=== PATIENT | female | born 1965 ===

== ENCOUNTER 2021-06-12 12:54 | Inpatient (IN) | payer MEDICAID, SELFPAY ==
[2021-06-12] VITALS (7 sets, daily range): BP systolic 120–182; BP diastolic 64–80; PULSE 77–91; RESP 16–20; TEMP 36.5–36.9; O2SAT 95–99; BMI 31.5
--- NOTE | ~2021-06-12 | CT_ITS ---
EXAMINATION: CT ABDOMEN AND PELVIS WITH CONTRAST CLINICAL INFORMATION: Nausea, vomiting, diarrhea. Epigastric abdominal pain. COMPARISON: None TECHNIQUE: Multidetector volumetric images were obtained from the superior aspect of the liver through the pubic symphysis following administration 85 mL of Omnipaque 350 intravenous contrast. Sagittal and coronal reformatted images were obtained on the technologist's workstation. Oral contrast: No This CT examination was performed using dose optimization techniques as appropriate, variously including the following: *Automated exposure control *Adjustment of mA and/or kV according to patient size (this includes techniques or standardized protocols for targeted exams where dose is matched to indication/reason for exam; i.e. extremities or head) *Use of iterative reconstruction technique DLP: 668 mGy-cm FINDINGS: LUNG BASES: Minimal groundglass opacities are seen at the lung bases favoring atelectasis. LIVER, GALLBLADDER, AND BILIARY TREE: The liver is normal in size, shape, and attenuation. No focal hepatic lesion or biliary ductal dilatation is present. Cholecystectomy. PANCREAS: The pancreas is abnormal. There is diffuse atrophy of the pancreatic parenchyma with calcifications throughout the parenchyma. Diffuse pancreatic ductal dilatation, measuring up to 0.9 cm. There is mild stranding in the fat along the pancreas, particularly at the pancreatic tail. Fluid is seen tracking along the greater curvature of the stomach. This appears somewhat well marginated. SPLEEN: Unremarkable. ADRENAL GLANDS: Unremarkable. KIDNEYS AND URETERS: The kidneys are normal in size, shape, and attenuation. No hydronephrosis, hydroureter, or calculi seen. No perinephric stranding. BLADDER: Unremarkable. GASTROINTESTINAL TRACT: The stomach is unremarkable. Normal caliber of the small bowel. No obstruction. Normal appendix. No colonic wall thickening or acute inflammatory change. No free air. ABDOMINAL WALL: No significant hernia is appreciated. LYMPH NODES: Normal. VASCULAR: Normal caliber aorta with mild atherosclerotic calcifications. PELVIC VISCERA: Anteverted uterus. Prominent endometrium measuring 0.9 cm. OSSEOUS STRUCTURES: No acute or suspicious osseous abnormality. Degenerative changes throughout the spine. Anterior fusion of the T10 and T11 vertebral bodies. CT/CT abdomen pelvis w con IMPRESSION: Appearance of chronic pancreatitis, with diffuse calcifications throughout the atrophied parenchyma. Dilated pancreatic duct. Stranding along the pancreas suggests acute on chronic process. Additionally, fluid tracking along the greater curvature of the stomach may represent a pseudocyst. Thickening of the endometrial canal. Suggest nonemergent gynecologic evaluation..
[2021-06-12 16:41] LABS: MANUAL DIFF FLAG NO
[2021-06-12 16:45] LABS: Glucose Urine UA NEG (NEG); Leukocyte Esterase Urine 1+ (NEG); Nitrite Urine NEG (NEG); UACC Culture Trigger YES; Urine Blood NEG (NEG); Urine Ketones 15 MG/DL (NEG); Urine Protein NEG (NEG-TRACE)
[2021-06-12 16:47] LABS: Basophils Percent Auto 0.3 % (0-2); Eosinophils Percent Auto 0.1 % (0-4); Hematocrit 36.8 % (37-47); Hemoglobin 12.2 g/dl (12.0-16.0); Imm Gran Abs Auto 0.03 X10*3/uL (0.00-0.03); Imm Gran Pct Auto 0.3 % (0.0-0.4); Lymphocytes Absolute Auto 0.6 X10*3/uL (1.2-4.9); Lymphocytes Percent Auto 6.6 % (20-40); Mean Corpuscular HGB Conc 33.2 g/dl (31.0-35.0); Mean Corpuscular Hemoglobin 29.7 pg (27.0-33.0); Mean Corpuscular Volume 89.5 fL (80-98); Mean Platelet Volume 11.4 fL (9.4-12.3); Monocytes Absolute Auto 0.4 X10*3/uL (0.1-1.2); Monocytes Percent Auto 4.5 % (2-11); Neutrophils Absolute Auto 8.6 X10*3/uL (2.0-8.3); Neutrophils Percent Auto 88.2 % (45-73); Platelet Count 198 X10*3/uL (160-400); Red Blood Count 4.11 X10*6/uL (4.20-5.50); Red Cell Distribution Width 13.5 % (11.0-16.0); White Blood Count 9.7 X10*3/uL (4.8-10.8)
[2021-06-12 16:48] LABS: Appearance Urine CLEAR; Color Urine YELLOW
[2021-06-12 16:55] LABS: RBC Urine 0 /HPF (0); Squamous Epithelial Cell Urine 1+ /LPF; UACC CULT YES
--- NOTE | 2021-06-12 17:11 | ED_ITS ---
HPI - Abdominal Pain General Chief Complaint: Abdominal Pain Stated Complaint: abdominal pain Time Seen by Provider: 06/12/21 16:17 Source: patient Mode of arrival: ambulatory Limitations: no limitations History of Present Illness HPI narrative: 56-year-old female with a past medical history of pancreatitis, cirrhosis, hypertension and prediabetic presenting to the ED with complaints of 5 days of epigastric abdominal pain with associated nausea/vomiting and diarrhea. She reports this started after she ate some pork. She reports she has had this in the past a few years ago in [place]. Reports recent alcohol use is the day prior to this abdominal pain started she drank some beers. 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 She denies any fevers, chills, dizziness, headaches, chest pain, shortness of breath, palpitations, radiation of the abdominal pain, dysuria, hematuria, black or bloody stools, constipation, weakness, recent travel or sick contacts or any other symptoms complaints or concerns at this time MD elicited complaint: abdominal pain Pertinent past history: other (Pancreatitis) Onset (ago): day(s) (Five days) Pain Consistency: constant Location: epigastric Severity: moderate Quality: aching and sharp Radiation: none Migration to: no migration Exacerbating factors: eating Relieving factors: nothing Context: other (After eating pork this started) Associated symptoms: nausea, vomiting and diarrhea Related Data Home Medications Medication Instructions Recorded Confirmed citalopram 20 mg tablet 1 tab PO DAILY 06/12/21 06/12/21 folic acid 1 mg tablet 1 tab PO DAILY 06/12/21 06/12/21 furosemide 20 mg tablet 1 tab PO DAILY 06/12/21 06/12/21 lactulose 10 gram/15 mL oral 15 ml PO Q OTHER DAY 06/12/21 06/12/21 solution multivitamin 1 tab PO DAILY 06/12/21 06/12/21 omeprazole 20 mg capsule,delayed 1 cap PO DAILY 06/12/21 06/12/21 release spironolactone 50 mg tablet 1 tab PO DAILY 06/12/21 06/12/21 Allergies Allergy/AdvReac Type Severity Reaction Status Date / Time Penicillins Allergy Itching Verified 06/12/21 13:15 Review of Systems Review of Systems Constitutional : No Weight loss, No Fever, No Chills, No Night Sweats, No Fatigue, No Malaise ENT/Mouth: No ear pain, No sore throat, No Difficulty swallowing Cardiovascular : No Chest Pain, No SOB, No Dyspnea on Exertion, No Orthopnea, NoEdema, No Palpitations Respiratory : No Cough, No Sputum, No Wheezing, No Dyspnea Gastrointestinal : Positive nausea/vomiting/epigastric abdominal pain/diarrhea, No blood streaked emesis, No coffee-ground emesis, No gross hematemesis, No blood streak stool, No gross hematochezia, No Melena Genitourinary : No irregular bleeding, No Dysuria, No Urinary Frequency, No Hematuria,No Urinary Incontinence, No Urgency, No Flank Pain Musculoskeletal : No joint pain, No Myalgias, No Joint Swelling Skin : No Skin Lesions, No rash Neuro : No Weakness, No Numbness, No Paresthesias, No Loss of Consciousness, NoDizziness, No Headache Psych : No Social Issues, Heme/Lymph: No Bruising, No Bleeding,No Lymphadenopathy Endocrine : No Polyuria, No Polydipsia, No Temperature Intolerance Yes all other systems are reviewed and are negative Physical Exam Vital Signs: Vital Signs: Last Vital Signs Temp 98.5 F 06/12/21 19:02 Pulse 91 06/12/21 19:02 Resp 17 06/12/21 19:02 BP 130/66 06/12/21 19:02 Pulse Ox 98 06/12/21 19:02 Body Mass Index 31.5 vital signs have been reviewed as normal and appeared to be correct. Blood pressure hypertensive at 145/64. Heart rate normal. Respiration rate normal. Temperature normal. Oxygen saturation normal. Appearance: Alert. Oriented X3. No acute distress. Head: Normal external exam. Normocephalic. Eyes: PERRLA. EOMI. Conjunctiva and sclera normal. Eyelids normal. ENT: Pharynx normal. Uvula midline. Moist mucous membranes. Neck: Normal inspection. Neck supple. FROM. No adenopathy. No meningeal signs. CVS: Normal heart rate and rhythm. Heart sound normal. No murmurs noted. Pulses normal throughout. Respiratory: No respiratory distress. Painless inspiration. Breath sounds normal. No wheezes/rales/rhonchi noted. Chest nontender. No accessory muscle usage noted or decreased air movement noted. Abdomen: Soft and moderate tenderness to palpation to epigastric area with guarding Nondistended. No rigidity. Bowel sounds normal in all 4 quadrants. No distention noted. No organomegaly noted. No visible injury noted. No rebound tenderness. Negative Rovsing sign. Negative obturator's sign. Negative psoas sign. Negative Rich sign. Back: No CVA tenderness. Full range of motion noted. Skin: Skin warm and dry. Normal skin color. Normal skin turgor. No rashes/lesions/lacerations noted. Extremities: Extremities exhibit normal range of motion. Extremities nontender. Neuro: Oriented X 3. No motor deficit. No sensory deficit. Reflexes normal. Normal steady gait. Course Course Course Narrative: 6:50pm - 56-year-old female presenting to the ED with complaints of epigastric abdominal pain for the past 5 days worse today with associated nausea/vomiting/diarrhea. History of pancreatitis in the past. Has a history of cholecystectomy. Reports this started after eating pork. Reports recent alcohol use is the day prior to this abdominal pain started she drank some beers. 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 No recent travel or sick contacts. On exam patient is alert and oriented x3. Not in any acute distress. Mildly hypertensive otherwise other vitals are withi n normal limits. CV RRR. Lungs clear to auscultation. Patient with mild epigastric abdominal pain with guarding. No CVA tenderness is noted. Plan: Labs, CT scan abdomen pelvis with IV contrast. Provide a L of IV fluids 4 mg of Zofran and 4 mg of morphine and re-evaluate. Reevaluation(s) Reevaluation #1: - Labs reviewed carbon dioxide 20. Anion gap 22. Random glucose 144. Alkaline phosphate 193. LDH 365. Total protein 8.6. Lipase 112. Otherwise all other labs are within normal limits. White blood cell count revealed +1 leukocytes otherwise no evidence of UTI. - CT scan abdomen and pelvis revealed acute on chronic pancreatitis - therefore at this time will consult with hospitalist Dr. Irizarry Time: 18:53 MDM - Abdominal Pain Medical Records Attestation: I reviewed the patient's medical records. Lab Data Attestation: I reviewed the patient's lab results. Result diagrams: 06/12/21 16:14 06/12/21 16:14 Labs: Lab Results 06/12/21 06/12/21 06/12/21 Range/Units 16:14 16:14 16:14 WBC 9.7 (4.8-10.8) X10*3/uL RBC 4.11 L (4.20-5.50) X10*6/uL Hgb 12.2 (12.0-16.0) g/dl Hct 36.8 L (37-47) % MCV 89.5 (80-98) fL MCH 29.7 (27.0-33.0) pg MCHC 33.2 (31.0-35.0) g/dl RDW 13.5 (11.0-16.0) % Plt Count 198 (160-400) X10*3/uL MPV 11.4 (9.4-12.3) fL Immature Gran % (Auto) 0.3 (0.0-0.4) % Neut % (Auto) 88.2 H (45-73) % Lymph % (Auto) 6.6 L (20-40) % Power % (Auto) 4.5 (2-11) % Eos % (Auto) 0.1 (0-4) % Baso % (Auto) 0.3 (0-2) % Lymph # (Auto) 0.6 L (1.2-4.9) X10*3/uL Power # (Auto) 0.4 (0.1-1.2) X10*3/uL Eos # (Auto) 0.0 (0.0-0.4) X10*3/uL Baso # (Auto) 0.0 (0.0-0.2) X10*3/uL Abs Immat Gran (auto) 0.03 (0.00-0.03) X10*3/uL Absolute Neuts (auto) 8.6 H (2.0-8.3) X10*3/uL Absolute Nucleated RBC 0.000 (0.0-0.012) X10*3/uL Nucleated RBC % (auto) 0.0 (0.0-0.2) /100WBC Sodium 136 (135-145) mmol/L Potassium 4.8 (3.3-5.1) mmol/L Chloride 99 (96-108) mmol/L Carbon Dioxide 20 L (22-29) mmol/L Anion Gap 22 H (12-20) BUN 13 (9-16) mg/dL Creatinine 0.81 (0.5-1.4) mg/dL Estim Creat Clear Calc 76.2 Estimated GFR > 60 Random Glucose 144 H (60-115) mg/dL Calcium 9.3 (8.4-10.2) mg/dL Total Bilirubin 0.5 (0.0-1.0) mg/dL Direct Bilirubin < 0.2 (0.0-0.5) mg/dL AST 29 (5-31) U/L ALT 19 (0-31) U/L Alkaline Phosphatase 193 H (39-117) U/L Lactate Dehydrogenase 365 H (122-220) U/L Total Protein 8.6 H (6.5-8.0) g/dL Albumin 4.2 (3.5-5.0) g/dL Lipase 112 H (8-78) U/L Urine Color YELLOW Urine Appearance CLEAR Urine pH 6.0 (5.0-8.0) Ur Specific [place] 1.020 (1.005-1.025) Urine Protein NEG (NEG-TRACE) MG/DL Urine Glucose (UA) NEG (NEG) MG/DL Urine Ketones 15 (NEG) MG/DL Urine Blood NEG (NEG) Urine Nitrite NEG (NEG) Ur Leukocyte Esterase 1+ H (NEG) Urine RBC 0 (0) /HPF Urine WBC 1-4 (0-4) /HPF Ur Squamous Epith Cells 1+ /LPF Urine Bacteria NONE /LPF Imaging Data CT scan abdomen pelvis with IV contrast: Attestation: I personally reviewed and interpreted this imaging study as follows: Radiologist's impression: FINDINGS: LUNG BASES: Minimal groundglass opacities are seen at the lung bases favoring atelectasis.? LIVER, GALLBLADDER, AND BILIARY TREE: The liver is normal in size, shape, and attenuation. No focal hepatic lesion or biliary ductal dilatation is present. Cholecystectomy.? PANCREAS: The pancreas is abnormal. There is diffuse atrophy of the pancreatic parenchyma with calcifications throughout the parenchyma. Diffuse pancreatic ductal dilatation, measuring up to 0.9 cm. There is mild stranding in the fat along the pancreas, particularly at the pancreatic tail. Fluid is seen tracking along the greater curvature of the stomach. This appears somewhat well marginated.? SPLEEN: Unremarkable.? ADRENAL GLANDS: Unremarkable.? KIDNEYS AND URETERS: The kidneys are normal in size, shape, and attenuation. No hydronephrosis, hydroureter, or calculi seen. No perinephric stranding. ? BLADDER: Unremarkable.? GASTROINTESTINAL TRACT: The stomach is unremarkable. Normal caliber of the small bowel. No obstruction. Normal appendix. No colonic wall thickening or acute inflammatory change. No free air.? ABDOMINAL WALL: No significant hernia is appreciated.? LYMPH NODES: Normal. VASCULAR: Normal caliber aorta with mild atherosclerotic calcifications. PELVIC VISCERA: Anteverted uterus. Prominent endometrium measuring 0.9 cm.? OSSEOUS STRUCTURES: No acute or suspicious osseous abnormality. Degenerative changes throughout the spine. Anterior fusion of the T10 and T11 vertebral bodies.? CT/CT abdomen pelvis w con IMPRESSION: Appearance of chronic pancreatitis, with diffuse calcifications throughout the atrophied parenchyma. Dilated pancreatic duct. Stranding along the pancreas suggests acute on chronic process. Additionally, fluid tracking along the greater curvature of the stomach may represent a pseudocyst. ? Thickening of the endometrial canal. Suggest nonemergent gynecologic evaluation..? Critical Care Time Critical Care Time Critical Care Time: Yes Total Critical Care Time: 60 Attestation: I personally attest to this time spent taking care of the patient Discharge Plan Discharge Clinical Impression: Pancreatitis Patient Disposition: Admitted As Inpatient [facility] Past Medical History Attestation statement: The following information was validated with the patient. Medical History delivery delivered Cirrhosis HTN (hypertension) Prediabetes Surgical History History of cholecystectomy Social History Social History Alcohol intake: current Alcohol intake frequency: holidays/special occasions only Patient Tobacco Use Status: Never used Tobacco Use of substances other than those prescribed or required for medical reasons: No Advance Directives: No Advance Directives Information Provided: No Patient : No
[2021-06-12] MEDS: 0.9 % Sodium Chloride 1,000 ML 999 ML IVCONT (17:16)
[2021-06-12] MEDS: Morphine Sulfate 4 MG/ML CARTRIDGE IVPUSH ×2 (17:16→22:31)
[2021-06-12 17:20] LABS: Alanine Aminotransferase 19 U/L (0-31); Albumin Level 4.2 g/dL (3.5-5.0); Alkaline Phosphatase 193 U/L (39-117); Anion Gap 22 (12-20); Aspartate Amino Transferase 29 U/L (5-31); Bilirubin Direct < 0.2 mg/dL (0.0-0.5); Bilirubin Total 0.5 mg/dL (0.0-1.0); Blood Urea Nitrogen 13 mg/dL (9-16); Calcium 9.3 mg/dL (8.4-10.2); Carbon Dioxide 20 mmol/L (22-29); Chloride 99 mmol/L (96-108); Creatinine Clr Calc Pharmacy 76.2; Estimated Glomerular Filt Rate > 60; Glucose Random 144 mg/dL (60-115); Lactate Dehydrogenase 365 U/L (122-220); Lipase 112 U/L (8-78); Potassium 4.8 mmol/L (3.3-5.1); Sodium 136 mmol/L (135-145); Total Protein 8.6 g/dL (6.5-8.0)
--- NOTE | 2021-06-12 17:23 | PC.NURSE ---
Pt to ct via stretcher alert and in no acute distress
[2021-06-12] MEDS: iohexoL 350 MG/ML 100 ML INFUS..BTL IV (17:35)
--- NOTE | 2021-06-12 19:07 | PC.NURSE ---
Pt aaox4, resting on stretcher in NAD, breathing with ease on RA. Pt denies pain/discomfort at this time, denies n/v/d. Pt reports hx of pancreatitis, states the doctor told me I was staying in the hospital. Pt is agreeable to plan for admission. Pt VSS. This RN obtained covid swab, to send to lab for processing. Pt offers no complaints. Stretcher in low locked position, rails raised, call [facility] within reach.
--- NOTE | 2021-06-12 19:20 | PHA.MEDREC ---
Pharmacy Consult ? Medication Reconciliation Pharmacy has completed the medication reconciliation.
[2021-06-12 19:25] LABS: Triglycerides 205 mg/dL
[2021-06-12 19:30] LABS: COVID-19 Test Negative (Negative); IDNOW Serial# 9DD0AD1C
[2021-06-12] MEDS: cefTRIAXone sodium 1 GM in 0.9 % Sodium Chloride 50 ML IV (23:35)
--- NOTE | 2021-06-12 23:35 | PC.NURSE ---
this rn TT Juan C regarding ? need for blood cultures before rocephin. Before Juan C answered, this RN asked Zohreh LERMA who had cared for pt in ED prior to admission if she wanted cultures for pt. Zohreh placed order as precaution. This RN saw Juan C in ED and asked if she wanted the BC which she said was not needed for this pt
[2021-06-13] VITALS (8 sets, daily range): BP systolic 105–143; BP diastolic 58–66; PULSE 69–87; RESP 16–20; TEMP 36.1–36.8; O2SAT 92–96
[2021-06-13] MEDS: Lactulose 20 GM/30 ML SOLUTION 10 GM PO (01:17)
[2021-06-13] MEDS: Heparin Sodium,Porcine 5,000 UNIT/ML VIAL 5000 UNIT SUBCUT ×3 (01:17→22:51)
[2021-06-13] MEDS: Lactated Ringers 1,000 ML 150 ML IVCONT ×3 (01:17→15:04)
[2021-06-13] MEDS: Morphine Sulfate 4 MG/ML CARTRIDGE IVPUSH ×3 (03:27→16:53)
[2021-06-13 05:06] LABS: MANUAL DIFF FLAG NO
[2021-06-13 05:22] LABS: Basophils Percent Auto 0.3 % (0-2); Eosinophils Absolute Auto 0.1 X10*3/uL (0.0-0.4); Eosinophils Percent Auto 0.9 % (0-4); Hematocrit 31.8 % (37-47); Hemoglobin 10.5 g/dl (12.0-16.0); Imm Gran Abs Auto 0.02 X10*3/uL (0.00-0.03); Imm Gran Pct Auto 0.3 % (0.0-0.4); Lymphocytes Percent Auto 15.5 % (20-40); Mean Corpuscular Hemoglobin 29.7 pg (27.0-33.0); Mean Corpuscular Volume 90.1 fL (80-98); Mean Platelet Volume 11.2 fL (9.4-12.3); Monocytes Absolute Auto 0.6 X10*3/uL (0.1-1.2); Monocytes Percent Auto 9.2 % (2-11); Neutrophils Absolute Auto 4.7 X10*3/uL (2.0-8.3); Neutrophils Percent Auto 73.8 % (45-73); Platelet Count 181 X10*3/uL (160-400); Red Blood Count 3.53 X10*6/uL (4.20-5.50); Red Cell Distribution Width 13.4 % (11.0-16.0); White Blood Count 6.4 X10*3/uL (4.8-10.8)
[2021-06-13 05:37] LABS: Anion Gap 13 (12-20); Blood Urea Nitrogen 10 mg/dL (9-16); Calcium 8.6 mg/dL (8.4-10.2); Carbon Dioxide 25 mmol/L (22-29); Chloride 103 mmol/L (96-108); Creatinine Clr Calc Pharmacy 77.1; Estimated Glomerular Filt Rate > 60; Glucose Random 110 mg/dL (60-115); Potassium 4.4 mmol/L (3.3-5.1); Sodium 137 mmol/L (135-145)
--- NOTE | 2021-06-13 05:56 | P.HPHOSP_ITS ---
History of Present Illness Date of Service: 06/12/21 Chief Complaint: Abdominal pain This is a 56-year-old female with past medical history of liver cirrhosis secondary to alcohol abuse, HTN, prediabetic who presents the hospital with complaints of epigastric abdominal pain. Patient reports that his symptoms star harmony on Wednesday, worsened over the next few days. Initially she thought it was gas and thought it would go away but her symptoms only worsened. She describes the pain as epigastric, radiating to the back, 10/10, intermittent, worse with eating, she has not developed nausea and vomiting, no diarrhea or constipation. She denies any fever or chills, no chest pain or shortness of breath, no urinary symptoms and no lower extremity edema. No numbness tingling or weakness. No headache or change in vision Patient reports that she used to be an alcoholic, she had an drink for 6 years but relapsed on Wednesday. She has not drink since Wednesday Review of system otherwise negative On arrival to the ED patient hemodynamically stable with no significant abnormal vitals except for a blood pressure 1 80s over 76 that has now normalize Labs are significant for WBC count of 6.4, hemoglobin of 10.4, lipase of 112, alk-phos of 1 and 3, LDH of 365, triglycerides of 205, UA that is positive for some leukocyte Estrace and WBC, CT abdomen showed appearance chronic pancreatitis with diffuse calcifications throughout the a triple eyed parenchyma. Dilated pancreatic duct. Stranding along the pancreas suggest acute on chronic process. Review of Systems Review of Systems: Yes all other systems are reviewed and are negative [facility] Medical History (Updated 06/13/21 @ 06:02 by Yadira Irizarry MD) delivery delivered Cirrhosis HTN (hypertension) Prediabetes Surgical History History of cholecystectomy Social History Household Members: Family Housing: House Do you presently have visiting nurse or other home services: No Alcohol intake: current Alcohol intake frequency: holidays/special occasions only Patient Tobacco Use Status: Never used Tobacco Use of substances other than those prescribed or required for medical reasons: No Have you been hit, kicked, punched, or otherwise hurt by someone within the past year? If so, by whom?: No Do you feel safe in your current relationship?: No Is there a partner from a previous relationship who is making you feel unsafe now?: No Are you made to feel afraid or neglected: No Advance Directives: No Advance Directives Information Provided: No Do you have thoughts of harming others: None Do you have a plan to hurt others: No Plan Recently lost weight without trying: No Nutrition Risks: No Nutritional Risk Patient : No Meds Allergies Allergy/AdvReac Type Severity Reaction Status Date / Time Penicillins Allergy Itching Verified 06/12/21 13:15 Active Medications: Current Medications Generic Name Dose Route Start Last Admin Trade Name Freq PRN Reason Stop Dose Admin Acetaminophen 650 mg 06/12/21 23:25 Acetaminophen 325 Mg Tablet PO Q6H PRN Pain, Mild (Pain Scale 1-3) Escitalopram Oxalate 10 mg 06/13/21 09:00 Escitalopram Oxalate 10 Mg Tablet PO DAILY [facility] Folic Acid 1 mg 06/13/21 09:00 Folic Acid 1 Mg Tablet PO DAILY [facility] Furosemide 20 mg 06/13/21 09:00 Furosemide 20 Mg Tablet PO DAILY [facility] Protocol Heparin Sodium (Porcine) 5,000 unit 06/12/21 23:25 06/13/21 01:17 Heparin Sodium,Porcine 5,000 Unit/Ml Vial SUBCUT 5,000 unit Q12H [facility] Administration Ceftriaxone Sodium 1 gm/ 50 mls @ 100 mls/hr 06/12/21 23:00 06/13/21 00:35 Sodium Chloride IV Infused Q24H [facility]ED Infusion Lactated Ringer's 1,000 mls @ 150 mls/hr 06/12/21 23:25 06/13/21 01:17 Lr IVCONT 150 mls/hr .Q6H40M JAVED Administration Lactulose 10 gm 06/12/21 23:25 06/13/21 01:17 Lactulose 20 Gm/30 Ml Solution PO 10 gm Q48H [facility]AVED Administration Morphine Sulfate 4 mg 06/12/21 23:25 06/13/21 03:27 Morphine Sulfate 4 Mg/Ml Cartridge IVPUSH 4 mg Q4H PRN Administration Pain, Severe (Pain Scale 7-10) Multivitamins/Vitamin C 1 tab 06/13/21 09:00 Multivitamin Tablet PO DAILY [facility] Omeprazole 20 mg 06/13/21 09:00 Omeprazole 20 Mg Capsule. PO DAILY [facility] Ondansetron HCl 4 mg 06/12/21 23:25 Ondansetron Hcl 4 Mg/2 Ml Vial IVPUSH Q8H PRN Nausea and Vomiting Pharmacy Consult 1 each 06/12/21 18:58 Consult Rx Perform Med Rec MISCELLANE ONCE PRN Consult order Sodium Chloride 3 ml 06/13/21 00:00 06/13/21 01:18 0.9 % Sodium Chloride Flush 3 Ml Syringe [facility]FLUSH [facility] Spironolactone 50 mg 06/13/21 09:00 Spironolactone 25 Mg Tablet PO DAILY [facility] Protocol Home Medications Medication Instructions Recorded Confirmed Last Taken Type citalopram 20 mg tablet 1 tab PO DAILY 06/12/21 06/12/21 06/12/21 History folic acid 1 mg tablet 1 tab PO DAILY 06/12/21 06/12/21 06/12/21 History furosemide 20 mg tablet 1 tab PO DAILY 06/12/21 06/12/21 06/12/21 History lactulose 10 gram/15 mL oral 15 ml PO Q OTHER DAY 06/12/21 06/12/21 06/09/21 History solution multivitamin 1 tab PO DAILY 06/12/21 06/12/21 06/12/21 History omeprazole 20 mg capsule,delayed 1 cap PO DAILY 06/12/21 06/12/21 06/12/21 History release spironolactone 50 mg tablet 1 tab PO DAILY 06/12/21 06/12/21 06/12/21 History Physical Exam Vital Signs and Narrative: Vital Signs: Last Vital Signs Temp 97.2 F 06/13/21 03:34 Pulse 87 06/13/21 03:34 Resp 16 06/13/21 03:34 BP 113/66 06/13/21 03:34 Pulse Ox 92 06/13/21 03:34 Body Mass Index 31.5 Const: General: cooperative and no acute distress Orie ntation/consciousness: patient oriented x3 Eyes: General: appearance normal, both eyes and all related structures Resp: Effort & Inspection: normal respiratory effort and able to speak in complete sentences Cardio: Rate: regular rate Rhythm: regular rhythm GI: Other: Epigastric tenderness, no rebound, No guarding Palpation (GI): Soft to palpation Auscultation: normal bowel sounds Skin: General skin exam: no rashes or lesions noted Neuro: General: patient oriented x3 Cognition (Neuro): normal cognition Extrem: General: Yes normal to inspection and Yes no pedal edema Results Labs CBC and Chem 7: 06/13/21 04:24 06/13/21 04:24 Labs: Laboratory Results - last 24 hr 06/12/21 06/12/21 06/12/21 16:14 16:14 16:14 MCV 89.5 MCH 29.7 MCHC 33.2 RDW 13.5 Plt Count 198 MPV 11.4 Immature Gran % (Auto) 0.3 Neut % (Auto) 88.2 H Lymph % (Auto) 6.6 L Desha % (Auto) 4.5 Eos % (Auto) 0.1 Baso % (Auto) 0.3 Lymph # (Auto) 0.6 L [place]ha # (Auto) 0.4 Eos # (Auto) 0.0 Baso # (Auto) 0.0 Abs Immat Gran (auto) 0.03 Absolute Neuts (auto) 8.6 H Absolute Nucleated RBC 0.000 Nucleated RBC % (auto) 0.0 Anion Gap 22 H Estim Creat Clear Calc 76.2 Estimated GFR > 60 Random Glucose 144 H Calcium 9.3 Total Bilirubin 0.5 Direct Bilirubin < 0.2 AST 29 ALT 19 Alkaline Phosphatase 193 H Lactate Dehydrogenase 365 H Total Protein 8.6 H Albumin 4.2 Triglycerides 205 Lipase 112 H Urine Color YELLOW Urine Appearance CLEAR Urine pH 6.0 Ur Specific [place] 1.020 Urine Protein NEG Urine Glucose (UA) NEG Urine Ketones 15 Urine Blood NEG Urine Nitrite NEG Ur Leukocyte Esterase 1+ H Urine RBC 0 Urine WBC 1-4 Ur Squamous Epith Cells 1+ Urine Bacteria NONE COVID-19 ([facility]) COVID-19 Clin Com 06/12/21 06/13/21 06/13/21 19:06 04:24 04:24 MCV 90.1 MCH 29.7 MCHC 33.0 RDW 13.4 Plt Count 181 MPV 11.2 Immature Gran % (Auto) 0.3 Neut % (Auto) 73.8 H Lymph % (Auto) 15.5 L Desha % (Auto) 9.2 Eos % (Auto) 0.9 Baso % (Auto) 0.3 Lymph # (Auto) 1.0 L [place]ha # (Auto) 0.6 Eos # (Auto) 0.1 Baso # (Auto) 0.0 Abs Immat Gran (auto) 0.02 Absolute Neuts (auto) 4.7 Absolute Nucleated RBC 0.000 Nucleated RBC % (auto) 0.0 Anion Gap 13 Estim Creat Clear Calc 77.1 Estimated GFR > 60 Random Glucose 110 Calcium 8.6 D Total Bilirubin Direct Bilirubin AST ALT Alkaline Phosphatase Lactate Dehydrogenase Total Protein Albumin Triglycerides Lipase Urine Color Urine Appearance Urine pH Ur Specific [place] Urine Protein Urine Glucose (UA) Urine Ketones Urine Blood Urine Nitrite Ur Leukocyte Esterase Urine RBC Urine WBC Ur Squamous Epith Cells Urine Bacteria COVID-19 ([facility]) Negative COVID-19 Clin Com See Note Imaging Radiologist's Impressions: Impressions Abdomen/Pelvis CT 06/12/21 16:47 IMPRESSION: Appearance of chronic pancreatitis, with diffuse calcifications throughout the atrophied parenchyma. Dilated pancreatic duct. Stranding along the pancreas suggests acute on chronic process. Additionally, fluid tracking along the greater curvature of the stomach may represent a pseudocyst. Thickening of the endometrial canal. Suggest nonemergent gynecologic evaluation.. Assessment and Plan (1) Pancreatitis: Status: Acute (2) History of alcohol abuse: Status: Acute 56-year-old female who presents to the hospital with abdominal pain found to ackerman ve acute pancreatitis # abdominal pain - secondary to acute pancreatitis - will treat with IV fluids, - pain management # acute pancreatitis - most likely secondary to alcohol abuse - normal triglyceride level, status post cholecystectomy in the past, no evidence of stone in the bile duct - will treat with IV fluid - NPO # history of alcohol abuse - last drink was Wednesday - patient denies any withdrawal symptoms - has not had any withdrawal symptoms since Wednesday - will start on folic acid and time # hypertension - stable - can you home medication DVT prophylaxis: Heparin subQ Quality Stroke Does the patient have a stroke diagnosis?: No VTE Prior VTE?: No VTE Risk Level:: Medical - moderate - high VTE Device Contraindication: Treatment Not Indicated VTE Drug Contraindication: N/A - Med Ordered
[2021-06-13] MEDS: Folic Acid 1 MG TABLET PO (09:03)
[2021-06-13] MEDS: Thiamine HCL 100 MG TABLET PO (09:03)
[2021-06-13] MEDS: Escitalopram Oxalate 10 MG TABLET PO (09:04)
[2021-06-13] MEDS: Multivitamin TABLET 1 TAB PO (09:04)
[2021-06-13] MEDS: Omeprazole 20 MG CAPSULE.DR PO (09:04)
[2021-06-13] MEDS: Spironolactone 25 MG TABLET 50 MG PO (09:05)
[2021-06-13] MEDS: Furosemide 20 MG TABLET PO (09:06)
--- NOTE | 2021-06-13 13:18 | MHC.CM.PN ---
nurse care connector note electronic medical reciord reviewed along with case discussed with staff nurse and hospitlist patient repiorted she is followed by dr qureshi at the [facility] she also reported ekta she had covid in 2019 and recived the second covid shot moderna 04/22/21 she reported she is independent in all adls and mobility she has no servuices in the home or dme services patient reported she had histroy of etoh abuwe and hads developed cirrosis and has not been drinking over the last 6 years she reported she has depression but does not see anyone and does not want to see anyone. patient was admitted with acute pancreatitis discharge plan hoem no services pcp patient instructe educated about he importance of having a health care proxyd to call for post hospitla discharge follow up transportation family
[2021-06-13] MEDS: 0.9 % Sodium Chloride Flush 3 ML SYRINGE IVFLUSH (15:05)
--- NOTE | 2021-06-13 15:15 | P.PNIM_ITS ---
Subjective Subjective Date of Service: 06/13/21 Interval History: the patient was seen and evaluated this morning Laying in bed, complaining of pain in epigastric area feels hungry Denies any fever, chills or shortness of breath No reported other overnight events. Systemic review: No fever, chills or weakness No chest pain, palpitation No shortness of breath or coughing Reporting abdominal pain and some nausea No urinary symptoms No any rash or wounds Physical Exam Vital Signs: Vital Signs: Last Vital Signs Temp 97.0 F 06/13/21 12:00 Pulse 70 06/13/21 12:00 Resp 18 06/13/21 12:00 BP 114/58 L 06/13/21 12:00 Pulse Ox 94 06/13/21 12:00 Body Mass Index 31.5 Const: Other: Constitutional : Alert, oriented, in mild distress from the pain Neck : Normal inspection, Supple Cardiovascular : RRR, S1 S2, no lower extremity edema Respiratory : Good bilateral air entry, no crackles, wheezes or rhonchi Gastrointestinal: soft, lax, decreased bowel sounds, generalized tenderness mainly in the epigastric area Skin : Warm/Dry, No rash Neurological : Alert & oriented x3, No focal deficit Objective Data Current Medications Generic Name Dose Route Start Last Admin Trade Name Freq PRN Reason Stop Dose Admin Acetaminophen 650 mg 06/12/21 23:25 Acetaminophen 325 Mg Tablet PO Q6H PRN Pain, Mild (Pain Scale 1-3) Escitalopram Oxalate 10 mg 06/13/21 09:00 06/13/21 09:04 Escitalopram Oxalate 10 Mg Tablet PO 10 mg DAILY [facility] Administration Folic Acid 1 mg 06/13/21 09:00 06/13/21 09:03 Folic Acid 1 Mg Tablet PO 1 mg DAILY [facility] Administration Furosemide 20 mg 06/13/21 09:00 06/13/21 09:06 Furosemide 20 Mg Tablet PO 20 mg DAILY [facility] Administration Protocol Heparin Sodium (Porcine) 5,000 unit 06/12/21 23:25 06/13/21 11:24 Heparin Sodium,Porcine 5,000 Unit/Ml Vial SUBCUT 5,000 unit Q12H [facility] Administration Ceftriaxone Sodium 1 gm/ 50 mls @ 100 mls/hr 06/12/21 23:00 06/13/21 00:35 Sodium Chloride IV Infused Q24H [facility] Infusion Lactated Ringer's 1,000 mls @ 150 mls/hr 06/12/21 23:25 06/13/21 15:04 Lr IVCONT 150 mls/hr .Q6H40M [facility] Administration Lactulose 10 gm 06/12/21 23:25 06/13/21 01:17 Lactulose 20 Gm/30 Ml Solution PO 10 gm Q48H [facility] Administration Morphine Sulfate 4 mg 06/12/21 23:25 06/13/21 09:58 Morphine Sulfate 4 Mg/Ml Cartridge IVPUSH 4 mg Q4H PRN Administration Pain, Severe (Pain Scale 7-10) Multivitamins/Vitamin C 1 tab 06/13/21 09:00 06/13/21 09:04 Multivitamin Tablet PO 1 tab DAILY [facility] Administration Omeprazole 20 mg 06/13/21 09:00 06/13/21 09:04 Omeprazole 20 Mg Capsule.Dr PO 20 mg DAILY [facility] Administration Ondansetron HCl 4 mg 06/12/21 23:25 Ondansetron Hcl 4 Mg/2 Ml Vial IVPUSH Q8H PRN Nausea and Vomiting Pharmacy Consult 1 each 06/12/21 18:58 Consult Rx Perform Med Rec MISCELLANE ONCE PRN Consult order Sodium Chloride 3 ml 06/13/21 00:00 06/13/21 15:05 0.9 % Sodium Chloride Flush 3 Ml Syringe IVFLUSH 3 ml QSHIFT [facility] Administration Spironolactone 50 mg 06/13/21 09:00 06/13/21 09:05 Spironolactone 25 Mg Tablet PO 50 mg DAILY [facility] Administration Protocol Thiamine HCl 100 mg 06/13/21 09:00 06/13/21 09:03 Thiamine Hcl 100 Mg Tablet PO 100 mg DAILY [facility] Administration Labs CBC & Chem 7: 06/13/21 04:24 06/13/21 04:24 Labs: Laboratory Results - last 24 hr 06/12/21 06/12/21 06/12/21 16:14 16:14 16:14 MCV 89.5 MCH 29.7 MCHC 33.2 RDW 13.5 Plt Count 198 MPV 11.4 Immature Gran % (Auto) 0.3 Neut % (Auto) 88.2 H Lymph % (Auto) 6.6 L [place] % (Auto) 4.5 Eos % (Auto) 0.1 Baso % (Auto) 0.3 Lymph # (Auto) 0.6 L [place] # (Auto) 0.4 Eos # (Auto) 0.0 Baso # (Auto) 0.0 Abs Immat Gran (auto) 0.03 Absolute Neuts (auto) 8.6 H Absolute Nucleated RBC 0.000 Nucleated RBC % (auto) 0.0 Anion Gap 22 H Estim Creat Clear Calc 76.2 Estimated GFR > 60 Random Glucose 144 H Calcium 9.3 Total Bilirubin 0.5 Direct Bilirubin < 0.2 AST 29 ALT 19 Alkaline Phosphatase 193 H Lactate Dehydrogenase 365 H Total Protein 8.6 H Albumin 4.2 Triglycerides 205 Lipase 112 H Urine Color YELLOW Urine Appearance CLEAR Urine pH 6.0 Ur Specific [place] 1.020 Urine Protein NEG Urine Glucose (UA) NEG Urine Ketones 15 Urine Blood NEG Urine Nitrite NEG Ur Leukocyte Esterase 1+ H Urine RBC 0 Urine WBC 1-4 Ur Squamous Epith Cells 1+ Urine Bacteria NONE COVID-19 ([facility]) COVID-19 Clin Com 06/12/21 06/13/21 06/13/21 19:06 04:24 04:24 MCV 90.1 MCH 29.7 MCHC 33.0 RDW 13.4 Plt Count 181 MPV 11.2 Immature Gran % (Auto) 0.3 Neut % (Auto) 73.8 H Lymph % (Auto) 15.5 L [place] % (Auto) 9.2 Eos % (Auto) 0.9 Baso % (Auto) 0.3 Lymph # (Auto) 1.0 L [place] # (Auto) 0.6 Eos # (Auto) 0.1 Baso # (Auto) 0.0 Abs Immat Gran (auto) 0.02 Absolute Neuts (auto) 4.7 Absolute Nucleated RBC 0.000 Nucleated RBC % (auto) 0.0 Anion Gap 13 Estim Creat Clear Calc 77.1 Estimated GFR > 60 Random Glucose 110 Calcium 8.6 D Total Bilirubin Direct Bilirubin AST ALT Alkaline Phosphatase Lactate Dehydrogenase Total Protein Albumin Triglycerides Lipase Urine Color Urine Appearance Urine pH Ur Specific [place] Urine Protein Urine Glucose (UA) Urine Ketones Urine Blood Urine Nitrite Ur Leukocyte Esterase Urine RBC Urine WBC Ur Squamous Epith Cells Urine Bacteria COVID-19 ([facility]) Negative COVID-19 Clin Com See Note Microbiology Microbiology Results: Microbiology 06/12/21 16:50 Urine Culture - Preliminary Urine clean catch - Urine tarango top No growth to date. 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
[2021-06-13] MEDS: cefTRIAXone sodium 1 GM in 0.9 % Sodium Chloride 50 ML IV (22:51)
[2021-06-14] VITALS (9 sets, daily range): BP systolic 106–120; BP diastolic 50–60; PULSE 57–68; RESP 16–19; TEMP 35.9–36.7; O2SAT 91–98
[2021-06-14] MEDS: Morphine Sulfate 4 MG/ML CARTRIDGE IVPUSH ×3 (00:13→21:20)
[2021-06-14] MEDS: 0.9 % Sodium Chloride Flush 3 ML SYRINGE IVFLUSH (00:40)
[2021-06-14] MEDS: Lactated Ringers 1,000 ML 150 ML IVCONT ×4 (02:46→22:16)
[2021-06-14 06:55] LABS: Hematocrit 29.8 % (37-47); Hemoglobin 9.9 g/dl (12.0-16.0); Mean Corpuscular HGB Conc 33.2 g/dl (31.0-35.0); Mean Corpuscular Hemoglobin 29.9 pg (27.0-33.0); Platelet Count 170 X10*3/uL (160-400); Red Blood Count 3.31 X10*6/uL (4.20-5.50); Red Cell Distribution Width 13.4 % (11.0-16.0); White Blood Count 3.9 X10*3/uL (4.8-10.8)
[2021-06-14 07:12] LABS: Anion Gap 11 (12-20); Blood Urea Nitrogen 6 mg/dL (9-16); Calcium 8.3 mg/dL (8.4-10.2); Carbon Dioxide 31 mmol/L (22-29); Chloride 103 mmol/L (96-108); Creatinine Clr Calc Pharmacy 81.2; Estimated Glomerular Filt Rate > 60; Glucose Random 105 mg/dL (60-115); Potassium 4.1 mmol/L (3.3-5.1); Sodium 141 mmol/L (135-145)
[2021-06-14] MEDS: Thiamine HCL 100 MG TABLET PO (08:19)
[2021-06-14] MEDS: Escitalopram Oxalate 10 MG TABLET PO (08:19)
[2021-06-14] MEDS: Omeprazole 20 MG CAPSULE.DR PO (08:19)
[2021-06-14] MEDS: Spironolactone 25 MG TABLET 50 MG PO (08:19)
[2021-06-14] MEDS: Multivitamin TABLET 1 TAB PO (08:19)
[2021-06-14] MEDS: Folic Acid 1 MG TABLET PO (08:19)
[2021-06-14] MEDS: Furosemide 20 MG TABLET PO (08:19)
[2021-06-14] MEDS: Heparin Sodium,Porcine 5,000 UNIT/ML VIAL 5000 UNIT SUBCUT (11:13)
--- NOTE | 2021-06-14 13:17 | P.PNIM_ITS ---
Subjective Subjective Date of Service: 06/14/21 Interval History: the patient was seen and evaluated this morning Laying in bed, complaining of pain in epigastric area specially when she eats Denies any fever, chills or shortness of breath No reported other overnight events. Systemic review: No fever, chills or weakness No chest pain, palpitation No shortness of breath or coughing Reporting abdominal pain and some nausea No urinary symptoms No any rash or wounds Physical Exam Vital Signs: Vital Signs: Last Vital Signs Temp 98.0 F 06/14/21 11:27 Pulse 57 06/14/21 11:27 Resp 17 06/14/21 11:27 BP 110/55 L 06/14/21 11:27 Pulse Ox 94 06/14/21 11:27 Body Mass Index 31.5 Const: Other: Constitutional : Alert, oriented, in mild distress from the pain Neck : Normal inspection, Supple Cardiovascular : RRR, S1 S2, no lower extremity edema Respiratory : Good bilateral air entry, no crackles, wheezes or rhonchi Gastrointestinal: soft, lax, decreased bowel sounds, generalized tenderness mainly in the epigastric area Skin : Warm/Dry, No rash Neurological : Alert & oriented x3, No focal deficit Objective Data Current Medications Generic Name Dose Route Start Last Admin Trade Name Freq PRN Reason Stop Dose Admin Acetaminophen 650 mg 06/12/21 23:25 Acetaminophen 325 Mg Tablet PO Q6H PRN Pain, Mild (Pain Scale 1-3) Escitalopram Oxalate 10 mg 06/13/21 09:00 06/14/21 08:19 Escitalopram Oxalate 10 Mg Tablet PO 10 mg DAILY [facility] Administration Folic Acid 1 mg 06/13/21 09:00 06/14/21 08:19 Folic Acid 1 Mg Tablet PO 1 mg DAILY [facility] Administration Furosemide 20 mg 06/13/21 09:00 06/14/21 08:19 Furosemide 20 Mg Tablet PO 20 mg DAILY [facility] Administration Protocol Heparin Sodium (Porcine) 5,000 unit 06/12/21 23:25 06/14/21 11:13 Heparin Sodium,Porcine 5,000 Unit/Ml Vial SUBCUT 5,000 unit Q12H [facility] Administration Lactated Ringer's 1,000 mls @ 150 mls/hr 06/12/21 23:25 06/14/21 09:28 Lr IVCONT 150 mls/hr .Q6H40M [facility] Administration Lactulose 10 gm 06/12/21 23:25 06/13/21 01:17 Lactulose 20 Gm/30 Ml Solution PO 10 gm Q48H [facility] Administration Morphine Sulfate 4 mg 06/12/21 23:25 06/14/21 08:18 Morphine Sulfate 4 Mg/Ml Cartridge IVPUSH 4 mg Q4H PRN Administration Pain, Severe (Pain Scale 7-10) Multivitamins/Vitamin C 1 tab 06/13/21 09:00 06/14/21 08:19 Multivitamin Tablet PO 1 tab DAILY [facility] Administration Omeprazole 20 mg 06/13/21 09:00 06/14/21 08:19 Omeprazole 20 Mg Capsule. PO 20 mg DAILY [facility] Administration Ondansetron HCl 4 mg 06/12/21 23:25 Ondansetron Hcl 4 Mg/2 Ml Vial IVPUSH Q8H PRN Nausea and Vomiting Pharmacy Consult 1 each 06/12/21 18:58 Consult Rx Perform Med Rec MISCELLANE ONCE PRN Consult order Sodium Chloride 3 ml 06/13/21 00:00 06/14/21 08:04 0.9 % Sodium Chloride Flush 3 Ml Syringe IVFLUSH Not Given QSHIFT [facility] Spironolactone 50 mg 06/13/21 09:00 06/14/21 08:19 Spironolactone 25 Mg Tablet PO 50 mg DAILY [facility] Administration Protocol Thiamine HCl 100 mg 06/13/21 09:00 06/14/21 08:19 Thiamine Hcl 100 Mg Tablet PO 100 mg DAILY [facility] Administration Labs CBC & Chem 7: 06/14/21 06:24 06/14/21 06:24 Labs: Laboratory Results - last 24 hr 06/14/21 06/14/21 06:24 06:24 MCV 90.0 MCH 29.9 MCHC 33.2 RDW 13.4 Plt Count 170 MPV 11.0 Absolute Nucleated RBC 0.000 Nucleated RBC % (auto) 0.0 Anion Gap 11 L Estim Creat Clear Calc 81.2 Estimated GFR > 60 Random Glucose 105 Calcium 8.3 L Microbiology Microbiology Results: Microbiology 06/12/21 16:50 Urine Culture - Final Urine clean catch - Urine tarango top Assessment and Plan (1) Alcohol abuse: Status: Acute (2) Pancreatitis: Status: Acute Assessment and Plan: 56-year-old female who presents to the hospital with abdominal pain found to have acute pancreatitis # acute pancreatitis secondary to alcohol abuse Continue IV fluid Continue clear liquids Zofran for nausea Morphine for pain # history of alcohol abuse denies any withdrawal symptoms Advised to quit alcohol completely Keep on CIWA protocol Continue folic acid to # hypertension can you home medication # endometrial thickening Noticed on CT scan Discussed with the patient, to 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
[2021-06-15] VITALS (7 sets, daily range): BP systolic 98–134; BP diastolic 48–69; PULSE 59–68; RESP 16–18; TEMP 36–36.9; O2SAT 92–98
[2021-06-15] MEDS: Heparin Sodium,Porcine 5,000 UNIT/ML VIAL 5000 UNIT SUBCUT ×3 (00:50→22:11)
[2021-06-15] MEDS: Lactulose 20 GM/30 ML SOLUTION 10 GM PO (00:50)
[2021-06-15] MEDS: Lactated Ringers 1,000 ML 150 ML IVCONT (04:33)
[2021-06-15 08:00] LABS: Anion Gap 13 (12-20); Blood Urea Nitrogen 4 mg/dL (9-16); Calcium 8.4 mg/dL (8.4-10.2); Carbon Dioxide 29 mmol/L (22-29); Chloride 103 mmol/L (96-108); Creatinine Clr Calc Pharmacy 85.7; Estimated Glomerular Filt Rate > 60; Glucose Random 86 mg/dL (60-115); Potassium 3.9 mmol/L (3.3-5.1); Sodium 141 mmol/L (135-145)
[2021-06-15] MEDS: Spironolactone 25 MG TABLET 50 MG PO (08:32)
[2021-06-15] MEDS: Furosemide 20 MG TABLET PO (08:32)
[2021-06-15] MEDS: Omeprazole 20 MG CAPSULE.DR PO (08:32)
[2021-06-15] MEDS: Multivitamin TABLET 1 TAB PO (08:32)
[2021-06-15] MEDS: Thiamine HCL 100 MG TABLET PO (08:32)
[2021-06-15] MEDS: Folic Acid 1 MG TABLET PO (08:32)
[2021-06-15] MEDS: Escitalopram Oxalate 10 MG TABLET PO (08:32)
[2021-06-15] MEDS: 0.9 % Sodium Chloride Flush 3 ML SYRINGE IVFLUSH (08:33)
--- NOTE | 2021-06-15 11:08 | HO.PM.IMPN ---
Subjective Subjective Date of Service: 06/15/21 Interval History: the patient was seen and evaluated this morning Laying in bed, pain has improved significantly but still reporting it with drinking liquids Denies any fever, chills or shortness of breath No reported other overnight events. Systemic review: No fever, chills or weakness No chest pain, palpitation No shortness of breath or coughing Reporting abdominal pain and some nausea No urinary symptoms No any rash or wounds Physical Exam Vital Signs: Vital Signs: Last Vital Signs Temp 98.4 F 06/15/21 07:59 Pulse 59 06/15/21 07:59 Resp 18 06/15/21 07:59 BP 115/58 L 06/15/21 07:59 Pulse Ox 94 06/15/21 07:59 Body Mass Index 31.5 Const: Other: Constitutional : Alert, oriented, in mild distress from the pain Neck : Normal inspection, Supple Cardiovascular : RRR, S1 S2, no lower extremity edema Respiratory : Good bilateral air entry, no crackles, wheezes or rhonchi Gastrointestinal: soft, lax, decreased bowel sounds, generalized tenderness mainly in the epigastric area Skin : Warm/Dry, No rash Neurological : Alert & oriented x3, No focal deficit Objective Data Current Medications Generic Name Dose Route Start Last Admin Trade Name Freq PRN Reason Stop Dose Admin Acetaminophen 650 mg 06/12/21 23:25 Acetaminophen 325 Mg Tablet PO Q6H PRN Pain, Mild (Pain Scale 1-3) Escitalopram Oxalate 10 mg 06/13/21 09:00 06/15/21 08:32 Escitalopram Oxalate 10 Mg Tablet PO 10 mg DAILY JAVED Administration Folic Acid 1 mg 06/13/21 09:00 06/15/21 08:32 Folic Acid 1 Mg Tablet PO 1 mg DAILY JAVED Administration Furosemide 20 mg 06/13/21 09:00 06/15/21 08:32 Furosemide 20 Mg Tablet PO 20 mg DAILY JAVED Administration Protocol Heparin Sodium (Porcine) 5,000 unit 06/12/21 23:25 06/15/21 10:42 Heparin Sodium,Porcine 5,000 Unit/Ml Vial SUBCUT 5,000 unit Q12H JAVED Administration Lactated Ringer's 1,000 mls @ 150 mls/hr 06/12/21 23:25 06/15/21 04:33 Lr IVCONT 150 mls/hr .Q6H40M JAVED Administration Lactulose 10 gm 06/12/21 23:25 06/15/21 00:50 Lactulose 20 Gm/30 Ml Solution PO 10 gm Q48H JAVED Administration Morphine Sulfate 4 mg 06/12/21 23:25 06/14/21 21:20 Morphine Sulfate 4 Mg/Ml Cartridge IVPUSH 4 mg Q4H PRN Administration Pain, Severe (Pain Scale 7-10) Multivitamins/Vitamin C 1 tab 06/13/21 09:00 06/15/21 08:32 Multivitamin Tablet PO 1 tab DAILY JAVED Administration Omeprazole 20 mg 06/13/21 09:00 06/15/21 08:32 Omeprazole 20 Mg Capsule. PO 20 mg DAILY JAVED Administration Ondansetron HCl 4 mg 06/12/21 23:25 Ondansetron Hcl 4 Mg/2 Ml Vial IVPUSH Q8H PRN Nausea and Vomiting Pharmacy Consult 1 each 06/12/21 18:58 Consult Rx Perform Med Rec MISCELLANE ONCE PRN Consult order Sodium Chloride 3 ml 06/13/21 00:00 06/15/21 08:33 0.9 % Sodium Chloride Flush 3 Ml Syringe IVFLUSH 3 ml QSHIFT JAVED Administration Spironolactone 50 mg 06/13/21 09:00 06/15/21 08:32 Spironolactone 25 Mg Tablet PO 50 mg DAILY JAVED Administration Protocol Thiamine HCl 100 mg 06/13/21 09:00 06/15/21 08:32 Thiamine Hcl 100 Mg Tablet PO 100 mg DAILY JAVED Administration Labs CBC & Chem 7: 06/14/21 06:24 06/15/21 06:37 Labs: Laboratory Results - last 24 hr 06/15/21 06:37 Anion Gap 13 Estim Creat Clear Calc 85.7 Estimated GFR > 60 Random Glucose 86 Calcium 8.4 Microbiology Microbiology Results: Microbiology 06/12/21 16:50 Urine Culture - Final Urine clean catch - Urine tarango top Assessment and Plan (1) Alcohol abuse: Status: Acute (2) Pancreatitis: Status: Acute Assessment and Plan: 56-year-old female who presents to the hospital with abdominal pain found to have acute pancreatitis # acute pancreatitis secondary to alcohol abuse Continue IV fluid Advanced to full liquid Zofran for nausea Morphine for pain as needed # history of alcohol abuse denies any withdrawal symptoms Advised to quit alcohol completely Keep on CIWA protocol Continue folic acid to # hypertension can you home medication # endometrial thickening Noticed on CT scan Discussed with the patient, 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
[2021-06-15] MEDS: Lactated Ringers 1,000 ML 100 ML IVCONT ×2 (11:55→21:32)
[2021-06-15] MEDS: Morphine Sulfate 4 MG/ML CARTRIDGE IVPUSH (18:42)
[2021-06-16 04:00] VITALS: BP 114/86; PULSE 84; RESP 16; TEMP 36.4; O2SAT 94
[2021-06-16 08:00] VITALS: BP 131/62; PULSE 62; RESP 17; TEMP 36.1; O2SAT 95
[2021-06-16] MEDS: Multivitamin TABLET 1 TAB PO (09:50)
[2021-06-16] MEDS: Spironolactone 25 MG TABLET 50 MG PO (09:50)
[2021-06-16] MEDS: Thiamine HCL 100 MG TABLET PO (09:51)
[2021-06-16] MEDS: Folic Acid 1 MG TABLET PO (09:51)
[2021-06-16] MEDS: Furosemide 20 MG TABLET PO (09:51)
[2021-06-16] MEDS: Omeprazole 20 MG CAPSULE.DR PO (09:51)
[2021-06-16] MEDS: Escitalopram Oxalate 10 MG TABLET PO (09:51)
[2021-06-16] MEDS: Heparin Sodium,Porcine 5,000 UNIT/ML VIAL 5000 UNIT SUBCUT (09:51)
[2021-06-16] MEDS: 0.9 % Sodium Chloride Flush 3 ML SYRINGE IVFLUSH (09:52)
--- NOTE | 2021-06-16 11:43 | PM.DS ---
DS: Providers Provider Date of Service: 06/16/21 Date of admission: 06/12/21 22:53 Primary care physician: Unknown Physician DS: Diagnosis Discharge Diagnosis (1) Alcohol abuse: Status: Acute (2) Pancreatitis: Status: Acute DS: Medications Discharge Medications Home Medications: Home Medications Medication Instructions Recorded Confirmed citalopram 20 mg tablet 1 tab PO DAILY 06/12/21 06/12/21 folic acid 1 mg tablet 1 tab PO DAILY 06/12/21 06/12/21 furosemide 20 mg tablet 1 tab PO DAILY 06/12/21 06/12/21 lactulose 10 gram/15 mL oral 15 ml PO Q OTHER DAY 06/12/21 06/12/21 solution multivitamin 1 tab PO DAILY 06/12/21 06/12/21 omeprazole 20 mg capsule,delayed 1 cap PO DAILY 06/12/21 06/12/21 release spironolactone 50 mg tablet 1 tab PO DAILY 06/12/21 06/12/21 Previous Rx's Medication Instructions Recorded ondansetron 4 mg disintegrating 4 mg PO Q8H PRN #10 tab 06/16/21 tablet thiamine mononitrate (vit B1) 100 100 mg PO DAILY 30 Days #30 tab 06/16/21 mg tablet DS: Summary Hospital Course Hospital Course: Admission note HPI This is a 56-year-old female with past medical history of liver cirrhosis secondary to alcohol abuse, HTN, prediabetic who presents the hospital with complaints of epigastric abdominal pain.? Patient reports that his symptoms started on Wednesday, worsened over the next few days.? Initially she thought it was gas and thought it would go away but her symptoms only worsened.? She describes the pain as epigastric, radiating to the back, 10/10, intermittent, worse with eating, she has not developed nausea and vomiting, no diarrhea or constipation.? She denies any fever or chills, no chest pain or shortness of breath, no urinary symptoms and no lower extremity edema.? No numbness tingling or weakness.? No headache or change in vision Patient reports that she used to be an alcoholic, she had an drink for 6 years but relapsed on Wednesday.? She has not drink since Wednesday Review of system otherwise negative On arrival to the ED patient hemodynamically stable with no significant abnormal vitals except for a blood pressure 1 80s over 76 that has now normalize Labs are significant for WBC count of 6.4, hemoglobin of 10.4, lipase of 112, alk-phos of 1 and 3, LDH of 365, triglycerides of 205, UA that is positive for some leukocyte Estrace and WBC, CT abdomen showed appearance chronic pancreatitis with diffuse calcifications throughout the a triple eyed parenchyma.? Dilated pancreatic duct.? Stranding along the pancreas suggest acute on chronic process. Hospital course Patient admitted for treatment of acute pancreatitis as a result of chronic alcohol abuse. She was placed on CIWA protocol as she reported not drinking for 3 days prior to admission. Treated with IV fluids with good response over the course of hospital stay as her advance was diet slowly with good tolerance. Zofran was used for nausea as needed. Plan to discharge home to continue to advance her diet slowly and to avoid using alcohol. Time Spent with Patient Time attestation: Total time spent providing and/or coordinating discharge services: Discharge coordination time: Greater than 30 minutes Quality: Stroke Does the patient have a stroke diagnosis?: No Physical Exam Vital Signs: Vital Signs: Last Vital Signs Temp 97.0 F 06/16/21 08:00 Pulse 62 06/16/21 08:00 Resp 17 06/16/21 08:00 BP 131/62 06/16/21 08:00 Pulse Ox 95 06/16/21 08:00 Body Mass Index 31.5 Const: Other: Constitutional : Alert, oriented, not in distress Neck : Normal inspection, Supple Cardiovascular : RRR, S1 S2, no lower extremity edema Respiratory : Good bilateral air entry, no crackles, wheezes or rhonchi Gastrointestinal: soft, lax, decreased bowel sounds, no tenderness Skin : Warm/Dry, No rash Neurological : Alert & oriented x3, No focal deficit Discharge Plan Discharge Patient Disposition: Home, Self-Care Discharge Diagnosis: Acute pancreatitis Referrals: Physician,Unknown [Primary Care Provider] - 1 Week Discharge Medications: New thiamine mononitrate (vit B1) 100 mg Tablet 100 mg PO DAILY 30 Days Qty: 30 RF: 0 ondansetron 4 mg tablet,disintegrating 4 mg PO Q8H PRN (Reason: nausea and vomiting) Qty: 10 RF: 0 Continued multivitamin Tablet 1 tab PO DAILY RF: 0 citalopram 20 mg tablet 1 tab PO DAILY RF: 0 omeprazole 20 mg capsule,delayed release(DR/EC) 1 cap PO DAILY RF: 0 folic acid 1 mg tablet 1 tab PO DAILY RF: 0 furosemide 20 mg tablet 1 tab PO DAILY RF: 0 spironolactone 50 mg tablet 1 tab PO DAILY RF: 0 lactulose 10 gram/15 mL solution 15 ml PO Q OTHER DAY RF: 0 Discharge Orders: Discharge Order (Routine); Ordered 06/16/21 Ordered By: Josee Guzmán Diet: advance to usual diet Activity on Discharge: As tolerated Stand Alone Forms: Patient Portal Discharge page Care Plan Goals: Read below Health Concerns: Read below Plan of Treatment: Treated for acute pancreatitis as a result of alcohol abuse. Assessment: Advance your diet slowly over the next few days Avoid drinking alcohol Use Zofran as needed
--- NOTE | 2021-06-16 11:55 | MHC.CM.PN ---
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
== END 2021-06-16 12:33 | disposition home or self-care (01) | DRG 282 ==
LOC: HO.ED 19:03 → HO.EDOVER 23:05 → HO.S3 23:27
PROVIDERS: Physician Assistant Medical; Admitting Provider Internal Medicine; Emergency Provider Emergency Medicine Emergency Medical Services; PCP Internal Medicine Geriatric Medicine; Visit Provider Student in an Organized Health Care Education/Training Program
DX: K85.90 Acute pancreatitis without necrosis or infection, unspecified (principal); F10.10 Alcohol abuse, uncomplicated; K86.1 Other chronic pancreatitis; R93.89 Abnormal findings on diagnostic imaging of other specified body structures; Z20.822 Contact with and (suspected) exposure to COVID-19; Z88.0 Allergy status to penicillin; Z79.899 Other long term (current) drug therapy
CPT/HCPCS: 36415; 74177; 80048; 80076; 81001; 83615; 83690; 84478; 85025; 85027; 87086; 87635; 99218; 99285; J0696; J2270; J2405; Q9967

== ENCOUNTER 2021-06-20 07:34 | Outpatient (REF) | payer MEDICAID, SELFPAY ==
--- NOTE | ~2021-06-20 | US_ITS ---
EXAMINATION: US ABDOMEN COMPLETE CLINICAL INFORMATION: Epigastric pain. COMPARISON: CT abdomen and pelvis with contrast dated 06/12/2021. Ultrasound abdomen complete dated 03/25/2011. TECHNIQUE: Real-time imaging of the abdominal viscera. FINDINGS: PANCREAS: Not well visualized due to bowel gas ABDOMINAL AORTA: Not well visualized due to bowel gas INFERIOR VENA CAVA: Not well visualized due to bowel gas LIVER: Liver echotexture is slightly increased probably representing fatty infiltration. The liver is normal in size. The liver contour is normal. No focal hepatic lesion. There is no intrahepatic biliary duct dilatation seen. GALLBLADDER: Surgically absent. COMMON BILE DUCT: Normal in caliber measuring 0.4 cm in diameter. RIGHT KIDNEY: Normal. No hydronephrosis. No renal calculi or focal parenchymal lesions. The kidney measures 10.0 cm in maximum dimension. LEFT KIDNEY: Normal. No hydronephrosis. No renal calculi or focal parenchymal lesions. The kidney measures 9.9 cm in maximum dimension. SPLEEN: Normal. The spleen measures 10.5 cm in maximum dimension. FREE FLUID: None. US/US abdomen complete IMPRESSION: Slightly echogenic liver probably representing fatty infiltration. Limited visualization of the pancreas, aorta and IVC.
== END 2021-06-20 07:35 | disposition home or self-care (01) ==
LOC: HO.US 07:34
PROVIDERS: Visit Provider Internal Medicine Gastroenterology
DX: R10.13 Epigastric pain (principal)
CPT/HCPCS: 76700

== ENCOUNTER 2021-06-27 09:09 | Day surgery (SDC) | payer MEDICAID, SELFPAY ==
[2021-06-19 20:16] VITALS: BMI 31.5
--- NOTE | 2021-06-27 09:18 | HO.ANESPROP2 ---
[facility] Active Problems Active Problems: All Active Problems (Updated 06/24/21 @ 00:01 by Josue Gregorio) Prediabetes (Acute) HTN (hypertension) (Acute) Cirrhosis (Acute) Past Medical History Medical History delivery delivered Cirrhosis HTN (hypertension) Prediabetes Functional capacity: independent ambulation Surgical History Surgical History History of cholecystectomy History of Problems with Anesthesia: No Social History Social History Household Members: Family Housing: House Do you presently have visiting nurse or other home services: No Alcohol intake: current Alcohol intake frequency: holidays/special occasions only Patient Tobacco Use Status: Never used Tobacco Use of substances other than those prescribed or required for medical reasons: No Are you DNR?: No Advance Directives: No Advance Directives Information Provided: No Advance Directives on File: No service: No Current occupational status: unemployed Meds Allergies Allergy/AdvReac Type Severity Reaction Status Date / Time Penicillins Allergy Severe Itching Verified 06/27/21 09:19 Active Medications: Current Medications Generic Name Dose Route Start Last Admin Trade Name Freq PRN Reason Stop Dose Admin Lactated Ringer's 1,000 mls @ 50 mls/hr 06/27/21 08:00 Lr IVCONT .Q20H [facility] Home Medications Medication Instructions Recorded Confirmed Last Taken Type citalopram 20 mg tablet 1 tab PO DAILY 06/12/21 06/19/21 06/12/21 History folic acid 1 mg tablet 1 tab PO DAILY 06/12/21 06/19/21 06/12/21 History furosemide 20 mg tablet 1 tab PO DAILY 06/12/21 06/19/21 06/12/21 History lactulose 10 gram/15 mL oral 15 ml PO Q OTHER DAY 06/12/21 06/19/21 06/09/21 History solution multivitamin 1 tab PO DAILY 06/12/21 06/19/21 06/12/21 History omeprazole 20 mg capsule,delayed 1 cap PO DAILY 06/12/21 06/19/21 06/12/21 History release spironolactone 50 mg tablet 1 tab PO DAILY 06/12/21 06/19/21 06/12/21 History Exam Exam Date and Time: June 27, 2021 0918 Height,Weight and Vital Signs: Height 5 ft 3 in Weight 80.739 kg Airway Mallampati Class: II TM Dist: >3cm Neck ROM: Full Denture: Upper and Lower Assessment and Plan Final Anesthetic Review History of Problems with Anesthesia: No
[2021-06-27 09:21] VITALS: BP 153/84; PULSE 84; RESP 18; TEMP 36.5; O2SAT 99
[2021-06-27] MEDS: Lactated Ringers 1,000 ML 100 ML IVCONT (09:35)
--- NOTE | 2021-06-27 09:51 | P.BOP_ITS ---
Brief Operative Note Date of Service: 06/27/21 Pre-op diagnosis: epigastric pain Post-op diagnosis: same (normal) Procedure: egd Surgeon: Rayn Duong Anesthesia: MAC Was an Supply Chain Consultant used for this Procedure?: No Estimated blood loss (mL): 2 Pathology: other (bxs antrum, egj) Condition: stable Disposition: PACU
[2021-06-27 09:59] VITALS: BP 104/50; PULSE 80; RESP 22; TEMP 36.3; O2SAT 93
[2021-06-27 10:18] VITALS: BP 115/38; PULSE 67; RESP 20; O2SAT 98
--- NOTE | 2021-06-27 10:40 | OP_ITS ---
SURGEON: Ryan Duong MD INDICATIONS: Epigastric pain. PREOPERATIVE DIAGNOSIS: POSTOPERATIVE DIAGNOSIS: PROCEDURE PERFORMED: Upper endoscopy with biopsy. ESTIMATED BLOOD LOSS: COMPLICATIONS: ANESTHESIA: ASSISTANTS: SPECIMENS: MEDICATIONS: Monitored anesthesia care. DESCRIPTION OF PROCEDURE: History and physical performed. The risks and benefits of the procedure were explained to the patient. Informed consent was obtained. The patient was placed in left lateral decubitus position. The Olympus video gastroscope was introduced into the esophagus, stomach, and duodenum. Examination was performed and the scope was removed. She tolerated the procedure well and was taken to recovery area in stable condition. FINDINGS: ESOPHAGUS: The esophagus showed an irregular EG junction. There was no esophagitis. There were no varices. Biopsies were obtained from the EG junction. STOMACH: Stomach showed prominent folds in the body and fundus, but no definite varices. There was no portal hypertensive gastropathy. Antral biopsies were obtained to rule out H pylori. DUODENUM: The bulb and second portion were normal. IMPRESSION: Normal upper endoscopy. RECOMMENDATION: Follow up the biopsy results. MD TIFFANY Oseguera/CELIL / [id number]
== END 2021-06-27 11:21 | disposition home or self-care (01) ==
PROVIDERS: PCP Internal Medicine Geriatric Medicine; Visit Provider Internal Medicine Gastroenterology
PROC: 0DJ08ZZ Inspection of Upper Intestinal Tract, Via Natural or Artificial Opening Endoscopic (ICD-10-PCS; CPT 43235; principal; 2021-06-27 10:50)
DX: R10.13 Epigastric pain (principal); K70.9 Alcoholic liver disease, unspecified; K86.0 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 chronic pancreatitis; Z80.0 Family history of malignant neoplasm of digestive organs; K21.9 Gastro-esophageal reflux disease without esophagitis; I10 Essential (primary) hypertension; K86.2 Cyst of pancreas; R73.03 Prediabetes; M81.0 Age-related osteoporosis without current pathological fracture; Z79.899 Other long term (current) drug therapy; Z88.0 Allergy status to penicillin; Z86.16 Personal history of COVID-19; Z90.49 Acquired absence of other specified parts of digestive tract; Z87.891 Personal history of nicotine dependence
CPT/HCPCS: 43239; 36415; 71045; 80048; 84484; 85025; 88305; 88342; 93005; 99283

== ENCOUNTER 2021-06-27 17:36 | Emergency (ER) | payer MEDICAID, SELFPAY ==
--- NOTE | 2021-06-27 | ECG_ITS ---
Test Reason : CHEST PAIN Blood Pressure : / mmHG Vent. Rate : 094 BPM Atrial Rate : 094 BPM P-R Int : 130 ms QRS Dur : 076 ms QT Int : 352 ms P-R-T Axes : 029 006 021 degrees QTc Int : 440 ms Normal sinus rhythm Nonspecific ST and T wave abnormality Borderline ECG No previous ECGs available Referred By: Generic ED Physician Electronically Signed By:AMANDA ROUSE
--- NOTE | ~2021-06-27 | XR_ITS ---
EXAMINATION: XR CHEST CLINICAL INFORMATION: Chest pain after upper endoscopy. COMPARISON: None TECHNIQUE: Frontal view of the chest was obtained. FINDINGS: Lungs are clear. No pulmonary vascular congestion. There is no pleural effusion. The heart size is normal. The cardiac and mediastinal contours are normal. There are calcifications of the thoracic aorta. There are multilevel degenerative changes of dorsal spine. Surgical clips right upper quadrant of the abdomen XR/XR chest 1V IMPRESSION: Unremarkable examination.
[2021-06-27 18:03] VITALS: BP 116/61; PULSE 100; RESP 18; TEMP 36.9; O2SAT 95; BMI 31.5
--- NOTE | 2021-06-27 20:09 | ED_ITS ---
HPI - Chest Pain General Chief Complaint: Chest Pain Stated Complaint: CP Time Seen by Provider: 06/27/21 19:55 Source: patient Mode of arrival: ambulatory Limitations: no limitations History of Present Illness HPI narrative: Patient comes emergency room complaining of chest pain. Patient states that earlier this morning she had an upper endoscopy. At home she ate, did well eating and drinking. Patient states she feels chest pressure in both sides of the chest. Patient states that earlier today she had subjective fever, chills. Did not take any medication Related Data Home Medications Medication Instructions Recorded Confirmed citalopram 20 mg tablet 1 tab PO DAILY 06/12/21 06/19/21 folic acid 1 mg tablet 1 tab PO DAILY 06/12/21 06/19/21 furosemide 20 mg tablet 1 tab PO DAILY 06/12/21 06/19/21 lactulose 10 gram/15 mL oral 15 ml PO Q OTHER DAY 06/12/21 06/19/21 solution multivitamin 1 tab PO DAILY 06/12/21 06/19/21 omeprazole 20 mg capsule,delayed 1 cap PO DAILY 06/12/21 06/19/21 release spironolactone 50 mg tablet 1 tab PO DAILY 06/12/21 06/19/21 Previous Rx's Medication Instructions Recorded ondansetron 4 mg disintegrating 4 mg PO Q8H PRN #10 tab 06/16/21 tablet thiamine mononitrate (vit B1) 100 100 mg PO DAILY 30 Days #30 tab 06/16/21 mg tablet Allergies Allergy/AdvReac Type Severity Reaction Status Date / Time Penicillins Allergy Severe Itching Verified 06/27/21 09:19 Review of Systems Review of Systems: Constitutional : No Weight loss, No Fever, No Chills, No Night Sweats, No Fatigue, No Malaise ENT/Mouth : No Hearing loss, No Ear Pain, No Nasal Congestion, No Sinus Pain, No Hoarseness, No sore throat, No Rhinorrhea, No Swallowing Difficulty Eyes: No Eye Pain, No Swelling, No Redness, No Foreign Body, No Discharge, No Vision Changes Cardiovascular : Complaining of bilateral chest pain No SOB, No Dyspnea on Exertion, No Orthopnea, No Edema, No Palpitations Respiratory : No Cough, No Sputum, No Wheezing, No Smoke Exposure, No Dyspnea Gastrointestinal : No Nausea, No Vomiting, No Diarrhea, No Constipation, No abdominal Pain, No Hematochezia, No Melena Genitourinary : no irregular bleeding, No Dysuria, No Urinary Frequency, No Hematuria, No Urinary Incontinence, No Urgency, No Flank Pain, No Urinary Flow Changes, No Hesitancy Musculoskeletal : No joint pain, No Myalgias, No Joint Swelling Skin : No Skin Lesions, No rash Neuro : No Weakness, No Numbness, No Paresthesias, No Loss of Consciousness, No Dizziness, No Headache Psych : No Anxiety/Panic, No Depression, No SI/HI/AH/VH, No Social Issues, Heme/Lymph: No Bruising, No Bleeding,No Lymphadenopathy Endocrine : No Polyuria, No Polydipsia, No Temperature Intolerance [facility] Past Medical History Medical History delivery delivered Cirrhosis History of alcohol abuse HTN (hypertension) Prediabetes Surgical History History of cholecystectomy Social History Social History Household Members: Family Housing: House Do you presently have visiting nurse or other home services: No Alcohol intake: current Alcohol intake frequency: holidays/special occasions only Patient Tobacco Use Status: Never used Tobacco Advance Directives: No Advance Directives Information Provided: No Patient : No service: No Current occupational status: unemployed Physical Exam Vital Signs: Vital Signs: Last Vital Signs Temp 98 F 06/28/21 00:53 Pulse 74 06/28/21 00:53 Resp 18 06/28/21 00:53 BP 114/60 06/28/21 00:53 Pulse Ox 96 06/28/21 00:53 Body Mass Index 31.5 Const: Other: Appearance: Alert. Oriented X3. No acute distress. Well- appearing Eyes: Pupils equal, round and reactive to light. ENT: Pharynx normal. Neck: Normal inspection. Neck supple. No lymph nodes noted. No crepitus CVS: Normal heart rate and rhythm. Pulses normal. Normal S1 and S2 Respiratory: No respiratory distress. Breath sounds normal. No Wheezing. No rales Abdomen: Soft and nontender. No rigidity. No distention. good BS x4 Skin: Skin warm and dry. Normal skin color. Normal skin turgor. Extremities: No lower extremity edema. No Lacerations. No Rash Neuro: Oriented X 3. No motor deficit. No sensory deficit. Moving all extermities. No slurred speech. Course Course Course Narrative: I discussed with the patient that it is likely that she is having esophageal spasm secondary to the procedure. Troponin 2. Is lower than the 1st troponin. Patient states she no longer has chest pain, patient is asymptomatic. MDM - Chest Pain Lab Data Result diagrams: 06/27/21 20:18 06/27/21 20:18 Labs: Lab Results 06/27/21 06/27/21 06/27/21 Range/Units 20:18 20:18 20:18 WBC 10.0 (4.8-10.8) X10*3/uL RBC 3.80 L (4.20-5.50) X10*6/uL Hgb 11.1 L (12.0-16.0) g/dl Hct 33.7 L (37-47) % MCV 88.7 (80-98) fL MCH 29.2 (27.0-33.0) pg MCHC 32.9 (31.0-35.0) g/dl RDW 13.3 (11.0-16.0) % Plt Count 248 D (160-400) X10*3/uL MPV 10.3 (9.4-12.3) fL Immature Gran % (Auto) 0.2 (0.0-0.4) % Neut % (Auto) 83.6 H (45-73) % Lymph % (Auto) 10.9 L (20-40) % [place] % (Auto) 4.3 (2-11) % Eos % (Auto) 0.8 (0-4) % Baso % (Auto) 0.2 (0-2) % Lymph # (Auto) 1.1 L (1.2-4.9) X10*3/uL [place] # (Auto) 0.4 (0.1-1.2) X10*3/uL Eos # (Auto) 0.1 (0.0-0.4) X10*3/uL Baso # (Auto) 0.0 (0.0-0.2) X10*3/uL Abs Immat Gran (auto) 0.02 (0.00-0.03) X10*3/uL Absolute Neuts (auto) 8.3 (2.0-8.3) X10*3/uL Absolute Nucleated RBC 0.000 (0.0-0.012) X10*3/uL Nucleated RBC % (auto) 0.0 (0.0-0.2) /100WBC Sodium 139 (135-145) mmol/L Potassium 3.8 (3.3-5.1) mmol/L Chloride 106 (96-108) mmol/L Carbon Dioxide 22 (22-29) mmol/L Anion Gap 15 (12-20) BUN 13 D (9-16) mg/dL Creatinine 0.82 (0.5-1.4) mg/dL Estim Creat Clear Calc 75.2 Estimated GFR > 60 Random Glucose 96 (60-115) mg/dL Calcium 8.3 L (8.4-10.2) mg/dL Troponin I High Sens 20.6 H* (<3.5-17.0) ng/L 06/27/21 Range/Units 23:56 WBC (4.8-10.8) X10*3/uL RBC (4.20-5.50) X10*6/uL Hgb (12.0-16.0) g/dl Hct (37-47) % MCV (80-98) fL MCH (27.0-33.0) pg MCHC (31.0-35.0) g/dl RDW (11.0-16.0) % Plt Count (160-400) X10*3/uL MPV (9.4-12.3) fL Immature Gran % (Auto) (0.0-0.4) % Neut % (Auto) (45-73) % Lymph % (Auto) (20-40) % [place] % (Auto) (2-11) % Eos % (Auto) (0-4) % Baso % (Auto) (0-2) % Lymph # (Auto) (1.2-4.9) X10*3/uL [place] # (Auto) (0.1-1.2) X10*3/uL Eos # (Auto) (0.0-0.4) X10*3/uL Baso # (Auto) (0.0-0.2) X10*3/uL Abs Immat Gran (auto) (0.00-0.03) X10*3/uL Absolute Neuts (auto) (2.0-8.3) X10*3/uL Absolute Nucleated RBC (0.0-0.012) X10*3/uL Nucleated RBC % (auto) (0.0-0.2) /100WBC Sodium (135-145) mmol/L Potassium (3.3-5.1) mmol/L Chloride (96-108) mmol/L Carbon Dioxide (22-29) mmol/L Anion Gap (12-20) BUN (9-16) mg/dL Creatinine (0.5-1.4) mg/dL Estim Creat Clear Calc Estimated GFR Random Glucose (60-115) mg/dL Calcium (8.4-10.2) mg/dL Troponin I High Sens 18.7 H* (<3.5-17.0) ng/L Imaging Data Chest x-ray: Radiologist's impression: Lungs are clear. No pulmonary vascular congestion. There is no pleural effusion. The heart size is normal. The cardiac and mediastinal contours are normal. There are calcifications of the thoracic aorta. There are multilevel degenerative changes of dorsal spine.? ? Surgical clips right upper quadrant of the abdomen XR/XR chest 1V IMPRESSION: Unremarkable examination. ? ECG Data ECG #1: Attestation: I personally reviewed and interpreted this ECG as follows: (Sinus rhythm, heart rate 99, no ST segment depression or elevation, no T-wave inversion) Discharge Plan Discharge Clinical Impression: Atypical chest pain Patient Disposition: Home, Self-Care Instructions: Chest Pain (ED) Additional Instructions: Please follow-up with your primary care physician tomorrow. If you have any worsening or new symptoms, please return to the emergency room or call 911 Prescriptions: No Action multivitamin Tablet 1 tab PO DAILY RF: 0 citalopram 20 mg tablet 1 tab PO DAILY RF: 0 omeprazole 20 mg capsule,delayed release(DR/EC) 1 cap PO DAILY RF: 0 folic acid 1 mg tablet 1 tab PO DAILY RF: 0 furosemide 20 mg tablet 1 tab PO DAILY RF: 0 spironolactone 50 mg tablet 1 tab PO DAILY RF: 0 lactulose 10 gram/15 mL solution 15 ml PO Q OTHER DAY RF: 0 thiamine mononitrate (vit B1) 100 mg Tablet 100 mg PO DAILY 30 Days Qty: 30 RF: 0 ondansetron 4 mg tablet,disintegrating 4 mg PO Q8H PRN (Reason: nausea and vomiting) Qty: 10 RF: 0
--- NOTE | 2021-06-27 20:18 | PC.NURSE ---
labs drawn to lab for boogie.
[2021-06-27 20:22] VITALS: BP 112/58; PULSE 72; RESP 19; TEMP 37.3; O2SAT 94
[2021-06-27 20:24] LABS: Basophils Percent Auto 0.2 % (0-2); Eosinophils Absolute Auto 0.1 X10*3/uL (0.0-0.4); Eosinophils Percent Auto 0.8 % (0-4); Hematocrit 33.7 % (37-47); Hemoglobin 11.1 g/dl (12.0-16.0); Imm Gran Abs Auto 0.02 X10*3/uL (0.00-0.03); Imm Gran Pct Auto 0.2 % (0.0-0.4); Lymphocytes Absolute Auto 1.1 X10*3/uL (1.2-4.9); Lymphocytes Percent Auto 10.9 % (20-40); MANUAL DIFF FLAG NO; Mean Corpuscular HGB Conc 32.9 g/dl (31.0-35.0); Mean Corpuscular Hemoglobin 29.2 pg (27.0-33.0); Mean Corpuscular Volume 88.7 fL (80-98); Mean Platelet Volume 10.3 fL (9.4-12.3); Monocytes Absolute Auto 0.4 X10*3/uL (0.1-1.2); Monocytes Percent Auto 4.3 % (2-11); Neutrophils Absolute Auto 8.3 X10*3/uL (2.0-8.3); Neutrophils Percent Auto 83.6 % (45-73); Platelet Count 248 X10*3/uL (160-400); Red Cell Distribution Width 13.3 % (11.0-16.0)
--- NOTE | 2021-06-27 20:47 | PC.NURSE ---
pt remains on monitor in nad. pt alert, respirations easy, n/l. skin w/d. awaiting for pending labs. will continue to monitor pt.
[2021-06-27 20:54] LABS: Anion Gap 15 (12-20); Blood Urea Nitrogen 13 mg/dL (9-16); Calcium 8.3 mg/dL (8.4-10.2); Carbon Dioxide 22 mmol/L (22-29); Chloride 106 mmol/L (96-108); Creatinine Clr Calc Pharmacy 75.2; Estimated Glomerular Filt Rate > 60; Glucose Random 96 mg/dL (60-115); Potassium 3.8 mmol/L (3.3-5.1); Sodium 139 mmol/L (135-145)
[2021-06-27 21:04] LABS: Troponin-I High Sensitivity 20.6 ng/L (<3.5-17.0)
--- NOTE | 2021-06-27 23:00 | PC.NURSE ---
PT RESTING IN STRETCHER, DENIES ANY COMPLAINTS AND REQUESTING TO GET D/C. MD AWARE.
--- NOTE | 2021-06-28 00:10 | PC.NURSE ---
REPEAT TROPONIN ORDERED AND DRAWN AT THIS TIME. AWAITING PENDING LAB. WILL CONTINUE TO MONITOR PT.
[2021-06-28 00:31] LABS: Troponin-I High Sensitivity 18.7 ng/L (<3.5-17.0)
[2021-06-28 00:53] VITALS: BP 114/60; PULSE 74; RESP 18; TEMP 36.6; O2SAT 96
== END 2021-06-28 01:56 | disposition home or self-care (01) ==
PROVIDERS: Emergency Provider Emergency Medicine; PCP Internal Medicine Geriatric Medicine
DX: R07.89 Other chest pain (principal); I10 Essential (primary) hypertension; Z79.899 Other long term (current) drug therapy
CPT/HCPCS: 36415; 71045; 80048; 84484; 85025; 93005; 99283

== ENCOUNTER 2021-07-21 16:59 | Emergency (ER) | payer MEDICAID, SELFPAY ==
--- NOTE | ~2021-07-21 | CT_ITS ---
EXAMINATION: CT ABDOMEN AND PELVIS WITH CONTRAST CLINICAL INFORMATION: Right lower quadrant pain. COMPARISON: Abdominal ultrasound 06/20/2021. CT abdomen pelvis 06/12/2021. TECHNIQUE: Multidetector volumetric images were obtained from the superior aspect of the liver through the pubic symphysis following administration 85 mL of Omnipaque 350 intravenous contrast. Sagittal and coronal reformatted images were obtained on the technologist's workstation. Oral contrast: No This CT examination was performed using dose optimization techniques as appropriate, variously including the following: *Automated exposure control *Adjustment of mA and/or kV according to patient size (this includes techniques or standardized protocols for targeted exams where dose is matched to indication/reason for exam; i.e. extremities or head) *Use of iterative reconstruction technique DLP: 617 mGy-cm FINDINGS: LUNG BASES: The visualized lung bases are unremarkable. LIVER, GALLBLADDER, AND BILIARY TREE: Liver is normal in appearance. Cholecystectomy clips are noted. PANCREAS: Multifocal dystrophic calcifications are noted within the pancreas along with irregular diffuse dilatation of the main pancreatic duct similar to findings noted on the comparison study of 12/13/2020. Mild fluid is present adjacent to the tail of the pancreas along the greater curvature of the stomach slightly diminished in prominence compared with 12/13/2020. Mild reticulation of the fat at the root of the small bowel mesentery is noted. SPLEEN: The small perisplenic or possible subcapsular fluid collection is present along the inferior aspect of the spleen slightly decreased in size compared with 06/12/2021. ADRENAL GLANDS: Unremarkable. KIDNEYS AND URETERS: The kidneys are normal in size, shape, and attenuation. No hydronephrosis, hydroureter, or calculi seen. No perinephric stranding. BLADDER: Unremarkable. GASTROINTESTINAL TRACT: No intestinal dilatation or mural thickening is noted. The appendix is normal in appearance. No free intraperitoneal gas is visualized. The sigmoid and small bowel mesentery is are normal in appearance. ABDOMINAL WALL: A periumbilical hernia measuring approximately 1 cm in diameter is again noted without evidence of incarceration. LYMPH NODES: Normal. VASCULAR: Moderate diffuse atherosclerosis. PELVIC VISCERA: Possible thickening of the endometrium to a width of 9 mm is noted and is unchanged compared with 06/12/2021 2. OSSEOUS STRUCTURES: Chronic posttraumatic deformity of the left and right inferior pubic rami. Multilevel chronic spondylosis of the thoracolumbar spine. CT/CT abdomen pelvis w con IMPRESSION: 1. Findings suspicious for chronic pancreatitis with possible mild acute on chronic inflammatory changes. Diffuse pancreatic calcifications along with diffuse ectasia of the pancreatic duct is again noted unchanged compared with 12/13/2020. Small fluid collection along the tail of the pancreas and greater curvature of the stomach is slightly diminished compared with 06/12/2021 and is previously noted may represent pseudocyst formation. Small 2-3 cm fluid collection along the inferior aspect of the spleen is slightly diminished compared with 06/12/2021 and may also represent pseudocyst formation. Mild inflammatory changes are noted within the root of the small bowel mesentery may represent acute on chronic pancreatic inflammatory changes. 2. Normal appendix. 3. Unchanged thickening of the endometrium to a width of 9 mm which as clinically indicated may be further evaluated with pelvic ultrasonography. Findings are unchanged appreciably compared with 06/12/2021.
[2021-07-21 17:38] VITALS: BP 142/84; PULSE 75; RESP 16; TEMP 37.3; O2SAT 99; BMI 29.7
--- NOTE | 2021-07-21 21:00 | ED_ITS ---
HPI - Abdominal Pain General Chief Complaint: Abdominal Pain Stated Complaint: abd pain Time Seen by Provider: 07/21/21 21:00 Source: patient Mode of arrival: ambulatory Limitations: no limitations History of Present Illness HPI narrative: 56 y/o female with history of alcoholic cirrhosis now reportedly sober x1 week, HTN, pre-DM, recurrent pancreatitis who presents to the ER with right lower abdominal pain and epigastric pain for the last 3 days. She reports 3-4 episodes of non-bloody vomiting for the last 2 days. No diarrhea, fever, chills, or constipation. She reports the pain is similar to her prior pancre atitis episodes. She was admitted for acute pancreatitis in early June. MD elicited complaint: abdominal pain Pertinent past history: other (pancreatitis) Onset (ago): day(s) (3) Pain Consistency: intermittent Location: RLQ Severity: moderate Quality: stabbing Radiation: epigastric Migration to: no migration Exacerbating factors: vomiting Relieving factors: nothing Context: history of similar episodes Associated symptoms: nausea and vomiting Related Data Home Medications Medication Instructions Recorded Confirmed citalopram 20 mg tablet 1 tab PO DAILY 06/12/21 06/19/21 folic acid 1 mg tablet 1 tab PO DAILY 06/12/21 06/19/21 furosemide 20 mg tablet 1 tab PO DAILY 06/12/21 06/19/21 lactulose 10 gram/15 mL oral 15 ml PO Q OTHER DAY 06/12/21 06/19/21 solution multivitamin 1 tab PO DAILY 06/12/21 06/19/21 omeprazole 20 mg capsule,delayed 1 cap PO DAILY 06/12/21 06/19/21 release spironolactone 50 mg tablet 1 tab PO DAILY 06/12/21 06/19/21 Previous Rx's Medication Instructions Recorded ondansetron 4 mg disintegrating 4 mg PO Q8H PRN #10 tab 06/16/21 tablet thiamine mononitrate (vit B1) 100 100 mg PO DAILY 30 Days #30 tab 06/16/21 mg tablet ondansetron 4 mg disintegrating 4 mg PO Q8H PRN #10 tab 07/22/21 tablet tramadol 50 mg tablet 50 mg PO Q8H PRN #5 tab 07/22/21 Allergies Allergy/AdvReac Type Severity Reaction Status Date / Time Penicillins Allergy Severe Itching Verified 06/27/21 09:19 Review of Systems Review of Systems Constitutional: No Fever, No Chills ENT/Mouth: No sore throat, No Swallowing Difficulty Cardiovascular: No Chest Pain, No SOB, No Orthopnea, No Edema Respiratory: No Cough, No Sputum, No Wheezing, No dyspnea Gastrointestinal: + Nausea, + Vomiting, No Diarrhea, + abdominal Pain, No Hematochezia, No Melena Genitourinary: No Dysuria, No Urinary Frequency, No Hematuria Musculoskeletal: No joint pain, No Myalgias Skin: No Skin Lesions, No rash Neuro: No Weakness, No Numbness, No Dizziness, No Headache Psych: No Anxiety/Panic, No Depression Heme/Lymph: No Bruising, No Lymphadenopathy Endocrine: No Polyuria, No Polydipsia Physical Exam Vital Signs: Vital Signs: Last Vital Signs Temp 97.8 F 07/22/21 00:00 Pulse 77 07/22/21 00:00 Resp 16 07/22/21 00:00 BP 132/74 07/22/21 00:00 Pulse Ox 96 07/22/21 00:00 Body Mass Index 29.7 Appearance: Alert. Oriented X3. No acute distress. Eyes: Pupils equal, round and reactive to light. ENT: Pharynx normal. Neck: Normal inspection. Neck supple. CVS: Normal heart rate and rhythm. Pulses normal. Respiratory: No respiratory distress. Breath sounds normal. Abdomen: Soft with mild epigastric tenderness and RLQ tenderness to deep palpation, no rebound or guarding. +BS x4 Skin: Skin warm and dry. Normal skin color. Normal skin turgor. No rashes. Extremities: No lower extremity edema. Neuro: Oriented X 3. No motor deficit. No sensory deficit. Course Course Course Narrative: 56 yo female with history of alcoholic cirrhosis, recurrent pancreatitis who is recently admitted for acute on chronic pancreatitis in June presenting with RLQ and epigastric pain x3 days with N/V. Abd exam is reassuring, no tachycardia or fever on arrival. She appears very comfortable. Will get labs and CT scan for further evaluation. Reevaluation(s) Reevaluation #1: Labs show normal WBC, Lipase 200. CT with possible acute on chronic changes of pancreatitis with fluid collections that are smaller than prior CT from May. [place] criteria is 1 with 1% mortality. She is comfortable. No vomiting in the 7 hours she has been in the ED. She is tolerating maurisio alberta and crackers. She is stable for d/c home with pain control and outpatient GI follow up. Importance of etoh abstinence discussed. Patient agrees with plan and will come back to the ER if pain worsens. MDM - Abdominal Pain Lab Data Result diagrams: 07/21/21 21:07 07/21/21 22:18 Labs: Lab Results 07/21/21 07/21/21 07/21/21 Range/Units 20:39 21:07 21:11 WBC 8.9 (4.8-10.8) X10*3/uL RBC 4.49 (4.20-5.50) X10*6/uL Hgb 13.2 (12.0-16.0) g/dl Hct 40.1 (37-47) % MCV 89.3 (80-98) fL MCH 29.4 (27.0-33.0) pg MCHC 32.9 (31.0-35.0) g/dl RDW 14.6 (11.0-16.0) % Plt Count 239 (160-400) X10*3/uL MPV 10.3 (9.4-12.3) fL Immature Gran % (Auto) 0.2 (0.0-0.4) % Neut % (Auto) 83.6 H (45-73) % Lymph % (Auto) 9.9 L (20-40) % [place] % (Auto) 5.5 (2-11) % Eos % (Auto) 0.6 (0-4) % Baso % (Auto) 0.2 (0-2) % Lymph # (Auto) 0.9 L (1.2-4.9) X10*3/uL [place] # (Auto) 0.5 (0.1-1.2) X10*3/uL Eos # (Auto) 0.1 (0.0-0.4) X10*3/uL Baso # (Auto) 0.0 (0.0-0.2) X10*3/uL Abs Immat Gran (auto) 0.02 (0.00-0.03) X10*3/uL Absolute Neuts (auto) 7.5 (2.0-8.3) X10*3/uL Absolute Nucleated RBC 0.000 (0.0-0.012) X10*3/uL Nucleated RBC % (auto) 0.0 (0.0-0.2) /100WBC Sodium (135-145) mmol/L Potassium (3.3-5.1) mmol/L Chloride (96-108) mmol/L Carbon Dioxide (22-29) mmol/L Anion Gap (12-20) BUN (9-16) mg/dL Creatinine (0.5-1.4) mg/dL Estim Creat Clear Calc Estimated GFR Random Glucose (60-115) mg/dL Lactic Acid 1.4 (0.5-2.0) mmol/L Calcium (8.4-10.2) mg/dL Total Bilirubin (0.0-1.0) mg/dL AST (5-31) U/L ALT (0-31) U/L Alkaline Phosphatase (39-117) U/L Lactate Dehydrogenase (122-220) U/L Total Protein (6.5-8.0) g/dL Albumin (3.5-5.0) g/dL Lipase (8-78) U/L Urine Color YELLOW Urine Appearance CLEAR Urine pH 6.5 (5.0-8.0) Ur Specific [place] 1.015 (1.005-1.025) Urine Protein NEG (NEG-TRACE) MG/DL Urine Glucose (UA) NEG (NEG) MG/DL Urine Ketones NEG (NEG) MG/DL Urine Blood NEG (NEG) Urine Nitrite NEG (NEG) Ur Leukocyte Esterase TRACE H (NEG) Urine RBC 0-2 (0) /HPF Urine WBC 5-9 H (0-4) /HPF Ur Squamous Epith Cells 1+ /LPF Urine Bacteria TRACE /LPF Urine Mucus 3+ /LPF 07/21/21 Range/Units 22:18 WBC (4.8-10.8) X10*3/uL RBC (4.20-5.50) X10*6/uL Hgb (12.0-16.0) g/dl Hct (37-47) % MCV (80-98) fL MCH (27.0-33.0) pg MCHC (31.0-35.0) g/dl RDW (11.0-16.0) % Plt Count (160-400) X10*3/uL MPV (9.4-12.3) fL Immature Gran % (Auto) (0.0-0.4) % Neut % (Auto) (45-73) % Lymph % (Auto) (20-40) % [place] % (Auto) (2-11) % Eos % (Auto) (0-4) % Baso % (Auto) (0-2) % Lymph # (Auto) (1.2-4.9) X10*3/uL [place] # (Auto) (0.1-1.2) X10*3/uL Eos # (Auto) (0.0-0.4) X10*3/uL Baso # (Auto) (0.0-0.2) X10*3/uL Abs Immat Gran (auto) (0.00-0.03) X10*3/uL Absolute Neuts (auto) (2.0-8.3) X10*3/uL Absolute Nucleated RBC (0.0-0.012) X10*3/uL Nucleated RBC % (auto) (0.0-0.2) /100WBC Sodium 137 (135-145) mmol/L Potassium 4.2 (3.3-5.1) mmol/L Chloride 106 (96-108) mmol/L Carbon Dioxide 23 (22-29) mmol/L Anion Gap 12 (12-20) BUN 11 (9-16) mg/dL Creatinine 0.79 (0.5-1.4) mg/dL Estim Creat Clear Calc 75.8 Estimated GFR > 60 Random Glucose 158 H D (60-115) mg/dL Lactic Acid (0.5-2.0) mmol/L Calcium 8.4 (8.4-10.2) mg/dL Total Bilirubin 0.4 (0.0-1.0) mg/dL AST 13 D (5-31) U/L ALT 12 (0-31) U/L Alkaline Phosphatase 186 H (39-117) U/L Lactate Dehydrogenase 157 (122-220) U/L Total Protein 7.1 (6.5-8.0) g/dL Albumin 3.7 (3.5-5.0) g/dL Lipase 297 H (8-78) U/L Urine Color Urine Appearance Urine pH (5.0-8.0) Ur Specific [place] (1.005-1.025) Urine Protein (NEG-TRACE) MG/DL Urine Glucose (UA) (NEG) MG/DL Urine Ketones (NEG) MG/DL Urine Blood (NEG) Urine Nitrite (NEG) Ur Leukocyte Esterase (NEG) Urine RBC (0) /HPF Urine WBC (0-4) /HPF Ur Squamous Epith Cells /LPF Urine Bacteria /LPF Urine Mucus /LPF Critical Care Time Critical Care Time Critical Care Time: No Discharge Plan Discharge Clinical Impression: Chronic pancreatitis Qualifiers: Pancreatitis type: alcohol induced Qualified Code(s): K86.0 - 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 chronic pancreatitis Patient Disposition: Home, Self-Care Instructions: Pancreatitis (ED) Additional Instructions: DO NOT DRINK ALCOHOL. Recommend liquid diet for the next 24 hours and slowly advance as tolerated. Take the prescribed medications as needed for pain and nausea. Follow up with GI this week If you have worsening pain or persistent vomiting come back to the ER for further evaluation. Prescriptions: New ondansetron 4 mg tablet,disintegrating 4 mg PO Q8H PRN (Reason: nausea and vomiting) Qty: 10 RF: 0 tramadol 50 mg tablet 50 mg PO Q8H PRN (Reason: pain) Qty: 5 RF: 0 No Action multivitamin Tablet 1 tab PO DAILY RF: 0 citalopram 20 mg tablet 1 tab PO DAILY RF: 0 omeprazole 20 mg capsule,delayed release(DR/EC) 1 cap PO DAILY RF: 0 folic acid 1 mg tablet 1 tab PO DAILY RF: 0 furosemide 20 mg tablet 1 tab PO DAILY RF: 0 spironolactone 50 mg tablet 1 tab PO DAILY RF: 0 lactulose 10 gram/15 mL solution 15 ml PO Q OTHER DAY RF: 0 thiamine mononitrate (vit B1) 100 mg Tablet 100 mg PO DAILY 30 Days Qty: 30 RF: 0 ondansetron 4 mg tablet,disintegrating 4 mg PO Q8H PRN (Reason: nausea and vomiting) Qty: 10 RF: 0 Referrals: Ryan Duong [Physician] - 2 days Interventions: ED Discharge Assessment Last Done: 07/22/21 00:55 Discharge Date/Time: 07/22/21 00:56 [facility] Past Medical History Medical History delivery delivered Cirrhosis History of alcohol abuse HTN (hypertension) Prediabetes Surgical History History of cholecystectomy Social History Social History Household Members: Family Housing: House Do you presently have visiting nurse or other home services: No Alcohol intake: current Alcohol intake frequency: holidays/special occasions only Patient Tobacco Use Status: Never used Tobacco Advance Directives: No Advance Directives Information Provided: No service: No Current occupational status: unemployed
[2021-07-21 21:11] LABS: MANUAL DIFF FLAG NO
[2021-07-21 21:13] LABS: Basophils Percent Auto 0.2 % (0-2); Eosinophils Absolute Auto 0.1 X10*3/uL (0.0-0.4); Eosinophils Percent Auto 0.6 % (0-4); Hematocrit 40.1 % (37-47); Hemoglobin 13.2 g/dl (12.0-16.0); Imm Gran Abs Auto 0.02 X10*3/uL (0.00-0.03); Imm Gran Pct Auto 0.2 % (0.0-0.4); Lymphocytes Absolute Auto 0.9 X10*3/uL (1.2-4.9); Lymphocytes Percent Auto 9.9 % (20-40); Mean Corpuscular HGB Conc 32.9 g/dl (31.0-35.0); Mean Corpuscular Hemoglobin 29.4 pg (27.0-33.0); Mean Corpuscular Volume 89.3 fL (80-98); Mean Platelet Volume 10.3 fL (9.4-12.3); Monocytes Absolute Auto 0.5 X10*3/uL (0.1-1.2); Monocytes Percent Auto 5.5 % (2-11); Neutrophils Absolute Auto 7.5 X10*3/uL (2.0-8.3); Neutrophils Percent Auto 83.6 % (45-73); Platelet Count 239 X10*3/uL (160-400); Red Blood Count 4.49 X10*6/uL (4.20-5.50); Red Cell Distribution Width 14.6 % (11.0-16.0); White Blood Count 8.9 X10*3/uL (4.8-10.8)
[2021-07-21 21:19] LABS: Glucose Urine UA NEG (NEG); Leukocyte Esterase Urine TRACE (NEG); Nitrite Urine NEG (NEG); PH 6.5 (5.0-8.0); Specific Gravity - Urine 1.015 (1.005-1.025); UACC Culture Trigger YES; Urine Blood NEG (NEG); Urine Ketones NEG (NEG); Urine Protein NEG (NEG-TRACE)
[2021-07-21] MEDS: 0.9 % Sodium Chloride 1,000 ML 999 ML IVCONT (21:25)
[2021-07-21 21:35] LABS: Lactic Acid 1.4 mmol/L (0.5-2.0)
[2021-07-21 21:38] LABS: Appearance Urine CLEAR; Color Urine YELLOW
[2021-07-21 21:39] LABS: Bacteria Urine TRACE /LPF; Mucus Urine 3+ /LPF; RBC Urine 0-2 /HPF (0); Squamous Epithelial Cell Urine 1+ /LPF
[2021-07-21 21:40] VITALS: RESP 16
[2021-07-21] MEDS: ondansetron HCL 4 MG/2 ML VIAL IVPUSH (21:40)
[2021-07-21] MEDS: Morphine Sulfate 4 MG/ML CARTRIDGE IVPUSH (21:40)
[2021-07-21 22:47] LABS: Alanine Aminotransferase 12 U/L (0-31); Albumin Level 3.7 g/dL (3.5-5.0); Alkaline Phosphatase 186 U/L (39-117); Anion Gap 12 (12-20); Aspartate Amino Transferase 13 U/L (5-31); Bilirubin Total 0.4 mg/dL (0.0-1.0); Blood Urea Nitrogen 11 mg/dL (9-16); Calcium 8.4 mg/dL (8.4-10.2); Carbon Dioxide 23 mmol/L (22-29); Chloride 106 mmol/L (96-108); Creatinine Clr Calc Pharmacy 75.8; Estimated Glomerular Filt Rate > 60; Glucose Random 158 mg/dL (60-115); Lipase 297 U/L (8-78); Potassium 4.2 mmol/L (3.3-5.1); Sodium 137 mmol/L (135-145); Total Protein 7.1 g/dL (6.5-8.0)
[2021-07-21] MEDS: iohexoL 350 MG/ML 100 ML INFUS..BTL 85 ML IV (23:17)
[2021-07-21 23:39] VITALS: RESP 16
[2021-07-22] VITALS: BP 132/74; PULSE 77; RESP 16; TEMP 36.6; O2SAT 96
[2021-07-22 01:04] LABS: Lactate Dehydrogenase 157 U/L (122-220)
== END 2021-07-22 00:56 | disposition home or self-care (01) ==
PROVIDERS: Physician Assistant; Emergency Provider Internal Medicine
DX: K86.0 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 chronic pancreatitis (principal); R11.10 Vomiting, unspecified; F10.188 Alcohol abuse with other alcohol-induced disorder; Y90.9 Presence of alcohol in blood, level not specified; K70.30 Alcoholic cirrhosis of liver without ascites; I10 Essential (primary) hypertension
CPT/HCPCS: 36415; 74177; 80053; 81001; 83605; 83615; 83690; 85025; 87040; 87086; 96361; 96374; 96375; 99284; J2270; J2405; Q9967

== ENCOUNTER 2021-07-23 11:02 | Inpatient (IN) | payer MEDICAID, SELFPAY ==
[2021-07-23 11:03] VITALS: BP 150/90; PULSE 88; RESP 18; TEMP 36.9; O2SAT 99; BMI 29.7
--- NOTE | 2021-07-23 11:37 | ED.ABDPAIN ---
HPI - Abdominal Pain General Chief Complaint: Abdominal Pain Stated Complaint: abd pain Time Seen by Provider: 07/23/21 11:32 Source: patient Mode of arrival: ambulatory Limitations: no limitations History of Present Illness HPI narrative: 56-year-old female with history of alcoholic cirrhosis patient reportedly sober for 1 week, hypertension, borderline diabetes, with history of recurrent pancreatitis, patient was seen in the emergency department 2 days ago for sent home after felt better with improvement with IV fluid and pain medication, patient stated she only drank 1 beer when it triggered her pain again, patient describes the pain as constant dull aching pain in the epigastric/upper abdominal area, associated with nausea no vomiting, pain is severe 08/24, patient had similar pain in the past when she history of pancreatitis. Related Data Home Medications Medication Instructions Recorded Confirmed citalopram 20 mg tablet 1 tab PO DAILY 06/12/21 06/19/21 folic acid 1 mg tablet 1 tab PO DAILY 06/12/21 06/19/21 furosemide 20 mg tablet 1 tab PO DAILY 06/12/21 06/19/21 lactulose 10 gram/15 mL oral 15 ml PO Q OTHER DAY 06/12/21 06/19/21 solution multivitamin 1 tab PO DAILY 06/12/21 06/19/21 omeprazole 20 mg capsule,delayed 1 cap PO DAILY 06/12/21 06/19/21 release spironolactone 50 mg tablet 1 tab PO DAILY 06/12/21 06/19/21 Previous Rx's Medication Instructions Recorded ondansetron 4 mg disintegrating 4 mg PO Q8H PRN #10 tab 06/16/21 tablet thiamine mononitrate (vit B1) 100 100 mg PO DAILY 30 Days #30 tab 06/16/21 mg tablet ondansetron 4 mg disintegrating 4 mg PO Q8H PRN #10 tab 07/22/21 tablet tramadol 50 mg tablet 50 mg PO Q8H PRN #5 tab 07/22/21 Allergies Allergy/AdvReac Type Severity Reaction Status Date / Time Penicillins Allergy Severe Itching Verified 06/27/21 09:19 Review of Systems Review of Systems All other systems are reviewed and are negative Constitutional: Reports as per HPI and Reports no additional constitutional complaints Eyes: Reports as per HPI and Reports no additional eye complaints Reports system reviewed and no additional complaints, except as documented Cardiovascular: Reports as per HPI and Reports no additional cardiovascular complaints Respiratory: Reports as per HPI and Reports no additional respiratory complaints Gastrointestinal: Reports as per HPI and Reports no additional gastrointestinal complaints Genitourinary: Reports no additional female genitourinary complaints Musculoskeletal: Reports no additional musculoskeletal complaints Skin/Breast: Reports system reviewed and no additional complaints, except as docu Psychiatric: Reports no additional psychiatric complaints Endocrine: Reports no additional endocrine complaints Hematologic/Lymphatic: Reports no additional hematologic/lymphatic complaints Allergic/Immunologic: Reports no additional allergic/immunologic complaints Reports system reviewed and no additional complaints, except as documented and Reports Abnormal speech present Physical Exam Vital Signs: Vital Signs: Last Vital Signs Temp 98.4 F 07/23/21 11:03 Pulse 88 07/23/21 12:51 Resp 16 07/23/21 12:51 BP 133/76 07/23/21 12:51 Pulse Ox 98 07/23/21 12:51 Body Mass Index 29.7 Vital signs have been reviewed as appeared to be correct. Blood pressure normal. Heart rate normal. Respiration rate normal. Temperature normal. Oxygen saturation normal. Appearance: Alert. Oriented X3. No acute distress. Head: Normal external exam. Normocephalic. Atraumatic. No [place] signs noted. No raccoon eyes noted Eyes: PERRLA. EOMI. Conjunctiva and sclera normal. Eyelids normal. ENT: TM's Normal. Pharynx normal. Uvula midline. Moist mucous membranes. No trismus noted. No drooling noted. No muffled voice noted. Neck: Normal inspection. Neck supple. FROM. No adenopathy. Thyroid Normal. No meningeal signs. No neck mass noted. CVS: Normal heart rate and rhythm. Heart sound normal. No murmurs noted. Pulses normal throughout. Respiratory: No respiratory distress. Painless inspiration. Breath sounds normal. No wheezes/rales/rhonchi noted. Chest nontender. No accessory muscle usage noted or decreased air movement noted. Abdomen: Soft and nontender. Bowel sounds normal in all 4 quadrants. No distention noted. No organomegaly noted. No visible injury noted. Back: No CVA tenderness. Full range of motion noted. Skin: Skin warm and dry. Normal skin color. Normal skin turgor. No rashes/lesions/lacerations noted. Extremities: No lower extremity edema. Extremities exhibit normal range of motion. Extremities nontender. Neuro: Oriented X 3. Cranial nerve exam: II-XII are grossly intact No motor deficit. No sensory deficit. Reflexes normal. Course Course Course Narrative: Assessment and plan. 56-year-old female presented to the emergency department 2 days ago after drinking alcohol had an abdominal pain and found to be in mild pancreatitis/gastritis patient was sent home after she improved, return for worsening of the symptoms. Patient will be admitted for further IV hydration and pain control and nausea and vomiting control. MDM - Abdominal Pain Lab Data Attestation: I reviewed the patient's lab results. Result diagrams: 07/23/21 12:11 07/23/21 14:03 Labs: Lab Results 07/23/21 07/23/21 07/23/21 Range/Units 12:11 14:03 14:03 WBC 9.6 (4.8-10.8) X10*3/uL RBC 4.29 (4.20-5.50) X10*6/uL Hgb 12.7 (12.0-16.0) g/dl Hct 38.6 (37-47) % MCV 90.0 (80-98) fL MCH 29.6 (27.0-33.0) pg MCHC 32.9 (31.0-35.0) g/dl RDW 14.8 (11.0-16.0) % Plt Count 203 (160-400) X10*3/uL MPV 10.8 (9.4-12.3) fL Immature Gran % (Auto) 0.4 (0.0-0.4) % Neut % (Auto) 87.6 H (45-73) % Lymph % (Auto) 6.4 L (20-40) % [place] % (Auto) 5.2 (2-11) % Eos % (Auto) 0.2 (0-4) % Baso % (Auto) 0.2 (0-2) % Lymph # (Auto) 0.6 L (1.2-4.9) X10*3/uL [place] # (Auto) 0.5 (0.1-1.2) X10*3/uL Eos # (Auto) 0.0 (0.0-0.4) X10*3/uL Baso # (Auto) 0.0 (0.0-0.2) X10*3/uL Abs Immat Gran (auto) 0.04 H (0.00-0.03) X10*3/uL Absolute Neuts (auto) 8.4 H (2.0-8.3) X10*3/uL Absolute Nucleated RBC 0.000 (0.0-0.012) X10*3/uL Nucleated RBC % (auto) 0.0 (0.0-0.2) /100WBC Sodium 137 (135-145) mmol/L Potassium 4.0 (3.3-5.1) mmol/L Chloride 104 (96-108) mmol/L Carbon Dioxide 22 (22-29) mmol/L Anion Gap 15 (12-20) BUN 13 (9-16) mg/dL Creatinine 0.86 (0.5-1.4) mg/dL Estim Creat Clear Calc 69.7 Estimated GFR > 60 Random Glucose 141 H (60-115) mg/dL Calcium 8.5 (8.4-10.2) mg/dL Total Bilirubin 0.6 (0.0-1.0) mg/dL Direct Bilirubin 0.2 (0.0-0.5) mg/dL AST 20 D (5-31) U/L ALT 13 (0-31) U/L Alkaline Phosphatase 203 H (39-117) U/L Total Protein 7.6 (6.5-8.0) g/dL Albumin 3.8 (3.5-5.0) g/dL Lipase 172 H (8-78) U/L Urine Color YELLOW Urine Appearance HAZY Urine pH 6.0 (5.0-8.0) Ur Specific [place] 1.010 (1.005-1.025) Urine Protein NEG (NEG-TRACE) MG/DL Urine Glucose (UA) NEG (NEG) MG/DL Urine Ketones 15 (NEG) MG/DL Urine Blood NEG (NEG) Urine Nitrite NEG (NEG) Ur Leukocyte Esterase 3+ H (NEG) Urine RBC 0 (0) /HPF Urine WBC 10-14 H (0-4) /HPF Ur Squamous Epith Cells 1+ /LPF Amorphous Sediment 1+ /LPF Urine Bacteria TRACE /LPF Discharge Plan Discharge Clinical Impression: Acute alcoholic gastritis, Alcoholic pancreatitis Patient Disposition: Admitted As Inpatient Prescriptions: No Action multivitamin Tablet 1 tab PO DAILY RF: 0 citalopram 20 mg tablet 1 tab PO DAILY RF: 0 omeprazole 20 mg capsule,delayed release(DR/EC) 1 cap PO DAILY RF: 0 folic acid 1 mg tablet 1 tab PO DAILY RF: 0 furosemide 20 mg tablet 1 tab PO DAILY RF: 0 spironolactone 50 mg tablet 1 tab PO DAILY RF: 0 lactulose 10 gram/15 mL solution 15 ml PO Q OTHER DAY RF: 0 thiamine mononitrate (vit B1) 100 mg Tablet 100 mg PO DAILY 30 Days Qty: 30 RF: 0 ondansetron 4 mg tablet,disintegrating 4 mg PO Q8H PRN (Reason: nausea and vomiting) Qty: 10 RF: 0 ondansetron 4 mg tablet,disintegrating 4 mg PO Q8H PRN (Reason: nausea and vomiting) Qty: 10 RF: 0 tramadol 50 mg tablet 50 mg PO Q8H PRN (Reason: pain) Qty: 5 RF: 0 PMFSH Past Medical History Medical History delivery delivered Cirrhosis History of alcohol abuse HTN (hypertension) Prediabetes Surgical History History of cholecystectomy Social History Social History Household Members: Family Housing: House Do you presently have visiting nurse or other home services: No Alcohol intake: current Alcohol intake frequency: holidays/special occasions only Patient Tobacco Use Status: Never used Tobacco Advance Directives: No Advance Directives Information Provided: No service: No Current occupational status: unemployed
[2021-07-23] MEDS: 0.9 % Sodium Chloride 1,000 ML 999 ML IVCONT (12:11)
[2021-07-23] MEDS: ondansetron HCL 4 MG/2 ML VIAL IVPUSH ×2 (12:11→15:09)
[2021-07-23] MEDS: Morphine Sulfate 2 MG/ML CARTRIDGE 1 MG IVPUSH ×3 (12:12→21:21)
[2021-07-23] MEDS: Famotidine/PF 20 MG/2 ML VIAL IVPUSH (12:12)
[2021-07-23 12:22] LABS: MANUAL DIFF FLAG NO
[2021-07-23 12:23] LABS: Basophils Percent Auto 0.2 % (0-2); Eosinophils Percent Auto 0.2 % (0-4); Hematocrit 38.6 % (37-47); Hemoglobin 12.7 g/dl (12.0-16.0); Imm Gran Abs Auto 0.04 X10*3/uL (0.00-0.03); Imm Gran Pct Auto 0.4 % (0.0-0.4); Lymphocytes Absolute Auto 0.6 X10*3/uL (1.2-4.9); Lymphocytes Percent Auto 6.4 % (20-40); Mean Corpuscular HGB Conc 32.9 g/dl (31.0-35.0); Mean Corpuscular Hemoglobin 29.6 pg (27.0-33.0); Mean Platelet Volume 10.8 fL (9.4-12.3); Monocytes Absolute Auto 0.5 X10*3/uL (0.1-1.2); Monocytes Percent Auto 5.2 % (2-11); Neutrophils Absolute Auto 8.4 X10*3/uL (2.0-8.3); Neutrophils Percent Auto 87.6 % (45-73); Platelet Count 203 X10*3/uL (160-400); Red Blood Count 4.29 X10*6/uL (4.20-5.50); Red Cell Distribution Width 14.8 % (11.0-16.0); White Blood Count 9.6 X10*3/uL (4.8-10.8)
[2021-07-23 12:51] VITALS: BP 133/76; PULSE 88; RESP 16; O2SAT 98
[2021-07-23 14:13] LABS: Color Urine YELLOW; Glucose Urine UA NEG (NEG); Leukocyte Esterase Urine 3+ (NEG); Nitrite Urine NEG (NEG); UACC Culture Trigger YES; Urine Blood NEG (NEG); Urine Ketones 15 MG/DL (NEG); Urine Protein NEG (NEG-TRACE)
[2021-07-23 14:22] LABS: Appearance Urine HAZY; Squamous Epithelial Cell Urine 1+ /LPF
[2021-07-23 14:25] LABS: Bacteria Urine TRACE /LPF; RBC Urine 0 /HPF (0)
[2021-07-23 14:26] LABS: Amorphous Sediment Urine 1+ /LPF
[2021-07-23 14:28] LABS: Alanine Aminotransferase 13 U/L (0-31); Albumin Level 3.8 g/dL (3.5-5.0); Alkaline Phosphatase 203 U/L (39-117); Anion Gap 15 (12-20); Aspartate Amino Transferase 20 U/L (5-31); Bilirubin Direct 0.2 mg/dL (0.0-0.5); Bilirubin Total 0.6 mg/dL (0.0-1.0); Blood Urea Nitrogen 13 mg/dL (9-16); Calcium 8.5 mg/dL (8.4-10.2); Carbon Dioxide 22 mmol/L (22-29); Chloride 104 mmol/L (96-108); Creatinine Clr Calc Pharmacy 69.7; Estimated Glomerular Filt Rate > 60; Glucose Random 141 mg/dL (60-115); Lipase 172 U/L (8-78); Sodium 137 mmol/L (135-145); Total Protein 7.6 g/dL (6.5-8.0)
[2021-07-23] MEDS: Morphine Sulfate 2 MG/ML CARTRIDGE IVPUSH (15:09)
[2021-07-23 15:11] VITALS: BP 151/85; PULSE 94; RESP 16; O2SAT 98
[2021-07-23 15:37] LABS: COVID-19 Test Negative (Negative)
--- NOTE | 2021-07-23 15:55 | PM.IMHP ---
History of Present Illness Date of Service: 07/23/21 Chief Complaint: Nausea vomiting abdominal pain, alcohol use. 56-year-old female with history of probable liver cirrhosis secondary to alcohol use, hypertension, prediabetic-still drinking alcohol until Wednesday as per the patient drink only 1 drink of [place] on wednesday, she said she has recently feeling sad depressed as keep drinking alcohol: She was in the emergency room 2 days back and has CT abdomen done ,discharge at that time with pain and nausea medication-came back still has nausea and vomiting she said she vomited twice at home and 1 time in the ED. Also has epigastric pain, denies any diarrhea. She said her abdominal pain was not improving and came back to the hospital because above issue. Denies any new complaint of chest pain or shortness of breath or fever or chills Denies any cough Denies any weakness or numbness. Lab imaging reviewed: Seems lipase levels are improving but patient still has significant pain, so admission was given for acute on chronic pancreatitis. Patient received Zofran, morphine, famotidine in the ED. Review of Systems Review of Systems: as above in HPI. Denies any vision changes, or headache. [facility] Medical History delivery delivered Cirrhosis History of alcohol abuse HTN (hypertension) Prediabetes Pertinent family history: Lives with her sister, her father has COPD and mother has diabetes. Family history: reviewed and not pertinent Surgical History History of cholecystectomy Social History Household Members: Family Housing: House Do you presently have visiting nurse or other home services: No Alcohol intake: current Alcohol intake frequency: holidays/special occasions only Patient Tobacco Use Status: Never used Tobacco Advance Directives: No Advance Directives Information Provided: No service: No Current occupational status: unemployed Meds Allergies Allergy/AdvReac Type Severity Reaction Status Date / Time Penicillins Allergy Severe Itching Verified 06/27/21 09:19 Active Medications: Current Medications Generic Name Dose Route Start Last Admin Trade Name Freq PRN Reason Stop Dose Admin Enoxaparin Sodium 40 mg 07/23/21 16:00 Enoxaparin Sodium 40 Mg/0.4 Ml Syringe SUBCUT Q24H [facility] Folic Acid 1 mg 07/23/21 16:00 Folic Acid 1 Mg Tablet PO DAILY [facility] Lactated Ringer's 1,000 mls @ 125 mls/hr 07/23/21 16:00 Lr IVCONT .Q8H [facility] Thiamine HCl 100 mg/ Sodium 101 mls @ 202 mls/hr 07/23/21 16:00 Chloride IV DAILY [facility] Pantoprazole Sodium 40 mg 07/23/21 16:00 Pantoprazole Sodium 40 Mg/10 Ml Vial IVPUSH DAILY@0630 [facility] Pharmacy Consult 1 each 07/23/21 15:02 Consult Rx Perform Med Rec MISCELLANE ONCE PRN Consult order Pharmacy Consult 1 each 07/23/21 15:53 Consult Rx Etoh Phenob Dosing MISCELLANE ONCE PRN Consult order Protocol Sodium Chloride 3 ml 07/23/21 16:00 0.9 % Sodium Chloride Flush 3 Ml Syringe IVFLUSH QSHIFT [facility] Home Medications Medication Instructions Recorded Confirmed Last Taken Type citalopram 20 mg tablet 1 tab PO DAILY 06/12/21 07/23/21 07/23/21 History folic acid 1 mg tablet 1 tab PO DAILY 06/12/21 07/23/21 07/23/21 History furosemide 20 mg tablet 1 tab PO DAILY 06/12/21 07/23/21 07/23/21 History lactulose 10 gram/15 mL oral 15 ml PO DAILY PRN 06/12/21 07/23/21 07/16/21 History solution multivitamin 1 tab PO DAILY 06/12/21 07/23/21 07/23/21 History omeprazole 20 mg capsule,delayed 2 cap PO DAILY 06/12/21 07/23/21 07/23/21 History release spironolactone 50 mg tablet 1 tab PO DAILY 06/12/21 07/23/21 07/23/21 History Physical Exam Vital Signs and Narrative: Vital Signs: Last Vital Signs Temp 98.4 F 07/23/21 11:03 Pulse 94 07/23/21 15:11 Resp 16 07/23/21 15:11 BP 151/85 H 07/23/21 15:11 Pulse Ox 98 07/23/21 15:11 Body Mass Index 29.7 Physical exam: Constitutional: Has epigastric pain, seems slightly in discomfort otherwise stocking in normal sentences. Cvs: rrr, [id number] , no murmur res: clear to auscultation ,no rhonchii or wheezing abd: no rebound or guarding ,epigastric discomfort, bs present. ext pulses present , no cyanosis neuro: axo3 , nonfocal. has tremers MS: rom intact, no pain skin: no erythema or edema Results Labs CBC and Chem 7: 07/23/21 12:11 07/23/21 14:03 Labs: Laboratory Results - last 24 hr 07/23/21 07/23/21 07/23/21 12:11 14:03 14:03 MCV 90.0 MCH 29.6 MCHC 32.9 RDW 14.8 Plt Count 203 MPV 10.8 Immature Gran % (Auto) 0.4 Neut % (Auto) 87.6 H Lymph % (Auto) 6.[address] [place] % (Auto) 5.2 Eos % (Auto) 0.2 Baso % (Auto) 0.2 Lymph # (Auto) 0.[address] [place] # (Auto) 0.5 Eos # (Auto) 0.0 Baso # (Auto) 0.0 Abs Immat Gran (auto) 0.04 H Absolute Neuts (auto) 8.4 H Absolute Nucleated RBC 0.000 Nucleated RBC % (auto) 0.0 Anion Gap 15 Estim Creat Clear Calc 69.7 Estimated GFR > 60 Random Glucose 141 H Calcium 8.5 Total Bilirubin 0.6 Direct Bilirubin 0.2 AST 20 D ALT 13 Alkaline Phosphatase 203 H Total Protein 7.6 Albumin 3.8 Lipase 172 H Urine Color YELLOW Urine Appearance HAZY Urine pH 6.0 Ur Specific [place] 1.010 Urine Protein NEG Urine Glucose (UA) NEG Urine Ketones 15 Urine Blood NEG Urine Nitrite NEG Ur Leukocyte Esterase 3+ H Urine RBC 0 Urine WBC 10-14 H Ur Squamous Epith Cells 1+ Amorphous Sediment 1+ Urine Bacteria TRACE COVID-19 ([facility]) COVID-19 Clin Com 07/23/21 15:08 MCV MCH MCHC RDW Plt Count MPV Immature Gran % (Auto) Neut % (Auto) Lymph % (Auto) [place] % (Auto) Eos % (Auto) Baso % (Auto) Lymph # (Auto) [place] # (Auto) Eos # (Auto) Baso # (Auto) Abs Immat Gran (auto) Absolute Neuts (auto) Absolute Nucleated RBC Nucleated RBC % (auto) Anion Gap Estim Creat Clear Calc Estimated GFR Random Glucose Calcium Total Bilirubin Direct Bilirubin AST ALT Alkaline Phosphatase Total Protein Albumin Lipase Urine Color Urine Appearance Urine pH Ur Specific [place] Urine Protein Urine Glucose (UA) Urine Ketones Urine Blood Urine Nitrite Ur Leukocyte Esterase Urine RBC Urine WBC Ur Squamous Epith Cells Amorphous Sediment Urine Bacteria COVID-19 ([facility]) Negative COVID-19 Clin Com See Note Assessment and Plan (1) Acute alcoholic gastritis: Status: Acute (2) Alcoholic pancreatitis: Status: Acute (3) HTN (hypertension): Status: Acute 56-year-old female who presents to the hospital with abdominal pain found to have acute pancreatitis 1. acute pancreatitis mild gastritis secondary to alcohol abuse npo Continue IV fluid, pain control with morphine . The pain does not improve may need GI evaluation. 2.history of alcohol abuse denies any withdrawal symptoms Advised to quit alcohol completely Keep on CIWA protocol Continue folic acid to 3. hypertension: slightly suboptimal-probably related to pain moniter , hold lasix for now due to nausea vomiting,npo may need to add meds if need continue to elevated. 4. prediabetic : poc qidac DVT prophylaxis sq lovenox Quality Stroke Does the patient have a stroke diagnosis?: No VTE Prior VTE?: No VTE Risk Level:: Medical - moderate - high VTE Device Contraindication: N/A - Device Ordered VTE Drug Contraindication: N/A - Med Ordered
[2021-07-23] MEDS: Thiamine HCL 100 MG in 0.9 % Sodium Chloride 100 ML 202 MG IV (16:06)
[2021-07-23] MEDS: Enoxaparin Sodium 40 MG/0.4 ML SYRINGE SUBCUT (16:07)
[2021-07-23] MEDS: Pantoprazole Sodium 40 MG/10 ML VIAL IVPUSH (16:07)
[2021-07-23] MEDS: Lactated Ringers 1,000 ML 125 ML IVCONT (16:08)
[2021-07-23] MEDS: Folic Acid 1 MG TABLET PO (16:09)
[2021-07-23 17:00] VITALS: BP 135/69; PULSE 84; RESP 16; O2SAT 98
--- NOTE | 2021-07-23 17:21 | PC.NURSE ---
Patient walks to bathroom with steady gait in NAD, breathing even and unlabored. Patient reports pain is tolerable at a 4/10. Pending admission bed.
--- NOTE | 2021-07-23 18:55 | MHC.CM.PN ---
CM met with admitted pt, bed pending. Pt speaks both [place]ambican and Georgian, language interpreter used. Pt lives with sister. Uses no DME or services. Pt has Medicaid. HCP not on file. HCP reviewed, completed and signed per protocol. Copies given to patient. Uploaded into [employer] and [facility] [place] [employer]. HCP/sister Columba Gao ([phone]. Pt may benefit from recovery support services. Hx ETOH misuse disorder. Pt is fully vaccinated with IMTIAZ Isaac in April. D/C plan is home without services. Transportation to be arranged by pt. CM to follow for d/c needs.
[2021-07-23 20:30] VITALS: BP 109/57; PULSE 76; RESP 16; O2SAT 99
[2021-07-23 20:36] LABS: Glucose, Whole Blood 119 mg/dL (60-115)
--- NOTE | 2021-07-23 21:24 | PC.NURSE ---
Patient medicated per MAR for pain. Patient in NAD, breathing even and unlabored.
[2021-07-23 22:20] VITALS: BP 110/59; PULSE 75; RESP 16; O2SAT 99
--- NOTE | 2021-07-23 22:21 | PC.NURSE ---
Patient in NAD. breathing even and unlabored. Denies pain and nausea. Pending admission bed.
[2021-07-24] VITALS (8 sets, daily range): BP systolic 101–147; BP diastolic 51–75; PULSE 60–79; RESP 18–20; TEMP 36.6–37.2; O2SAT 93–98
--- NOTE | 2021-07-24 00:07 | PC.NURSE ---
Attempted to give report, nurse is not available at this time.
--- NOTE | 2021-07-24 00:27 | PC.NURSE ---
Gave report to [facility] receiving unit.
[2021-07-24] MEDS: 0.9 % Sodium Chloride Flush 3 ML SYRINGE IVFLUSH ×3 (00:58→15:29)
[2021-07-24] MEDS: Lactated Ringers 1,000 ML 125 ML IVCONT ×3 (00:58→16:03)
[2021-07-24] MEDS: Morphine Sulfate 2 MG/ML CARTRIDGE 1 MG IVPUSH ×2 (01:02→04:23)
[2021-07-24] MEDS: Pantoprazole Sodium 40 MG/10 ML VIAL IVPUSH (06:22)
--- NOTE | 2021-07-24 06:25 | PC.NURSE ---
Pt is awake and states he pain has been relieved. additional morphing not given.
[2021-07-24 07:15] LABS: Anion Gap 13 (12-20); Blood Urea Nitrogen 11 mg/dL (9-16); Calcium 8.1 mg/dL (8.4-10.2); Carbon Dioxide 24 mmol/L (22-29); Chloride 104 mmol/L (96-108); Creatinine Clr Calc Pharmacy 77.2; Estimated Glomerular Filt Rate > 60; Glucose Random 105 mg/dL (60-115); Potassium 3.7 mmol/L (3.3-5.1); Sodium 137 mmol/L (135-145)
[2021-07-24 07:28] LABS: Glucose, Whole Blood 109 mg/dL (60-115)
[2021-07-24] MEDS: Folic Acid 1 MG TABLET PO (07:49)
[2021-07-24] MEDS: ondansetron HCL 4 MG/2 ML VIAL IVPUSH ×4 (07:49→20:28)
[2021-07-24] MEDS: Morphine Sulfate 2 MG/ML CARTRIDGE IVPUSH ×5 (07:50→20:27)
[2021-07-24] MEDS: Thiamine HCL 100 MG in 0.9 % Sodium Chloride 100 ML 202 MG IV (09:15)
[2021-07-24 10:59] LABS: Glucose, Whole Blood 145 mg/dL (60-115)
--- NOTE | 2021-07-24 14:11 | HO.PM.IMPN ---
Subjective Subjective Date of Service: 07/24/21 Interval History: Acute pancreatitis Review of Systems Patient still has abdominal pain, unable to tolerate diet. Denies any new complaint of chest pain or shortness of breath or fever or chills Denies any cough Denies any weakness or numbness. Physical Exam Vital Signs: Vital Signs: Last Vital Signs Temp 98.5 F 07/24/21 11:28 Pulse 78 07/24/21 11:28 Resp 18 07/24/21 11:28 BP 101/51 L 07/24/21 11:28 Pulse Ox 94 07/24/21 11:28 Body Mass Index 30.0 Cvs: rrr, [id number] , no murmur res: clear to auscultation ,no rhonchii or wheezing abd: no rebound or guarding ,epigastric discomfort, bs present. ext pulses present , no cyanosis neuro: axo3 , nonfocal. has tremers MS: rom intact, no pain skin: no erythema or edema Objective Data Active Medications Enoxaparin Sodium (Enoxaparin Sodium 40 Mg/0.4 Ml Syringe) 40 mg SUBCUT Q24H [facility] Last Admin: 07/23/21 16:07 Dose: 40 mg Documented by: MUSA Folic Acid (Folic Acid 1 Mg Tablet) 1 mg PO DAILY [facility] Last Admin: 07/24/21 07:49 Dose: 1 mg Documented by: THALIA Lactated Ringer's (Lr) 1,000 mls @ 125 mls/hr IVCONT .Q8H [facility] Last Admin: 07/24/21 08:00 Dose: 125 mls/hr Documented by: THALIA Thiamine HCl 100 mg/ Sodium (Chloride) 101 mls @ 202 mls/hr IV DAILY [facility] Last Infusion: 07/24/21 10:16 Dose: 0 mls/hr Documented by: THALIA Morphine Sulfate (Morphine Sulfate 2 Mg/Ml Cartridge) 2 mg IVPUSH Q3H PRN; Protocol PRN Reason: Pain, Moderate (Pain Scale 4-6 Last Admin: 07/24/21 12:11 Dose: 2 mg Documented by: BREANA Ondansetron HCl (Ondansetron Hcl 4 Mg/2 Ml Vial) 4 mg IVPUSH Q4H [facility] Last Admin: 07/24/21 12:12 Dose: 4 mg Documented by: BREANA Pantoprazole Sodium (Pantoprazole Sodium 40 Mg/10 Ml Vial) 40 mg IVPUSH DAILY@0630 [facility] Last Admin: 07/24/21 06:22 Dose: 40 mg Documented by: TIERA Pharmacy Consult (Consult Rx Perform Med Rec) 1 each MISCELLANE ONCE PRN PRN Reason: Consult order Sodium Chloride (0.9 % Sodium Chloride Flush 3 Ml Syringe) 3 ml IVFLUSH QSHIFT [facility] Last Admin: 07/24/21 07:49 Dose: 3 ml Documented by: THALIA Labs CBC & Chem 7: 07/23/21 12:11 07/24/21 05:23 Labs: Laboratory Results - last 24 hr 07/23/21 07/23/21 07/23/21 14:03 14:03 15:08 Anion Gap 15 Estim Creat Clear Calc 69.7 Estimated GFR > 60 POC Glucose Random Glucose 141 H Calcium 8.5 Total Bilirubin 0.6 Direct Bilirubin 0.2 AST 20 D ALT 13 Alkaline Phosphatase 203 H Total Protein 7.6 Albumin 3.8 Lipase 172 H Urine Color YELLOW Urine Appearance HAZY Urine pH 6.0 Ur Specific [place] 1.010 Urine Protein NEG Urine Glucose (UA) NEG Urine Ketones 15 Urine Blood NEG Urine Nitrite NEG Ur Leukocyte Esterase 3+ H Urine RBC 0 Urine WBC 10-14 H Ur Squamous Epith Cells 1+ Amorphous Sediment 1+ Urine Bacteria TRACE COVID-19 ([facility]) Negative COVID-19 Clin Com See Note 07/23/21 07/24/21 07/24/21 20:30 05:23 07:05 Anion Gap 13 Estim Creat Clear Calc 77.2 Estimated GFR > 60 POC Glucose 119 H 109 Random Glucose 105 Calcium 8.1 L Total Bilirubin Direct Bilirubin AST ALT Alkaline Phosphatase Total Protein Albumin Lipase Urine Color Urine Appearance Urine pH Ur Specific [place] Urine Protein Urine Glucose (UA) Urine Ketones Urine Blood Urine Nitrite Ur Leukocyte Esterase Urine RBC Urine WBC Ur Squamous Epith Cells Amorphous Sediment Urine Bacteria COVID-19 ([facility]) COVID-19 Clin Com 07/24/21 10:55 Anion Gap Estim Creat Clear Calc Estimated GFR POC Glucose 145 H Random Glucose Calcium Total Bilirubin Direct Bilirubin AST ALT Alkaline Phosphatase Total Protein Albumin Lipase Urine Color Urine Appearance Urine pH Ur Specific [place] Urine Protein Urine Glucose (UA) Urine Ketones Urine Blood Urine Nitrite Ur Leukocyte Esterase Urine RBC Urine WBC Ur Squamous Epith Cells Amorphous Sediment Urine Bacteria COVID-19 ([facility]) COVID-19 Clin Com Assessment and Plan (1) Acute alcoholic gastritis: Status: Acute (2) Alcoholic pancreatitis: Status: Acute (3) Prediabetes: Status: Acute Assessment and Plan: 56-year-old female who presents to the hospital with abdominal pain found to have acute pancreatitis 1. acute pancreatitis mild gastritis secondary to alcohol abuse npo Continue IV fluid, pain control with morphine . The pain does not improve may need GI evaluation. 2.history of alcohol abuse denies any withdrawal symptoms Advised to quit alcohol completely Keep on CIWA protocol Continue folic acid , thiamine 3. hypertension: slightly suboptimal-probably related to pain moniter , hold lasix for now due to nausea vomiting,npo may need to add meds? if need continue to elevated. 4. prediabetic : poc qidac Hba1c levels DVT prophylaxis sq lovenox Quality Stroke Does the patient have a stroke diagnosis?: No VTE Prior VTE?: No VTE Risk Level:: Medical - moderate - high VTE Device Contraindication: N/A - Device Ordered VTE Drug Contraindication: N/A - Med Ordered
[2021-07-24 14:35] LABS: Estimated Average Glucose 134 mg/dL; Hemoglobin A1C 152.4594 umol/L; Hemoglobin A1c % 6.3 %
[2021-07-24 14:35] LABS: Alanine Aminotransferase 7 U/L (0-31); Albumin Level 3.2 g/dL (3.5-5.0); Alkaline Phosphatase 157 U/L (39-117); Aspartate Amino Transferase 10 U/L (5-31); Bilirubin Direct 0.2 mg/dL (0.0-0.5); Bilirubin Total 0.3 mg/dL (0.0-1.0); Total Protein 5.9 g/dL (6.5-8.0)
[2021-07-24] MEDS: Enoxaparin Sodium 40 MG/0.4 ML SYRINGE SUBCUT (15:28)
[2021-07-24 16:52] LABS: Glucose, Whole Blood 89 mg/dL (60-115)
--- NOTE | 2021-07-24 19:24 | MHC.RECOVSUP ---
? Reason for consult Recovery support o Current location: [facility] o Identified substance use concern: alcohol - Support ? Intervention: o Community resources provided o Harm reduction discussion ? Plan: <del>o</del> <del>Referral</del> <del>to</del> <del>[facility]</del> <del>o</del> <del>Bed</del> <del>search</del> <del>in</del> <del>progress</del> <del>to</del> <del>o</del> <del>Follow</del> <del>up</del> <del>tomorrow</del> <del>o</del> <del>Patient</del> <del>awaiting</del> <del>crisis</del> <del>evaluation</del> <del>o</del> <del>Patient</del> <del>to</del> <del>follow</del> <del>up</del> <del>with</del> <del>[facility]</del> <del>after</del> <del>discharge</del> ? Additional information:
[2021-07-24 19:38] LABS: Glucose, Whole Blood 107 mg/dL (60-115)
[2021-07-24] MEDS: Melatonin 3 MG TABLET 6 MG PO (20:27)
--- NOTE | 2021-07-24 21:24 | MHC.CARE ---
CARE TEAM met with pt in room 452 along with leadership coach. She was observed calm and cooperative. Pt discussed she relapsed on margaritas after six years of sobriety and was medically admitted due to experiencing chronic pain secondary to having cirrhosis of the liver and pancreatitis. She reported experiencing increase depression for about two months due to feeling lonely and having multiple psychosocial stressors. Pt disclosed she is prescribed anti-depressive medications via PCP and denied being connected to providers at this time. She denied substance use treatment referrals and agreed to referral for mental health services. She denied suicidal and homicidal ideation, plan and intent.
[2021-07-25] MEDS: Lactated Ringers 1,000 ML 125 ML IVCONT (02:52)
[2021-07-25 03:05] VITALS: BP 106/61; PULSE 72; RESP 16; TEMP 36.7; O2SAT 94
[2021-07-25] MEDS: Pantoprazole Sodium 40 MG/10 ML VIAL IVPUSH (05:19)
[2021-07-25 07:00] VITALS: BP 111/68; PULSE 81; RESP 20; TEMP 36.7; O2SAT 94
[2021-07-25 07:24] LABS: Glucose, Whole Blood 89 mg/dL (60-115)
[2021-07-25 07:30] LABS: Anion Gap 13 (12-20); Blood Urea Nitrogen 7 mg/dL (9-16); Calcium 8.5 mg/dL (8.4-10.2); Carbon Dioxide 26 mmol/L (22-29); Chloride 104 mmol/L (96-108); Creatinine Clr Calc Pharmacy 80.3; Estimated Glomerular Filt Rate > 60; Glucose Random 90 mg/dL (60-115); Potassium 4.3 mmol/L (3.3-5.1); Sodium 139 mmol/L (135-145)
[2021-07-25 10:38] VITALS: RESP 16
[2021-07-25] MEDS: 0.9 % Sodium Chloride Flush 3 ML SYRINGE IVFLUSH (10:38)
[2021-07-25] MEDS: Folic Acid 1 MG TABLET PO (10:38)
[2021-07-25] MEDS: Morphine Sulfate 2 MG/ML CARTRIDGE IVPUSH ×2 (10:38→13:26)
[2021-07-25] MEDS: ondansetron HCL 4 MG/2 ML VIAL IVPUSH (10:39)
[2021-07-25 10:58] LABS: Glucose, Whole Blood 125 mg/dL (60-115)
[2021-07-25 11:37] VITALS: BP 103/56; PULSE 70; RESP 18; TEMP 36.9; O2SAT 95
[2021-07-25] MEDS: Thiamine HCL 100 MG in 0.9 % Sodium Chloride 100 ML 202 MG IV (12:21)
[2021-07-25 13:26] VITALS: RESP 18
--- NOTE | 2021-07-25 13:58 | PM.DS ---
DS: Providers Provider Date of Service: 07/25/21 Date of admission: 07/23/21 15:32 Date of discharge: 07/25/21 Primary care physician: Troy Leone MD Consults: 07/24/21 10:37 Consult to Care Team Routine Comment: Reason for consultation: depression DS: Diagnosis Discharge Diagnosis (1) Acute alcoholic gastritis: Status: Acute (2) Alcoholic pancreatitis: Status: Acute (3) Prediabetes: Status: Acute DS: Summary Hospital Course Hospital Course: 56-year-old female with history of probable liver cirrhosis secondary to alcohol use, hypertension, prediabetic-still drinking alcohol until Wednesday as per the patient drink only 1 drink of [place] on wednesday, she said she has recently feeling sad depressed as keep drinking alcohol: She was in the emergency room 2 days back and has CT abdomen done ,discharge at that time with pain and nausea medication-came back still has nausea and vomiting she said she vomited twice at home and 1 time in the ED. Also has epigastric pain, denies any diarrhea. She said her abdominal pain was not improving and came back to the hospital because above issue. Denies any new complaint of chest pain or shortness of breath or? fever or chills Denies any cough Denies any weakness or numbness. Lab imaging reviewed:? Seems lipase levels are improving but patient still has significant pain, so admission was given for acute on chronic pancreatitis. Patient received Zofran, morphine, famotidine in the ED. Hospital course: Patient came because of abdominal pain found to have acute pancreatitis: Placed on IV fluid, bowel rest, pain management with morphine: Subsequently patient improved. Patient is tolerating diet well, going home. Patient advised campbell to stop alcohol use. Also patient was seen by the care team and information for follow-up given for alcohol and depression. Above management discussed with the patient in detail length she understand and in agreement with the above plan-discussed in detail about pancreatitis and alcohol use and avoid alcoholism. Total time spent 60 minutes and 50% time spent on counseling. Significant findings: As above. Procedures performed: None. Treatment and response: As above. Complications: None. Time Spent with Patient Time attestation: Total time spent providing and/or coordinating discharge services: Discharge coordination time: Greater than 30 minutes Quality: Stroke Does the patient have a stroke diagnosis?: No Physical Exam Vital Signs: Vital Signs: Last Vital Signs Temp 98.5 F 09/10/21 11:37 Pulse 70 07/25/21 11:37 Resp 18 07/25/21 13:26 BP 103/56 L 07/25/21 11:37 Pulse Ox 95 07/25/21 11:37 Body Mass Index 30.0 Physical exam: Appearance: Alert.? Oriented X3.? not in distress.? Eyes: Pupils equal, round and reactive to light.? Sclera nonicteric.? ENT: Pharynx normal.? Moist mucous membranes. cvs: rrr, [id number] , no murmur res: clear to auscultation ,no rhonchii or wheezing abd: no rebound or guarding ,nt, bs present. ext pulses present , no cyanosis ,Gait well balanced well coordinated. neuro: axo3 , nonfocal. DS: Data Data Completed and Pending Labs on day of discharge: Laboratory Results - last 24 hr 07/23/21 07/24/21 07/24/21 14:03 05:23 16:46 Sodium Potassium Chloride Carbon Dioxide Anion Gap BUN Creatinine Estim Creat Clear Calc Estimated GFR POC Glucose 89 Random Glucose Estimat Average Glucose 134 Hemoglobin A1c % 6.3 Calcium Total Bilirubin 0.3 Direct Bilirubin 0.2 AST 10 D ALT 7 Alkaline Phosphatase 157 H D Total Protein 5.9 L D Albumin 3.2 L 07/24/21 07/25/21 07/25/21 19:34 06:01 06:58 Sodium 139 Potassium 4.3 Chloride 104 Carbon Dioxide 26 Anion Gap 13 BUN 7 L Creatinine 0.75 Estim Creat Clear Calc 80.3 Estimated GFR > 60 POC Glucose 107 89 Random Glucose 90 Estimat Average Glucose Hemoglobin A1c % Calcium 8.5 Total Bilirubin Direct Bilirubin AST ALT Alkaline Phosphatase Total Protein Albumin 07/25/21 10:48 Sodium Potassium Chloride Carbon Dioxide Anion Gap BUN Creatinine Estim Creat Clear Calc Estimated GFR POC Glucose 125 H Random Glucose Estimat Average Glucose Hemoglobin A1c % Calcium Total Bilirubin Direct Bilirubin AST ALT Alkaline Phosphatase Total Protein Albumin Discharge Plan Discharge Patient Disposition: Home, Self-Care Discharge Diagnosis: Acute pancreatitis. Referrals: Sulema,MD Troy [Primary Care Provider] - 1 Week Discharge Medications: New oxycodone 5 mg capsule 5 mg PO BID PRN (Reason: pain) Qty: 7 RF: 0 Continued multivitamin Tablet 1 tab PO DAILY RF: 0 citalopram 20 mg tablet 1 tab PO DAILY RF: 0 omeprazole 20 mg capsule,delayed release(DR/EC) 2 cap PO DAILY RF: 0 folic acid 1 mg tablet 1 tab PO DAILY RF: 0 furosemide 20 mg tablet 1 tab PO DAILY RF: 0 spironolactone 50 mg tablet 1 tab PO DAILY RF: 0 lactulose 10 gram/15 mL solution 15 ml PO DAILY PRN (Reason: Constipation) RF: 0 thiamine mononitrate (vit B1) 100 mg Tablet 100 mg PO DAILY 30 Days Qty: 30 RF: 0 tramadol 50 mg tablet 50 mg PO Q8H PRN (Reason: pain) Qty: 5 RF: 0 Discharge Orders: Discharge Order (Routine); Ordered 07/25/21 Ordered By: Jostin Matthews Diet: advance to usual diet, diabetic diet, low fat, low cholesterol and low salt diet Activity on Discharge: As tolerated Stand Alone Forms: Patient Portal Discharge page Care Plan Goals: Patient came because of abdominal pain found to have acute pancreatitis: Placed on IV fluid, bowel rest, pain management with morphine: Subsequently patient improved. Patient is tolerating diet well, going home. Patient advised campbell to stop alcohol use. Also patient was seen by the care team and information for follow-up given for alcohol and depression. Health Concerns: As above. Plan of Treatment: As above. Assessment: As above. Discharge Date/Time: 07/25/21 15:31
--- NOTE | 2021-07-25 14:05 | MHC.CM.PN ---
PT CLEARED TO DC HOME TODAY WITH NO SERVICES
[2021-07-25] MEDS: oxyCODONE HCl Immed Release 5 MG TABLET PO (15:26)
== END 2021-07-25 15:31 | disposition home or self-care (01) | DRG 241 ==
LOC: HO.ED 15:10 → HO.EDOVER 15:46 → HO.IMC 23:45
PROVIDERS: Admitting Provider Internal Medicine; Emergency Provider Emergency Medicine; PCP Internal Medicine Geriatric Medicine; Visit Provider Internal Medicine
DX: K29.20 Alcoholic gastritis without bleeding (principal); K85.20 Alcohol induced acute pancreatitis without necrosis or infection; K70.30 Alcoholic cirrhosis of liver without ascites; I10 Essential (primary) hypertension; R73.03 Prediabetes; F10.10 Alcohol abuse, uncomplicated; Z20.822 Contact with and (suspected) exposure to COVID-19; Z79.899 Other long term (current) drug therapy
CPT/HCPCS: 36415; 80048; 80076; 81001; 82947; 83036; 83690; 85025; 87635; 96361; 96374; 96375; 96376; 99285; J1650; J2270; J2405; J3411

== ENCOUNTER 2021-08-26 09:11 | Outpatient (REF) | payer MEDICAID, SELFPAY ==
--- NOTE | ~2021-08-26 | US_ITS ---
US/US abdomen bailey w elastography IMPRESSION: 1. Impression: Heterogeneous liver echotexture. Calcifications in the pancreas and dilated main pancreatic duct suggestive of chronic pancreatitis. 2. Liver elastography: Adequate liver sampling. Elevated liver stiffness suggestive of compensated advanced chronic liver disease. REFERENCE: Society of Radiologists in Ultrasound Liver Stiffness Thresholds (2020): LIVER STIFFNESS THRESHOLDS: *Liver Stiffness equal or less than 1.3 m/s: High probability of being normal. *Liver Stiffness less than 1.7 m/s: In the absence of other known clinical signs, rules out compensated advanced chronic liver disease. *Liver Stiffness 1.7-2.1 m/s: Suggestive of compensated advanced chronic liver disease but need further test for confirmation. *Liver Stiffness over 2.1 m/s: Rules in compensated advanced chronic liver disease. *Liver Stiffness over 2.4 m/s: Suggestive of clinically significant portal hypertension. QUALITY OF DATA SET: *IQR/Median value equal or less than 0.15 implies a quality data set. *IQR/Median value over 0.15 implies a poor quality data set. SIGNIFICANT CHANGE FROM PRIOR EXAM: Significant change if liver stiffness measurement is 10% or greater from prior exam. OTHER CONSIDERATIONS: The stage of liver fibrosis may be overestimated in the setting of acute hepatitis, liver inflammation, elevated liver function tests, hepatic vascular congestion, obstructive cholestasis, non-fasting state, and infiltrative diseases such as amyloidosis and lymphoma. In some patients with NAFLD, the liver stiffness thresholds for compensated advanced chronic liver disease may be lower. In causes other than viral hepatitis and NAFLD, liver stiffness thresholds are not well established. EXAMINATION: US ABDOMEN LIMITED WITH LIVER ELASTOGRAPHY CLINICAL INFORMATION: Alcoholic liver disease COMPARISON: Previous CT of the abdomen and pelvis most recent July 2021 and previous abdominal ultrasound June 2021 TECHNIQUE: Real-time imaging of the abdominal viscera. Noninvasive ultrasound liver fibrosis assessment is performed using Alfred ElastPQ point quantification shear wave elastography (pSWE) with a C5-2 MHz transducer. Multiple elastography samples are obtained. FINDINGS: PANCREAS: There are small echogenic foci of the pancreas suggestive of calcifications. The main pancreatic duct is dilated measuring 0.7 cm. Some calcifications appear to be within the dilated main pancreatic duct. These findings are similar to previous exam.. LIVER: Liver echotexture is slightly heterogeneous. The liver is normal in size. No focal lesion or intrahepatic biliary duct dilatation. The right lobe measures 14 cm in length. The left lobe measures 8 cm in length. Portal flow is normal/hepatopedal Shear wave liver elastography median stiffness is 2.1 m/s (reference: normal median stiffness is 1.3 m/s or less). IQR/median stiffness to assess sampling precision is 0.1 (reference: good quality data set is IQR/median stiffness of 0.15 or less). GALLBLADDER: Surgically removed COMMON BILE DUCT: Normal in caliber measuring 0.4 cm in diameter. RIGHT KIDNEY: Normal. No hydronephrosis. No renal calculi or focal parenchymal lesions. The kidney measures 9.8 cm in maximum dimension. FREE FLUID: None.
== END 2021-08-26 09:12 | disposition home or self-care (01) ==
LOC: HO.US 09:11
PROVIDERS: PCP Internal Medicine Geriatric Medicine; Visit Provider Internal Medicine Gastroenterology
DX: K70.9 Alcoholic liver disease, unspecified (principal)
CPT/HCPCS: 76705; 76981

== ENCOUNTER → 2021-10-13 12:38 | Outpatient (BNVA) | payer MEDICAID, SELFPAY | PROVIDERS: PCP Internal Medicine Geriatric Medicine; Visit Provider Obstetrics & Gynecology | DX: R93.89 Abnormal findings on diagnostic imaging of other specified body structures (principal); I10 Essential (primary) hypertension; R73.03 Prediabetes; F10.20 Alcohol dependence, uncomplicated; K70.30 Alcoholic cirrhosis of liver without ascites; Z90.49 Acquired absence of other specified parts of digestive tract; Z88.0 Allergy status to penicillin | CPT/HCPCS: 99202 ==

== ENCOUNTER 2021-11-03 10:32 | Outpatient (REF) | payer MEDICAID, SELFPAY ==
--- NOTE | ~2021-11-03 | XR_ITS ---
EXAMINATION: XR KNEE, RIGHT XR KNEE, LEFT CLINICAL INFORMATION: Pain. COMPARISON: None TECHNIQUE: AP, lateral, tunnel, and sunrise views of each knee. FINDINGS: RIGHT KNEE: Prosthetic components of the total knee arthroplasty are appropriately aligned without periprosthetic fracture or abnormal lucency. No component migration. Mild synovial thickening. No significant effusion. LEFT KNEE: Prosthetic components of the left total knee arthroplasty are appropriately aligned without periprosthetic fracture or abnormal lucency. No component migration. Mild synovial thickening. No significant effusion. XR/XR knee LT 4V IMPRESSION: Appropriate alignment of the bilateral total knee arthroplasties without radiographic evidence of complications.
--- NOTE | ~2021-11-03 | XR_ITS ---
EXAMINATION: XR KNEE, RIGHT XR KNEE, LEFT CLINICAL INFORMATION: Pain. COMPARISON: None TECHNIQUE: AP, lateral, tunnel, and sunrise views of each knee. FINDINGS: RIGHT KNEE: Prosthetic components of the total knee arthroplasty are appropriately aligned without periprosthetic fracture or abnormal lucency. No component migration. Mild synovial thickening. No significant effusion. LEFT KNEE: Prosthetic components of the left total knee arthroplasty are appropriately aligned without periprosthetic fracture or abnormal lucency. No component migration. Mild synovial thickening. No significant effusion. XR/XR knee RT 4V IMPRESSION: Appropriate alignment of the bilateral total knee arthroplasties without radiographic evidence of complications.
== END 2021-11-03 10:33 | disposition home or self-care (01) ==
LOC: HO.XRAY 10:32
PROVIDERS: PCP Internal Medicine Geriatric Medicine; Visit Provider Internal Medicine Geriatric Medicine
DX: T84.84XA Pain due to internal orthopedic prosthetic devices, implants and grafts, initial encounter (principal)
CPT/HCPCS: 73564

== ENCOUNTER 2021-12-03 10:07 | Outpatient (REF) | payer MEDICAID, SELFPAY ==
[2021-12-03 10:26] LABS: MANUAL DIFF FLAG NO
[2021-12-03 11:05] LABS: Basophils Absolute Auto 0.1 X10*3/uL (0.0-0.2); Basophils Percent Auto 0.9 % (0-2); Eosinophils Absolute Auto 0.1 X10*3/uL (0.0-0.4); Eosinophils Percent Auto 2.4 % (0-4); Hematocrit 39.2 % (37.0-47.0); Hemoglobin 12.8 g/dl (12.0-16.0); Imm Gran Abs Auto 0.01 X10*3/uL (0.00-0.03); Imm Gran Pct Auto 0.2 % (0.0-0.4); Lymphocytes Absolute Auto 1.5 X10*3/uL (1.2-4.9); Lymphocytes Percent Auto 25.8 % (20-40); Mean Corpuscular HGB Conc 32.7 g/dl (31.0-35.0); Mean Corpuscular Hemoglobin 29.2 pg (27.0-33.0); Mean Corpuscular Volume 89.3 fL (80.0-98.0); Mean Platelet Volume 11.2 fL (9.4-12.3); Monocytes Absolute Auto 0.5 X10*3/uL (0.1-1.2); Monocytes Percent Auto 7.9 % (2-11); Neutrophils Absolute Auto 3.6 x10*3/uL (2.0-8.3); Neutrophils Percent Auto 62.8 % (45-73); Platelet Count 219 X10*3/uL (160-400); Red Blood Count 4.39 X10*6/uL (4.20-5.50); Red Cell Distribution Width 12.8 % (11.0-16.0); White Blood Count 5.7 X10*3/uL (4.8-10.8)
[2021-12-03 11:37] LABS: Alanine Aminotransferase 14 U/L (0-31); Albumin Level 4.1 g/dL (3.5-5.0); Alkaline Phosphatase 146 U/L (39-117); Aspartate Amino Transferase 15 U/L (5-31); Bilirubin Direct < 0.2 mg/dL (0.0-0.5); Bilirubin Total 0.3 mg/dL (0.0-1.0); Lipase 7 U/L (8-78); Total Protein 7.9 g/dL (6.5-8.0)
== END 2021-12-03 10:08 | disposition home or self-care (01) ==
LOC: HO.LAB 10:07
PROVIDERS: PCP Internal Medicine Geriatric Medicine; Visit Provider Internal Medicine Gastroenterology
DX: K70.9 Alcoholic liver disease, unspecified (principal)
CPT/HCPCS: 36415; 80076; 83690; 85025

== ENCOUNTER → 2021-12-19 07:56 | Outpatient (BNVA) | payer MEDICAID, SELFPAY | PROVIDERS: PCP Internal Medicine Geriatric Medicine; Visit Provider Physician Assistant | DX: M70.52 Other bursitis of knee, left knee (principal); Z96.652 Presence of left artificial knee joint | CPT/HCPCS: 99202 ==

== ENCOUNTER 2022-01-14 07:18 | Outpatient (REF) | payer MEDICAID, SELFPAY ==
--- NOTE | ~2022-01-14 | XR_ITS ---
EXAMINATION: XR SHOULDER, BILATERAL CLINICAL INFORMATION: Bilateral shoulder pain COMPARISON: None TECHNIQUE: 3 views of each shoulder FINDINGS: Normal alignment with no fracture of either shoulder. The acromioclavicular joint on the right is slightly wider than the left, possibly the result of a remote injury. Coracoclavicular distances are symmetric and normal. XR/XR shoulder LT min 2V IMPRESSION: No acute abnormality or significant degenerative findings of either shoulder.
--- NOTE | ~2022-01-14 | XR_ITS ---
EXAMINATION: XR SHOULDER, BILATERAL CLINICAL INFORMATION: Bilateral shoulder pain COMPARISON: None TECHNIQUE: 3 views of each shoulder FINDINGS: Normal alignment with no fracture of either shoulder. The acromioclavicular joint on the right is slightly wider than the left, possibly the result of a remote injury. Coracoclavicular distances are symmetric and normal. XR/XR shoulder RT min 2V IMPRESSION: No acute abnormality or significant degenerative findings of either shoulder.
== END 2022-01-14 07:19 | disposition home or self-care (01) ==
LOC: HO.HOSX 07:18
PROVIDERS: Visit Provider Physician Assistant
DX: M75.51 Bursitis of right shoulder (principal); M75.52 Bursitis of left shoulder
CPT/HCPCS: 20610; 73030; 99212; J1040

== ENCOUNTER → 2022-01-29 08:14 | Outpatient (BNVA) | payer MEDICAID, SELFPAY | PROVIDERS: PCP Internal Medicine Geriatric Medicine; Visit Provider Orthopaedic Surgery | DX: M70.50 Other bursitis of knee, unspecified knee (principal); Z96.652 Presence of left artificial knee joint | CPT/HCPCS: 20610; 99212; J1100 ==

== ENCOUNTER → 2022-02-04 12:23 | Outpatient (BNVA) | payer MEDICAID, SELFPAY | PROVIDERS: PCP Internal Medicine Geriatric Medicine; Visit Provider Physician Assistant | DX: M75.51 Bursitis of right shoulder (principal); M75.52 Bursitis of left shoulder | CPT/HCPCS: 20610; 99212; J1040 ==

== ENCOUNTER 2022-03-03 10:10 | Emergency (ER) | payer MEDICAID, SELFPAY ==
[2022-03-03 10:54] VITALS: BP 152/74; PULSE 96; RESP 18; TEMP 36.7; O2SAT 97; BMI 30.2
--- NOTE | 2022-03-03 11:49 | ED.SKABFB ---
HPI - Skin/Abscess/Foreign Bdy General Chief complaint: Wound/Laceration Stated complaint: Reaction from vivitrol injection Time Seen by Provider: 03/03/22 11:45 Source: patient Mode of arrival: ambulatory Limitations: no limitations History of Present Illness HPI narrative: 2nd shot had no issues with the first MD complaint: lesion Onset (ago): day(s) (5) Tetanus up to date: yes Location: generalized (R buttock injection site vivitrol) Severity: mild Quality: pruritic Relieving factors: none Exacerbating factors: none Context: other (at vivitrol injection site) Associated symptoms: denies other symptoms Treatments prior to arrival: other (ice pack) Related Data Home Medications Medication Instructions Recorded Confirmed citalopram 20 mg tablet 1 tab PO DAILY 06/12/21 01/29/22 folic acid 1 mg tablet 1 tab PO DAILY 06/12/21 01/29/22 furosemide 20 mg tablet 1 tab PO DAILY 06/12/21 01/29/22 lactulose 10 gram/15 mL oral 15 ml PO DAILY PRN 06/12/21 01/29/22 solution multivitamin 1 tab PO DAILY 06/12/21 01/29/22 omeprazole 20 mg capsule,delayed 2 cap PO DAILY 06/12/21 01/29/22 release spironolactone 50 mg tablet 1 tab PO DAILY 06/12/21 01/29/22 Previous Rx's Medication Instructions Recorded thiamine mononitrate (vit B1) 100 100 mg PO DAILY 30 Days #30 tab 06/16/21 mg tablet tramadol 50 mg tablet 50 mg PO Q8H PRN #5 tab 07/22/21 oxycodone 5 mg capsule 5 mg PO BID PRN #7 cap 07/25/21 Ch[place]at Strap #1 ea 12/19/21 naproxen 500 mg tablet,delayed 500 mg PO BID PRN #30 tab 01/29/22 release (EC-Naprosyn) diphenhydramine HCl 2 % topical 1 appl TOPICAL TID PRN #103 ml 03/03/22 gel (Benadryl) Allergies Allergy/AdvReac Type Severity Reaction Status Date / Time Penicillins Allergy Severe Itching Verified 01/29/22 08:35 Review of Systems Review of Systems: Constitutional : No Fever, No Chills ENT/Mouth : No sore throat, No Rhinorrhea Eyes: No Eye Pain, No Swelling, No Redness Cardiovascular : No Chest Pain, No SOB Respiratory : No Cough, No Sputum Gastrointestinal : No Nausea, No Vomiting, No Diarrhea, No abdominal Pain Genitourinary : No Dysuria, No Hematuria Musculoskeletal : No joint pain, No Myalgias, No Joint Swelling Skin : pos skin lesion, no rash Neuro : No Weakness, No Numbness, No Headache PMFSH Past Medical History Medical History delivery delivered Cirrhosis History of alcohol abuse HTN (hypertension) Prediabetes Surgical History History of cholecystectomy Social History Social History Household Members: Family Household Members Other:: sister Housing: House Do you presently have visiting nurse or other home services: No Alcohol intake: current Alcohol intake frequency: holidays/special occasions only Patient Tobacco Use Status: Never used Tobacco Advance Directives: No Advance Directives Information Provided: No Patient : No service: No Current occupational status: unemployed 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 Physical Exam Vital Signs: Vital Signs: Last Vital Signs Temp 98.1 F 03/03/22 10:54 Pulse 96 03/03/22 10:54 Resp 18 03/03/22 10:54 BP 152/74 H 03/03/22 10:54 Pulse Ox 97 03/03/22 10:54 BMI result Body Mass Index 30.2 Appearance: Alert. Oriented X3. No acute distress. Eyes: Pupils equal, round and reactive to light. ENT: Pharynx normal. Neck: Normal inspection. CVS: Pulses normal. Respiratory: No respiratory distress. Buttocks: R buttock no erythema/fluctuance/warmth 3cm area under injection area consistent with hematoma Abdomen: Soft and non-tender. Skin: Skin warm and dry. Normal skin color. Extremities: No lower extremity edema. Neuro: Oriented X 3. No motor deficit. No sensory deficit. MDM - Skin/Abscess/Foreign Bdy MDM Narrative Medical decision making narrative: 57 yo female almost one week out from vivitrol injection in R buttock - there is no erythema, warmth, fluctuance and she reports it is itchy she definitely has a hard hematoma at the site. Will offer topical benadryl. No signs of infection discussed this will take a while to heal and that she should not get her next shot at this sight as she has absorbing blood. Patient aware. Discharge Plan Discharge Clinical Impression: Hematoma Patient Disposition: Home, Self-Care Instructions: Hematoma (ED) Additional Instructions: return to ED for any worsening symptoms or concerns monitor for redness, fevers, yellow drainage Prescriptions: New Benadryl 2 % gel 1 appl topical TID PRN (Reason: itching) Qty: 103 0RF No Action multivitamin Tablet 1 tab PO DAILY 0RF citalopram 20 mg tablet 1 tab PO DAILY 0RF omeprazole 20 mg capsule,delayed release(DR/EC) 2 cap PO DAILY 0RF folic acid 1 mg tablet 1 tab PO DAILY 0RF furosemide 20 mg tablet 1 tab PO DAILY 0RF spironolactone 50 mg tablet 1 tab PO DAILY 0RF lactulose 10 gram/15 mL solution 15 ml PO DAILY PRN (Reason: Constipation) 0RF thiamine mononitrate (vit B1) 100 mg Tablet 100 mg PO DAILY 30 Days Qty: 30 0RF tramadol 50 mg tablet 50 mg PO Q8H PRN (Reason: pain) Qty: 5 0RF oxycodone 5 mg capsule 5 mg PO BID PRN (Reason: pain) Qty: 7 0RF (DME) Chopat Strap See Rx Instructions .ROUTE .MEDSUPPLY Qty: 1 0RF Rx Instructions: n/a naproxen [EC-Naprosyn] 500 mg tablet,delayed release (DR/EC) 500 mg PO BID PRN (Reason: pain) Qty: 30 2RF
== END 2022-03-03 12:07 | disposition home or self-care (01) ==
PROVIDERS: Emergency Provider Emergency Medicine; PCP Internal Medicine Geriatric Medicine
DX: T88.0XXA Infection following immunization, initial encounter (principal); Y92.9 Unspecified place or not applicable; Z79.899 Other long term (current) drug therapy
CPT/HCPCS: 99283

== ENCOUNTER 2022-03-13 13:00 | Outpatient (RCR) | payer MEDICAID, SELFPAY ==
--- NOTE | 2022-02-25 14:58 | MHC.PT.EP ---
[facility] [place] Office [place] Office [place] Office [address] Rich Venegas [address] [phone] F: [phone] F: [phone] F: [phone] F: [phone] Physical Therapy Plan of Care Date of Evaluation: Date of Surgery: Diagnosis: LEFT PES ANSERINE BURSITIS, H/O BILAT TKA Assessment: 56 YO FEMALE REF TO PT FOR LEFT KNEE BURSITIS (PES ANSERINE), SIGNIFICANT H/O Lt TKA 07/2020 AND Rt IN 2018. OBJECTIVELY, Pt HAS DECENT FLEX IN BETH KNEES, SHE HAS MILD TERMINAL EXT DEFICITS DUE TO HS/ POSTERIOR CHAIN SOFT TISSUE RESTRICTION, MILD PROX LEs/ LUMBOPELVIC STRENGTH DEFICITS, ANKLE DF DEFICITS, AND PAIN SPECIFIC TO PES ANSERINE LEFT. FUNCTIONALLY, Pt HAS DECR MARIO TO PROLONGED STAND, WALK, AND STAIR MGMT. Pt WOULD BENEFIT FROM PT TO ADDRESS THE ABOVE FINDINGS, PAIN MGMT, DEV SELF- SX MGMT STRATEGIES, AND ASSIST Pt W RESUMING REG ADLs. Frequency and Duration: The patient will be seen 2 x WK x 5 WKS Short Term Goals: Pt'S KNEE PAIN DECREASED TO 2-3/10 IN 2 WKS Pt DEMON WFL AROM HIP EXT AND ANKLE DF/PF IN 3 WKS Pt DEMO IMPROVED GAIT MECH ON LEVEL GROUND AND STAIRS IN 2 WKS Custodial Goals: Pt INDEP W HEP PROGRESSION AND SELF-SX MGMT STRATEGIES IN 5 WKS Pt RESUME REG ADLs EVIDENT W IMPROVED LEFI SCORE BY 8-10 POINTS (AT EVAL 42/80 ) IN 5 WKS Pt INCR LE STRENGTH BY 1 GRADE IN 5 WKS Treatment Plan: Modalities to reduce pain, spasms and effusion. Manual therapy to restore motion and function. Therapeutic exercise to improve strength and flexibility. Neuromuscular re-education for posture and balance. Therapeutic activities to return to functional activities of daily living. Electronically signed by: Chelsey Gunter,PT Please sign and return to therapist. Thank you for your referral.
--- NOTE | 2022-03-23 14:28 | MHC.PT.DC ---
[facility] [place] Office [place] Office [place] Office [address] Rich Venegas [address] [phone] F: [phone] F: [phone] F: [phone] F: [phone] Physical Therapy Discharge Report Diagnosis: LEFT PES ANSERINE BURSITIS, H/O BILAT TKA Date of Surgery: Date of Evaluation: 02/25/22 Date of Discharge: 03/23/22 Treatments to Date: 3 Cancellations to Date: 1 No Shows to Date: 2 Discharge Status: Patient Elected to Stop Visit Non-compliance Discharge Summary: Pt was contacted by our front office re decr attendance w scheduled PT appts- she noted she was out of town due to a family issue and was unable to continue in PT at this time. Pt does have a HEP . Electronically signed by: Chelsey Gunter,PT Please sign and return to therapist. Thank you for your referral.
== END 2022-03-23 14:27 | disposition home or self-care (01) ==
LOC: HO.PT 13:00
PROVIDERS: PCP Internal Medicine Geriatric Medicine; Visit Provider Orthopaedic Surgery
DX: M70.52 Other bursitis of knee, left knee (principal); Z96.652 Presence of left artificial knee joint
CPT/HCPCS: 97035; 97110; 97161

== ENCOUNTER 2022-03-16 07:05 | Outpatient (REF) | payer MEDICAID, SELFPAY ==
--- NOTE | ~2022-03-16 | XR_ITS ---
EXAMINATION: XR PELVIS CLINICAL INFORMATION: Pain hip COMPARISON: The scan of the pelvis July 2021 TECHNIQUE: AP view of the pelvis. FINDINGS: The bones and soft tissues are normal. No fracture. Sacroiliac and hip joints are normal. Pubic symphysis is normal. Arterial calcifications present. XR/XR pelvis 1-2V IMPRESSION: No acute abnormality. Incidental note made of calcific atherosclerotic disease
== END 2022-03-16 07:06 | disposition home or self-care (01) ==
LOC: HO.HOSX 07:05
PROVIDERS: Visit Provider Orthopaedic Surgery
DX: M70.61 Trochanteric bursitis, right hip (principal)
CPT/HCPCS: 20610; 72170; 99212; J1100

== ENCOUNTER 2022-08-18 08:05 | Outpatient (REF) | payer MEDICAID, SELFPAY ==
--- NOTE | ~2022-08-18 | XR_ITS ---
EXAMINATION: XR FOOT, RIGHT CLINICAL INFORMATION: Pain right foot COMPARISON: None TECHNIQUE: AP, lateral, and oblique views of the right foot. FINDINGS: The bones and soft tissues are normal. No fracture. Alignment is anatomic. Joint spaces are maintained. XR/XR foot RT min 3V IMPRESSION: Unremarkable right foot exam.
== END 2022-08-18 08:06 | disposition home or self-care (01) ==
LOC: HO.HOSX 08:05
PROVIDERS: Visit Provider Physician Assistant
DX: S92.251A Displaced fracture of navicular [scaphoid] of right foot, initial encounter for closed fracture (principal)
CPT/HCPCS: 73630; 99202

== ENCOUNTER → 2022-09-15 13:03 | Outpatient (BNVA) | payer MEDICAID, SELFPAY | PROVIDERS: PCP Internal Medicine Geriatric Medicine; Visit Provider Physician Assistant | DX: M75.102 Unspecified rotator cuff tear or rupture of left shoulder, not specified as traumatic (principal); M75.101 Unspecified rotator cuff tear or rupture of right shoulder, not specified as traumatic; E11.9 Type 2 diabetes mellitus without complications | CPT/HCPCS: 20610; 99212; J1020 ==

== ENCOUNTER 2022-09-22 08:04 | Outpatient (REF) | payer MEDICAID, SELFPAY ==
--- NOTE | ~2022-09-22 | MM_ITS ---
EXAMINATION: MM SCREENING DIGITAL BREAST TOMOSYNTHESIS, BILATERAL CLINICAL INFORMATION: Screening. Asymptomatic. Family history breast cancer. Prior most recent outside mammography from [place] currently unavailable. COMPARISON: Mammography: 04/20/2011 (baseline) TECHNIQUE: Digital breast tomosynthesis is performed in both the craniocaudal and mediolateral oblique views along with computer-aided detection (CAD). Synthesized 2D images are generated from the tomosynthesis. FINDINGS: There are scattered areas of fibroglandular density (ACR BI-RADS breast composition Category b). There is a fibronodular parenchymal pattern with scattered minor stable asymmetries. There is no interval mass or architectural abnormality. There are interval scattered benign calcifications in both breasts including grouped coarse benign calcifications mid central right breast. No suspicious calcifications. The axilla and skin contours are unremarkable. Radiology department staff will attempt to retrieve prior [id number] mammography to allow for additional comparison in an addendum report. MM/MM tomosynthesis screening BI IMPRESSION: No mammographic evidence of malignancy. ASSESSMENT: BI-RADS 2: Benign RECOMMENDATION: -Routine annual mammography screening. -Radiology department staff will attempt to retrieve prior [id number] mammography to allow for additional comparison in an addendum report. This patient's information was entered into a reminder system with a target due date for their next mammogram.
== END 2022-09-22 08:05 | disposition home or self-care (01) ==
LOC: HO.US 08:04
PROVIDERS: Visit Provider Internal Medicine Geriatric Medicine
DX: Z12.31 Encounter for screening mammogram for malignant neoplasm of breast (principal)
CPT/HCPCS: 77063; 77067

== ENCOUNTER 2022-09-25 07:27 | Outpatient (REF) | payer MEDICAID, SELFPAY ==
--- NOTE | ~2022-09-25 | XR_ITS ---
EXAMINATION: XR ANKLE, RIGHT CLINICAL INFORMATION: Ankle pain. COMPARISON: Right foot 08/18/2022. TECHNIQUE: AP, lateral, and mortise views of the right ankle. FINDINGS: The bones and soft tissues are normal. No fracture. Alignment is anatomic. Joint spaces are maintained. No joint effusion. XR/XR ankle RT min 3V IMPRESSION: Normal right ankle.
== END 2022-09-25 07:28 | disposition home or self-care (01) ==
LOC: HO.HOSX 07:27
PROVIDERS: Visit Provider Physician Assistant
DX: S92.251D Displaced fracture of navicular [scaphoid] of right foot, subsequent encounter for fracture with routine healing (principal); X58.XXXD Exposure to other specified factors, subsequent encounter
CPT/HCPCS: 73610; 99212

== ENCOUNTER 2022-09-25 09:40 | Outpatient (REF) | payer MEDICAID, SELFPAY ==
[2022-09-25 10:30] LABS: Hematocrit 40.7 % (37.0-47.0); Hemoglobin 13.2 g/dl (12.0-16.0); Mean Corpuscular HGB Conc 32.4 g/dl (31.0-35.0); Mean Corpuscular Hemoglobin 28.6 pg (27.0-33.0); Mean Corpuscular Volume 88.3 fL (80.0-98.0); Platelet Count 231 X10*3/uL (160-400); Red Blood Count 4.61 X10*6/uL (4.20-5.50); Red Cell Distribution Width 13.4 % (11.0-16.0); White Blood Count 5.3 X10*3/uL (4.8-10.8)
[2022-09-25 10:46] LABS: Prothrombin Time 10.9 SEC (10.0-13.1)
[2022-09-25 11:02] LABS: Alanine Aminotransferase 18 U/L (0-31); Albumin Level 4.2 g/dL (3.5-5.0); Alkaline Phosphatase 170 U/L (39-117); Aspartate Amino Transferase 15 U/L (5-31); Bilirubin Direct < 0.2 mg/dL (0.0-0.5); Bilirubin Total 0.4 mg/dL (0.0-1.0); Lipase 4 U/L (8-78); Total Protein 7.6 g/dL (6.5-8.0)
[2022-10-02 15:57] LABS: FIB-ALT 14 U/L (6-29); FIB-Alpha-2-Macroglobulin 286 mg/dL (106-279); FIB-Apolipoprotein A1 180 mg/dL (101-198); FIB-GGT 34 U/L (3-70); FIB-Haptoglobin 291 mg/dL (43-212); FIB-Total Bilirubin 0.3 mg/dL (0.2-1.2); Liver Fibrosis Score 0.14; Liver Fibrosis Stage F0; Nec Inflam Act Grade A0; Nec Inflam Act Score 0.04
== END 2022-09-25 09:41 | disposition home or self-care (01) ==
LOC: HO.LAB 09:40
PROVIDERS: PCP Internal Medicine Geriatric Medicine; Visit Provider Internal Medicine Gastroenterology
DX: K70.9 Alcoholic liver disease, unspecified (principal)
CPT/HCPCS: 36415; 80076; 81596; 83690; 85027; 85610

== ENCOUNTER 2022-10-30 09:06 | Outpatient (REF) | payer MEDICAID, SELFPAY ==
--- NOTE | ~2022-10-30 | US_ITS ---
EXAMINATION: US COMPLETE ABDOMEN WITH LIVER ELASTOGRAPHY CLINICAL INFORMATION: Cirrhosis of liver COMPARISON: None. TECHNIQUE: Real-time imaging of the abdominal viscera. Noninvasive ultrasound liver fibrosis assessment is performed using Alfred ElastPQ point quantification shear wave elastography (2D-SWE) with a C5-2 MHz transducer. Multiple elastography samples are obtained. FINDINGS: PANCREAS: Normal. The visualized pancreatic head and body are normal in appearance. The remainder of the pancreas is obscured from visualization by the overlying bowel gas. ABDOMINAL AORTA: The proximal, middle, and distal aortic segments are normal in caliber. INFERIOR VENA CAVA: Visualized portions are normal. LIVER: Normal. The liver demonstrates normal size, contour and echogenicity. No focal lesion or intrahepatic biliary duct dilatation. The right lobe measures 15.5 cm in length. The left lobe measures 8.1 cm in length. Portal flow is hepatopedal. Shear wave liver elastography median stiffness is 1.44 m/s (reference: normal median stiffness is 1.3 m/s or less). IQR/median stiffness to assess sampling precision is 0.21 (reference: good quality data set is IQR/median stiffness of 0.15 or less). GALLBLADDER: The gallbladder has been surgically removed COMMON BILE DUCT: Normal in caliber measuring 0.3 cm in diameter. RIGHT KIDNEY: Normal. No hydronephrosis. No renal calculi or focal parenchymal lesions. The kidney measures 8.2 cm in maximum dimension. LEFT KIDNEY: Normal. No hydronephrosis. No renal calculi or focal parenchymal lesions. The kidney measures 8.8 cm in maximum dimension. SPLEEN: Normal. The spleen measures 9.9 cm in maximum dimension. FREE FLUID: None. US/US abdomen comp w elastography IMPRESSION: 1. Unremarkable complete abdomen ultrasound. 2. Liver elastography: Median liver stiffness measures 1.44 m/s corresponding to cACLD (ruled out). REFERENCE: Society of Radiologists in Ultrasound Liver Stiffness Thresholds (2020): LIVER STIFFNESS THRESHOLDS: *Liver Stiffness equal or less than 1.3 m/s: High probability of being normal. *Liver Stiffness less than 1.7 m/s: In the absence of other known clinical signs, rules out compensated advanced chronic liver disease. *Liver Stiffness 1.7-2.1 m/s: Suggestive of compensated advanced chronic liver disease but need further test for confirmation. *Liver Stiffness over 2.1 m/s: Rules in compensated advanced chronic liver disease. *Liver Stiffness over 2.4 m/s: Suggestive of clinically significant portal hypertension. QUALITY OF DATA SET: *IQR/Median value equal or less than 0.15 implies a quality data set. *IQR/Median value over 0.15 implies a poor quality data set. SIGNIFICANT CHANGE FROM PRIOR EXAM: Significant change if liver stiffness measurement is 10% or greater from prior exam. OTHER CONSIDERATIONS: The stage of liver fibrosis may be overestimated in the setting of acute hepatitis, liver inflammation, elevated liver function tests, hepatic vascular congestion, obstructive cholestasis, non-fasting state, and infiltrative diseases such as amyloidosis and lymphoma. In some patients with NAFLD, the liver stiffness thresholds for compensated advanced chronic liver disease may be lower. In causes other than viral hepatitis and NAFLD, liver stiffness thresholds are not well established.
== END 2022-10-30 09:07 | disposition home or self-care (01) ==
LOC: HO.US 09:06
PROVIDERS: Visit Provider Internal Medicine Geriatric Medicine
DX: K70.30 Alcoholic cirrhosis of liver without ascites (principal)
CPT/HCPCS: 76705; 76981

== ENCOUNTER 2023-03-26 14:14 | Outpatient (REF) | payer MEDICAID, SELFPAY | END 2023-03-26 14:15 | disposition home or self-care (01) | LOC: HO.MAMMO 14:14 | PROVIDERS: PCP Internal Medicine Geriatric Medicine; Visit Provider Advanced Practice Midwife | DX: Z13.89 Encounter for screening for other disorder (principal) ==

== ENCOUNTER 2023-04-13 09:35 | Outpatient (REF) | payer MEDICAID, SELFPAY ==
--- NOTE | ~2023-04-13 | MM_ITS ---
EXAMINATION: BONE DENSITOMETRY CLINICAL INDICATION: Menopause. COMPARISON: None (current study represents initial baseline exam). TECHNIQUE: Using a [employer] DXA System (software version: 13.1) manufactured by [employer], dual-energy x-ray absorptiometry was performed of the lumbar spine and left hip. The images are of good technical quality. Summary results are attached. FINDINGS: AP SPINE L1-L4: BMD 0.932 g/cm2, Z-score -1.2, T-score -2.1, osteopenia. LEFT FEMUR, NECK: BMD 0.658 g/cm2, Z-score -1.7, T-score -2.7, osteoporosis. LEFT FEMUR, TOTAL: BMD 0.770 g/cm2, Z-score -1.2, T-score -1.9, osteopenia. IDENTIFIED RISK FACTORS: Early menopause, osteoporosis, secondary osteoporosis. HISTORY OF FRACTURE: None listed. MEDICATIONS: Multivitamin. MM/XR DEXA axial skeleton IMPRESSION: 1. DIAGNOSIS: Osteoporosis based on the lowest T-score value of -2.7 in the femoral neck applying World Health Organization criteria. 2. 10-YEAR FRACTURE RISK PREDICTION, FRAX: According to the guidelines, FRAX calculation should only be performed on patients in the osteopenia bone density category. Therefore, FRAX was not performed on this patient. 3. Treatment Recommendations: NOF guidelines recommend consideration for treatment in postmenopausal women and men age 50 and older presenting with the following: -A hip or vertebral (clinical or morphometric) fracture. -T-score less than or equal to -2.5 at the femoral neck or spine after appropriate evaluation to exclude secondary causes. -Low bone mass at the hip or spine and a 10-year fracture probability by FRAX of greater than or equal to 3% for hip fracture or greater than or equal to 20% for major osteoporotic fracture based on the [place] adapted WHO algorithm. 4. Other Recommendations: All treatment decisions require clinical judgment and consideration of individual patient factors, including patient preferences, comorbidities, previous drug use, risk factors not captured in the FRAX model (e.g. frailty, falls, vitamin D deficiency, increased bone turnover, interval significant decline in bone density) and possible under or overestimation of fracture risk by FRAX. Additional medical evaluation for secondary cause of low bone mineral density may be appropriate. FUTURE SCAN RECOMMENDATION: People with diagnosed cases of osteoporosis or at high risk for fracture should have regular bone mineral density tests. For patients eligible for Medicare, routine testing is allowed once every 2 years. The testing frequency can be increased to one year for patients who have rapidly progressing disease, those who are receiving or discontinuing medical therapy to restore bone mass, or have additional risk factors.
== END 2023-04-13 09:36 | disposition home or self-care (01) ==
LOC: HO.MAMMO 09:35
PROVIDERS: Absent Provider Internal Medicine Geriatric Medicine; PCP Internal Medicine Geriatric Medicine; Visit Provider Advanced Practice Midwife
DX: Z13.820 Encounter for screening for osteoporosis (principal); Z78.0 Asymptomatic menopausal state
CPT/HCPCS: 77080

== ENCOUNTER 2023-05-19 13:02 | Outpatient (REF) | payer MEDICAID, SELFPAY ==
[2023-05-19 14:33] LABS: Alanine Aminotransferase 18 U/L (0-31); Albumin Level 3.9 g/dL (3.5-5.0); Alkaline Phosphatase 144 U/L (39-117); Anion Gap 16 (12-20); Aspartate Amino Transferase 23 U/L (5-31); Bilirubin Total 0.4 mg/dL (0.0-1.0); Blood Urea Nitrogen 15 mg/dL (9-16); Calcium 9.3 mg/dL (8.4-10.2); Carbon Dioxide 22 mmol/L (22-29); Chloride 108 mmol/L (96-108); Cholesterol 281 mg/dL; Estimated Glomerular Filt Rate > 60; Glucose Random 113 mg/dL (60-115); HDL Cholesterol 50 mg/dL; Potassium 3.9 mmol/L (3.3-5.1); Sodium 142 mmol/L (135-145); Total Protein 7.6 g/dL (6.5-8.0); Triglycerides 480 mg/dL
== END 2023-05-19 13:03 | disposition home or self-care (01) ==
LOC: HO.LAB 13:02
PROVIDERS: PCP Internal Medicine Geriatric Medicine; Visit Provider Internal Medicine Geriatric Medicine
DX: Z13.220 Encounter for screening for lipoid disorders (principal); E11.9 Type 2 diabetes mellitus without complications
CPT/HCPCS: 36415; 80053; 80061; 82043

== ENCOUNTER 2023-06-01 08:28 | Outpatient (REF) | payer MEDICAID, SELFPAY ==
--- NOTE | ~2023-06-01 | US_ITS ---
EXAMINATION: US ABDOMEN COMPLETE CLINICAL INFORMATION: Alcoholic cirrhosis. COMPARISON: Ultrasound abdomen complete with elastography 10/30/2022 and 08/26/2021. CT abdomen and pelvis 07/21/2021. TECHNIQUE: Real-time imaging of the abdominal viscera. Limited visualization due to bowel gas and body habitus. FINDINGS: PANCREAS: Limited visualization of pancreatic tail and head. Imaged portion of pancreatic body is unremarkable. ABDOMINAL AORTA: Nonaneurysmal. Limited visualization due to bowel gas. INFERIOR VENA CAVA: Visualized portions are normal. LIVER: Diffusely heterogeneous and coarse hepatic echotexture is suggestive of hepatocellular disease and limits visualization. There could be a component of hepatic steatosis GALLBLADDER: Surgically absent. COMMON BILE DUCT: Normal in caliber measuring 0.5 cm in diameter. RIGHT KIDNEY: No hydronephrosis. No renal calculi. Limited visualization. The kidney measures 9.3 cm in maximum dimension. LEFT KIDNEY: Scattered echogenic left renal foci may represent tiny nonobstructing calculi or artifact. No hydronephrosis. Limited visualization. The kidney measures 9.1 cm in maximum dimension. SPLEEN: Normal. The spleen measures 9.9 cm in maximum dimension. FREE FLUID: None. US/US abdomen complete IMPRESSION: 1. Diffusely heterogeneous and coarse hepatic echotexture is suggestive of hepatocellular disease and limits visualization. There could be a component of hepatic steatosis. 2. Gallbladder surgically absent. 3. Scattered echogenic left renal foci may represent tiny nonobstructing calculi or artifact. No hydronephrosis. Limited visualization. 4. CT scan should be considered for further evaluation.
== END 2023-06-01 08:29 | disposition home or self-care (01) ==
LOC: HO.US 08:28
PROVIDERS: PCP Internal Medicine Geriatric Medicine; Visit Provider Internal Medicine Geriatric Medicine
DX: K70.30 Alcoholic cirrhosis of liver without ascites (principal)
CPT/HCPCS: 76700

== ENCOUNTER 2023-08-27 08:12 | Day surgery (SDC) | payer MEDICAID, SELFPAY ==
--- NOTE | 2023-08-26 10:41 | HO.ANESPROP2 ---
Documented by User: Janina Rhodes NP 08/26/23 10:44 HPI - Anesthesia Eval Consult details Narrative: 58yo F for Colonoscopy etoh cirrhosis PMFSH Active Problems Active Problems: All Active Problems (Updated 09/15/22 @ 14:00 by Palak Yen) Diabetes mellitus (Acute) Painful arc syndrome of right shoulder (Acute) Painful arc syndrome of left shoulder (Acute) Closed navicular fracture of right ankle (Acute) Greater trochanteric bursitis of right hip (Acute) Pes anserine bursitis (Acute) Subacromial bursitis of both shoulders (Acute) History of total left knee replacement (Acute) Pes anserinus bursitis of left knee (Acute) Thickened endometrium (Acute) Acute alcoholic gastritis (Acute) Alcoholic pancreatitis (Acute) Prediabetes (Acute) HTN (hypertension) (Acute) Cirrhosis (Acute) Past Medical History Medical History (Updated 08/27/23 @ 10:28 by Rosalind Gamboa MD) Cardiac arrest Former smoker History of alcohol abuse delivery delivered Prediabetes Cirrhosis HTN (hypertension) Surgical History Surgical History Hx of tracheostomy Total knee replacement status Previous section History of cholecystectomy History of Problems with Anesthesia: No Social History Social History Household Members: Family Household Members Other:: sister Housing: House Do you presently have visiting nurse or other home services: No Alcohol intake: current Alcohol intake frequency: a few times a month Patient Tobacco Use Status: Former Tobacco user Are you DNR?: No Advance Directives: No Advance Directives Information Provided: Yes service: No Current occupational status: unemployed 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 Meds Allergies Allergy/AdvReac Type Severity Reaction Status Date / Time Penicillins Allergy Severe Itching Verified 09/25/22 10:42 Home Medications Medication Instructions Recorded Confirmed Last Taken Type citalopram 20 mg tablet 1 tab PO DAILY 06/12/21 09/15/22 07/23/21 History folic acid 1 mg tablet 1 tab PO DAILY 06/12/21 09/15/22 07/23/21 History multivitamin 1 tab PO DAILY 06/12/21 09/15/22 07/23/21 History omeprazole 20 mg capsule,delayed 2 cap PO DAILY 06/12/21 09/15/2208/27/23 History release spironolactone 50 mg tablet 1 tab PO DAILY 06/12/21 09/15/22 07/23/21 History empagliflozin 25 mg tablet 25 mg PO QAM 08/27/23 08/27/23 08/25/23 History (Jardiance) Exam Exam Date and Time: August 26, 2023 1041 Pertinent Lab Results Pertinent Lab Results: Laboratory Tests 05/19/23 13:23 Sodium 142 Potassium 3.9 Chloride 108 Carbon Dioxide 22 BUN 15 Creatinine 0.82 Calcium 9.3 D Total Bilirubin 0.4 AST 23 ALT 18 Alkaline Phosphatase 144 H Total Protein 7.6 Albumin 3.9 Narrative Narrative: US abdomen complete IMPRESSION: 1. Diffusely heterogeneous and coarse hepatic echotexture is suggestive of hepatocellular disease and limits visualization. There could be a component of hepatic steatosis. 2. Gallbladder surgically absent. 3. Scattered echogenic left renal foci may represent tiny nonobstructing calculi or artifact. No hydronephrosis. Limited visualization. 4. CT scan should be considered for further evaluation. Assessment and Plan Assessment Anesthesia Assessment: Chart Reviewed Final Anesthetic Review History of Problems with Anesthesia: No Documented by User: Rosalind Gamboa MD 08/27/23 10:32 HPI - Anesthesia Eval Consult details Narrative: 58yo F for Colonoscopy Etoh cirrhosis PMFSH Active Problems Active Problems: All Active Problems (Updated 08/27/23 @ 10:10 by Rosalind Gamboa MD) Diabetes mellitus (Acute) Painful arc syndrome of right shoulder (Acute) Painful arc syndrome of left shoulder (Acute) Closed navicular fracture of right ankle (Acute) Greater trochanteric bursitis of right hip (Acute) Pes anserine bursitis (Acute) Subacromial bursitis of both shoulders (Acute) History of total left knee replacement (Acute) Pes anserinus bursitis of left knee (Acute) Thickened endometrium (Acute) Acute alcoholic gastritis (Acute) Alcoholic pancreatitis (Acute) Prediabetes (Acute) HTN (hypertension) (Acute) Cirrhosis (Acute) No h/o Upper GI bleed Past Medical History Medical History (Updated 08/27/23 @ 10:28 by Rosalind Gamboa MD) Cardiac arrest Former smoker History of alcohol abuse delivery delivered Prediabetes Cirrhosis HTN (hypertension) Family History Family history of problems with anesthesia: No Surgical History Surgical History Hx of tracheostomy Total knee replacement status Previous section History of cholecystectomy Social History Social History Household Members: Family Household Members Other:: sister Housing: House Do you presently have visiting nurse or other home services: No Alcohol intake: current Alcohol intake frequency: a few times a month Patient Tobacco Use Status: Former Tobacco user Are you DNR?: No Advance Directives: No Advance Directives Information Provided: Yes service: No Current occupational status: unemployed 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 Meds Allergies Allergy/AdvReac Type Severity Reaction Status Date / Time Penicillins Allergy Severe Itching Verified 09/25/22 10:42 Home Medications Medication Instructions Recorded Confirmed Last Taken Type citalopram 20 mg tablet 1 tab PO DAILY 06/12/21 09/15/22 07/23/21 History folic acid 1 mg tablet 1 tab PO DAILY 06/12/21 09/15/22 07/23/21 History multivitamin 1 tab PO DAILY 06/12/21 09/15/22 07/23/21 History omeprazole 20 mg capsule,delayed 2 cap PO DAILY 06/12/21 09/15/22 08/27/23 History release spironolactone 50 mg tablet 1 tab PO DAILY 06/12/21 09/15/22 07/23/21 History empagliflozin 25 mg tablet 25 mg PO QAM 08/27/23 08/27/23 08/25/23 History (Jardiance) Exam Height,Weight and Vital Signs: Height 5 ft 3 in Weight 76.204 kg Vital Signs Temp Pulse Resp BP Pulse Ox O2 Del Method 08/27/23 08:44 97.7 F 84 20 135/73 94 Room Air Pertinent Lab Results Pertinent Lab Results: Laboratory Tests 05/19/23 13:23 Sodium 142 Potassium 3.9 Chloride 108 Carbon Dioxide 22 BUN 15 Creatinine 0.82 Calcium 9.3 D Total Bilirubin 0.4 AST 23 ALT 18 Alkaline Phosphatase 144 H Total Protein 7.6 Albumin 3.9 Lab Results 08/27/23 Range/Units 09:17 POC Glucose 130 H (60-115) mg/dL Airway Mallampati Class: II TM Dist: >3cm Neck ROM: Full Denture: Upper and Lower Heart: RRR Lungs: CTAB Assessment and Plan Assessment Anesthesia Assessment: Anesthesia Plan Discussed Final Anesthetic Review Family History of Problems with Anesthesia: No NPO: Yes ASA Class: III Final Preanesthetic Review: No Changes in Pt Med Stat, Meds/Allgs Chart Reviewed, Consent Obtained/Reviewed and Anes Risks/Benef Reviewed Patient Risk: Intermediate Procedure Risk: Low Assessment/Block/Sedation in SS: Assess/Block/Sedation-SS Anesthetic Plan Anesthetic Plan: MAC: Disposition: Standard PACU
[2023-08-27 06:03] VITALS: BMI 29.8
[2023-08-27 08:44] VITALS: BP 135/73; PULSE 84; RESP 20; TEMP 36.5; O2SAT 94
--- NOTE | 2023-08-27 09:02 | PC.NURSE ---
pt sts used to drink daily now drinks 1-2 drinks weekely/monthly last drink wednesday
[2023-08-27] MEDS: Lactated Ringers 1,000 ML 100 ML IVCONT (09:07)
[2023-08-27 09:24] LABS: Glucose, Whole Blood 130 mg/dL (60-115)
--- NOTE | 2023-08-27 10:48 | MHC.SHP ---
Pre-Procedural Eval Section A Date of Service: 08/27/23 Section B Chief Complaint: Encounter for screening for malignant neoplasm of Details of Present Illness: see h&p no chagnes Relevant Family History (Specify if Yes): No Relevant Social History: Alcohol Use Present Medications: see Short Stay Collaborative assessment Medical History: No relevant PMH History of Previous Operations: No relevant previous surgery Allergies: Allergies Allergy/AdvReac Type Severity Reaction Status Date / Time Penicillins Allergy Severe Itching Verified 09/25/22 10:42 Review of Systems Sugical H&P ROS: Negative: Constitution, Cardiovascular, Respiratory, Neurological, Psychiatric, Hem-Onc, Allergic/Immunologic, Gastrointestinal, Genitourinary, Musculoskeletal, Integumentary, Endocrine and Eyes/Ears/Nose/Throat Exam Surgical H&P Exam: Normal: HEENT, Normal: Heart, Normal: Lungs, Normal: Extremities, Normal: Abdomen, Normal: Skin and Normal: Neurological Plan Diagnosis/Plan: Unchanged I have reviewed the history and physical and performed a pertinent physical examination on my patient. No changes have occurred unless specified. Time Spent With Patient Time: Total time managing care of this patient today ____ minutes.
--- NOTE | 2023-08-27 11:13 | P.BOP_ITS ---
Brief Operative Note Date of Service: 08/27/23 Pre-op diagnosis: screening Procedure: colonoscopy Surgeon: Ryan Duong MD Anesthesia: MAC Was an Ingredient Specialist used for this Procedure?: No Estimated blood loss (mL): 2 Pathology: other Condition: stable Disposition: PACU
[2023-08-27 11:18] VITALS: BP 98/59; PULSE 77; RESP 16; TEMP 36.1; O2SAT 96
[2023-08-27 11:29] VITALS: BP 118/61; PULSE 73; RESP 16; TEMP 36.6; O2SAT 96
--- NOTE | 2023-08-27 11:58 | OP_ITS ---
DATE OF SERVICE: 08/27/2023 SURGEON: Ryan Duong MD INDICATIONS: Colon cancer screening and prior history of adenomatous colon polyps. PREOPERATIVE DIAGNOSIS: POSTOPERATIVE DIAGNOSIS: PROCEDURE PERFORMED: Colonoscopy to the terminal ileum with biopsy. ESTIMATED BLOOD LOSS: COMPLICATIONS: ANESTHESIA: Monitored anesthesia care. ASSISTANTS: SPECIMENS: DESCRIPTION OF PROCEDURE: A history and physical was performed. The risks and benefits of the procedure were explained to the patient. Informed consent was obtained. The patient was placed in the left lateral decubitus position. A digital rectal exam was performed and was found to be normal. The Olympus pediatric video colonoscope was introduced into the rectum and advanced to the cecum. The cecum was identified by transillumination, palpation, and identification of ileocecal valve. Examination was performed. The scope was removed. She tolerated the procedure well and was returned to the recovery area in stable condition. FINDINGS: The terminal ileum was examined and appeared normal. The visualized colonic mucosa was normal. The quality of the prep was good. A single polyp measuring less than 5 mm was identified at 55 cm and removed with a biopsy forceps. No other polyps were identified. Retroflexed examination was normal. IMPRESSION: Colon polyp. RECOMMENDATION: Follow up the biopsy results. MD TIFFANY Oseguera/ALMAS / [id number]
== END 2023-08-27 11:50 | disposition home or self-care (01) ==
PROVIDERS: PCP Internal Medicine Geriatric Medicine; Visit Provider Internal Medicine Gastroenterology
PROC: 0DJD8ZZ Inspection of Lower Intestinal Tract, Via Natural or Artificial Opening Endoscopic (ICD-10-PCS; CPT 45378; principal; 2023-08-27 10:10)
DX: Z12.11 Encounter for screening for malignant neoplasm of colon (principal); Z86.010 Personal history of colon polyps; K63.5 Polyp of colon; K70.9 Alcoholic liver disease, unspecified; K86.0 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 chronic pancreatitis; K21.9 Gastro-esophageal reflux disease without esophagitis; I10 Essential (primary) hypertension; E11.9 Type 2 diabetes mellitus without complications; F32.A Depression, unspecified; M81.0 Age-related osteoporosis without current pathological fracture; Z79.899 Other long term (current) drug therapy; Z88.0 Allergy status to penicillin; Z90.49 Acquired absence of other specified parts of digestive tract; Z87.891 Personal history of nicotine dependence
CPT/HCPCS: 45380; 82947; 88305

== ENCOUNTER 2023-10-06 11:32 | Outpatient (REF) | payer MEDICAID, SELFPAY ==
--- NOTE | ~2023-10-06 | MM_ITS ---
EXAMINATION: MM SCREENING DIGITAL BREAST TOMOSYNTHESIS, BILATERAL CLINICAL INFORMATION: Screening. Asymptomatic. COMPARISON: Mammography: This study is compared with prior exams dating back to 2017. TECHNIQUE: Digital breast tomosynthesis is performed in both the craniocaudal and mediolateral oblique views along with computer-aided detection (CAD). Synthesized 2D images are generated from the tomosynthesis. FINDINGS: There are scattered areas of fibroglandular density (ACR BI-RADS breast composition Category b). There are no significant masses, abnormal calcifications, or other abnormalities. Few, bilateral benign calcifications are present. MM/MM tomosynthesis screening BI IMPRESSION: No mammographic evidence of malignancy. ASSESSMENT: BI-RADS BI-RADS 2 - Benign Findings RECOMMENDATION: Routine annual mammography screening. 1 year F/U This examination should not preclude the clinical evaluation of a suspicious palpable abnormality. This patient's information was entered into a reminder system with a target due date for their next mammogram.
== END 2023-10-06 11:33 | disposition home or self-care (01) ==
LOC: HO.MAMMO 11:32
PROVIDERS: PCP Internal Medicine Geriatric Medicine; Visit Provider Internal Medicine Geriatric Medicine
DX: Z12.31 Encounter for screening mammogram for malignant neoplasm of breast (principal)
CPT/HCPCS: 77063; 77067

== ENCOUNTER → 2023-10-06 11:45 | Outpatient (BNV) | payer MEDICAID, SELFPAY | PROVIDERS: PCP Internal Medicine Geriatric Medicine; Visit Provider Radiology Diagnostic Radiology | DX: Z12.31 Encounter for screening mammogram for malignant neoplasm of breast (principal) | CPT/HCPCS: 77063; 77067 ==

== ENCOUNTER 2023-12-20 15:09 | Outpatient (REF) | payer MEDICAID, SELFPAY ==
[2023-12-20 17:18] LABS: Alanine Aminotransferase 20 U/L (0-31); Alkaline Phosphatase 148 U/L (39-117); Anion Gap 15 (12-20); Aspartate Amino Transferase 24 U/L (5-31); Bilirubin Total 0.3 mg/dL (0.0-1.0); Blood Urea Nitrogen 15 mg/dL (9-16); Calcium 9.2 mg/dL (8.4-10.2); Carbon Dioxide 27 mmol/L (22-29); Chloride 102 mmol/L (96-108); Estimated Glomerular Filt Rate 55; Glucose Random 92 mg/dL (60-115); Potassium 4.1 mmol/L (3.3-5.1); Sodium 140 mmol/L (135-145); Total Protein 8.2 g/dL (6.5-8.0)
[2023-12-20 17:37] LABS: MANUAL DIFF FLAG NO
[2023-12-20 17:41] LABS: Basophils Percent Auto 0.8 % (0-2); Eosinophils Absolute Auto 0.1 X10*3/uL (0.0-0.4); Eosinophils Percent Auto 2.5 % (0-4); Hematocrit 41.9 % (37.0-47.0); Hemoglobin 13.9 g/dl (12.0-16.0); Imm Gran Abs Auto 0.01 X10*3/uL (0.00-0.03); Imm Gran Pct Auto 0.2 % (0.0-0.4); Lymphocytes Absolute Auto 0.9 X10*3/uL (1.2-4.9); Lymphocytes Percent Auto 18.3 % (20-40); Mean Corpuscular HGB Conc 33.2 g/dl (31.0-35.0); Mean Corpuscular Hemoglobin 28.8 pg (27.0-33.0); Mean Corpuscular Volume 86.7 fL (80.0-98.0); Monocytes Absolute Auto 0.4 X10*3/uL (0.1-1.2); Monocytes Percent Auto 7.6 % (2-11); Neutrophils Absolute Auto 3.4 x10*3/uL (2.0-8.3); Neutrophils Percent Auto 70.6 % (45-73); Platelet Count 180 X10*3/uL (160-400); Red Blood Count 4.83 X10*6/uL (4.20-5.50); Red Cell Distribution Width 14.9 % (11.0-16.0); White Blood Count 4.8 X10*3/uL (4.8-10.8)
== END 2023-12-20 15:10 | disposition home or self-care (01) ==
LOC: HO.HHCL 15:09
PROVIDERS: Visit Provider Internal Medicine Geriatric Medicine
DX: Z00.00 Encounter for general adult medical examination without abnormal findings (principal); E11.9 Type 2 diabetes mellitus without complications; F10.10 Alcohol abuse, uncomplicated; K70.9 Alcoholic liver disease, unspecified; K86.0 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 chronic pancreatitis
CPT/HCPCS: 36415; 80053; 85025

== ENCOUNTER 2023-12-21 09:05 | Outpatient (REF) | payer MEDICAID, SELFPAY ==
[2023-12-21 11:52] LABS: Cholesterol 295 mg/dL (<200); HDL Cholesterol 53 mg/dL (>40); Triglycerides 405 mg/dL (<150)
[2023-12-21 12:15] LABS: Creatinine Urine 49.48 mg/dL; Microalbum/Creatinine Ratio Ur 10.1 ug/mg cr (<30)
== END 2023-12-21 09:06 | disposition home or self-care (01) ==
LOC: HO.HHCL 09:05
PROVIDERS: Visit Provider Internal Medicine Geriatric Medicine
DX: Z00.00 Encounter for general adult medical examination without abnormal findings (principal); E11.9 Type 2 diabetes mellitus without complications; F10.10 Alcohol abuse, uncomplicated; K70.9 Alcoholic liver disease, unspecified; K86.0 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 chronic pancreatitis
CPT/HCPCS: 36415; 80061; 82043; 82570

== ENCOUNTER 2023-12-27 14:27 | Outpatient (AMB) | payer MEDICAID, SELFPAY ==
--- NOTE | 2023-12-27 14:32 | MHC.OFFVIS ---
Intake Intake Visit Reasons: ov-Subacromial bursitis of both shoulders Intake Note: Sosa goetz 58 year old female presents today for a follow up of bilateral shoulder. Patient reports last injection provided her with relief for about 1-1.5 years. States pain returned with her right shoulder being the worse. She is requesting to repeat injection. Allergies Penicillins Allergy (Severe, Verified 12/27/23 14:39) Itching HPI ov-Subacromial bursitis of both shoulders HPI Details 58 yo female returns to the office today s/p right shoulder injection . She states she has had good relief with her most recent injection . She now has pain with over head reaching and sleeping at night. She is diabetic , states her sugars are well controlled. [facility] Medical History (Updated 08/27/23 @ 10:28 by Rosalind Gamboa MD) Cardiac arrest Former smoker History of alcohol abuse delivery delivered Prediabetes Cirrhosis HTN (hypertension) Surgical History Hx of tracheostomy Total knee replacement status Previous section History of cholecystectomy Social History Household Members: Family Household Members Other:: sister Housing: House Do you presently have visiting nurse or other home services: No Alcohol intake: current Alcohol intake frequency: a few times a month Patient Tobacco Use Status: Former Tobacco user service: No Current occupational status: unemployed 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 Review of Systems Const All systems reviewed & are unremarkable except as noted in HPI and below Physical Exam Extrem Other: Right shoulder normal to inspection. Tenderness over the bicipital groove and along the trapezium muscle into the lateral side of the neck. FF to 100, ER to 90, IR to S1. 5/5 RTC strength, negative apprehension test. NVI. Office Procedures Joint Injection/Drain Joint Injection/Drain Primary Site: right shoulder Prep: site was prepped using aseptic technique, ethochloride spray was applied and injection warnings given Injected: 40 mg of, DepoMedrol, with 8 mL of, 1% plain lidocaine and in the subcromial space Approach Used: posterolateral Procedure: The patient tolerated the procedure well and there was some relief with the local anesthesia Coding 50282 - Glenohumeral/Tronchanteric Bursa/Intraarticular Procedure code (CPT) selection complete Assessment & Plan Assessment & Plan (1) Painful arc syndrome of right shoulder: Code(s): M75.101 - Unspecified rotator cuff tear or rupture of right shoulder, not specified as traumatic Plan: We discussed options today, which include steroid injection. The patient did consent to move forward with the injection, which was tolerated well.? I recommended rest, ice and elevation and OTC antiinflammatories prn for discomfort. If symptoms persist over the next 6-8 weeks, they will contact our office, otherwise, prn We also discussed their diabetes and the effect the steroid can have on thier blood glucose levels; therefore, they will continue to monitor these very closely over the next 72 hours Coding Level of Care Code Est Pt Level 3 (64824) Diagnoses Painful arc syndrome of right shoulder M75.101 CPT Codes Coding - Joint 7: 99598 - Glenohumeral/Tronchanteric Bursa/Intraarticular ([id number])
== END 2023-12-27 15:22 | disposition home or self-care (01) ==
PROVIDERS: PCP Internal Medicine Geriatric Medicine; Visit Provider Physician Assistant
DX: M75.101 Unspecified rotator cuff tear or rupture of right shoulder, not specified as traumatic (principal)
CPT/HCPCS: 20610; 99213

== ENCOUNTER → 2023-12-27 14:27 | Outpatient (BNVA) | payer MEDICAID, SELFPAY | PROVIDERS: PCP Internal Medicine Geriatric Medicine; Visit Provider Physician Assistant | DX: M75.101 Unspecified rotator cuff tear or rupture of right shoulder, not specified as traumatic (principal) | CPT/HCPCS: 20610; 99212; J1020 ==

== ENCOUNTER 2024-03-27 14:44 | Outpatient (AMB) | payer MEDICAID, SELFPAY ==
--- NOTE | 2024-03-27 14:49 | MHC.OFFVIS ---
Vital Signs 03/27/24 14:51 Height 5 ft 3 in Weight 168 lb BMI 29.8 Intake Visit Reasons: ov-Subacromial bursitis of both shoulders Intake Note: Sosa goetz 58 year old female presents today for a follow up of left shoulder pain. Patient reports injection to her right shoulder on 12/27/23 provided her with good relief and is requesting a left shoulder injection. States constant pain in her left shoulder. Allergies Penicillins Allergy (Severe, Verified 03/27/24 14:53) Itching HPI HPI ov-Subacromial bursitis of both shoulders: Details: 59-year-old female who returns to the office today for a follow-up of bilateral shoulder pain. She states she has constant pain in her left shoulder. She had a right shoulder injection on 12/27/23 which provided her good relief. She would like to have a left shoulder injection. [facility] Medical History (Updated 08/27/23 @ 10:28 by Rosalind Gamboa MD) Cardiac arrest Former smoker History of alcohol abuse delivery delivered Prediabetes Cirrhosis HTN (hypertension) Surgical History Hx of tracheostomy Total knee replacement status Previous section History of cholecystectomy Social History Household Members: Family Household Members Other:: sister Housing: House Do you presently have visiting nurse or other home services: No Alcohol intake: current Alcohol intake frequency: a few times a month Patient Tobacco Use Status: Former Tobacco user service: No Current occupational status: unemployed 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 Tenderness over the bicipital groove and along the deltoid region of the shoulder. Forward flexion to 175, external rotation to 90, internal rotation to S1. 5/5 RTC strength. Negative Plunkett and cross body abduction. NVI. Office Procedures Joint Injection/Drain Joint Injection/Drain Primary Site: left shoulder Prep: site was prepped using aseptic technique, ethochloride spray was applied and injection warnings given Injected: 80 mg of, DepoMedrol, with 8 mL of, 1% plain lidocaine and in the subcromial space Approach Used: posterolateral Procedure: The patient tolerated the procedure well and there was some relief with the local anesthesia Coding 00969 - Glenohumeral/Tronchanteric Bursa/Intraarticular Procedure code (CPT) selection complete Assessment & Plan Assessment & Plan (1) Subacromial bursitis of both shoulders: Code(s): M75.51 - Bursitis of right shoulder; M75.52 - Bursitis of left shoulder Category: Medical Plan We discussed options today which include steroid injection. They did consent to move forward with the left shoulder injection, which was tolerated well. I recommended rest, ice and elevation and OTC anti-inflammatories PRN for discomfort. If symptoms persist or worsens over the next 6-8 weeks, patient will contact the office, otherwise follow-up as needed. Patient Instructions: Scribed for Gage Alanis PA-C, by Eber Delaney medical lab tech instructor, on 03/15/2024 at 3:00 PM EST. I, Gage Alanis PA-C, have personally reviewed and agree with the information entered by the scribe. Coding Level of Care Code Est Pt Level 3 (79452) Diagnoses Subacromial bursitis of both shoulders M75.51; M75.52 CPT Codes Coding - Joint 7: 80880 - Glenohumeral/Tronchanteric Bursa/Intraarticular ([id number])
[2024-03-27 14:51] VITALS: BMI 29.8
== END 2024-03-27 15:11 | disposition home or self-care (01) ==
PROVIDERS: PCP Internal Medicine Geriatric Medicine; Visit Provider Physician Assistant
DX: M75.51 Bursitis of right shoulder (principal); M75.52 Bursitis of left shoulder
CPT/HCPCS: 20610; 99213

== ENCOUNTER → 2024-03-27 14:44 | Outpatient (BNVA) | payer MEDICAID, SELFPAY | PROVIDERS: PCP Internal Medicine Geriatric Medicine; Visit Provider Physician Assistant | DX: M75.51 Bursitis of right shoulder (principal); M75.52 Bursitis of left shoulder | CPT/HCPCS: 20610; 99212; J1010 ==

== ENCOUNTER 2024-04-07 08:00 | Outpatient (REF) | payer MEDICAID, SELFPAY ==
--- NOTE | ~2024-04-07 | US_ITS ---
EXAMINATION: US ABDOMEN COMPLETE CLINICAL INFORMATION: Cirrhosis. Screening for hepatitis C. COMPARISON: Ultrasound abdomen complete 06/01/2023 and 10/30/2022. CT abdomen and pelvis of 10/20/2021. TECHNIQUE: Real-time imaging of the abdominal viscera. FINDINGS: PANCREAS: Suboptimally visualized. There is dilatation of main pancreatic duct up to 9 mm. There are intraductal calcifications including one measuring 9 x 10 x 7 mm. ABDOMINAL AORTA: The proximal, mid, and distal segments are normal in caliber. INFERIOR VENA CAVA: Visualized portions are normal. LIVER: The liver is normal in size. The liver contour is normal. There is diffuse increased liver parenchymal echogenicity, consistent with hepatic steatosis. No focal hepatic lesion. There is no intrahepatic biliary duct dilatation seen. GALLBLADDER: Surgically absent. COMMON BILE DUCT: Normal in caliber measuring 0.4 cm in diameter. RIGHT KIDNEY: No hydronephrosis. No renal calculi or focal parenchymal lesions. The kidney measures 8.8 cm in maximum dimension. LEFT KIDNEY: No hydronephrosis. No renal calculi or focal parenchymal lesions. The kidney measures 9.0 cm in maximum dimension. SPLEEN: The spleen measures 10.8 cm in maximum dimension. FREE FLUID: None. US/US abdomen complete IMPRESSION: Dilated main pancreatic duct with intraductal calcifications. The appearance is similar to CT abdomen/pelvis performed on 07/21/2021. Hepatic steatosis.
== END 2024-04-07 08:01 | disposition home or self-care (01) ==
LOC: HO.US 08:00
PROVIDERS: PCP Internal Medicine Geriatric Medicine; Visit Provider Internal Medicine Geriatric Medicine
DX: K70.30 Alcoholic cirrhosis of liver without ascites (principal)
CPT/HCPCS: 76700

== ENCOUNTER 2024-05-17 13:05 | Outpatient (REF) | payer MEDICAID, SELFPAY ==
--- NOTE | ~2024-05-17 | XR_ITS ---
EXAMINATION: X-ray bilateral hips CLINICAL INFORMATION: Left hip pain COMPARISON: X-ray pelvis 03/16/2022 TECHNIQUE: Pelvis one view. Right gluteus represent left ribs. FINDINGS: Bilateral hip joint spaces are maintained. No acute fracture or dislocation. Mild symphysis pubis degeneration. SI joints are intact. Stable, slightly dysmorphic appearance of the right inferior pubic ramus, may reflect sequela remote fracture. No abnormal soft tissue calcification. XR/XR hip LT min 2V IMPRESSION: No evidence of acute osseous abnormality.
--- NOTE | ~2024-05-17 | XR_ITS ---
EXAMINATION: X-ray bilateral hips CLINICAL INFORMATION: Left hip pain COMPARISON: X-ray pelvis 03/16/2022 TECHNIQUE: Pelvis one view. Right gluteus represent left ribs. FINDINGS: Bilateral hip joint spaces are maintained. No acute fracture or dislocation. Mild symphysis pubis degeneration. SI joints are intact. Stable, slightly dysmorphic appearance of the right inferior pubic ramus, may reflect sequela remote fracture. No abnormal soft tissue calcification. XR/XR hip RT min 2V IMPRESSION: No evidence of acute osseous abnormality.
== END 2024-05-17 13:06 | disposition home or self-care (01) ==
LOC: HO.HOSX 13:05
PROVIDERS: PCP Internal Medicine Geriatric Medicine; Visit Provider Physician Assistant
DX: M70.61 Trochanteric bursitis, right hip (principal); M70.62 Trochanteric bursitis, left hip
CPT/HCPCS: 20610; 73502; 99212; J1010

== ENCOUNTER 2024-05-17 13:05 | Outpatient (AMB) | payer MEDICAID, SELFPAY ==
--- NOTE | 2024-05-17 13:33 | MHC.OFFVIS ---
Vital Signs 05/17/24 13:54 Height 5 ft 3 in Weight 168 lb BMI 29.8 Intake Visit Reasons: NewProb- b/l hip pain Intake Note: Sosa goetz 58 year old female presents today for an evaluation of bilateral hip pain. Patient was last seen with NE for her right hip and an injection was given on 03/16/22. Patient reports bilateral hip pain for about a year with her right hip being the worse. Her pain is located at the lateral aspect of hip that at times radiates down her leg. Denies numbness or tingling. Finds little relief with Advil and Tylenol. Allergies Penicillins Allergy (Severe, Verified 05/17/24 14:01) Itching HPI HPI NewProb- b/l hip pain: Details: 59-year-old female who presents to the office today for an evaluation of bilateral hip pain for about a year. She was last seen by Dr. Bourne who gave her injection on 03/16/22. She currently states she has pain at the lateral aspect of her bilateral hips that occasionally radiates down her leg. Her pain is worse on the right hip. She denies any numbness or tingling. She finds mild relief with Advil and Tylenol. [facility] Medical History (Updated 06/05/24 @ 20:23 by Gage Alanis PA-C) Cardiac arrest Former smoker History of alcohol abuse delivery delivered Prediabetes Cirrhosis HTN (hypertension) Surgical History Hx of tracheostomy Total knee replacement status Previous section History of cholecystectomy Social History Household Members: Family Household Members Other:: sister Housing: House Do you presently have visiting nurse or other home services: No Alcohol intake: current Alcohol intake frequency: a few times a month Patient Tobacco Use Status: Former Tobacco user service: No Current occupational status: unemployed 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 No pain with ROM of the hip. Pain along the greater trochanter. No pain with hip flexion or abduction. Negative tenderness along the SI joint, Negative SLR. NVI. Office Procedures Joint Injection/Drain Joint Injection/Drain Details: bilat trochanteric bursitis Prep: site was prepped using aseptic technique, ethochloride spray was applied and injection warnings given Injected: 40 mg of, DepoMedrol, with 8 mL of and 1% plain lidocaine Procedure: The patient tolerated the procedure well and there was some relief with the local anesthesia Coding 27140 - Glenohumeral/Tronchanteric Bursa/Intraarticular Procedure code (CPT) selection complete Results Reviewed Results Reviewed: Xrays were obtained in the office today and personally reviewed by me of bilat hip are negative for acute fracture or dislocation Assessment & Plan Assessment & Plan (1) Greater trochanteric bursitis of right hip: Code(s): M70.61 - Trochanteric bursitis, right hip Category: Medical (2) Trochanteric bursitis, left hip: Code(s): M70.62 - Trochanteric bursitis, left hip Category: Medical Plan We discussed options today, which include steroid injection. The patient did consent to move forward with the bilateral hip injection, which was tolerated well. I recommended rest, ice, and elevation and OTC anti-inflammatories as needed for discomfort. We also discussed diabetes and the effect the steroid injection can have on their blood glucose levels; therefore, they will continue to monitor these very closely over the next 72 hours. If there are concerns, they should report to the ED immediately. Orders: Orders XR hip LT min 2V 05/17/24 M25.552 - Pain in left hip XR hip RT min 2V 05/17/24 M25.551 - Pain in right hip Patient Instructions: Scribed for Gage Alanis PA-C, by Eber Delaney ophthalmic medical assistant, on 05/17/2024 at 1:30 PM EST.? I, Gage Alanis PA-C, have personally reviewed and agree with the information entered by the scribe. Coding Level of Care Code Est Pt Level 3 (62116) Diagnoses Greater trochanteric bursitis of right hip M70.61 Trochanteric bursitis, left hip M70.62 CPT Codes Coding - Joint 7: 34402 - Glenohumeral/Tronchanteric Bursa/Intraarticular ([id number])
[2024-05-17 13:54] VITALS: BMI 29.8
== END 2024-05-17 15:21 | disposition home or self-care (01) ==
PROVIDERS: PCP Internal Medicine Geriatric Medicine; Visit Provider Physician Assistant
DX: M70.61 Trochanteric bursitis, right hip (principal); M70.62 Trochanteric bursitis, left hip
CPT/HCPCS: 20610; 99213

== ENCOUNTER 2024-08-31 13:45 | Outpatient (REF) | payer MEDICAID, SELFPAY ==
[2024-08-31 13:57] LABS: MANUAL DIFF FLAG NO
[2024-08-31 14:07] LABS: Basophils Percent Auto 0.7 % (0-2); Eosinophils Absolute Auto 0.2 X10*3/uL (0.0-0.4); Eosinophils Percent Auto 3.1 % (0-4); Hematocrit 41.3 % (37.0-47.0); Hemoglobin 13.4 g/dl (12.0-16.0); Imm Gran Abs Auto 0.02 X10*3/uL (0.00-0.03); Imm Gran Pct Auto 0.3 % (0.0-0.4); Lymphocytes Absolute Auto 1.2 X10*3/uL (1.2-4.9); Lymphocytes Percent Auto 21.6 % (20-40); Mean Corpuscular HGB Conc 32.4 g/dl (31.0-35.0); Mean Corpuscular Hemoglobin 29.4 pg (27.0-33.0); Mean Corpuscular Volume 90.6 fL (80.0-98.0); Mean Platelet Volume 10.4 fL (9.4-12.3); Monocytes Absolute Auto 0.5 X10*3/uL (0.1-1.2); Neutrophils Absolute Auto 3.8 x10*3/uL (2.0-8.3); Neutrophils Percent Auto 66.3 % (45-73); Platelet Count 192 X10*3/uL (160-400); Red Blood Count 4.56 X10*6/uL (4.20-5.50); Red Cell Distribution Width 13.5 % (11.0-16.0); White Blood Count 5.7 X10*3/uL (4.8-10.8)
[2024-08-31 14:19] LABS: INTERNATIONAL NORM RATIO 1.1 (0.9-1.1); Prothrombin Time 12.3 SEC (10.9-12.4)
[2024-08-31 14:35] LABS: Alanine Aminotransferase 16 U/L (0-31); Albumin Level 3.8 g/dL (3.5-5.0); Alkaline Phosphatase 138 U/L (39-117); Aspartate Amino Transferase 18 U/L (5-31); Bilirubin Direct 0.1 mg/dL (0.0-0.5); Bilirubin Total 0.3 mg/dL (0.0-1.0); Lipase 47 U/L (8-78); Total Protein 7.7 g/dL (6.5-8.0)
[2024-09-07 01:59] LABS: FIB-ALT 12 U/L (6-29); FIB-Alpha-2-Macroglobulin 266 mg/dL (106-279); FIB-Apolipoprotein A1 164 mg/dL (101-198); FIB-GGT 51 U/L (3-65); FIB-Haptoglobin 324 mg/dL (43-212); FIB-Total Bilirubin 0.2 mg/dL (0.2-1.2); Liver Fibrosis Score 0.13; Liver Fibrosis Stage F0; Nec Inflam Act Grade A0; Nec Inflam Act Score 0.03; Reference ID 5167432
== END 2024-08-31 13:46 | disposition home or self-care (01) ==
LOC: HO.LAB 13:45
PROVIDERS: PCP Internal Medicine Geriatric Medicine; Visit Provider Internal Medicine Gastroenterology
DX: K70.9 Alcoholic liver disease, unspecified (principal)
CPT/HCPCS: 36415; 80076; 81596; 83690; 85025; 85610

== ENCOUNTER 2024-10-31 09:48 | Outpatient (REF) | payer MEDICAID, SELFPAY ==
--- OUTSIDE RECORDS SUMMARY | 2024-10-31 09:52 | XMS_ITS ---
Author Organization [facility] Address [address] [place] [address] Care Team Providers Care Sketch Artist Name Role Phone Name Troy LOPEZ Primary Care Provider Timothy Duong Jr, Ryan Ang REASON FOR VISIT labs Encounters Encounter Location Date Provider Diagnosis [facility] [address] [place] [address] 09/01/2024 Ryan Duong Jr PLAN OF TREATMENT Next Appt Details Provider Name:Ryan suh Jr, 09/03/2025 09:20:00 AM, [address] [place] [address], [address], [place], [address],
--- OUTSIDE RECORDS SUMMARY | 2024-10-31 09:53 | XMS_ITS ---
Author Organization [facility] Address [address] [place] [address] Care Team Providers Care Warp Hand Name Role Phone Name Troy LOPEZ Primary Care Provider Ryan Palumbo Jr ALLERGIES Allergen (clinical drug ingredient) Drug/Non Drug Allergy documented on EMR Reaction Allergy Type Onset Date Status Penicillin Unknown Drug Allergy Active RESULTS Component Value Reference Range Notes Liver Fibrosis Pnl Reviewed date:09/07/2024 07:41:27 AM Interpretation: Performing Lab:[facility], [address] [place] [phone] Notes/Report: Liver Fibrosis Score 0.13 Liver Fibrosis Stage F0 Liver Fibrosis Interpretation SEE NOTE no fibrosis Fibro Test Score (f) Metavir Score f>=0 and f<=0.21 : F0 (no fibrosis) f>0.21 and f<=0.27 : F0-F1 (no fibrosis) f>0.27 and f<=0.31 : F1 (minimal fibrosis) f>0.31 and f<=0.48 : F1-F2 (minimal fibrosis) f>0.48 and f<=0.58 : F2 (moderate fibrosis) f>0.58 and f<=0.72 : F3 (advanced fibrosis) f>0.72 and f<=0.74 : F3-F4 (advanced fibrosis) f>0.74 and f<=1.00 : F4 (severe fibrosis) Nec Inflam Act Score 0.03 Nec Inflam Act Grade A0 Nec Inflam Act Interpretation SEE NOTE no activity ActiTest Score (a) Metavir Score a>=0 and a<=0.17 : A0 (no activity) a>0.17 and a<=0.29 : A0-A1 (no activity) a>0.29 and a<=0.36 : A1 (minimal activity) a>0.36 and a<=0.52 : A1-A2 (minimal activity) a>0.52 and a<=0.60 : A2 (significant activity) a>0.60 and a<=0.62 : A2-A3 (significant activity) a>0.62 and a<=1.00 : A3 (severe activity) USB-Negod-0-Macroglobulin 266 106-279 mg/dL FIB-Haptoglobin 324 43-212 mg/dL This value is highly elevated over the 99 percentile. Check the value and the absence of sepsis. Usual maximum value is 320.0 mg/dl. FIB-Apolipoprotein A1 164 101-198 mg/dL FIB-Total Bilirubin 0.2 0.2-1.2 mg/dL FIB-GGT 51 3-65 U/L FIB-ALT 12 6-29 U/L Reference ID [id number] Footnote SEE NOTE The reliability of results is dependent on compliance with the preanalytical and analytical conditions recommended by [employer]. The tests have to be deferred for: acute hemolysis, acute hepatitis, acute inflammation, extra hepatic cholestasis. The advice of a specialist should be sought for interpretation in chronic hemolysis and Gilbert's syndrome. The test interpretation is not validated in liver transplant patients. Isolated extreme values of one of the components should lead to caution in interpreting the results. In case of discordance between a biopsy result and a test, it is recommended to seek the advice of a specialist. The causes of these discordances could be due to a flaw of the test or to a flaw in the biopsy: i.e. a liver biopsy has a 33% variability rate for one fibrosis stage. FibroTest is interpretable for chronic hepatitis B and C, alcoholic and non alcoholic steatosis. ActiTest is interpretable for chronic hepatitis B and C. The performance characteristics have been determined by [employer] [facility]. It has not been cleared or approved by the U.S. Food and Drug Administration. Performance characteristics refer to the analytical performance of the test. [employer], [employer], the associated logo, [employer] and all associated [employer] vazquez are the registered trademarks of [employer]. All third alliance party vazquez - (R) and (TM) - are the property of their respective owners. (C) 4223-5835 [employer]. All rights reserved. THIS TEST WAS PERFORMED AT: [facility] [address] [place] [address] KATLYN TEJADA MD,PHD,THAD REASON FOR VISIT Patient presents today for liver disease MEDICATIONS Medication SIG (Take, Route, Frequency, Duration) Notes Start Date End Date Status Esomeprazole Magnesium 40 MG TAKE 1 CAPSULE BY MOUTH EVERY DAY BEFORE BREAKFAST. DO NOT BREAK, CRUSH, DISSOLVE OR CHEW. Oral for 90 Active Oyster Shell Calcium w/D 500-5 MG-MCG TAKE 1 TABLET BY MOUTH TWICE DAILY Oral for 90 Active Creon [id number] UNIT TAKE 1 CAPSULE B Y MOUTH THREE TIMES DAILY WITH MEALS AND 1 CAPSULE DAILY WITH SNACK DIRECTED. SWALLOW WHOLE. DO NOT BREAK, CRUSH, DISSOLVE OR CHEW. Oral for 23 Active Jardiance 10 MG TAKE 1 TABLET BY RL TH EVERY DAY IN THE MORNING Oral for 30 Active traZODone HCl 100 MG TAKE 1 TABLET BY MO UTH AT BEDTIME Oral for 30 Active Ibuprofen 600 MG TAKE 1 TABLET BY RL TH THREE TIMES DAILY WITH FOOD Oral for 20 Active Alendronate Sodium 70 MG TAKE 1 TABLET B Y MOUTH EVERY 7 DAYS IN THE MORNING ON AN EMPTY STOMACH WITH FULL GLASS OF WATER 30 MINUTES BEFORE OTHER FOOD / MEDICATIONS. Do not lie down for 30 minutes after taking. Oral for 84 Active Multivitamin Adult A ctive Citalopram Hydrobromide 20 MG 1 tablet Orally Once a day Active Folic Acid 1 MG 1 tablet Orally Once a day Active SOCIAL HISTORY Tobacco Use: Social History Observation Description Date Details (start date - stop date) Former Smoker NA - NA Sex Assigned At : Social History Observation Description Sex Assigned At Unknown Tobacco Use/Smoking Question Answer Notes Patient is a former smoker How long has it been since you last smoked? 5-10 years Alcohol Screen Question Answer Notes Did you have a drink containing alcohol in the p ast year? 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 ASSESSMENTS Encounter Date Diagnosis Assessment Notes Treatment Notes Treatment Clinical Notes 08/31/2024 Alcoholic liver dise ase (ICD-10 - K70.9) 08/31/2024 Gastroesophageal ref lux disease without esophagitis (ICD-10 - K21.9) 08/31/2024 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
--- OUTSIDE RECORDS SUMMARY | 2024-10-31 09:53 | XMS_ITS ---
Author Organization [facility] Address [address] [place] [address] Care Team Providers Care Supervisor Veneer Name Role Phone Name Troy LOPEZ Primary Care Provider Timothy Duong Jr, Ryan Ang [phone] REASON FOR VISIT pathology Encounters Encounter Location Date Provider Diagnosis [facility] [address] [place] [address] 08/31/2023 Ryan Duong Jr PLAN OF TREATMENT Next Appt Details Provider Name:Ryan suh Jr, 09/03/2025 09:20:00 AM, [address] [place] [address], [address], [place], [address],
--- OUTSIDE RECORDS SUMMARY | 2024-10-31 09:53 | XMS_ITS | Patient Health Record ---
Author Organization [facility] Address [address] [place] [address] Care Team Providers Care Harpoon Engagement Planning Operator Name Role Phone Name Troy LOPEZ Primary Care Provider Ryan Palumbo Jr [phone] ALLERGIES Allergen (clinical drug ingredient) Drug/Non Drug Allergy documented on EMR Reaction Allergy Type Onset Date Status Penicillin Unknown Drug Allergy Active RESULTS Component Value Reference Range Notes Liver Fibrosis Pnl Reviewed date:09/07/2024 07:41:27 AM Interpretation: Performing Lab:[facility], [address] [place] [phone] Notes/Report: Liver Fibrosis Score 0.13 Liver Fibrosis [...] a>0.62 and a<=1.00 : A3 (severe activity) GGJ-Vdxmi-7-Macroglobulin 266 106-279 mg/dL FIB-Haptoglobin 324 43-212 mg/dL This value is highly elevated over the 99 percentile. Check the value and the absence of sepsis. Usual maximum value is 320.0 mg/dl. FIB-Apolipoprotein A1 164 101-198 mg/dL FIB-Total Bilirubin 0.2 0.2-1.2 mg/dL FIB-GGT 51 3-65 U/L FIB-ALT 12 6-29 U/L Reference ID [id number] Footnote SEE NOTE The reliability of results is dependent on compliance with the preanalytical and analytical conditions recommended by [employer]. The tests have to be deferred for: [...] The performance characteristics have been determined by [facility]. It has not been cleared or approved by the U.S. Food and Drug Administration. Performance characteristics refer to the analytical performance of the test. [employer] the associated logo, [facility] and all associated [employer] vazquez are the registered trademarks of [employer]. All third libertarian vazquez - (R) and (TM) - are the property of their respective owners. (C) 2063-2915 [employer]. All rights reserved. THIS TEST WAS PERFORMED AT: [address] [place] [address] [place] [address] KATLYN TEJADA MD,PHD,THAD Complete Blood Count Auto Di ff Reviewed date:09/01/2024 07:46:01 AM Interpretation: Performing Lab:[facility], [address] [place] [phone] Notes/Report: White Blood Count 5.7 4.8-10.8 X10*3/uL Red Blood Count 4.56 4.20-5.50 X10*6/uL Hemoglobin 13.4 12.0-16.0 g/dl Hematocrit 41.3 37.0-47.0 % Mean Corpuscular Volume 90.6 80.0-98.0 fL Mean Corpuscular Hemoglobin 29.4 27.0-33.0 pg Mean Corpuscular HGB Conc 32.4 31.0-35.0 g/dl Red Cell Distribution Width 13.5 11.0-16.0 % Platelet Count 192 160-400 X10*3/uL Mean Platelet Volume 10.4 9.4-12.3 fL Neutrophils Percent Auto 66.3 45-73 % Imm Gran Pct Auto 0.3 0.0-0.4 % Lymphocytes Percent Auto 21.6 20-40 % Monocytes Percent Auto 8.0 2-11 % Eosinophils Percent Auto 3.1 0-4 % Basophils Percent Auto 0.7 0-2 % NRBC Pct Auto 0.0 0.0-0.2 /100WBC Neutrophils Absolute Auto 3.8 2.0-8.3 x10*3/u L Imm Gran Abs Auto 0.02 0.00-0.03 X10*3/uL Lymphocytes Absolute Auto 1.2 1.2-4.9 X10*3/u L Monocytes Absolute Auto 0.5 0.1-1.2 X10*3/uL Eosinophils Absolute Auto 0.2 0.0-0.4 X10*3/u L Basophils Absolute Auto 0.0 0.0-0.2 X10*3/uL NRBC Abs Auto 0.000 0.0-0.012 X10*3/uL Prothrombin Time INR Reviewed date:09/01/2024 07:44:46 AM Interpretation: Performing Lab:[facility], [address] [place] [phone] Notes/Report: Prothrombin Time 12.3 10.9-12.4 SEC INTERNATIONAL NORM RATIO 1.1 0.9-1.1 INTERNATIONAL NORMALIZED RATIO (INR) REFERENCE RANGES Reference Range For patients not on anticoagulant therapy: 0.9 - 1.1 INR ranges for oral anticoagulant therapy: For prevention and treatment of venous thrombosis and pulmonary embolism: 2.0 - 3.0 For acute myocardial infarction with aspirin therapy: 2.0 - 3.0 For acute myocardial infarction without aspirin therapy: 3.0 - 4.0 For patients with mechanical prosthetic heart valves: 2.5 - 3.5 Liver Panel Reviewed date:09/01/2024 07:45:06 AM Interpretation: Performing Lab:[facility], [address] [place] [phone] Notes/Report: Bilirubin Total 0.3 0.0-1.0 mg/dL Bilirubin Direct 0.1 0.0-0.5 mg/dL Aspartate Amino Transferase 18 5-31 U/L Alanine Aminotransferase 16 0-31 U/L Total Protein 7.7 6.5-8.0 g/dL Albumin Level 3.8 3.5-5.0 g/dL Alkaline Phosphatase 138 39-117 U/L Lipase Reviewed date:09/01/2024 07:45:19 AM Interpretation: Performing Lab:[facility], [address] [place] [phone] Notes/Report: Lipase 47 8-78 U/L REASON FOR REFERRAL Referring Provider First Name Troy Referring Provider Last Name Name Referring Provider Speciality Internal M edicine Referred Organization [facility] Referred Provider Ryan Heller Jr Referred Address [address] [place] [address], Referred Provider Specialty Gastroentero logy General Notes Kirstie Holden 024 09:48:07 AM EDT > RE[facility] FROM [facility] FOR VISIT WITH DR HELLER ON 08-31-2024 Referral Priority Routine MEDICATIONS Medication SIG (Take, Route, Frequency, Duration) Notes Start Date End Date Status Creon [id number] UNIT TAKE 1 CAPSULE B Y MOUTH [...] UTH AT BEDTIME Oral for 30 Active Multivitamin Adult A ctive Ibuprofen 600 MG TAKE 1 TABLET BY RL TH THREE TIMES DAILY WITH FOOD Oral for 20 Active Citalopram Hydrobromide 20 MG 1 tablet Orally Once a day Active Folic Acid 1 MG 1 tablet Orally Once a day Active Esomeprazole Magnesium 40 MG TAKE 1 CAPSULE BY MOUTH EVERY DAY BEFORE BREAKFAST. DO NOT BREAK, CRUSH, DISSOLVE OR CHEW. Oral for 90 Active Alendronate Sodium 70 MG TAKE 1 TABLET B Y MOUTH EVERY 7 DAYS IN THE MORNING ON AN EMPTY STOMACH WITH FULL GLASS OF WATER 30 MINUTES BEFORE OTHER FOOD / MEDICATIONS. Do not lie down for 30 minutes after taking. Oral for 84 Active Oyster Shell Calcium w/D 500-5 MG-MCG TAKE 1 TABLET BY MOUTH TWICE DAILY Oral for 90 Active IMMUNIZATIONS Vaccine Route Administration Date Status Comme nts Influenza Unknown 08/15/2020 Administered Influenza Unknown 10/01/2021 Administered SOCIAL HISTORY Tobacco Use: Social History Observation [...] ast year? No Points 0 Interpretation Negative PROBLEMS Problem Type ICD Code Onset Dates Problem Status W/U Status Risk SNOMED Code Notes Problem 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) Active confirmed 140973898 Problem Alcoholic liver disease (K70.9) Active confirmed 00469838 Problem Epigastric pain (R10.13) Active confirmed 24463453 Problem Gastroesophageal reflux disease without esophagitis (K21.9) Active confirmed 305958095 Problem Colon cancer screening (Z12.11) Active confirmed 367367211 Problem Personal history of colonic polyps (Z86.010) Active confirmed History of polyp of colon (situation) (227450459) VITAL SIGNS Blood pressure diastolic 00 mm Hg 08/31/2024 Height 63 in 08/31/2024 Blood pressure systolic 00 mm Hg 08/31/2024 Weight 165 lbs 08/31/2024 BMI 29.23 kg/m2 08/31/2024 Encounters Encounter Location Date Provider Diagnosis [facility] [address] [place] [address] 08/31/2024 Ryan Heller Jr Alcoholic liver disease K70.9 ; Gastroesophageal reflux disease without esophagitis K21.9 and 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 [facility] [address] [place] [address] 09/01/2024 Ryan Heller Jr ASSESSMENTS Encounter Date Diagnosis Assessment Notes Treatment Notes Treatment Clinical Notes 08/31/2024 Gastroesophageal ref lux disease without esophagitis (ICD-10 - K21.9) 08/31/2024 Alcoholic liver dise ase (ICD-10 - K70.9) 08/31/2024 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 chain maker james pancreatitis (ICD-10 - K86.0) PLAN OF TREATMENT Pending Test Test Name Order Date LIVER PROFILE 09/03/2022 LIVER PROFILE 08/31/2024 LIPASE 09/03/2022 LIPASE 08/31/2024 CBC w DIFF 08/31/2024 CBC w/o DIFF 09/03/2022 PROTHROMBIN TIME (PT, INR) 09/03/2022 PROTHROMBIN TIME (PT, INR) 08/31/2024 US ABDOMEN COMP WITH ELASTOGRAPHY 2020 Liver Fibrosis Pnl 09/03/2022 Future Test Test Name Order Date UPPER GI ENDOSCOPY 06/02/2021 COLONOSCOPY 07/29/2023 Next Appt Details Provider Name:Ryan suh Jr, 09/03/2025 09:20:00 AM, [address] [place] [address], [address], [place], [address], Insurance Providers Payer Name Payer Address Payer Phone Subscriber Number Group Number Insured Name Patient Relationship to Insured Coverage Start Date Coverage End Date [place] [address] [place] [phone] [id number] ESE SERRA Self - patient is the insured MEDICAL (GENERAL) HISTORY Medical History History ICD Code Alcoholic liver disease with elastography showing elevated liver stiffness consistent with compensated advance chronic liver disease 08/2021 Chronic pancreatitis Depression Hypertension diabetes type 2 Covid 19 infection 03/04 Osteoporosis Arthritis Colonoscopy, 09/06, hyperplastic polyp, ten-year followup Upper endoscopy 07/05 negativ e for varices or portal hypertensive gastropathy, no H. pylori or Lau's esophagus. Surgical History Surgery Date(Month/Year) cholecystectomy section right knee replacement left knee replacement Hospitalization History Reason Date(Month/Year) pancreatitis 08/05
[2024-10-31 11:28] LABS: Anion Gap 14 (12-20); Blood Urea Nitrogen 12 mg/dL (9-16); Carbon Dioxide 26 mmol/L (22-29); Chloride 103 mmol/L (96-108); Estimated Glomerular Filt Rate 48; Glucose Random 187 mg/dL (60-115); Potassium 4.1 mmol/L (3.3-5.1); Sodium 139 mmol/L (135-145)
[2024-10-31 11:59] LABS: Creatinine Urine 64.94 mg/dL; Microalbum/Creatinine Ratio Ur 10.7 ug/mg cr (<30)
== END 2024-10-31 09:49 | disposition home or self-care (01) ==
LOC: HO.HHCL 09:48
PROVIDERS: Visit Provider Internal Medicine Geriatric Medicine
DX: E11.9 Type 2 diabetes mellitus without complications (principal); F10.20 Alcohol dependence, uncomplicated
CPT/HCPCS: 36415; 80048; 82043; 82570

== ENCOUNTER 2024-11-01 10:25 | Outpatient (REF) | payer MEDICAID, SELFPAY ==
--- OUTSIDE RECORDS SUMMARY | 2024-11-01 10:29 | XMS_ITS ---
Author Organization [facility] Address [address] [place] [address] Care Team Providers Care Egg Crater Name Role Phone Name Troy LOPEZ Primary Care Provider Timothy Duong Jr, Ryan Ang REASON FOR VISIT labs Encounters Encounter Location Date Provider Diagnosis [facility] [address] [place] [address] 09/01/2024 Ryan Duong Jr PLAN OF TREATMENT Next Appt Details Provider Name:Ryan suh Jr, 09/03/2025 09:20:00 AM, [address] [place] [address], [address], [place], [address],
--- OUTSIDE RECORDS SUMMARY | 2024-11-01 10:30 | XMS_ITS | Patient Health Record ---
Author Organization [facility] Address [address] [place] [address] Care Team Providers Care Gericare Aide Name Role Phone Name Troy LOPEZ Primary Care Provider Ryan Palumbo Jr ALLERGIES Allergen (clinical drug ingredient) Drug/Non Drug Allergy documented on EMR Reaction Allergy Type Onset Date Status Penicillin Unknown Drug Allergy Active RESULTS Component Value Reference Range Notes Liver Fibrosis Pnl Reviewed date:09/07/2024 07:41:27 AM Interpretation: Performing Lab:[facility], [address] [place] [phone] Notes/Report: Liver Fibrosis Score 0.13 Liver Fibrosis [...] a>0.62 and a<=1.00 : A3 (severe activity) ZVH-Qztax-5-Macroglobulin 266 106-279 mg/dL FIB-Haptoglobin 324 43-212 mg/dL This value is highly elevated over the 99 percentile. Check the value and the absence of sepsis. Usual maximum value is 320.0 mg/dl. FIB-Apolipoprotein A1 164 101-198 mg/dL FIB-Total Bilirubin 0.2 0.2-1.2 mg/dL FIB-GGT 51 3-65 U/L FIB-ALT 12 6-29 U/L Reference ID [id number] Footnote SEE NOTE The reliability of results is dependent on compliance with the preanalytical and analytical conditions recommended by [employer]. The tests have to be deferred for: [...] The performance characteristics have been determined by [facility]. It has not been cleared or approved by the U.S. Food and Drug Administration. Performance characteristics refer to the analytical performance of the test. [employer], the associated logo, [facility] and all associated [employer] vazquez are the registered trademarks of [employer]. All third constitution party vazquez - (R) and (TM) - are the property of their respective owners. (C) [phone] [employer]. All rights reserved. THIS TEST WAS PERFORMED AT: [facility] [address] [place] [address] KATLYN TEJADA MD,PHD,THAD Complete Blood Count Auto Di ff Reviewed date:09/01/2024 07:46:01 AM Interpretation: Performing Lab:[facility], [address] [place] [phone] Notes/Report: White Blood Count 5.7 4.8-10.8 X10*3/uL [...] INR Reviewed date:09/01/2024 07:44:46 AM Interpretation: Performing Lab:[facility], [address] [place] [phone] Notes/Report: Prothrombin Time 12.3 10.9-12.4 SEC INTERNATIONAL [...] Panel Reviewed date:09/01/2024 07:45:06 AM Interpretation: Performing Lab:[facility], [address] [place] [phone] Notes/Report: Bilirubin Total 0.3 0.0-1.0 mg/dL Bilirubin Direct 0.1 0.0-0.5 mg/dL Aspartate Amino Transferase 18 5-31 U/L Alanine Aminotransferase 16 0-31 U/L Total Protein 7.7 6.5-8.0 g/dL Albumin Level 3.8 3.5-5.0 g/dL Alkaline Phosphatase 138 39-117 U/L Lipase Reviewed date:09/01/2024 07:45:19 AM Interpretation: Performing Lab:[facility], [address] [place] [phone] Notes/Report: Lipase 47 8-78 U/L REASON FOR REFERRAL Referring Provider First Name Troy Referring Provider Last Name Name Referring Provider Speciality Internal M edicine Referred Organization [facility] Referred Provider Ryan Heller Jr Referred Address [address] [place] [id number], Referred Provider Specialty Gastroentero logy General Notes Kirstie Holden 024 09:48:07 AM EDT > RE[facility] FROM [facility] FOR VISIT WITH DR HELLER ON 08-31-2024 Referral Priority Routine MEDICATIONS Medication SIG (Take, Route, Frequency, Duration) Notes Start Date End Date Status Creon [id number] UNIT TAKE 1 CAPSULE B Y MOUTH [...] Problem 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) Active confirmed 255645281 Problem Alcoholic liver disease (K70.9) Active confirmed 75329325 Problem Epigastric pain (R10.13) Active confirmed 07438148 Problem Gastroesophageal reflux disease without esophagitis (K21.9) Active confirmed 409638975 Problem Colon cancer screening (Z12.11) Active confirmed 227483977 Problem Personal history of colonic polyps (Z86.010) Active confirmed History of polyp of colon (situation) (647188646) VITAL SIGNS Blood pressure diastolic 00 mm Hg 08/31/2024 Height 63 in 08/31/2024 Blood pressure systolic 00 mm Hg 08/31/2024 Weight 165 lbs 08/31/2024 BMI 29.23 kg/m2 08/31/2024 Encounters Encounter Location Date Provider Diagnosis [facility] [address] [place] [address] 08/31/2024 Ryan Heller Jr Alcoholic liver disease K70.9 ; Gastroesophageal reflux disease without esophagitis K21.9 and 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 [facility] [address] [place] [address] 09/01/2024 Ryan Heller Jr ASSESSMENTS Encounter Date Diagnosis Assessment Notes Treatment Notes Treatment Clinical Notes 08/31/2024 Gastroesophageal ref lux disease without esophagitis (ICD-10 - K21.9) 08/31/2024 Alcoholic liver dise ase (ICD-10 - K70.9) 08/31/2024 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
--- OUTSIDE RECORDS SUMMARY | 2024-11-01 10:30 | XMS_ITS ---
Author Organization [facility] Address [address] [place] [address] Care Team Providers Care Animal Cruelty Investigator Name Role Phone Name Troy LOPEZ Primary Care Provider Ryan Palumbo Jr ALLERGIES Allergen (clinical drug ingredient) Drug/Non Drug Allergy documented on EMR Reaction Allergy Type Onset Date Status Penicillin Unknown Drug Allergy Active RESULTS Component Value Reference Range Notes Liver Fibrosis Pnl Reviewed date:09/07/2024 07:41:27 AM Interpretation: Performing Lab:[facility], [address] [place] [phone] Notes/Report: Liver Fibrosis Score 0.13 Liver Fibrosis [...] a>0.62 and a<=1.00 : A3 (severe activity) LCK-Dtebt-5-Macroglobulin 266 106-279 mg/dL FIB-Haptoglobin 324 43-212 mg/dL This value is highly elevated over the 99 percentile. Check the value and the absence of sepsis. Usual maximum value is 320.0 mg/dl. FIB-Apolipoprotein A1 164 101-198 mg/dL FIB-Total Bilirubin 0.2 0.2-1.2 mg/dL FIB-GGT 51 3-65 U/L FIB-ALT 12 6-29 U/L Reference ID [id number] Footnote SEE NOTE The reliability of results is dependent on compliance with the preanalytical and analytical conditions recommended by [employer]. The tests have to be deferred for: [...] The performance characteristics have been determined by [facility]. It has not been cleared or approved by the U.S. Food and Drug Administration. Performance characteristics refer to the analytical performance of the test. [employer], [employer], the associated logo, [employer] and all associated [employer] vazquez are the registered trademarks of [employer]. All third constitution party vazquez - (R) and (TM) - are the property of their respective owners. (C) [phone] [employer]. All rights reserved. THIS TEST WAS PERFORMED AT: [employer] [address] [place] [address] KATLYN TEJADA MD,PHD,THAD REASON FOR VISIT Patient [...] TWICE DAILY Oral for 90 Active Creon [id number] UNIT TAKE 1 CAPSULE B Y MOUTH [...] 08/31/2024 Encounters Encounter Location Date Provider Diagnosis [facility] [address] [place] [address] 08/31/2024 Ryan Duong Jr Alcoholic liver disease K70.9 ; Gastroesophageal reflux disease without esophagitis K21.9 and 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 ASSESSMENTS Encounter Date Diagnosis Assessment Notes Treatment Notes Treatment Clinical Notes 08/31/2024 Alcoholic liver dise ase (ICD-10 - K70.9) 08/31/2024 Gastroesophageal ref lux disease without esophagitis (ICD-10 - K21.9) 08/31/2024 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 occupational health coordinator james pancreatitis (ICD-10 - K86.0) PLAN OF TREATMENT Pending Test Test Name Order Date LIVER PROFILE 08/31/2024 LIPASE 08/31/2024 CBC w DIFF 08/31/2024 PROTHROMBIN TIME (PT, INR) 08/31/2024 Next Appt Details Follow Up: 1 Year, Reason: Provider Name:Ryan suh Jr, 09/03/2025 09:20:00 AM, [address], [address], [place], [address],
--- OUTSIDE RECORDS SUMMARY | 2024-11-01 10:30 | XMS_ITS ---
Author Organization [facility] Address [address] [place] [address] Care Team Providers Care Mushroom Sorter Grader Name Role Phone Name Troy LOPEZ Primary Care Provider Timothy Duong Jr, Ryan Ang [phone] REASON FOR VISIT pathology Encounters Encounter Location Date Provider Diagnosis [facility] [address] [place] [address] 08/31/2023 Ryan Duong Jr PLAN OF TREATMENT Next Appt Details Provider Name:Ryan suh Jr, 09/03/2025 09:20:00 AM, [address] [place] [address], [address], [place], [address],
== END 2024-11-01 10:26 | disposition home or self-care (01) ==
LOC: HO.MAMMO 10:25
PROVIDERS: PCP Internal Medicine Geriatric Medicine; Visit Provider Internal Medicine Geriatric Medicine
DX: Z12.31 Encounter for screening mammogram for malignant neoplasm of breast (principal)
CPT/HCPCS: 77063; 77067

== ENCOUNTER → 2024-11-01 10:45 | Outpatient (BNV) | payer MEDICAID, SELFPAY | PROVIDERS: PCP Internal Medicine Geriatric Medicine; Visit Provider Internal Medicine | DX: Z12.31 Encounter for screening mammogram for malignant neoplasm of breast (principal) | CPT/HCPCS: 77063; 77067 ==

== ENCOUNTER 2024-11-24 14:13 | Emergency (ER) | payer MEDICAID, SELFPAY ==
--- NOTE | 2024-11-24 14:17 | ED_ITS ---
HPI - Abdominal Pain General Chief Complaint: Abdominal Pain Stated Complaint: stomach pain, vomiting Time Seen by Provider: 11/24/24 19:18 Source: patient Mode of arrival: ambulatory Limitations: no limitations History of Present Illness ED Provider: Christa Brown PA-C HPI narrative: Patient is a 59 year old assigned female at with a history of DM, HTN, cirrhosis, and pancreatitis presenting to the emergency department today with abdominal pain, nausea, and vomiting. Patient states that over the last 2 days she has had nausea, vomiting, and upper abdominal pain that feels similar to her previous episodes of pancreatitis. Patient denies any dizziness, lightheadedness, fever, chills, blurry vision, double vision, loss of vision, chest pain, difficulty breathing, shortness of breath, back pain, night sweats, pain with urination, increased urinary frequency, increased urinary urgency, blood in her urine or stool, syncope or a near syncopal episode, recent trauma or falls, bowel incontinence, bladder incontinence, or any other complaints at this time. MD elicited complaint: abdominal pain Related Data Home Medications ?Medication ?Instructions ?Recorded ?Confirmed citalopram 20 mg tablet 1 tab PO DAILY 06/12/21 09/15/22 folic acid 1 mg tablet 1 tab PO DAILY 06/12/21 09/15/22 multivitamin 1 tab PO DAILY 06/12/21 09/15/22 omeprazole 20 mg capsule,delayed 2 cap PO DAILY 06/12/21 09/15/22 release spironolactone 50 mg tablet 1 tab PO DAILY 06/12/21 09/15/22 empagliflozin 25 mg tablet 25 mg PO QA 08/27/23 08/27/23 (Jardiance) escitalopram oxalate 10 mg tablet 10 mg PO QAM 12/27/23 lactulose 10 gram/15 mL oral 15 ml PO QAM 12/27/23 solution pptwfz-zjalddoa-mtllsuj 1 cap PO 12/27/23 36,000-114,000-180,000 unit capsule,delay rel (Creon) naltrexone microspheres 380 mg mg IM Q4W 12/27/23 intramuscular suspension,extended release (Vivitrol) esomeprazole magnesium 40 mg 40 mg PO QAM 05/17/24 capsule,delayed release loratadine 10 mg tablet 10 mg PO DAILY 05/17/24 Previous Rx's ?Medication ?Instructions ?Recorded thiamine mononitrate (vit B1) 100 100 mg PO DAILY 30 days #30 tabs 06/16/21 mg tablet Chopat Strap #1 ea 12/19/21 naproxen 500 mg tablet,delayed 500 mg PO BID PRN for pain #30 tabs 04/28/22 release Allergies Allergy/AdvReac Type Severity Reaction Status Date / Time Penicillins Allergy Severe Itching Verified 11/24/24 14:24 Review of Systems Constitutional: Reports no additional constitutional complaints, Denies chills, Denies fever(s) and Denies night sweats Eyes: Reports no additional eye complaints, Denies blurry vision, Denies change in vision, Denies diplopia, Denies eye discharge, Denies loss of vision and Denies eye pain Denies dizziness Cardiovascular: Reports no additional cardiovascular complaints, Denies chest pain, Denies lightheadedness, Denies Loss of Consciousness and Denies dyspnea Respiratory: Reports no additional respiratory complaints and Denies dyspnea Gastrointestinal: Reports no additional gastrointestinal complaints, Reports abdominal pain, Denies melena, Denies hematochezia, Denies change in bowel habits, Denies change in stool character, Reports nausea and Reports vomiting Genitourinary: Denies hematuria, Denies urinary frequency, Denies dysuria, Denies urinary incontinence, Denies urinary hesitancy and Denies urinary urgency Musculoskeletal: Reports no additional musculoskeletal complaints, Denies numbness and Denies tingling Denies dizziness, Denies loss of vision, Denies numbness and Denies tingling Psychiatric: Reports no additional psychiatric complaints Endocrine: Reports no additional endocrine complaints Hematologic/Lymphatic: Reports no additional hematologic/lymphatic complaints Allergic/Immunologic: Reports no additional allergic/immunologic complaints [facility] Past Medical History Attestation statement: The following information was validated with the patient. Source: old records reviewed and nursing notes reviewed Medical History Cardiac arrest Former smoker History of alcohol abuse delivery delivered Prediabetes Cirrhosis HTN (hypertension) Surgical History Hx of tracheostomy Total knee replacement status Previous section History of cholecystectomy Social History Social History Household Members: Family Household Members Other:: sister Housing: House Do you presently have visiting nurse or other home services: No Alcohol intake: current Alcohol intake frequency: a few times a month Patient Tobacco Use Status: Former Tobacco user Advance Directives: No Advance Directives Information Provided: No service: No Current occupational status: unemployed 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 Physical Exam ED Vital Signs: Vital Signs - 24 hr 11/24/24 14:20 11/24/24 19:28 Temperature 98.0 F 99.3 F Pulse Rate 90 101 H Respiratory Rate 16 18 Blood Pressure 162/79 H 158/82 H Pulse Oximetry 96 98 Oxygen Delivery Method Room Air Room Air BMI result Body Mass Index 28.3 Const General: cooperative, no acute distress, alert and awake Nutritional Appearance: well nourished Orientation/consciousness: patient oriented x3 Limitations: no limitations HENMT Head: Yes normal to inspection and Yes atraumatic Ears: hearing grossly normal bilaterally and external ears normal General nose exam: Normal external nose present, no nasal discharge noted and no epistaxis Face and sinus: Yes normal facial exam, No abrasion and No laceration Mouth: Normal oral and palatal mucosa present, no drooling and no muffled voice Eyes General: appearance normal, both eyes and all related structures Periorbital: periorbital findings normal Eyelids: Yes eyelids normal Conjunctivae: conjunctivae normal Pupils: Equal, round and reactive pupils present EOM: EOMs intact bilaterally Neck Neck: Yes normal visual inspection, Yes full ROM and Yes no lymphadenopathy Chest Chest palpation & inspection: normal inspection of the chest Resp Effort & Inspection: normal respiratory effort and able to speak in complete sentences GI Inspection: Yes normal to inspection Palpation (GI): Soft to palpation, not firm, nontender and no guarding Neuro General: patient oriented x3 and moves all extremities Cranial nerves: Yes Equal, round and reactive pupils present Cognition (Neuro): normal cognition Extrem General: Yes normal to inspection, Yes full ROM and Yes capillary refill normal Psych Appearance: grossly normal Mental Status: mental status grossly normal Affect: normal affect Attitude: cooperative Thought process: Normal thought process present Thought content: Normal thought content present Insight: Good insight present (Psych) Course Course Course Narrative: This is an RME performed by Sony Trevino CNP: Additional HPI, ROS, PE not included below will be deferred to primary provider. Patient is a 59-year-old female who presents emergency department for evaluation of epigastric/mid abdominal pain radiating to the back and vomiting, can not tolerate oral intake. Onset 4 days ago. Denies diarrhea/constipation. Denies known sick contacts. Plan: Serum labs, viral serologies, urinalysis Medical Decision Making Medical Decision Making [facility] Narrative: Patient is a 59 year old assigned female at with a history of DM, HTN, cirrhosis, and pancreatitis presenting to the emergency department today with abdominal pain, nausea, and vomiting. Patient's physical exam was unremarkable. Patient's blood work showed an elevated lipase of 190 but otherwise unremarkable. Patient's urine showed no acute process. Patient's EKG was unremarkable. Patient's COVID-19 test was positive. I explained my physical exam findings as well as all test results to the patient. I answered all questions asked by the patient. Patient received IV fluids and morphine which, upon re- evaluation, she stated it helped her symptoms significantly. Patient was able to tolerate PO intake while in the department. I stressed the importance of the patient taking her medication as directed (either prescribed or as the over the counter packaging recommends). I stressed the importance of the patient following up with her primary care provider. I stressed the importance of the patient returning to the emergency department immediately if her symptoms were to worsen or if she were to develop any dizziness, shortness of breath, difficulty breathing, chest pain, blurry vision, loss of vision, nausea, vomiting, abdominal pain, fever, chills, back pain, or any other complaints. Patient verbalized agreement and understanding with this treatment plan and discharge. Differential Diagnosis Differential Diagnoses: The differential diagnosis associated with the presentation includes Epigastric pain Abdominal pain Pancreatitis COVID-19 Admission/Observation Consideration of admission/observation: Escalation of care including admission/observation considered Patient would have been admitted to the hospital had her work up had any findings where hospital admission was appropriate and her clinical presentation warranted hospital admission. Lab Data [facility] Lab Attestation statement: I reviewed the patient's lab results. My interpretation of these results are in the [facility] Rationale portion of this note. 11/24/24 14:41 11/24/24 14:41 Labs: Lab Results 11/24/24 Range/Units 14:41 WBC 7.0 (4.8-10.8) X10*3/uL RBC 4.51 (4.20-5.50) X10*6/uL Hgb 13.0 (12.0-16.0) g/dl Hct 39.2 (37.0-47.0) % MCV 86.9 (80.0-98.0) fL MCH 28.8 (27.0-33.0) pg MCHC 33.2 (31.0-35.0) g/dl RDW 15.8 (11.0-16.0) % Plt Count 163 (160-400) X10*3/uL MPV 9.6 (9.4-12.3) fL Immature Gran % (Auto) 0.3 (0.0-0.4) % Neut % (Auto) 81.5 H (45-73) % Lymph % (Auto) 10.6 L (20-40) % Clinch % (Auto) 7.1 (2-11) % Eos % (Auto) 0.1 (0-4) % Baso % (Auto) 0.4 (0-2) % Lymph # (Auto) 0.7 L (1.2-4.9) X10*3/uL Clinch # (Auto) 0.5 (0.1-1.2) X10*3/uL Eos # (Auto) 0.0 (0.0-0.4) X10*3/uL Baso # (Auto) 0.0 (0.0-0.2) X10*3/uL Abs Immat Gran (auto) 0.02 (0.00-0.03) X10*3/uL Absolute Neuts (auto) 5.7 (2.0-8.3) x10*3/uL Absolute Nucleated RBC 0.000 (0.0-0.012) X10*3/uL Nucleated RBC % (auto) 0.0 (0.0-0.2) /100WBC Sodium 138 (135-145) mmol/L Potassium 3.3 (3.3-5.1) mmol/L Chloride 104 (96-108) mmol/L Carbon Dioxide 25 (22-29) mmol/L Anion Gap 12 (12-20) BUN 12 (9-16) mg/dL Creatinine 0.91 (0.5-1.4) mg/dL Estim Creat Clear Calc 62.0 Estimated GFR > 60 Random Glucose 227 H (60-115) mg/dL Calcium 9.1 (8.4-10.2) mg/dL Magnesium 1.9 (1.6-2.6) mg/dL Total Bilirubin 0.5 (0.0-1.0) mg/dL AST 23 (5-31) U/L ALT 19 (0-31) U/L Alkaline Phosphatase 124 H (39-117) U/L Total Protein 7.9 (6.5-8.0) g/dL Albumin 3.8 (3.5-5.0) g/dL Lipase 190 H (8-78) U/L Influenza Type A (PCR) NEGATIVE (Negative) Influenza Type B (PCR) NEGATIVE (Negative) RSV RNA Qual (PCR) NEGATIVE (Negative) SARS-CoV-2 RNA (RT-PCR) POSITIVE A (Negative) Independent Interpretation I performed an independent interpretation of an: EKG Interpretation: I independently interpreted this EKG and am in agreement with the below findings: Tests considered The following testing was considered but not selected: I considered obtaining a CT scan of the abdomen/pelvis however, the patient's current clinical presentation and work up did not warrant this. I discussed this with the patient who verbalized understanding and agreement. Chronic Conditions Patient?s care impacted by: Diabetes Discharge Plan Discharge Clinical Impression: COVID-19, Pancreatitis Patient Disposition: Home, Self-Care Instructions: COVID-19 (Coronavirus Disease 2019) (ED), Pancreatitis (ED) Additional Instructions: Your work up today showed that you have COVID-19 and a very mild pancreatitis. Follow up with your primary care provider. Return to the emergency department immediately if your symptoms worsen or if you develop any dizziness, shortness of breath, difficulty breathing, chest pain, blurry vision, loss of vision, nausea, vomiting, abdominal pain, fever, chills, back pain, or any other complaints. Prescriptions: No Action naproxen 500 mg tablet,delayed release (DR/EC) 500 mg PO BID PRN (Reason: for pain) Qty: 30 2RF multivitamin Tablet 1 tab PO DAILY citalopram 20 mg tablet 1 tab PO DAILY omeprazole 20 mg capsule,delayed release(DR/EC) 2 cap PO DAILY folic acid 1 mg tablet 1 tab PO DAILY spironolactone 50 mg tablet 1 tab PO DAILY thiamine mononitrate (vit B1) 100 mg Tablet 100 mg PO DAILY 30 Days Qty: 30 0RF Jardiance 25 mg tablet 25 mg PO QAM (DME) Chopat Strap See Rx Instructions .ROUTE .MEDSUPPLY Qty: 1 0RF Rx Instructions: n/a escitalopram oxalate 10 mg tablet 10 mg PO QAM Creon 36,000-114,000- 180,000 unit capsule,delayed release(DR/EC) 1 cap PO lactulose 10 gram/15 mL solution 15 ml PO QAM Vivitrol 380 mg suspension,extended rel recon IM Q4W loratadine 10 mg tablet 10 mg PO DAILY esomeprazole magnesium 40 mg capsule,delayed release(DR/EC) 40 mg PO QAM Referrals: Name,MD Troy [Primary Care Provider] - Print Language: Frisian
--- OUTSIDE RECORDS SUMMARY | 2024-11-24 14:17 | XMS_ITS ---
Author Organization [facility] Address [address] [place] [address] Care Team Providers Care Furniture Shampooer Name Role Phone Name Troy LOPEZ Primary Care Provider Timothy Duong Jr, Ryan Ang [phone] REASON FOR VISIT pathology Encounters Encounter Location Date Provider Diagnosis [facility] [address] [place] [address] 08/31/2023 Ryan Duong Jr PLAN OF TREATMENT Next Appt Details Provider Name:Ryan suh Jr, 09/03/2025 09:20:00 AM, [address] [place] [address], [address], [place], [address],
--- OUTSIDE RECORDS SUMMARY | 2024-11-24 14:17 | XMS_ITS ---
Author Organization [facility] Address [address] [place] [address] Care Team Providers Care Stone Mill Operator Name Role Phone Name Troy LOPEZ Primary Care Provider Ryan Palumbo Jr ALLERGIES Allergen (clinical drug ingredient) Drug/Non Drug Allergy documented on EMR Reaction Allergy Type Onset Date Status Penicillin Unknown Drug Allergy Active RESULTS Component Value Reference Range Notes Liver Fibrosis Pnl Reviewed date:09/07/2024 07:41:27 AM Interpretation: Performing Lab:[facility], [address] [place] [phone] Notes/Report: Liver Fibrosis Score 0.13 Liver Fibrosis [...] a>0.62 and a<=1.00 : A3 (severe activity) KWA-Cngrn-5-Macroglobulin 266 106-279 mg/dL FIB-Haptoglobin 324 43-212 mg/dL This value is highly elevated over the 99 percentile. Check the value and the absence of sepsis. Usual maximum value is 320.0 mg/dl. FIB-Apolipoprotein A1 164 101-198 mg/dL FIB-Total Bilirubin 0.2 0.2-1.2 mg/dL FIB-GGT 51 3-65 U/L FIB-ALT 12 6-29 U/L Reference ID [id number] Footnote SEE NOTE The reliability of results is dependent on compliance with the preanalytical and analytical conditions recommended by [employer]. The tests have to be deferred for: [...] The performance characteristics have been determined by [employer] [facility]. It has not been cleared or approved by the U.S. Food and Drug Administration. Performance characteristics refer to the analytical performance of the test. Liquid, [employer], the associated logo, [employer] and all associated [employer] vazquez are the registered trademarks of [employer]. All third libertarian vazquez - (R) and (TM) - are the property of their respective owners. (C) 8315-4226 [employer]. All rights reserved. 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 ASSESSMENTS Encounter Date Diagnosis Assessment Notes Treatment Notes Treatment Clinical Notes 08/31/2024 Alcoholic liver dise ase (ICD-10 - K70.9) 08/31/2024 Gastroesophageal ref lux disease without esophagitis (ICD-10 - K21.9) 08/31/2024 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
--- OUTSIDE RECORDS SUMMARY | 2024-11-24 14:17 | XMS_ITS | Patient Health Record ---
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 Name Role Phone Name Troy LOPEZ Primary Care Provider Ryan Palumbo Jr ALLERGIES Allergen (clinical drug ingredient) Drug/Non Drug Allergy documented on EMR Reaction Allergy Type Onset Date Status Penicillin Unknown Drug Allergy Active RESULTS Component Value Reference Range Notes Liver Fibrosis Pnl Reviewed date:09/07/2024 07:41:27 AM Interpretation: Performing Lab:[facility], [address] [place] [address] Notes/Report: Liver Fibrosis Score 0.13 Liver Fibrosis [...] a>0.62 and a<=1.00 : A3 (severe activity) DVH-Nlszh-4-Macroglobulin 266 106-279 mg/dL FIB-Haptoglobin 324 43-212 mg/dL This value is highly elevated over the 99 percentile. Check the value and the absence of sepsis. Usual maximum value is 320.0 mg/dl. FIB-Apolipoprotein A1 164 101-198 mg/dL FIB-Total Bilirubin 0.2 0.2-1.2 mg/dL FIB-GGT 51 3-65 U/L FIB-ALT 12 6-29 U/L Reference ID [id number] Footnote SEE NOTE The reliability of results is dependent on compliance with the preanalytical and analytical conditions recommended by [employer]. The tests have to be deferred for: [...] The performance characteristics have been determined by [facility]. It has not been cleared or approved by the U.S. Food and Drug Administration. Performance characteristics refer to the analytical performance of the test. [employer], the associated logo, [facility] and all associated [employer] vazquez are the registered trademarks of [employer]. All third constitution party vazquez - (R) and (TM) - are the property of their respective owners. (C) 9174-6977 [employer]. All rights reserved. THIS TEST WAS PERFORMED AT: [employer] [facility] [address] [place] [address] KATLYN TEJADA MD,PHD,THAD Complete Blood Count Auto Di ff Reviewed date:09/01/2024 07:46:01 AM Interpretation: Performing Lab:[facility], [address] [place] [phone] Notes/Report: White Blood Count 5.7 4.8-10.8 X10*3/uL [...] INR Reviewed date:09/01/2024 07:44:46 AM Interpretation: Performing Lab:[facility], [address] [place] [phone] Notes/Report: Prothrombin Time 12.3 10.9-12.4 SEC [employer]NATIONAL [...] Panel Reviewed date:09/01/2024 07:45:06 AM Interpretation: Performing Lab:[facility], [address] [place] [phone] Notes/Report: Bilirubin Total 0.3 0.0-1.0 mg/dL Bilirubin Direct 0.1 0.0-0.5 mg/dL Aspartate Amino Transferase 18 5-31 U/L Alanine Aminotransferase 16 0-31 U/L Total Protein 7.7 6.5-8.0 g/dL Albumin Level 3.8 3.5-5.0 g/dL Alkaline Phosphatase 138 39-117 U/L Lipase Reviewed date:09/01/2024 07:45:19 AM Interpretation: Performing Lab:[facility], [address] [place] [phone] Notes/Report: Lipase 47 8-78 U/L REASON FOR REFERRAL Referring Provider First Name Troy Referring Provider Last Name Name Referring Provider Speciality Internal M edicine Referred Organization [facility] Referred Provider Ryan Heller Jr Referred Address [address] [place] [phone], Referred Provider Specialty Gastroentero logy General Notes Kirstie Holden 024 09:48:07 AM EDT > RE[facility] FROM [facility] FOR VISIT WITH DR HELLER ON 08-31-2024 Referral Priority Routine MEDICATIONS Medication SIG (Take, Route, Frequency, Duration) Notes Start Date End Date Status Creon [id number] UNIT TAKE 1 CAPSULE B Y MOUTH [...] Problem 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) Active confirmed 039163806 Problem Alcoholic liver disease (K70.9) Active confirmed 41588298 Problem Epigastric pain (R10.13) Active confirmed 46940486 Problem Gastroesophageal reflux disease without esophagitis (K21.9) Active confirmed 600533899 Problem Colon cancer screening (Z12.11) Active confirmed 668000037 Problem Personal history of colonic polyps (Z86.010) Active confirmed History of polyp of colon (situation) (941394110) VITAL SIGNS Blood pressure diastolic 00 mm Hg 08/31/2024 Height 63 in 08/31/2024 Blood pressure systolic 00 mm Hg 08/31/2024 Weight 165 lbs 08/31/2024 BMI 29.23 kg/m2 08/31/2024 Encounters Encounter Location Date Provider Diagnosis [facility] [address] [place] [address] 08/31/2024 Ryan Heller Jr Alcoholic liver disease K70.9 ; Gastroesophageal reflux disease without esophagitis K21.9 and 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 [facility] [address] [place] [address] 09/01/2024 Ryan Heller Jr ASSESSMENTS Encounter Date Diagnosis Assessment Notes Treatment Notes Treatment Clinical Notes 08/31/2024 Gastroesophageal ref lux disease without esophagitis (ICD-10 - K21.9) 08/31/2024 Alcoholic liver dise ase (ICD-10 - K70.9) 08/31/2024 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 patient centered care specialist james pancreatitis (ICD-10 - K86.0) PLAN OF [...] Provider Name:Ryan suh Jr, 09/03/2025 09:20:00 AM, [address] [place] [address], [address], [place], [address], Insurance Providers Payer Name Payer Address Payer Phone Subscriber Number Group Number Insured Name Patient Relationship to Insured Coverage Start Date Coverage End Date MEDICA[employer] OF [employer] [address] [place] [phone] [id number] ESE SERRA Self - patient is the [...]
[2024-11-24 14:20] VITALS: BP 162/79; PULSE 90; RESP 16; TEMP 36.7; O2SAT 96; BMI 28.3
[2024-11-24 14:46] LABS: MANUAL DIFF FLAG NO
[2024-11-24 14:47] LABS: Basophils Percent Auto 0.4 % (0-2); Eosinophils Percent Auto 0.1 % (0-4); Hematocrit 39.2 % (37.0-47.0); Imm Gran Abs Auto 0.02 X10*3/uL (0.00-0.03); Imm Gran Pct Auto 0.3 % (0.0-0.4); Lymphocytes Absolute Auto 0.7 X10*3/uL (1.2-4.9); Lymphocytes Percent Auto 10.6 % (20-40); Mean Corpuscular HGB Conc 33.2 g/dl (31.0-35.0); Mean Corpuscular Hemoglobin 28.8 pg (27.0-33.0); Mean Corpuscular Volume 86.9 fL (80.0-98.0); Mean Platelet Volume 9.6 fL (9.4-12.3); Monocytes Absolute Auto 0.5 X10*3/uL (0.1-1.2); Monocytes Percent Auto 7.1 % (2-11); Neutrophils Absolute Auto 5.7 x10*3/uL (2.0-8.3); Neutrophils Percent Auto 81.5 % (45-73); Platelet Count 163 X10*3/uL (160-400); Red Blood Count 4.51 X10*6/uL (4.20-5.50); Red Cell Distribution Width 15.8 % (11.0-16.0)
[2024-11-24 15:01] LABS: Alanine Aminotransferase 19 U/L (0-31); Albumin Level 3.8 g/dL (3.5-5.0); Alkaline Phosphatase 124 U/L (39-117); Anion Gap 12 (12-20); Aspartate Amino Transferase 23 U/L (5-31); Bilirubin Total 0.5 mg/dL (0.0-1.0); Blood Urea Nitrogen 12 mg/dL (9-16); Calcium 9.1 mg/dL (8.4-10.2); Carbon Dioxide 25 mmol/L (22-29); Chloride 104 mmol/L (96-108); Estimated Glomerular Filt Rate > 60; Glucose Random 227 mg/dL (60-115); Lipase 190 U/L (8-78); Magnesium 1.9 mg/dL (1.6-2.6); Potassium 3.3 mmol/L (3.3-5.1); Sodium 138 mmol/L (135-145); Total Protein 7.9 g/dL (6.5-8.0)
[2024-11-24 15:32] LABS: Influenza A PCR NEGATIVE (Negative); Influenza B PCR NEGATIVE (Negative); Resp Syncy Virus RNA Qual PCR NEGATIVE (Negative); SARS COV2 PCR INHOUSE POSITIVE (Negative)
[2024-11-24 19:28] VITALS: BP 158/82; PULSE 101; RESP 18; TEMP 37.4; O2SAT 98
--- NOTE | 2024-11-24 19:35 | MHC.EDTECH ---
Patient brought in from the waiting room,pt changed into hospital attire,vitals taken,patient ambulated to the bathroom with a steady gait,urine sample obtained and sent to lab,call hortencia in reach
[2024-11-24] MEDS: 0.9 % Sodium Chloride 1,000 ML 999 ML IV (19:41)
--- NOTE | 2024-11-24 19:41 | ECG_ITS ---
Test Reason : EPIGASTRIC PAIN Blood Pressure : */* mmHG Vent. Rate : 79 BPM Atrial Rate : 79 BPM P-R Int : 118 ms QRS Dur : 82 ms QT Int : 376 ms P-R-T Axes : 33 0 -4 degrees QTcB Int : 431 ms Normal sinus rhythm Normal ECG When compared with ECG of 27-Jun-2021 17:54, No significant change was found Referred By: Christa Brown Electronically Signed By: AMANDA ROUSE
[2024-11-24] MEDS: Morphine Sulfate 4 MG/ML CARTRIDGE IVPUSH (19:43)
[2024-11-24 19:48] LABS: Appearance Urine Clear; Color Urine Yellow; Glucose Urine UA >=1000 mg/dL (Negative); Leukocyte Esterase Urine Negative (Negative); Nitrite Urine Negative (Negative); PH 5.5 (5.0-9.0); Specific Gravity - Urine >= 1.030 (1.005-1.025); UMIC TRIGGER UACC YES; Urine Blood Negative (Negative); Urine Ketones 40 mg/dL (Negative); Urine Protein Trace mg/dL (Neg-Trace)
--- NOTE | 2024-11-24 19:56 | MHC.EDTECH ---
EKG completed per order and signed by provider
[2024-11-24] MEDS: Acetaminophen 1,000 MG/100 ML PIGGYBACK 400 MG IV (20:07)
[2024-11-24 20:54] LABS: Bacteria Urine None Seen (None Seen); Hyaline Casts Urine 0-2 /LPF (0-2); RBC Urine 0-2 /HPF (0-2); Squamous Epithelial Cell Urine 0-2 /HPF (0-2); WBC Urine 0-5 /HPF (0-5)
[2024-11-24 21:05] VITALS: BP 125/62; PULSE 75; RESP 18; TEMP 37.5; O2SAT 96
--- NOTE | 2024-11-24 21:08 | PC.NURSE ---
jazmin made aware of temp 99.5 per jazmin pt okay for discharge
[2024-11-24 21:50] VITALS: BP 125/62; PULSE 75; RESP 18; TEMP 37.5; O2SAT 96
== END 2024-11-24 21:51 | disposition home or self-care (01) ==
PROVIDERS: Nurse Practitioner Family; Emergency Provider Emergency Medicine; PCP Internal Medicine Geriatric Medicine
DX: U07.1 COVID-19 (principal); K85.90 Acute pancreatitis without necrosis or infection, unspecified; R11.2 Nausea with vomiting, unspecified; E11.9 Type 2 diabetes mellitus without complications; I10 Essential (primary) hypertension; Z87.891 Personal history of nicotine dependence; Z79.899 Other long term (current) drug therapy
CPT/HCPCS: 0241U; 80053; 81001; 83690; 83735; 85025; 93005; 99284; 99285; J0131; J2270

== ENCOUNTER → 2024-11-24 19:41 | Outpatient (BNV) | payer MEDICAID, SELFPAY | PROVIDERS: Emergency Provider Emergency Medicine; PCP Internal Medicine Geriatric Medicine; Visit Provider Internal Medicine | DX: R10.13 Epigastric pain (principal) | CPT/HCPCS: 93010 ==

== ENCOUNTER 2025-02-15 09:17 | Outpatient (REF) | payer MEDICAID, SELFPAY ==
--- OUTSIDE RECORDS SUMMARY | 2025-02-15 09:43 | XMS_ITS | Clinical Summary ---
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 lactulose (Chronulac) 10 GM/15ML solution Take 15 mL (10 g) by mouth in the morning. 946 mL 3 2022 Active escitalopram (Lexapro) 10 MG tablet Take 1 tablet (10 mg) by mouth Once per day. 90 tablet 3 2023 Active traZODone (Desyrel) 100 MG tabletIndications:Inso mnia, unspecified type Take 1 tablet (100 mg) by mouth at bedtime. 90 tablet 3 2023 Active esomeprazole (NexIUM) [address] capsule Take 1 capsule (40 mg) by mouth before breakfast. Do not open capsule. 30 capsule 11 05/02 Active fluticasone (Flonase) 50 MCG/ACT nasal spray INSTILL 2 SPRAYS IN EACH NOSTRIL ONCE DAILY 48 g 2023 Active Calcium Carb-Cholecalciferol (Oyster Shell Calcium w/D) 500-5 MG-MCG tablet TAKE 1 TABLET BY MOUTH TWICE DAILY 180 tablet 3 2023 Active cetirizine (ZyrTEC) 10 MG tablet Take 1 tablet (10 mg) by mouth Once per day. 30 tablet 11 2023 Active alendronate (Fosamax) 70 MG tablet take 1 tablet once a week with 6 to 8 oz of water 30 min before first food of day. do not lie down for 30 minutes 12 tablet 3 2023 Active Creon 12621-290894 units capsule delayed-release particles capsuleIndications:Dep ression, unspecified depression type TAKE 1 CAPSULE BY MOUTH THREE TIMES DAILY WITH MEALS AND TAKE 1 CAPSULE DAILY WITH SNACK. SWALLOW WHOLE DO NOT BREAK, CRUSH, DISSOLVE OR CHEW 120 capsule 3 2024 Active Multiple Vitamin (Daily-Diana Multivitamin) tabletIndications:Depr ession, unspecified depression type TAKE 1 TABLET BY MOUTH EVERY DAY WITH FOOD 90 tablet 1 2024 Active folic acid (Folvite) 1 MG tabletIndications:Depr ession, unspecified depression type TAKE 1 TABLET BY MOUTH EVERY MORNING 90 tablet 1 2024 Active famotidine (Pepcid) 20 MG tablet Take 1 tablet (20 mg) by mouth 2 times daily. 60 tablet 01/04 Active capsaicin (Zostrix) 0.025 % creamIndications:Herpe s zoster without complication Apply topically 2 times daily. 56.6 g 1 01/17 Active Blood Glucose Monitoring Suppl (FreeStyle Lite) deviceIndications:Type 2 diabetes mellitus without complication, without long-term current use of insulin ([facility]) Inject 1 each under the skin Once per day. Use to test blood sugar once daily, alternating fasting & 2 hour post prandial, as directed 1 each 2024 Active Alcohol Swabs (Easy Touch Alcohol Prep Medium) 70 % padsIndications:Type 2 diabetes mellitus without complication, without long-term current use of insulin (CMS/HCC) Use once daily prior to SMBG 100 each 3 2024 Active empagliflozin (Jardiance) 25 MGIndications:Type 2 diabetes mellitus without complication, without long-term current use of insulin (CMS/HCC) Take 1 tablet (25 mg) by mouth Once per day. 30 tablet 11 02/14 Active glipiZIDE XL (Glucotrol XL) 5 MG 24 hr tabletIndications:Type 2 diabetes mellitus without complication, without long-term current use of insulin ([facility]) Take 1 tablet (5 mg) by mouth Once per day. Do not crush, chew, or split. 90 tablet 1 2024 Active glucose blood (FREESTYLE LITE) test stripIndications:Type 2 diabetes mellitus without complication, without long-term current use of insulin ([facility]) Use to test blood sugar once daily, alternating fasting & 2 hour post prandial, as directed 50 strip 11 2024 Active TRUEplus Lancets 33G miscIndications:Type 2 diabetes mellitus without complication, without long-term current use of insulin ([facility]) Use to test blood sugar once daily, alternating fasting & 2 hour post prandial, as directed 100 each 3 2024 Active Icosapent Ethyl (Vascepa) 1 g capsuleIndications:Typ e 2 diabetes mellitus without complication, without long-term current use of insulin ([facility]),Acquired hypertriglyceridemia Take 2 capsules (2 g) by mouth with breakfast and with evening meal. 120 capsule 02/14 Active Alcohol Swabs (Easy Touch Alcohol Prep Medium) 70 % pads USE 1 TWICE DAILY DIRECTED 100 each 11 02/14 Discontinued( Reorder (will not trigger notification to Pharmacy)) Icosapent Ethyl (Vascepa) 1 g capsule Take 2 capsules (2 g) by mouth with breakfast and with evening meal. 120 capsule 11 02/14 Discontinued( Reorder (will not trigger notification to Pharmacy)) empagliflozin (Jardiance) 25 MG Take 1 tablet (25 mg) by mouth in the morning. 30 tablet 02/14 Discontinued( Reorder (will not trigger notification to Pharmacy)) TRUEplus Lancets 33G misc USE 1 SUBCUTANEOUSLY EVERY DAY 100 each 5 02/14 Discontinued( Reorder (will not trigger notification to Pharmacy)) FREESTYLE LITE test stripIndications:Type 2 diabetes mellitus without complication, without long-term current use of insulin ([facility]) TEST BLOOD SUGAR EVERY DAY 50 strip 11 02/14 Discontinued( Reorder (will not trigger notification to Pharmacy)) glipiZIDE XL (Glucotrol XL) 2.5 MG 24 hr tablet Take 1 tablet (2.5 mg) by mouth Once per day. Do not crush, chew, or split. 30 tablet 11 02/14 Discontinued( Reorder (will not trigger notification to Pharmacy)) valACYclovir (Valtrex) 1 g tabletIndications:Herp es zoster without complication Take 1 tablet (1,000 mg) by mouth 3 times daily for 7 days. 21 tablet 01/24 glucose blood (FREESTYLE LITE) test stripIndications:Type 2 diabetes mellitus without complication, without long-term current use of insulin ([facility]) Use to test blood sugar once daily, alternating fasting & 2 hour post prandial, as directed 50 strip 11 02/14 Discontinued( Reorder (will not trigger notification to Pharmacy)) TRUEplus Lancets 33G miscIndications:Type 2 diabetes mellitus without complication, without long-term current use of insulin ([facility]) Use to test blood sugar once daily, alternating fasting & 2 hour post prandial, as directed 100 each 3 02/14 Discontinued( Reorder (will not trigger notification to Pharmacy)) Active Problems Problem Noted Date Diagnosed Date Herpes zoster without complication 01/17/2025 Atypical chest pain 01/04/2025 Closed navicular fracture of right ankle 025 Diabetes mellitus 01/04/2025 Hematoma 01/04/2025 HTN (hypertension) 01/04/2025 Painful arc syndrome 01/04/2025 Pes anserine bursitis 01/04/2025 Pes anserinus bursitis of left knee 01/04/2025 Prediabetes 01/04/2025 Subacromial bursitis of both shoulders 5 Thickened endometrium 01/04/2025 Trochanteric bursitis, left hip 01/04/2025 Alcohol use disorder 09/12/2024 Allergic rhinitis due to pollen 03/29/2024 Acquired hypertriglyceridemia 12/21/2023 Major depressive disorder with psychotic feature s 02/23/2023 Assessment & Plan (04/13/2024 2:50 PM EDT): Long history of depression stable with SSRI Celexa 20 mg, then symptoms increased with new onset mild mood-congruent visual hallucinations (shadows, sensation of being watched). Had been doing very well again after in-class switch to Lexapro 10 mg once daily. Unfortunately, patient stopped her medications since she was tired of taking so many pills and symptoms worsened. She has been back on them now for 9 days and is starting to feel better. Reviewed with patient that depression is often a chronic condition and therefore medication needs to be continued long-term. She will continue Escitalopram 10 mg daily and Trazodone 100 mg at bedtime, being cognizant of potential for serotonin syndrome. Since this provider will be retiring, patient is now transferred back to PCP for continued medication management. Any issues or concerns, contact [facility]. All her questions were answered and I have wished her well. She agrees with the plan. Assessment & Plan (01/17/2024 2:54 PM EST): Long history of depression stable with SSRI Celexa 20 mg, then symptoms increased with new onset mild mood-congruent visual hallucinations (shadows, sensation of being watched). Doing very well again after in-class switch to Lexapro 10 mg once daily. Continue Trazodone 100 mg at bedtime, being cognizant of potential for serotonin syndrome. On 10/21/2023 provider informed the patient that I would be retiring, but we would plan for smooth transition of care. Meanwhile F/U with me in 2-3 months. She agrees with the plan. Assessment & Plan (10/21/2023 1:29 PM EST): Long history of depression stable with SSRI Celexa 20 mg, then symptoms increased with new onset mild mood-congruent visual hallucinations (shadows, sensation of being watched). Doing very well again after in-class switch to Lexapro 10 mg once daily. Continue Trazodone 100 mg at bedtime, being cognizant of potential for serotonin syndrome. Today 10/21/2023 provider informed the patient that I would be retiring in approx 1/2 year, but we would plan for smooth transition of care. F/U with me in 3 months. She agrees with the plan. Continue with AUD program as usual. Assessment & Plan (06/29/2023 9:40 AM EDT): Long history of depression stable with SSRI Celexa 20 mg. Symptoms recently increased and new onset mild mood-congruent visual hallucinations (shadows, sensation of being watched). Doing well again after in-class switch to Lexapro 10 mg once daily. Continue Trazodone 100 mg at bedtime, being cognizant of potential for serotonin syndrome. F/U with me in 3 months. She agrees with the plan. Continue with AUD program as usual. Assessment & Plan (03/29/2023 9:48 AM EDT): Long history of depression stable with SSRI Celexa 20 mg. Symptoms recently increased and new onset mild mood-congruent visual hallucinations (shadows, sensation of being watched). Doing well again after in-class switch to Lexapro 10 mg once daily. Continue Trazodone 100 mg at bedtime, being cognizant of potential for serotonin syndrome. F/U with me in 3 months, if remains stable will refer back to PCP for continued med mgt. She agrees with the plan. Continue with AUD program as usual. Assessment & Plan (02/23/2023 11:23 AM EDT): Long history of depression stable with SSRI Celexa 20 mg. Symptoms recently increased and new onset mild mood-congruent visual hallucinations (shadows, sensation of being watched). At this time will make in-class switch. She will stop the Celexa 20 mg. She will start Lexapro 10 mg once daily. Continue Trazodone 100 mg at bedtime. F/U with me in 1 month. Referring for outpatient therapy. Continue with AUD program as usual. 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 chronic pancreatitis 02/09/2023 Chronic pain of both knees 02/09/2023 Alcoholic liver damage 02/09/2023 Overview (02/09/2023): updating inactive codes Last Assessment & Plan: F/U GI Importance of med compliance stressed with pt - must also abstain from EtOH Chronic insomnia 02/09/2023 Chronic diarrhea 02/09/2023 Chronic pancreatitis 02/09/2023 Overview (02/09/2023): CT findings with cystic lesions Cirrhosis 02/09/2023 Overview (02/09/2023): ETOH cirrhosis Last Assessment & Plan: Her liver function has improved. No need for liver transplant evaluation. She was educated about the importance of alcohol avoidance. HCC surveillance every 6-12 months Epigastric pain 02/09/2023 Gastroesophageal reflux disease without esophagi tis 02/09/2023 History of cholecystectomy 02/09/2023 Status post bilateral knee replacements 02/10/20 23 Urticaria due to cold 02/09/2023 Acute pancreatitis without n ecrosis or infection, unspecified 08/21/2020 Pancreatitis, gallstone 07/17/2020 Pancreatitis, recurrent 07/10/2020 Overview (02/09/2023): Last Assessment & Plan: Will follow up with surgery Sent a staff message to surgeon Also will go to ER if worsening pain Generalized abdominal pain 07/10/2020 Overview (02/09/2023): Last Assessment & Plan: Transfer to ER d/w patients dtr S/P total knee arthroplasty 05/20/2020 COVID-19 02/27/2020 SOB (shortness of breath) 02/25/2020 Viral syndrome 02/22/2020 Overview (02/09/2023): Last Assessment & Plan: Fluids tylenol Rest Steam inhalation Tea with honey Call if sob or chest tightness Primary osteoarthritis of left knee 01/22/2020 Overview (02/09/2023): Added automatically from request for surgery [id number] Left hip pain 07/03/2019 Overview (02/09/2023): Added automatically from request for surgery [id number] Last Assessment & Plan: Chronic Total knee replacement status, right 03/27/2019 Postoperative pain 03/04/2019 Overview (02/09/2023): Last Assessment & Plan: Cautious use of meds in setting of cirrhosis: - Tylenol 650mg Q8H - Prefer to avoid NSAIDs - Low dose opioids where possible Localized osteoarthritis of knees, bilateral Overview (02/09/2023): Added automatically from request for surgery [id number] Breast calcifications 06/01/2018 Overview (02/09/2023): Last Assessment & Plan: Seen by onc monitor Anemia 04/29/2017 Overview (02/09/2023): Last Assessment & Plan: -POSTOP trend daily CBC. -Transfuse to keep Hgb > 7. -CONT with daily ferrous sulfate supplementation postop. Episode of recurrent major depressive disorder 0 04/29/2017 Overview (02/09/2023): Last Assessment & Plan: Refilled meds Pancreatic cyst 04/29/2017 Overview (02/09/2023): Last Assessment & Plan: She was educated about the natural hx of pancreas cystic disease especially in patients with chronic pancreatitis. Signs and symptoms of pancreas malignancy were discussed with her. Type 2 diabetes mellitus wit hout complication, without long-term current use of insulin 04/29/2017 Overview (02/09/2023): Last Assessment & Plan: Lab Results Component Value Date HGBA1C 6.5 (H) 01/24/2020 Chronic pain of both shoulders 02/17/2017 Overview (02/09/2023): Last Assessment & Plan: Left shoulder pain maybe sec to rot cuff dis and arthritis/ right shoulder pain likely sec to arthritis OT ordered F/u 6 wks after start of OT Trigger finger of left thumb 02/17/2017 Overview (02/09/2023): Last Assessment & Plan: Splint ordered if does not improve and worsen will refer to Hand ortho Polyarthritis 02/01/2017 Overview (02/09/2023): Last Assessment & Plan: History and findings are non-specific, but do not suggest an inflammatory arthritis.Elevated ESR is unexplained by findings, Will get additional workup, and refer to Rehab, Will contact patient after results are available. May use topical pain relievers (e.g, Icy Hot) Chronic alcoholic gastritis 12/29/2016 Overview (02/09/2023): Last Assessment & Plan: Switch omeprazole to pantoprazole postop (formulary) Insufficiency fracture of pelvis 09/29/2016 Osteoporosis 09/29/2016 Joint pain in fingers of left hand 08/03/2016 Overview (02/09/2023): Last Assessment & Plan: Neuropathy pt is now in a dilemma due to medicaid not paying for appts Arthralgia of right hip 03/25/2016 Overview (02/09/2023): Last Assessment & Plan: ortho Lumbar radiculopathy 03/25/2016 Overview (02/09/2023): Last Assessment & Plan: Continue PT Hepatic encephalopathy 02/24/2016 Overview (02/09/2023): Last Assessment & Plan: High risk of postop delirium. Cautious use of opioids. If not having 1BM daily with regular bowel regimen (senna, colace Miralax), then can order lactulose PRN constipation. Alcoholic cirrhosis of liver without ascites 02/2016 Overview (02/09/2023): Last Assessment & Plan: Patient has been seeing GI Last seen last year She has not followed up yet due to covid Will transfer to ER h/o drinking and pancreatitis Resolved Problems Problem Noted Date Diagnosed Date Resolved Date Depression 08/21/2020 09/12/2024 Encounters Date Type Department Care Team Description 02/14/2025 Telephone [facility] MEDICINE [address] [place] [address] Betzy Forde PharmD 02/14/2025 Travel 01/26/2025 Population Health Risk Score [facility] ([facility] Department [address] [place] [id number] Provider, Population Health Generic 01/22/2025 11:00 AM EDT Office Visit [facility] OPTOMETRY [address] [place] [address] Sampson, [place], OD Diabetes type 2, no ocular involvement (CMS/HCC) (Primary Dx); 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; Dry eyes; Presbyopia 01/22/2025 Travel 01/19/2025 Telephone [facility] MEDICINE [address] [place] [address] Jolie Caldwell MA May Recall 01/17/2025 2:40 PM EST Office Visit [facility] WALK-IN CENTER [address] [place] [phone] Marlyn Mchugh MD Herpes zoster without complication (Primary Dx) 01/17/2025 Telephone [facility] MEDICINE [address] [place] [id number] Troy Leone MD Med Refill 01/17/[address] [address] Troy Leone MD 01/04/2025 9:15 AM EST Office Visit [address] [address] Troy Lenoe MD Type 2 diabetes mellitus without complication, without long-term current use of insulin ([facility]) (Primary Dx); Heartburn; Alcohol abuse, in remission 01/04/2025 Travel 12/26/2024 Patient Outreach [facility] [address], [place] [id number] Troy Leone MD Pre-visit Planning ([facility] unable to reach [facility]) 11/27/[address] [address] Troy Leone MD Nurse Triage 11/27/[address] [address] Troy Leone MD Depression, unspecified depression type 11/24/2024 Orders Only GENERIC EXTERNAL DATA DEPARTMENT Provider, Generic External Data 11/18/[address] [address] Troy Leone MD Depression, unspecified depression type from Last 3 Months Immunizations Name Administration Dates Next Due Hep A, Adult 03/11/2022,09/01/2021 Hep B, adult 03/11/2022,10/01/2021,09/01/2021 Influenza injectable quadriv alent preservative free 08/30/2023,09/28/2022,06/23/2021,07/14,07/14/2018 Influenza live intranasal qu adrivalent LIAV4 07/06/2017 Influenza, IIV3, injectable 10/01/2021, 0 Influenza, injectable, quadr ivalent, preservative free, pediatric 07/13/2016 Influenza, seasonal, injecta ble, preservative free 07/26/2024 Pfizer Covid-19 Vaccine 12+ 10/31/2024, Pfizer Covid-19 Vaccine 12+ Bivalent 10/13/2022 Pneumococcal Conjugate PCV 20 10/18/2023 Pneumococcal Polysaccharide PPSV23 07/29/2017 RSV Bivalent 12/20/2023 Tdap 09/01/2021,07/29/2017 Zoster, Recombinant 09/11/2021,06/23/2021 Family History Medical History Relation Name Comments Brain cancer Brother Stomach cancer Mother Breast cancer Sister Stomach cancer Sister Relation Name Status Comments Brother Mother Sister Social History Tobacco Use Types Packs/Day Years Used Date Smoking Tobacco: Never Smokeless Tobacco: Never Tobacco Cessation:Counseling Given: Not Answered Alcohol Use Standard Drinks/Week Comments Yes 0 (1 standard drink = 0.6 oz pur e alcohol) social Alcohol Answer Date Recorded How often do you have a drink containing alcohol ? 4 09/12/2024 How many drinks containing a lcohol do you have on a typical day when you are drinking? 2 09/12/2024 How often do you have six or more drinks on one occasion? 2 09/12/2024 Depression Answer Date Recorded Patient Health Questionnaire-9 Score 11 09/12/2024 Patient Health Questionnaire-9 Score 11 09/12/2024 Last PHQ-9: Questionnaire Data Not on file 1 Housing Stability Answer Date Recorded What is your housing situation today? I have maite hernandez 03/29/[address] you li ve. Do you have problems with any of the following? None of the above 03/29/2024 Food Insecurity Answer Date Recorded Within the past 12 months, y ou worried that your food would run out before you got money to buy more: Often true 03/29/2024 Within the past 12 months,th e food you bought just didn't last and you didn't have enough money to get more: Often true Transportation Answer Date Recorded In the past 12 months, has l ack of transportation kept you from medical appts, meetings, work or from getting things needed for daily living? No 03/29/2024 Utilities Answer Date Recorded In the past 12 months, has t he electric, gas, oil or water company threatened to shut off services in your home? No 03/29/2024 Depression Answer Date Recorded Patient Health Questionnaire-2 Score 1 09/12/2024 Comments No Sex and Gender Information Value Date Recorded Sex Assigned at Female 09/14/2022 10:21 AM EDT Legal Sex Female 10:21 AM EDT Gender Identity Female 09/14/2022 10:21 AM EDT Sexual Orientation Straight 09/14/2022 10 :21 AM EDT Last Filed Vital Signs Vital Sign Reading Time Taken Comments Blood Pressure 119/73 01/17/2025 2:07 PM EST Pulse 106 01/17/2025 2:07 PM EST Temperature 36.1 ??C (96.9 ??F) 01/17/2025 2:07 PM ES T Respiratory Rate 20 01/17/2025 2:07 PM EST Oxygen Saturation 95% 01/17/2025 2:07 PM EST Inhaled Oxygen Concentration - - Weight 73.2 kg (161 lb 6.4 oz) 02/14/2025 10:51 AM EDT Height 160 cm (5' 3 ) 01/17/2025 2:07 PM EST Body Mass Index 28.59 01/17/2025 2:07 PM EST Plan of Treatment Upcoming Encounters Date Type Department Care Team (Late st Contact Info) Description 02/19/2025 9:30 AM EDT Medication Management [address] [address] 03/19/2025 10:30 AM EDT Medication Management [address] [address] Betzy Forde, PharmD [address] [place] [id number] 04/03/2025 9:15 AM EDT Office Visit [facility] MEDICINE [address] [place] [phone] Name, MD Troy [address] [place] [phone] Health Maintenance Due Date Last Done Comments CT Colonography 1963 FIT DNA/Cologuard 1963 FIT 1963 FOBT 1963 Sigmoidoscopy 1963 Diabetes: Foot Exam 12/20/2024 12/20/2023, 12/20/2023, 12/20/2023, Additional history exists Lipid Panel 12/21/2024 12/21/2023, 05/19/2023 Pap Smear 03/11/2025 03/11/2022 Depression Monitoring (PHQ-9) 03/13/2025 09/12/2024, 09/12/2024 SDOH Screening 03/29/2025 03/29/2024 Diabetes: Hemoglobin A1C 04/03/2025 025, 10/31/2024, 03/29/2024, Additional history exists Alcohol/Substance Use Screening 09/12/2025 09/12/2024 Depression Screening 09/12/2025 09/12/2024, 09/12/20 Diabetes: Urine Protein Screening 10/31/2025 10/31/2024, 12/21/2023, 05/19/2023 Mammogram 11/01/2025 11/01/2024, 09/16, 10/06/2023, Additional history exists Tobacco Screening 02/07/2026 02/07/2025 Eye Exam 01/22/2027 01/22/2025, 01/13, 01/22/2025, Additional history exists Cervical Cancer Screening 03/11/2027 HPV/Cotest 03/11/2027 03/11/2022 DTaP/Tdap/Td Vaccines (3 - Td or Tdap) 09/01/2031 09/01/2021, 07/29/2017 Colonoscopy 10/04/2033 10/04/2023, 08/27/2023 Colorectal Cancer Screening 10/04/2033 Hepatitis C Screening Completed 02/13/2021 Zoster Vaccines Completed 09/11/2021, 06/23/2021 HIV Screening Completed 10/01/2021 Hepatitis A Vaccines Completed 03/11/2022, 09/01/20 Hepatitis B Vaccines Completed 03/11/2022, 10/01/2021, 09/01/2021 Pneumococcal Vaccine: 50+ Years Completed 10/18/2023, 07/29/2017 RSV Patients and Patients Aged 60 years or older Completed 12/20/2023 Influenza Vaccine Completed 07/26/2024, , 09/28/2022, Additional history exists COVID-19 Vaccine Completed 10/31/2024, , 10/13/2022, Additional history exists HIB Vaccines Aged Out No longer eligi ble based on patient's age to complete this topic HPV Vaccines Aged Out No longer eligi ble based on patient's age to complete this topic IPV Vaccines Aged Out No longer eligi ble based on patient's age to complete this topic Meningococcal Vaccine Aged Out No micky roselia eligible based on patient's age to complete this topic RSV under 20 months Aged Out No longe r eligible based on patient's age to complete this topic Rotavirus Vaccines Aged Out No longer eligible based on patient's age to complete this topic Procedures Procedure Name Priority Date/Time Associated Diagnosis Comments POCT GLYCATED HEMOGLOBIN, TOTAL Routine 01/04/2025 9:22 AM EST Type 2 diabetes mellitus without complication, without long-term current use of insulin ([facility]) POCT GLUCOSE Routine 01/04/2025 9:22 AM EST Type 2 diabetes mellitus without complication, without long-term current use of insulin ([facility]) URINALYSIS, COMPLETE, WITH REFLEX TO CULTURE Routine 11/24/2024 7:35 PM EST LIPASE Routine 11/24/2024 2:41 PM EST MAGNESIUM Routine 11/24/2024 2:41 PM EST COMPREHENSIVE METABOLIC PANEL Routine 11/24/2024 2:41 PM EST CBC WITH AUTO DIFFERENTIAL Routine 11/24/2024 2:41 PM EST SARS COV2/INFLUENZA A/B AND RSV RNA QL NAAT Routine 11/24/2024 2:41 PM EST BI MAMMOGRAM SCREENING TOMOSYNTHESIS BILATERAL Routine 11/01/2024 10:30 AM EST ALBUMIN, RANDOM URINE W/CREATININE Routine 10/31/2024 9:54 AM EST Type 2 diabetes mellitus without complication, without long-term current use of insulin (CMS/HCC) Alcohol use disorder, severe, dependence (CMS/HCC) LIPID PANEL, STANDARD Routine 12/21/2023 9:07 AM EST Type 2 diabetes mellitus without complication, without long-term current use of insulin (CMS/HCC) PE (physical exam), annual Alcohol abuse Alcoholic liver damage (CMS/HCC) 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 chronic pancreatitis (CMS/HCC) HM COLONOSCOPY Routine 10/04/2023 THINPREP IMAGING PAP AND HPV MRNA E6/E7 WITH REFLEX TO HPV 16,18/45 Routine 03/11/2022 10:55 AM EDT HIV 1/2 ANTIGEN/ANTIBODY, FOURTH GENERATION W/RFL Routine 10/01/2021 11:14 AM EST ZZZ HISTORICAL HEPATITIS C AB W/REFL TO HCV RNA, QN, PCR Routine 02/13/2021 11:21 AM EDT from Last 3 Months or Most Recently Relevant to Health Maintenance Results * (ABNORMAL) POCT HGB A1C (01/04/2025 9:22 AM EST) Hemoglobin A1C 9.6(A) 4.0 - 6.0 % QC Media Lot # [id number] Lot# Expiration Date 71,626 Blood 01/04/2025 9:22 AM EST us Troy Leone MD POINT OF CARE TEST ENTER/EDIT OR DERABLES Final Result * (ABNORMAL) POCT Glucose (01/04/2025 9:22 AM EST) Glucose Blood, POC 360(A) 60 - 200 mg/dL QC Media Lot # [id number] Lot# Expiration Date 53,025 Blood Capillary blood specimen / Unknown 01/04/2025 9:22 AM EST us Troy Name POINT OF CARE TEST ENTER/EDIT OR DERABLES Final Result * (ABNORMAL) Urinalysis, Complete, with Reflex to Culture (11/24/2024 7:35 PM EST) Color Urine Yellow [facility] Appearance Urine Clear [facility] PH 5.5 5.0 - 9.0 [facility] Glucose Urine UA >=1000(A) Negative mg/dL [facility] Urine Blood Negative Negative [facility] Specific [place] - Urine >=1.030(H) 1.005 - 1.025 [facility] Urine Protein Trace Neg-Trace mg/dL [facility] Urine Ketones 40 Negative mg/dL [facility] Nitrite Urine Negative Negative [facility] Leukocyte Esterase Urine Negative Negative [facility] RBC Urine 0-2 0 - 2 /HPF [facility] Urine WBC 0-5 0 - 5 /HPF [facility] Urine Squamous Epithelial Cell 0-2 0 - 2 /HPF [facility] Urine Bacteria None Seen None Seen [facility] Hyaline Casts, Urine 0-2 0 - 2 /LPF [facility] 11/24/2024 7:35 PM EST 11/24/2024 7:40 PM EST Narrative [facility] - 11/24/2024 9:12 PM EST [id number], Clean Catch us Generic External Data Provider LAB URINE ORDERAB LES Final Result [facility] [address] [place] [phone] * (ABNORMAL) SARS-CoV-2 RNA, Influenza A/B, and RSV RNA, Ql NAAT (11/24/2024 2:41 PM EST) Influenza A PCR NEGATIVE Negative [facility] Influenza B PCR NEGATIVE Negative [facility] Resp Syncy Virus RNA Qual PCR NEGATIVE Negative [facility] SARS COV2 PCR POSITIVE(A) Negative [facility] Comment:All test results mus t be correlated with clinical findings.Negative results do not preclude SARS-CoV2, influenza Avirus, influenza B virus and/or RSV infectionand should not be used as the sole basis for treatment orother patient management decisions. Negative results must becombined with clinical observations, patient history, andepidemiological information.This test has not been evaluated for monitoring treatment ofinfection.This test has been authorized by the FDA under an EmergencyUse Authorization (EUA) for use by authorized laboratories.Testing performed on the [facility] [employer] GeneXpert utilizingreal-time RT-PCR.All SARS CoV2 and positive influenza A/B results arereported to [facility]. 11/24/2024 2:41 PM EST 11/24/2024 2:44 PM EST Generic External Data Provider LAB MICROBIOLOGY - GENERAL ORDERABLES Final Result [facility] [address] [place] [phone] * (ABNORMAL) CBC auto differential (11/24/2024 2:41 PM EST) White Blood Count 7.0 4.8 - 10.8 X10*3/uL [facility] Red Blood Count 4.51 4.20 - 5.50 X10*6/uL [facility] Hemoglobin 13.0 12.0 - 16.0 g/dl [facility] Hematocrit 39.2 37.0 - 47.0 % [facility] Mean Corpuscular Volume 86.9 80.0 - 98.0 fL [facility] Mean Corpuscular Hemoglobin 28.8 27.0 - 33.0 pg [facility] Mean Corpuscular HGB Conc 33.2 31.0 - 35.0 g/dl [facility] Red Cell Distribution Width 15.8 11.0 - 16.0 % [facility] Platelet Count 163 160 - 400 X10*3/uL [facility] Mean Platelet Volume 9.6 9.4 - 12.3 fL [facility] Neutrophils Percent Auto 81.5(H) 45 - 73 % [facility] Imm Gran Pct Auto 0.3 0.0 - 0.4 % [facility] Lymphocytes Percent Auto 10.6(L) 20 - 40 % [facility] Monocytes Percent Auto 7.1 2 - 11 % [facility] Eosinophils Percent Auto 0.1 0 - 4 % [facility] Basophils Percent Auto 0.4 0 - 2 % [facility] NRBC Pct Auto 0.0 0.0 - 0.2 /100WBC [facility] Neutrophils Absolute Auto 5.7 2.0 - 8.3 x10*3/uL [facility] Imm Gran Abs Auto 0.02 0.00 - 0.03 X10*3/uL [facility] Lymphocytes Absolute Auto 0.7(L) 1.2 - 4.9 X10*3/uL [facility] Monocytes Absolute Auto 0.5 0.1 - 1.2 X10*3/uL [facility] Eosinophils Absolute Auto 0.0 0.0 - 0.4 X10*3/uL [facility] Basophils Absolute Auto 0.0 0.0 - 0.2 X10*3/uL [facility] NRBC Abs Auto 0.000 0.0 - 0.012 X10*3/uL [facility] 11/24/2024 2:41 PM EST 11/24/2024 2:44 PM EST us Generic External Data Provider LAB BLOOD ORDERAB LES Final Result [facility] [address] [place] [phone] * Magnesium (11/24/2024 2:41 PM EST) Magnesium 1.9 1.6 - 2.6 mg/dL [facility] 11/24/2024 2:41 PM EST 11/24/2024 2:44 PM EST us Generic External Data Provider LAB BLOOD ORDERAB LES Final Result Performing Organization Address City/[facility]/ZIP Co de Phone Number [facility] [address] [place] [phone] * (ABNORMAL) Lipase (11/24/2024 2:41 PM EST) Lipase 190(H) 8 - 78 U/L [facility] 11/24/2024 2:41 PM EST 11/24/2024 2:44 PM EST [employer] External Data Provider LAB BLOOD ORDERAB LES Final Result Performing Organization Address [facility] Co de Phone Number [facility] [address] [place] [phone] * (ABNORMAL) Comprehensive Metabolic Panel (11/24/2024 2:41 PM EST) Sodium 138 135 - 145 mmol/L [facility] Potassium 3.3 3.3 - 5.1 mmol/L [facility] Chloride 104 96 - 108 mmol/L [facility] Carbon Dioxide 25 22 - 29 mmol/L [facility] Anion Gap 12 12 - 20 [facility] Urea Nitrogen (BUN) 12 9 - 16 mg/dL [facility] Creatinine, Serum 0.91 0.5 - 1.4 mg/dL [facility] Creatinine Clr Calc Pharmacy 62.0 [facility] Comment:Provided height and weight: 160.02 cm,72.6 kg.eGFR (calculated from the MDRD study equation) and eCrCl(calculated from the Cockcroft-Gault equation) are based ondifferent parameters and may not yield comparable results.If eCrCl result is absurd, please check patient'sheight/weight. Estimated Glomerular Filt Rate >60 [facility] Comment:Chronic Kidney Disea se: Estimated GFR < 60 mL/min/1.44g9Acbatl Kidney Disease: Estimated GFR < 15 mL/min/1.73m2 Glucose 227(H) 60 - 115 mg/dL [facility] Calcium 9.1 8.4 - 10.2 mg/dL [facility] Bilirubin, Total 0.5 0.0 - 1.0 mg/dL [facility] Aspartate Amino Transferase 23 5 - 31 U/L [facility] Alanine Aminotransferase 19 0 - 31 U/L [facility] Total Protein 7.9 6.5 - 8.0 g/dL [facility] Albumin Level 3.8 3.5 - 5.0 g/dL [facility] Alkaline Phosphatase 124(H) 39 - 117 U/L [facility] 11/24/2024 2:41 PM EST 11/24/2024 2:44 PM EST us Generic External Data Provider LAB BLOOD ORDERAB LES Final Result Performing Organization Address City/[facility] de Phone Number [facility] [address] [place] [phone] * BI Mammogram Screening Tomosynthesis Bilateral (11/01/2024 10:30 AM EST) Anatomical Region Laterality Modality Breast Bilateral Mammography 11/01/2024 10:3 0 AM EST Narrative 11/13/2024 2:07 PM EST ? [facility] [place] ? [address] [facility] ?[place] [address] ? Mammography Report ? Signed ? Patient: Gonzales,Sosa ?MR#: [id number] ?? [id number] ? : 1965 ?Acct:[id number] ? Age/Sex: 59 / F ?ADM Date: 12/18/24 ? Loc: HO.MAMMO ? Attending : Troy Leone MD ? Ordering Physician: Name,Troy LOPEZ ?Results: 2Benign Fi ?? ndings ? Date of Service: 11/01/24 ?Follow Up: 1 Year From Orig ?? inal Mammogram ? Procedure(s): MM tomosynthesis screening BI ?? Accession Number(s): [id number] ? cc: Name,Troy LOPEZ ? EXAMINATION: ?? MM SCREENING DIGITAL BREAST TOMOSYNTHESIS, BILATERAL ? CLINICAL INFORMATION: ? Screening. Asymptomatic. ? COMPARISON: ?? Mammography: Comparison is made with available priors ? TECHNIQUE: ?? Digital breast mammography with tomosynthesis is performed in both the ?? craniocaudal and mediolateral oblique views along with computer-aided ?? detection (CAD). ? FINDINGS: ?? The breasts are heterogeneously dense, which may obscure small masses ?? (ACR BI-RADS breast composition Category c). ?? Asymmetry superior breast posterior depth on MLO view stable dating ?? back to 2018. ?? There are no significant masses, abnormal calcifications, or other ?? abnormalities. ? MM/MM tomosynthesis screening BI ?? IMPRESSION: ?? No mammographic evidence of malignancy. ? ASSESSMENT: ? BI-RADS BI-RADS 2 - Benign Findings ? RECOMMENDATION: ?? Routine annual mammography screening. ? 1 year F/U ? This examination should not preclude the clinical evaluation of a ?? suspicious palpable abnormality. ? This patient's information was entered into a reminder system with a ?? target due date for their next mammogram. ? Electronically signed by: ??Rupinder Gamble DO ??11/13/2024 02:04 PM EST ?? RP ? Dictated By: ?Rupinder Gamble DO ? Signed By: ?<Electronically signed by Rupinder Gamble, DO in OV> ? 11/13/24 1404 ? DD/ 1030 ? TD/TT: 11/01/24 1045 ? Watch Inspector Final Movement: ? Procedure Note Donotuseinterpreter, Image - 11/13/2024 [facility] [address] [place], [place] [address] Mammography Report Signed Patient: Bird Gonzales#: [id number] : 1965Acct:[id number] Age/Sex: 59 / FADM Date: 11/01/24 Loc: HO.MAMMO Attending Dr: Troy Leone MD Ordering Physician: Troy Leone MDResults: 2Benign Fi ndings Date of Service: 11/01/24Follow Up: 1 Year From Orig inal Mammogram Procedure(s): MM tomosynthesis screening BI Accession Number(s): [id number] cc: Troy Leone MD EXAMINATION: MM SCREENING DIGITAL BREAST TOMOSYNTHESIS, BILATERAL CLINICAL INFORMATION: Screening. Asymptomatic. COMPARISON: Mammography: Comparison is made with available priors TECHNIQUE: Digital breast mammography with tomosynthesis is performed in both the craniocaudal and mediolateral oblique views along with computer-aided detection (CAD). FINDINGS: The breasts are heterogeneously dense, which may obscure small masses (ACR BI-RADS breast composition Category c). Asymmetry superior breast posterior depth on MLO view stable dating back to 2018. There are no significant masses, abnormal calcifications, or other abnormalities. MM/MM tomosynthesis screening BI IMPRESSION: No mammographic evidence of malignancy. ASSESSMENT: BI-RADS BI-RADS 2 - Benign Findings RECOMMENDATION: Routine annual mammography screening. 1 year F/U This examination should not preclude the clinical evaluation of a suspicious palpable abnormality. This patient's information was entered into a reminder system with a target due date for their next mammogram. Electronically signed by: Rupinder Gamble DO 11/13/2024 02:04 PM EST Dictated By: Rupinder Gamble DO Signed By: <Electronically signed by Rupinder Gamble DO in OV> 11/13/24 1404 DD/ 1030 TD/TT: 11/01/24 1045 Watch Inspector Final Movement: us Troy Leone MD IMG BI PROCEDURES Final Result * Albumin, Random Urine W/Creatinine (10/31/2024 9:54 AM EST) Creatinine, Urine 64.94 mg/dL [facility] Microalbumin Urine 7.0 mg/L [facility] Microalbum Creatinine Ratio Ur 10.7 <30 ug/mg cr [facility] Comment:Albumin/Creatinine R atio Reference Ranges: Normal: < 30 ug/mg creatinine Microalbuminuria: 30 - 300 ug/mg creatinineClinical Albuminuria: > 300 ug/mg creatinine Urine (Urine, Random) 10/31/2024 9:54 AM EST 10/31/2024 11:14 AM EST us Troy Leone MD LAB URINE ORDERABLES Final Resul t Performing Organization Address City/State/[facility] Co de Phone Number [facility] [address] [place] [phone] * (ABNORMAL) Lipid Panel, Standard (12/21/2023 9:07 AM EST) Triglycerides 405(H) <150 mg/dL [facility] Comment:Desirable Triglyceri de: less than 150 mg/dLBorderline High Triglyceride 150-199 mg/dLHigh Triglyceride: 200-499 mg/dLVery High Triglyceride: greater than or equal to 5OO mg/dL Cholesterol 295(H) <200 mg/dL [facility] Comment:Desirable Cholestero l: less than 200 mg/dLBorderline High Cholesterol: 200-239 mg/dLHigh Cholesterol: greater than 239 mg/dL LDL Cholesterol Calculated TNP <100 mg/dL [facility] Comment:Unable to calculate the LDL. The formula of Friedwald,Montenegro, and Luiz is only valid if the triglycerides areless than 400 mg/dl. HDL Cholesterol 53 >40 mg/dL [facility] Comment:Desirable HDL: great er than 40 mg/dL Note: This HDL assay may give artificially low results in patients with liver disease. Blood Venous blood specimen / Unknown 12/21/2023 9:07 AM EST 12/21/2023 11:16 AM EST us Troy Leone MD LAB BLOOD ORDERABLES Final Resul t [facility] [address] [place] [phone] * Hm Colonoscopy (10/04/2023) Colonoscopy Normal Normal Comment:repeat 10 yrs us Troy Leone MD HEALTH MAINTENANCE Final Result * THINPREP TIS PAP AND HPV mRNA E6/E7 WITH REFLEX TO HPV 16,18/45 (03/11/2022 10:55 AM EDT) Clinical Information: None given [facility] COMMENT SEE COMMENT [facility] Comment: EXPLANATORY NOTE: ? The Pap is a screening test for cervical cancer. It is ?? not a diagnostic test and is subject to false negative ?? and false positive results. It is most reliable when a ?? satisfactory sample, regularly obtained, is submitted ?? with relevant clinical findings and history, and when ?? the Pap result is evaluated along with historic and ?? current clinical information. ?? COMMENT: This Pap test has been evaluated with computer assisted technology. [facility] Field Research Associate: SEE COMMENT [facility] Comment: ALS, CT(ASCP) CT screening location: [address] ??[address] HPV nRNA E6/E7 Not Detected Not Detected [facility] Comment: Methodology: Molding Line Operator-Mediated Amplification This assay detects E6/E7 viral messenger RNA (mRNA) from 14 high-risk HPV types (16,18,31,33,35,39,45,51,52,56,58,59,66,68). ? The analytical performance characteristics of this assay have been determined by [employer]. The modifications have not been cleared or approved by the FDA. This assay has been validated pursuant to the CLIA regulations and is used for clinical purposes. ?? For additional information, please refer to http://education.Aceable/faq/PBQ137f2 (This link if provided for information/ educational purposes only.) Interpretation/Res ult: SEE COMMENT [facility] Comment: Negative for intraepithelial lesion or malignancy. Atrophic pattern; predominantly parabasal cells LMP: 43 [facility] Prev. BX: NONE GIVEN [facility] Prev. PAP: NORMAL [facility] SOURCE: Cervix [facility] Statement Of Adequacy: SATISFACTORY FOR EVALUATION [facility] 03/11/2022 10:5 5 AM EDT Yuko Shanks CNM LAB PATHOLOGY ORDERABLES Final Result Performing Organization Address [facility] Co de Phone Number [facility] [address] * HIV 1/2 ANTIGEN/ANTIBODY,FOURTH GENERATION W/RFL (10/01/2021 11:14 AM EST) HIV-1/2 ANTIGEN AND ANTIBODIES, 4TH GENERATION W/ REFLEX NON-REACT HORACIO NON-REACT HORACIO [facility] Comment: HIV-1 antigen and HIV-1/HIV-2 antibodies were not detected. There is no laboratory evidence of HIV infection. ?? PLEASE NOTE: This information has been disclosed to you from records whose confidentiality may be protected by state law. ??If your state requires such protection, then the state law prohibits you from making any further disclosure of the information without the specific written consent of the person to whom it pertains, or as otherwise permitted by law. A general authorization for the release of medical or other information is NOT sufficient for this purpose. ? For additional information please refer to http://education.Aceable/faq/WCU555 (This link is being provided for informational/ educational purposes only.) ? The performance of this assay has not been clinically validated in patients less than 2 years old. ?? 10/01/2021 11:1 4 AM EST us Frantz Sims MD LAB BLOOD ORDERABLES Final Res ult Performing Organization Address [facility] Co de Phone Number [facility] [address] * HEPATITIS C AB W/REFL TO HCV RNA, QN, PCR (02/13/2021 11:21 AM EDT) HEPATITIS C ANTIBODY NON-REACT HORACIO NON-REACT HORACIO [facility] INDEX 0.06 <1.00 [facility] Comment: ?? HCV antibody was non-reactive. There is no laboratory ?? evidence of HCV infection. ?? In most cases, no further action is required. However, if recent HCV exposure is suspected, a test for HCV RNA (test code 62002) is suggested. ?? For additional information please refer to http://TRIRIGA.Aceable/faq/JAD54u2 (This link is being provided for informational/ educational purposes only.) ?? 02/13/2021 11:2 1 AM EDT us Troykarina Leone MD HISTORICAL/NON ORDERABLE LABS Fi nal Result [facility] [address] from Last 3 Months or Most Recently Relevant to Health Maintenance Insurance [employer] Care Teams Power Originator Relationship Specialty Start Date End Date Name, MD Troy [address] [place] [address] PCP - General Family Medicine 01/23/21 Piotr Stone FNP [address] [place], [place] Nurse Practitioner Family Medicine 10/05/23 Betzy Forde PharmD [address] [place] [phone] Pharmacist Internal Medicine 02/14/25 Natasha Lombardi Rn TelemetryAircraft Cleaning Supervisor 09/27/24
--- OUTSIDE RECORDS SUMMARY | 2025-02-15 09:43 | XMS_ITS ---
Author Organization [facility] Address [address] [place] [address] Care Team Providers Care Autoclave Operator Name Role Phone Name Troy LOPEZ Primary Care Provider Ryan Palumbo Jr Allergies Allergen (clinical drug ingredient) Drug/Non Drug Allergy documented on EMR Reaction Allergy Type Onset Date Status Penicillin Unknown Drug Allergy Active Results Component Value Reference Range Notes Liver Fibrosis Pnl Reviewed date:09/07/2024 07:41:27 AM Interpretation: Performing Lab:[facility], [address] [place] [phone] Notes/Report: Liver Fibrosis Score 0.13 Liver Fibrosis [...] a>0.62 and a<=1.00 : A3 (severe activity) AQU-Gbxhf-8-Macroglobulin 266 106-279 mg/dL FIB-Haptoglobin 324 43-212 mg/dL This value is highly elevated over the 99 percentile. Check the value and the absence of sepsis. Usual maximum value is 320.0 mg/dl. FIB-Apolipoprotein A1 164 101-198 mg/dL FIB-Total Bilirubin 0.2 0.2-1.2 mg/dL FIB-GGT 51 3-65 U/L FIB-ALT 12 6-29 U/L Reference ID [id number] Footnote SEE NOTE The reliability of results is dependent on compliance with the preanalytical and analytical conditions recommended by [employer]. The tests have to be deferred for: [...] The performance characteristics have been determined by [employer] [facility]. It has not been cleared or approved by the U.S. Food and Drug Administration. Performance characteristics refer to the analytical performance of the test. [employer], [employer], the associated logo, [employer] [place] and all associated [employer] vazquez are the registered trademarks of [employer]. All third green party vazquez - (R) and (TM) - are the property of their respective owners. (C) 2734-7285 [employer]. All rights reserved. THIS TEST WAS PERFORMED AT: [facility] [address] [place] [address] KATLYN TEJADA MD,PHD,THAD REASON FOR VISIT Patient presents today for liver disease Medications Medication SIG (Take, Route, Frequency, Duration) Notes Start Date End Date Status Esomeprazole Magnesium 40 MG TAKE 1 CAPSULE BY MOUTH EVERY DAY BEFORE BREAKFAST. DO NOT BREAK, CRUSH, DISSOLVE OR CHEW. Oral for 90 Active Oyster Shell Calcium w/D 500-5 MG-MCG TAKE 1 TABLET BY MOUTH TWICE DAILY Oral for 90 Active Creon [id number] UNIT TAKE 1 CAPSULE B Y MOUTH [...] 1 tablet Orally Once a day Active Social History Tobacco Use: Social History Observation Description Date Details (start date - stop date) Former Smoker NA - NA Tobacco Use/Smoking Question Answer Notes Patient is a former smoker How long has it been since you last smoked? 5-10 years Alcohol Screen Question Answer Notes Did you have a drink containing alcohol in the p ast year? 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 She will continue Nexium for her reflux. We discussed gastroesophageal reflux disease today. We discussed diet, lifestyle modifications, and weight management regarding the treatment of reflux. Liver function tests will be obtained. We advised her to avoid alcohol. She will continue Creon for her chronic pancreatitis and followup in one year. 08/31/2024 Gastroesophageal reflux disease without esophagitis (ICD-10 - K21.9) At this time, she appears to be doing well. She will continue Nexium for her reflux. We discussed gastroesophageal reflux disease today. We discussed diet, lifestyle modifications, and weight management regarding the treatment of reflux. Liver function tests will be obtained. We advised her to avoid alcohol. She will continue Creon for her chronic pancreatitis and followup in one year. 08/31/2024 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 chronic pancreatitis (ICD-10 - K86.0) At this time, she appears to be doing well. She will continue Nexium for her reflux. We discussed gastroesophageal reflux disease today. We discussed diet, lifestyle modifications, and weight management regarding the treatment of reflux. Liver function tests will be obtained. We advised her to avoid alcohol. She will continue Creon for her chronic pancreatitis and followup in one year. Plan Of Treatment Pending Test Test Name Order Date LIVER PROFILE 08/31/2024 LIPASE 08/31/2024 CBC w DIFF 08/31/2024 PROTHROMBIN TIME (PT, INR) 08/31/2024 Next Appt Details Follow Up: 1 Year, Reason: Provider Name:Ryan suh Jr, 09/03/2025 09:20:00 AM, [address], [address], [place], [address], Progress Notes * MAI HAQUEOB: [birth year] (59 yo F)Acc No.[id number]:08/31/2024 Progress Notes Patient:?ESE HAQUE Provider:?Ryan Duong MD :1965???Age:59 Y???Sex:Female D ate:08/31/2024 Address:[place] [address] , [facility] Pcp:Troy Leone MD Subjective: * Chief Complaints: * ???1. Patient presents today for liver disease. * HPI: ???New symptom(s):? The patient is a pleasant 59-year-old woman seen today in followup of gastroesophageal reflux disease, pancreatitis and liver disease secondary to alcohol use. She had flulike symptoms approximately 2 weeks ago with some epigastric discomfort which subsequently resolved. She was taking a lot of exxs-svn-frbwtfk liquid cold medication (NyQuil). Her stomach is feeling better now. She continues on Nexium for reflux with good control of her symptoms. She still does drink alcohol, approximately 4 drinks once a week. We again discussed no alcohol is the best option. She continues on Creon for her chronic pancreatitis. * Medical History:?Alcoholic l iver disease with elastography showing elevated liver stiffness consistent with compensated advance chronic liver disease 08/2021, Chronic pancreatitis, Depression, Hypertension, Diabetes type 2, Covid 19 infection 03/04, Osteoporosis, Arthritis, Colonoscopy, 09/06, hyperplastic polyp, ten-year followup, Upper endoscopy 07/05 negative for varices or portal hypertensive gastropathy, no H. pylori or Lau's esophagus.. * Surgical History:?cholecyste ctomy , section , right knee replacement , left knee replacement . * Hospitalization/Major Diagno stic Procedure:?pancreatitis 08/05. * Family History:?Father: dece ased.?Mother: , diagnosed with Heart disease, Diabetes.? Sister cancer in stomach. No family history of colon polyps, colon cancer or liver cancer. * Social History:?Tobacco Use:?Tobacco Use/Smoking?Patient is a?former smoker,?How long has it been since you last smoked??5-10 years.?Drugs/Alcohol:?Alcohol Screen?Did you have a drink containing alcohol in the past year??No,?Points?0,?Interpretation?Negative.?Miscellaneous:?Marital status: . Occupation: disabled. * Medications:?Taking Citalopr am Hydrobromide 20 MG Tablet 1 tablet Orally Once a day, Taking Folic Acid 1 MG Tablet 1 tablet Orally Once a day, Taking Multivitamin Adult , Taking Ibuprofen 600 MG Tablet TAKE 1 TABLET BY MOUTH THREE TIMES DAILY WITH FOOD Oral , Taking Jardiance 10 MG Tablet TAKE 1 TABLET BY MOUTH EVERY DAY IN THE MORNING Oral , Taking traZODone HCl 100 MG Tablet TAKE 1 TABLET BY MOUTH AT BEDTIME Oral , Taking Creon [id number] UNIT Capsule Delayed Release Particles TAKE 1 CAPSULE BY MOUTH THREE TIMES DAILY WITH MEALS AND 1 CAPSULE DAILY WITH SNACK DIRECTED. SWALLOW WHOLE. DO NOT BREAK, CRUSH, DISSOLVE OR CHEW. Oral , Taking Alendronate Sodium 70 MG Tablet TAKE 1 TABLET BY MOUTH EVERY 7 DAYS IN THE MORNING ON AN EMPTY STOMACH WITH FULL GLASS OF WATER 30 MINUTES BEFORE OTHER FOOD / MEDICATIONS. Do not lie down for 30 minutes after taking. Oral , Taking Oyster Shell Calcium w/D 500-5 MG-MCG Tablet TAKE 1 TABLET BY MOUTH TWICE DAILY Oral , Taking Esomeprazole Magnesium 40 MG Capsule Delayed Release TAKE 1 CAPSULE BY MOUTH EVERY DAY BEFORE BREAKFAST. DO NOT BREAK, CRUSH, DISSOLVE OR CHEW. Oral , Discontinued Omeprazole 20 MG Capsule Delayed Release 1 capsule 30 minutes before morning meal Orally Once a day, Discontinued Vivitrol 380 MG Suspension Reconstituted INJECT 4 ML INTRAMUSCULARLY EVERY 28 DAYS Intramuscular , Notes: F1020,Unavailable, Discontinued One-Daily Multi-Vitamin - Tablet TAKE 1 TABLET BY MOUTH EVERY DAY WITH FOOD Oral , Notes: F32A,Unavailable, Discontinued Cetirizine HCl 10 MG Tablet TAKE 1 TABLET BY MOUTH EVERY DAY Oral , Notes: J302,Unavailable, Discontinued Escitalopram Oxalate 10 MG Tablet TAKE 1 TABLET BY MOUTH DAILY IN THE MORNING Oral , Discontinued MiraLax (colon prep) 8.3 ounce ((238) grams mixed with Gatorade or Crystal Light orally begin at 5:00 p.m. the day before the procedure, Discontinued Dulcolax (colon prep) 5 MG Tablet Delayed Release take at 3:00 p.m and 7:00p.m. Orally two tablets twice a day for one day, Discontinued MiraLax (colon prep) 8.3 ounce ((238) grams mixed with Gatorade or Crystal Light orally begin at 5:00 p.m. the day before the procedure, Medication List reviewed and reconciled with the patient * Allergies:?Penicillin. Objective: * Vitals:?Wt: 165 lbs, Ht: 63 in, BMI:29.23 Index, BP: 00/00 mm Hg. * Examination: ???General Examination: ???On examination today, she appears well. Skin is anicteric. Lungs are clear. Heart shows regular rate and rhythm. Abdomen is soft without focal mass or tenderness. Extremities are without edema. Assessment: * Assessment: 1.?Alcoholic liver disease - K70.9 (Primary)?2.?Gastroesophageal reflux disease without esophagitis - K21.9?3.?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 chronic pancreatitis - K86.0? At this time, she appears to be doing well. She will continue Nexium for her reflux. We discussed gastroesophageal reflux disease today. We discussed diet, lifestyle modifications, and weight management regarding the treatment of reflux. Liver function tests will be obtained. We advised her to avoid alcohol. She will continue Creon for her chronic pancreatitis and followup in one year. Plan: * Treatment: * Procedure Codes:?3017F COLOR ECTAL CA SCREEN DOC REV, G9745 DOC RSN FOR NOT SCREEN/REC F/U HBP * Preventive Medicine:? ??Counseling:?Care goal follow-up plan:?Above Normal BMI Follow-up?Giving encouragement to exercise,?BMI management provided?Yes.? * Follow Up:?1 Year * * Sign off status: Completed true * Provider:?Ryan Duong MD Date:?1 Generated for Nailai elda/Pamela/eTransmitting on:?02/15/2025 09:43 AM EDT History and Physical Notes * HPI (History of Present Illness) Category Sub-Category Detail Notes Category Not es New symptom(s) The patient i s a pleasant 59-year-old woman seen today in followup of gastroesophageal reflux disease, pancreatitis and liver disease secondary to alcohol use. She had flulike symptoms approximately 2 weeks ago with some epigastric discomfort which subsequently resolved. She was taking a lot of hsmo-sed-sqquzin liquid cold medication (NyQuil). Her stomach is feeling better now. She continues on Nexium for reflux with good control of her symptoms. She still does drink alcohol, approximately 4 drinks once a week. We again discussed no alcohol is the best option. She continues on Creon for her chronic pancreatitis. Examination Category Sub-Category Detail Notes Category Not es General Examination On exami nation today, she appears well. Skin is anicteric. Lungs are clear. Heart shows regular rate and rhythm. Abdomen is soft without focal mass or tenderness. Extremities are without edema.
--- OUTSIDE RECORDS SUMMARY | 2025-02-15 09:43 | XMS_ITS | Encounter Summary ---
Author Organization [employer] Address [address] [place] [address] Care Team Providers Care Graphic Production Artist Name Role Phone Troy Lance MD Primary Care Provider [phone] Piotr Stone MANIFEST/ORDER ORGANIZER PRINT ORDERS Unavailable Unavailable Betzy Forde PharmD Unavailable Reason for Referral * Consultation (Routine) - Authorized Specialty Diagnoses / Procedures Referred By Contac t Referred To Contact Pharmacy Diagnoses Type 2 diabetes mellitus without complication, without long-term current use of insulin ([facility]) Troy Lance MD [address] [place] [address] Phone: tel: fax: Referral ID Status Reason Start Date Expiration Date Visits Requested Visits Authorized [id number] Authorized Continuity of Care 02/14/2025 02/14/2026 6 6 Encounter Details Date Type Department Care Team (Late st Contact Info) Description 02/14/2025 Telephone [facility] [address] [place] [address] Betzy Forde, PharmD [address] [place], [place] [phone] Social History Tobacco Use Types Packs/Day Years Used Date Smoking Tobacco: Never Smokeless Tobacco: Never Alcohol Use Standard Drinks/Week Comments Yes 0 [...] Orientation Straight 09/14/2022 10 :21 AM EDT documented as of this encounter Miscellaneous Notes * Addendum Note - Troy Lance MD - 02/14/2025 4:50 PM EDTAddended by: TROY LANCE on: 02/14/2025 04:50 PM Modules accepted: Orders * Telephone Encounter - Betzy Forde PharmD - 02/14/2025 4:44 PM EDT Pharmacy is requesting an MTM referral with a diagnosis of diabetes. Patient to be seen in [facility] for MB start next week per her request. Please send at your earliest convenience. Thank you! documented in this encounter Plan of Treatment Upcoming Encounters Date Type Department Care Team (Late st Contact Info) Description 02/19/2025 9:30 AM EDT Medication Management [address] [address] 03/19/2025 10:30 AM EDT Medication Management [address] [address] Betzy Forde PharmD [address] [place] [address] 04/03/2025 9:15 AM EDT Office Visit [address] [address] Name, MD Troy [address] [place] [address] Scheduled Referrals Name Type Priority Associated Diagnoses Orde r Schedule Referral to Pharmacy [facility] Outpatient Referral Routine Type 2 diabetes mellitus without complication, without long-term current use of insulin (CMS/HCC) Ordered: 02/14/2025 documented as of this encounter Visit Diagnoses Diagnosis Type 2 diabetes mellitus without complication, without long-term current use of insulin (CMS/[facility])- Primary documented in this encounter Additional Health Concerns Assessment Noted Time PHQ-9 Depression Total Score: 11 024 10:36 AM EDT documented as of this encounter Care Teams Graphic Production Artist Relationship Specialty Start Date End Date Name, MD Troy [address] [place] [address] PCP - General Family Medicine 01/23/21 Piotr Stone FNP [address] [place] [address] Nurse Practitioner Family Medicine 10/05/23 Betzy Forde PharmD [address] [place] [address] Pharmacist Internal Medicine 02/14/25 Natasha Lombardi Pharmacy Grad InternMedical Records Field Technician 09/27/24 documented as of this encounter
--- OUTSIDE RECORDS SUMMARY | 2025-02-15 09:43 | XMS_ITS | Encounter Summary ---
Author Organization [employer] Address [address] [place] [address] [address] [place] [address] Care Team Providers Care Print Line Operator Name Role Phone Name, Troy LOPEZ Primary Care Provider [phone] Piotr Stone INTAKE SPECIALIST Unavailable Unavailable Betzy Forde PharmD Unavailable [phone] Reason for Visit * Reason Onset Date Comments PT-1 08/15/2024 Encounter Details Date Type Department Care Team (Late st Contact Info) Description 08/15/2024 Telephone [facility] [address] [place], [place] [phone] Name, MD Troy [address] [place] [address] PT-1 Social History Tobacco Use Types Packs/Day Years Used Date Smoking Tobacco: Never Smokeless Tobacco: Never Alcohol Use Standard Drinks/Week Comments Yes 0 (1 standard drink = 0.6 oz pur e alcohol) social Depression Answer Date Recorded Patient Health Questionnaire-9 Score 6 04/13/2024 Patient Health Questionnaire-9 Score 6 04/13/2024 Last PHQ-9: Questionnaire Data Not on file 0 04/13/2024 Housing Stability Answer Date Recorded What is [...] Answer Date Recorded Patient Health Questionnaire-2 Score 2 04/13/2024 Comments No Sex and Gender Information Value Date Recorded Sex Assigned at Female 09/14/2022 10:21 AM EDT Legal Sex Female 10:21 AM EDT Gender Identity Female 09/14/2022 10:21 AM EDT Sexual Orientation Straight 09/14/2022 10 :21 AM EDT documented as of this encounter Miscellaneous Notes * Telephone Encounter - Carlos Warner - 08/15/2024 12:43 PM EDT Natasha with [facility] calling requesting PT1 Home Address verified: Y/N: Yes Provider name or facility name: [facility] Facility Address: [address] [place] [address] Dr [facility] [address] Escort needed: Y/N: No Do you have a wheelchair: Y/N: No If yes- Manual or electric: N/A Visits: 4 Monthly documented in this encounter Plan of Treatment Upcoming Encounters Date Type Department Care Team (Late st Contact Info) Description 02/19/2025 9:30 AM EDT Medication Management [facility] [address] [place] [address] 03/19/2025 10:30 AM EDT Medication Management [facility] [address] [place] [address] Betzy Forde, Erik [address] [place] [address] 04/03/2025 9:15 AM EDT Office Visit [facility] [address] [place] [address] Name, MD Troy [address] [place] [address] documented as of this encounter Visit Diagnoses Not on filedocumented in this encounter Additional Health Concerns Assessment Noted Time PHQ-9 Depression Total Score: 6 04/13/20 24 2:02 PM EDT documented as of this encounter Care Teams Print Line Operator Relationship Specialty Start Date End Date Name, MD Troy [address] [place] [address] PCP - General Family Medicine 01/23/21 Piotr Stone FNP [address] [place] [address] Nurse Practitioner Family Medicine 10/05/23 Betzy Forde PharmD [address] [place] [address] Pharmacist Internal Medicine 02/14/25 Natasha Lombardi Shaper HandEducational Psychologist 01/13/24 09/26/24 Natasha Lombardi Filter Screen CleanerEducational Psychologist 09/27/24 documented as of this encounter
--- OUTSIDE RECORDS SUMMARY | 2025-02-15 09:43 | XMS_ITS | Encounter Summary ---
Author Organization [employer] Address [address] [place] [address] [address] [place] [address] Care Team Providers Care Cutter Inspector Name Role Phone Name, Troy LOPEZ Primary Care Provider [phone] Piotr Stone FLOOR CLEANER Unavailable Unavailable Betzy Forde PharmD Unavailable Reason for Visit * Reason Onset Date Comments Med Refill 01/14/2024 Encounter Details Date Type Department Care Team (Late st Contact Info) Description 01/14/2024 Refill [facility] [address] [place], [place] [phone] Name, MD Troy [address] [place] [address] Social History Tobacco Use Types Packs/Day Years Used Date Smoking Tobacco: Never Smokeless Tobacco: Never Alcohol Use Standard Drinks/Week Comments Yes 0 (1 standard drink = 0.6 oz pur e alcohol) social Depression Answer Date Recorded Patient Health Questionnaire-9 Score 1 01/17/2024 Patient Health Questionnaire-9 Score 1 01/17/2024 Last PHQ-9: Questionnaire Data Not on file 0 01/17/2024 Housing Stability Answer Date Recorded What is your housing situation today? I have maite hernandez 08/30/[address] you li ve. Do you have problems with any of the following? None of the above 08/30/2023 Food Insecurity Answer Date Recorded Within the past 12 months, y ou worried that your food would run out before you got money to buy more: Never True 08/30/2023 Within the past 12 months,th e food you bought just didn't last and you didn't have enough money to get more: Never True Transportation Answer Date Recorded In the past 12 months, has l ack of transportation kept you from medical appts, meetings, work or from getting things needed for daily living? No 08/30/2023 Utilities Answer Date Recorded In the past 12 months, has t he electric, gas, oil or water company threatened to shut off services in your home? No 08/30/2023 Depression Answer Date Recorded Patient Health Questionnaire-2 Score 0 01/17/2024 Comments No Sex and Gender Information Value Date Recorded Sex Assigned at Female 09/14/2022 10:21 AM EDT Legal Sex Female 10:21 AM EDT Gender Identity Female 09/14/2022 10:21 AM EDT Sexual Orientation Straight 09/14/2022 10 :21 AM EDT documented as of this encounter Plan of Treatment Upcoming Encounters Date Type Department Care Team (Late st Contact Info) Description 02/19/2025 9:30 AM EDT Medication Management [facility] [address] [place] [address] 03/19/2025 10:30 AM EDT Medication Management [address] [address] Betzy Forde, PharmD [address] [place] [address] 04/03/2025 9:15 AM EDT Office Visit [facility] [address] [place] [address] NameTroy MD [address] [place] [address] documented as of this encounter Visit Diagnoses Not on filedocumented in this encounter Additional Health Concerns Assessment Noted Time PHQ-9 Depression Total Score: 3 10/21/20 23 9:11 AM EST documented as of this encounter Care Teams Cutter Inspector Relationship Specialty Start Date End Date NameTroy MD [address] [place] [address] PCP - General Family Medicine 01/23/21 Piotr Stone FNP [address] [place] [address] Nurse Practitioner Family Medicine 10/05/23 Betzy Forde PharmD [address] [place] [address] Pharmacist Internal Medicine 02/14/25 Natasha Lombardi Linecasting Machine Keyboard OperatorMuseum Technician 01/13/24 09/26/24 Natasha Lombardi Retail Bakery ManagerMuseum Technician 09/27/24 documented as of this encounter
--- OUTSIDE RECORDS SUMMARY | 2025-02-15 09:43 | XMS_ITS | Encounter Summary ---
Author Organization [employer] Address [address] [place] [address] 7t [place] [address] Care Team Providers Care Mold Making Supervisor Name Role Phone Name, Troy LOPEZ Primary Care Provider [phone] Piotr Stone TUBER MACHINE CUTTER Unavailable Unavailable Betzy Forde PharmD Unavailable [phone] Reason for Visit * Reason Onset Date Comments Nurse Triage 11/27/2024 Encounter Details Date Type Department Care Team (Late st Contact Info) Description 11/27/2024 Telephone [facility] [address] [place], [place] [phone] Name, MD Troy [address] [place], [place] [phone] Nurse Triage Social History Tobacco Use Types Packs/Day Years [...] encounter Miscellaneous Notes * Telephone Encounter - Toribio Bellamy - 11/27/2024 2:58 PM EST Patient calling to report ED visit on : Date: 11/24/2024 Hospital: [facility] ED Seen for: Pancreatitis / covid positive Symptomatic Yes *if yes message should go to Triage Pt complianingof pain and has been taking tylenol . Pt requesting ibuprofen documented in this encounter Plan of Treatment Upcoming Encounters Date Type Department Care Team (Late st Contact Info) Description 02/19/2025 9:30 AM EDT Medication Management [facility] [address] [place], [place] [phone] 03/19/2025 10:30 AM EDT Medication Management [facility] [address] [place] [address] Betzy Forde, PharmD [address] [place] [address] 04/03/2025 9:15 AM EDT Office Visit [facility] [address] [facility] [place] [address] Name, MD rToy Kendrick [facility] [place] [address] documented as of this encounter Visit Diagnoses Not on filedocumented in this encounter Additional Health Concerns Assessment Noted Time PHQ-9 Depression Total Score: 11 024 10:36 AM EDT documented as of this encounter Care Teams Mold Making Supervisor Relationship Specialty Start Date End Date Name, MD Troy [facility] [place] [address] PCP - General Family Medicine 01/23/21 Piotr Stone FNP [address] [place] [address] Nurse Practitioner Family Medicine 10/05/23 Betzy Forde PharmD [address] [place] [address] Pharmacist Internal Medicine 02/14/25 Natasha Lombardi Payroll Services AnalystBenefits Sales Consultant 09/27/24 documented as of this encounter
--- OUTSIDE RECORDS SUMMARY | 2025-02-15 09:43 | XMS_ITS | Encounter Summary ---
Author Organization [employer] [facility] Address [address] [place] [address] [place] [address] Care Team Providers Care Automotive Alignment Specialist Name Role Phone Name, Troy LOPEZ Primary Care Provider [phone] Piotr Stone MOVEMENT EDUCATION SPECIALIST Unavailable Unavailable Betzy Forde PharmD Unavailable [phone] Encounter Details Date Type Department Care Team (Late st Contact Info) Description 10/29/2022 Orders Only [facility] [address] [place] [address] Lorna Chiang LPN Social History Tobacco Use Types Packs/Day Years Used Date Smoking Tobacco: Never Assessed Comments Unknown Sex and Gender Information Value Date Recorded Sex Assigned at Female 09/14/2022 10:21 AM EDT Legal Sex Female 10:21 AM EDT Gender Identity Female 09/14/2022 10:21 AM EDT Sexual Orientation Straight 09/14/2022 10 :21 AM EDT documented as of this encounter Plan of Treatment Upcoming Encounters Date Type Department Care Team (Late st Contact Info) Description 02/19/2025 9:30 AM EDT Medication Management [facility] [address] [place] [address] [phone] 03/19/2025 10:30 AM EDT Medication Management [facility] [address] [place] [address] PuiaKenyBetzy, PharmD [address] [place] [address] 04/03/2025 9:15 AM EDT Office Visit [facility] [address] [place] [address] Name, MD Troy [address] [place] [address] documented as of this encounter Procedures Procedure Name Priority Date/Time Associated Diagnosis Comments US ABDOMEN COMPLETE WITH ELASTOGRAPHY Routine 10/30/2022 9:45 AM EST documented in this encounter Results * US Abdomen Comp w elastography (10/30/2022 9:45 AM EST) Anatomical Region Laterality Modality Abdomen Ultrasound 10/30/2022 9:45 AM EST Narrative 11/02/2022 4:09 PM EST ? [facility] ?[address] ?[place]a Rom[place] [address] ? Ultrasound Report ? Signed ? Patient: Gonzales,Sosa ?MR#: [id number] ?? [id number] ? : 1965 ?Acct:[id number] ? Age/Sex: 57 / F ?ADM Date: 10/30/22 ? Loc: HO.US ? Attending Dr: Troy Leone MD ? Ordering Physician: Troy Leone MD ?? Date of Service: 10/30/22 ?? Procedure(s): US abdomen comp w elastography ?? Accession Number(s): [id number] ? cc: Troy Leone MD ? EXAMINATION: ?? US COMPLETE ABDOMEN WITH LIVER ELASTOGRAPHY ? CLINICAL INFORMATION: ?? Cirrhosis of liver ? COMPARISON: ?? None. ? TECHNIQUE: ?? Real-time imaging of the abdominal viscera. Noninvasive ultrasound ?? liver fibrosis assessment is performed using Alfred ElastPQ point ?? quantification shear wave elastography (2D-SWE) with a C5-2 MHz ?? transducer. ??Multiple elastography samples are obtained. ? FINDINGS: ? PANCREAS: Normal. The visualized pancreatic head and body are normal in ?? appearance. The remainder of the pancreas is obscured from ?? visualization by the overlying bowel gas. ? ABDOMINAL AORTA: The proximal, middle, and distal aortic segments are ?? normal in caliber. ? INFERIOR VENA CAVA: Visualized portions are normal. ? LIVER: Normal. The liver demonstrates normal size, contour and ?? echogenicity. No focal lesion or intrahepatic biliary duct dilatation. ? The right lobe measures 15.5 cm in length. ??The left lobe measures 8.1 ?? cm in length. ? Portal flow is hepatopedal. ? Shear wave liver elastography median stiffness is 1.44 m/s (reference: ?? normal median stiffness is 1.3 m/s or less). ? IQR/median stiffness to assess sampling precision is 0.21 (reference: ?? good quality data set is IQR/median stiffness of 0.15 or less). ? GALLBLADDER: The gallbladder has been surgically removed ? COMMON BILE DUCT: Normal in caliber measuring 0.3 cm in diameter. ? RIGHT KIDNEY: Normal. No hydronephrosis. No renal calculi or focal ?? parenchymal lesions. The kidney measures 8.2 cm in maximum dimension. ? LEFT KIDNEY: Normal. No hydronephrosis. No renal calculi or focal ?? parenchymal lesions. The kidney measures 8.8 cm in maximum dimension. ? SPLEEN: Normal. The spleen measures 9.9 cm in maximum dimension. ? FREE FLUID: None. ? US/US abdomen comp w elastography ?? IMPRESSION: ?? 1. Unremarkable complete abdomen ultrasound. ? 2. Liver elastography: Median liver stiffness measures 1.44 m/s ?? corresponding to cACLD (ruled out). ? REFERENCE: ?? Society of Radiologists in Ultrasound Liver Stiffness Thresholds ?? (2019): ? LIVER STIFFNESS THRESHOLDS: ?? *Liver Stiffness equal or less than 1.3 m/s: ??High probability of being ?? normal. ?? *Liver Stiffness ??less than 1.7 m/s: ??In the absence of other known ?? clinical signs, rules out compensated advanced chronic liver disease. ?? *Liver Stiffness 1.7-2.1 m/s: ??Suggestive of compensated advanced ?? chronic liver disease but need further test for confirmation. ?? *Liver Stiffness over 2.1 m/s: ??Rules in compensated advanced chronic ?? liver disease. ?? *Liver Stiffness over 2.4 m/s: ??Suggestive of clinically significant ?? portal hypertension. ? QUALITY OF DATA SET: ?? *IQR/Median value equal or less than 0.15 implies a quality data set. ?? *IQR/Median value over 0.15 implies a poor quality data set. ? SIGNIFICANT CHANGE FROM PRIOR EXAM: ?? Significant change if liver stiffness measurement is 10% or greater ?? from prior exam. ? OTHER CONSIDERATIONS: ?? The stage of liver fibrosis may be overestimated in the setting of ?? acute hepatitis, liver inflammation, elevated liver function tests, ?? hepatic vascular congestion, obstructive cholestasis, non-fasting ?? state, and infiltrative diseases such as amyloidosis and lymphoma. ??In ?? some patients with NAFLD, the liver stiffness thresholds for ?? compensated advanced chronic liver disease may be lower. ??In causes ?? other than viral hepatitis and NAFLD, liver stiffness thresholds are ?? not well established. ? Dictated By: ?Reginald Kathleen MD ? Signed By: ?<Electronically signed by Reginald Kathleen MD in OV> ?11/02/22 1606 ? DD/ 0945 ? TD/TT: ? Mixing Machine Tender Cork Rod: MSM ? Procedure Note Donhugo, Image - 12/24/2022 [place] [address] Ultrasound Report Signed Patient: Bird Gonzales#: [id number] : 1965Acct:[id number] Age/Sex: 57 / FADM Date: 10/30/22 Loc: HO.US Attending Dr: Troy Leone MD Ordering Physician: Troy Leone MD Date of Service: 10/30/22 Procedure(s): US abdomen comp w elastography Accession Number(s): [id number] cc: Troy Leone MD EXAMINATION: US COMPLETE ABDOMEN WITH LIVER ELASTOGRAPHY CLINICAL INFORMATION: Cirrhosis of liver COMPARISON: None. TECHNIQUE: Real-time imaging of the abdominal viscera. Noninvasive ultrasound liver fibrosis assessment is performed using Alfred ElastPQ point quantification shear wave elastography (2D-SWE) with a C5-2 MHz transducer. Multiple elastography samples are obtained. FINDINGS: PANCREAS: Normal. The visualized pancreatic head and body are normal in appearance. The remainder of the pancreas is obscured from visualization by the overlying bowel gas. ABDOMINAL AORTA: The proximal, middle, and distal aortic segments are normal in caliber. INFERIOR VENA CAVA: Visualized portions are normal. LIVER: Normal. The liver demonstrates normal size, contour and echogenicity. No focal lesion or intrahepatic biliary duct dilatation. The right lobe measures 15.5 cm in length. The left lobe measures 8.1 cm in length. Portal flow is hepatopedal. Shear wave liver elastography median stiffness is 1.44 m/s (reference: normal median stiffness is 1.3 m/s or less). IQR/median stiffness to assess sampling precision is 0.21 (reference: good quality data set is IQR/median stiffness of 0.15 or less). GALLBLADDER: The gallbladder has been surgically removed COMMON BILE DUCT: Normal in caliber measuring 0.3 cm in diameter. RIGHT KIDNEY: Normal. No hydronephrosis. No renal calculi or focal parenchymal lesions. The kidney measures 8.2 cm in maximum dimension. LEFT KIDNEY: Normal. No hydronephrosis. No renal calculi or focal parenchymal lesions. The kidney measures 8.8 cm in maximum dimension. SPLEEN: Normal. The spleen measures 9.9 cm in maximum dimension. FREE FLUID: None. US/US abdomen comp w elastography IMPRESSION: 1. Unremarkable complete abdomen ultrasound. 2. Liver elastography: Median liver stiffness measures 1.44 m/s corresponding to cACLD (ruled out). REFERENCE: Society of Radiologists in Ultrasound Liver Stiffness Thresholds (2020): LIVER STIFFNESS THRESHOLDS: *Liver Stiffness equal or less than 1.3 m/s: High probability of being normal. *Liver Stiffness less than 1.7 m/s: In the absence of other known clinical signs, rules out compensated advanced chronic liver disease. *Liver Stiffness 1.7-2.1 m/s: Suggestive of compensated advanced chronic liver disease but need further test for confirmation. *Liver Stiffness over 2.1 m/s: Rules in compensated advanced chronic liver disease. *Liver Stiffness over 2.4 m/s: Suggestive of clinically significant portal hypertension. QUALITY OF DATA SET: *IQR/Median value equal or less than 0.15 implies a quality data set. *IQR/Median value over 0.15 implies a poor quality data set. SIGNIFICANT CHANGE FROM PRIOR EXAM: Significant change if liver stiffness measurement is 10% or greater from prior exam. OTHER CONSIDERATIONS: The stage of liver fibrosis may be overestimated in the setting of acute hepatitis, liver inflammation, elevated liver function tests, hepatic vascular congestion, obstructive cholestasis, non-fasting state, and infiltrative diseases such as amyloidosis and lymphoma. In some patients with NAFLD, the liver stiffness thresholds for compensated advanced chronic liver disease may be lower. In causes other than viral hepatitis and NAFLD, liver stiffness thresholds are not well established. Dictated By: Reginald Kathleen MD Signed By: <Electronically signed by Reginald Kathleen MD in OV> 11/02/22 1606 DD/ 0945 TD/TT: Mixing Machine Tender Cork Rod: JOSÉ MIGUEL [facility] External Provider IMG US PROCEDURES Final Result documented in this encounter Visit Diagnoses Not on filedocumented in this encounter Care Teams Automotive Alignment Specialist Relationship Specialty Start Date End Date Name, MD Troy [address] [place] [address] PCP - General Family Medicine 01/23/21 Piotr Stone FNP [address] [place] [address] Nurse Practitioner Family Medicine 10/05/23 Betzy Forde PharmD [address] [place] [address] Pharmacist Internal Medicine 02/14/25 Natasha Lombardi Concrete Pump OperatorEngineering Technical Writer 01/13/24 09/26/24 Natasha Lombardi Scratch BrusherEngineering Technical Writer 09/27/24 documented as of this encounter
--- OUTSIDE RECORDS SUMMARY | 2025-02-15 09:43 | XMS_ITS | Encounter Summary ---
Author Organization [employer] Address [address] [place] [address] [address] [place] [address] Care Team Providers Care Bricklayer Sewer Name Role Phone Name, Troy LOPEZ Primary Care Provider [phone] Piotr Stone ORACLE FINANCIAL APPLICATION DEVELOPER Unavailable Unavailable Betzy Forde PharmD Unavailable Encounter Details Date Type Department Care Team (Late Contact Info) Description 07/05/2023 Orders Only [facility] [address] [place] [address] Rica Iqbal LPN Social History Tobacco Use Types Packs/Day Years Used Date Smoking Tobacco: Never Smokeless Tobacco: Never Alcohol Use Standard Drinks/Week Comments Yes 0 (1 standard drink = 0.6 oz pur e alcohol) social Depression Answer Date Recorded Patient Health Questionnaire-9 Score 4 06/29/2023 Depression Answer Date Recorded Patient Health Questionnaire-2 Score 0 06/29/2023 Comments No Sex and Gender Information Value Date Recorded Sex Assigned at Female 09/14/2022 10:21 AM EDT Legal Sex Female 10:21 AM EDT Gender Identity Female 09/14/2022 10:21 AM EDT Sexual Orientation Straight 09/14/2022 10 :21 AM EDT documented as of this encounter Plan of Treatment Upcoming Encounters Date Type Department Care Team (Late Contact Info) Description 02/19/2025 9:30 AM EDT Medication Management [facility] [address] [place] [address] [phone] 03/19/2025 10:30 AM EDT Medication Management [facility] [address] [place] [address] [phone] Betzy Forde PharmD [facility] [place] [address] 04/03/2025 9:15 AM EDT Office Visit [facility] [place] [address] Name, [place] [address] documented as of this encounter Visit Diagnoses Not on filedocumented in this encounter Additional Health Concerns Assessment Noted Time PHQ-9 Depression Total Score: 4 06/29/20 9:18 AM EDT documented as of this encounter Care Teams Bricklayer Sewer Relationship Specialty Start Date End Date Name, MD Troy [facility] [place] [address] PCP - General Family Medicine 01/23/21 Piotr Stone FNP [address] [place] [address] Nurse Practitioner Family Medicine 10/05/23 Betzy Forde PharmD [address] [place] [address] Pharmacist Internal Medicine 02/14/25 Natasha Lombardi Ash HandlerConstruction Manager 01/13/24 09/26/24 Natasha Lombardi Anesthesiologist AssistantConstruction Manager 09/27/24 documented as of this encounter
--- OUTSIDE RECORDS SUMMARY | 2025-02-15 09:43 | XMS_ITS | Encounter Summary ---
Author Organization [employer] Address [address] [place] [address] [address] [address] Care Team Providers Care Crop Grain Or Livestock Farmer Name Role Phone Name, Troy LOPEZ Primary Care Provider [phone] Piotr Stone MICROARRAY ANALYST Unavailable Unavailable PuBetzy escalona PharmD Unavailable [phone] Encounter Details Date Type Department Care Team ([facility] Contact Info) Description 12/11/2022 Orders Only [facility] [address] [place] [address] Rica Iqbal LPN Social History Tobacco Use Types Packs/Day Years Used Date Smoking Tobacco: Never Assessed Comments Unknown Sex and Gender Information Value Date Recorded Sex Assigned at Female 09/14/2022 10:21 AM EDT Legal Sex Female 10:21 AM EDT Gender Identity Female 09/14/2022 10:21 AM EDT Sexual Orientation Straight 09/14/2022 10 :21 AM EDT COVID-19 Exposure Response Date Recorded In the last 10 days, have yo u been in contact with someone who was confirmed or suspected to have Coronavirus/COVID-19? No / Unsure 12/11/2022 9:49 AM EST documented as of this encounter Plan of Treatment Upcoming Encounters Date Type Department Care Team ([facility] Contact Info) Description 02/19/2025 9:30 AM EDT Medication Management [facility] [address] [place] [address] 03/19/2025 10:30 AM EDT Medication Management [facility] [address] [place] [address] [phone] Betzy Forde PharmD [address] [place] [address] 04/03/2025 9:15 AM EDT Office Visit [facility] [address] [place] [address] Name, MD Troy [address] [place] [address] documented as of this encounter Visit Diagnoses Not on filedocumented in this encounter Care Teams Crop Grain Or Livestock Farmer Relationship Specialty Start Date End Date Name, MD Troy [address] [place] [address] PCP - General Family Medicine 01/23/21 Piotr Stone FNP [address] [place] [address] Nurse Practitioner Family Medicine 10/05/23 Betzy Forde, Erik [address] [place] [address] Pharmacist Internal Medicine 02/14/25 Natasha Lombardi Rotary AdjusterHot Plate Plywood Press Laborer 01/13/24 09/26/24 Natasha Lombardi Medical Information OfficerHot Plate Plywood Press Laborer 09/27/24 documented as of this encounter
--- OUTSIDE RECORDS SUMMARY | 2025-02-15 09:43 | XMS_ITS | Encounter Summary ---
Author Organization [employer] Address [address] [place] [address] 7t [place] [address] Care Team Providers Care Smoking Pipe Mounter Name Role Phone Name, Troy LOPEZ Primary Care Provider [phone] Piotr Stone WIRE TINNER Unavailable Unavailable PuiaKenyBetzy PharmD Unavailable [phone] Encounter Details Date Type Department Care Team (Late Contact Info) Description 02/02/2023 Orders Only [facility] [address] [place] [address] Rica Iqbal LPN Social History Tobacco Use [...] suspected to have Coronavirus/COVID-19? No / Unsure 02/03/2023 10:08 AM EDT documented as of this encounter Plan of Treatment Upcoming Encounters Date Type Department Care Team (Late Contact Info) Description 02/19/2025 9:30 AM EDT Medication Management [facility] [address] [place] [address] 03/19/2025 10:30 AM EDT Medication Management [facility] [address] [place] [address] [phone] Betzy [place]de [place] [address] 04/03/2025 9:15 AM EDT Office Visit [facility] [address] [place] [phone] Name, MD Troy [address] [place] [address] documented as of this encounter Visit Diagnoses Not on filedocumented in this encounter Care Teams Smoking Pipe Mounter Relationship Specialty Start Date End Date Name, MD Troy [address] [place] [address] PCP - General Family Medicine 01/23/21 Piotr Stone FNP [address] [place] [address] Nurse Practitioner Family Medicine 10/05/23 Betzy Forde, Erik [address] [place] [address] Pharmacist Internal Medicine 02/14/25 Natasha Lombardi Health Education SpecialistMen'S Golf Coach 01/13/24 09/26/24 Natasha Lombardi Lump InspectorMen'S Golf Coach 09/27/24 documented as of this encounter
--- OUTSIDE RECORDS SUMMARY | 2025-02-15 09:43 | XMS_ITS | Encounter Summary ---
Author Organization [employer] Address [address] [place] [address] [address] [place] [address] Care Team Providers Care Button Sewing Machine Operator Name Role Phone Name, Troy LOPEZ Primary Care Provider [phone] Piotr Stone WATCH ENGINEER Unavailable Unavailable Betzy Forde PharmD Unavailable Reason for Visit * Reason Comments Med Refill Encounter Details Date Type Department Care Team (Late st Contact Info) Description 04/26/2024 Refill [facility] [address] [place] [address] Frantz Sims MD [address] [place] [address] Social History Tobacco Use Types Packs/Day Years [...] Description 02/19/2025 9:30 AM EDT Medication Management [facility] [address] [place] [address] 03/19/2025 10:30 AM EDT Medication Management [address] [phone] Betzy Forde, PharmD [address] [place] [address] 04/03/2025 9:15 AM EDT Office Visit [facility] [address] [place] [address] NameTroy MD [address] [place] [address] documented as of this encounter Visit Diagnoses Not on filedocumented in this encounter Additional Health Concerns Assessment Noted Time PHQ-9 Depression Total Score: 6 04/13/20 24 2:02 PM EDT documented as of this encounter Care Teams Button Sewing Machine Operator Relationship Specialty Start Date End Date Troy Leone MD [address] [place] [address] PCP - General Family Medicine 01/23/21 Piotr Stone FNP [address] [place] [address] Nurse Practitioner Family Medicine 10/05/23 Betzy Forde PharmD [address] [place] [address] Pharmacist Internal Medicine 02/14/25 Natasha Lombardi Slubber TenderGlobal Manager 01/13/24 09/26/24 Natasha Lombardi Raw Hide TrimmerGlobal Manager 09/27/24 documented as of this encounter
--- OUTSIDE RECORDS SUMMARY | 2025-02-15 09:43 | XMS_ITS | Patient Health Record ---
Author Organization [facility] Address [address] [place] [address] Care Team Providers Care Technology Teacher Name Role Phone Name Troy LOPEZ Primary Care Provider Ryan Palumbo Jr Allergies Allergen (clinical drug ingredient) Drug/Non Drug Allergy documented on EMR Reaction Allergy Type Onset Date Status Penicillin Unknown Drug Allergy Active Results Component Value Reference Range Notes Liver Fibrosis Pnl Reviewed date:09/07/2024 07:41:27 AM Interpretation: Performing Lab:[facility], [address] [place] [address] Notes/Report: Liver Fibrosis Score 0.13 Liver Fibrosis [...] a>0.62 and a<=1.00 : A3 (severe activity) QKG-Rvmnl-7-Macroglobulin 266 106-279 mg/dL FIB-Haptoglobin 324 43-212 mg/dL This value is highly elevated over the 99 percentile. Check the value and the absence of sepsis. Usual maximum value is 320.0 mg/dl. FIB-Apolipoprotein A1 164 101-198 mg/dL FIB-Total Bilirubin 0.2 0.2-1.2 mg/dL FIB-GGT 51 3-65 U/L FIB-ALT 12 6-29 U/L Reference ID [id number] Footnote SEE NOTE The reliability of results is dependent on compliance with the preanalytical and analytical conditions recommended by [employer]. The tests have to be deferred for: [...] The performance characteristics have been determined by [facility]. It has not been cleared or approved by the U.S. Food and Drug Administration. Performance characteristics refer to the analytical performance of the test. [employer], the associated logo, [facility] and all associated [employer] vazquez are the registered trademarks of [employer]. All third alliance party vazquez - (R) and (TM) - are the property of their respective owners. (C) 4166-5827 [employer]. All rights reserved. THIS TEST WAS PERFORMED AT: [facility] [address] [place] [address] KATLYN TEJADA MD,PHD,THAD Complete Blood Count Auto Di ff Reviewed date:09/01/2024 07:46:01 AM Interpretation: Performing Lab:[facility], [address] [place] [phone] Notes/Report: White Blood Count 5.7 4.8-10.8 X10*3/uL [...] INR Reviewed date:09/01/2024 07:44:46 AM Interpretation: Performing Lab:[facility], [address] [place] [phone] Notes/Report: Prothrombin Time 12.3 10.9-12.4 SEC [employer] [...] Panel Reviewed date:09/01/2024 07:45:06 AM Interpretation: Performing Lab:[facility], [address] [place] [phone] Notes/Report: Bilirubin Total 0.3 0.0-1.0 mg/dL Bilirubin Direct 0.1 0.0-0.5 mg/dL Aspartate Amino Transferase 18 5-31 U/L Alanine Aminotransferase 16 0-31 U/L Total Protein 7.7 6.5-8.0 g/dL Albumin Level 3.8 3.5-5.0 g/dL Alkaline Phosphatase 138 39-117 U/L Lipase Reviewed date:09/01/2024 07:45:19 AM Interpretation: Performing Lab:[facility], [address] [place] [phone] Notes/Report: Lipase 47 8-78 U/L Reason For Referral Referring Provider First Name Troy Referring Provider Last Name Name Referring Provider Speciality Internal M edicine Referred Organization [facility] Referred Provider Ryan Heller Jr Referred Address [address] [place] [id number], Referred Provider Specialty Gastroentero logy General Notes Kirstie Holden 024 09:48:07 AM EDT > [facility] FROM [facility] FOR VISIT WITH DR HELLER ON 08-31-2024 Referral Priority Routine Medications Medication SIG (Take, Route, Frequency, Duration) Notes Start Date End Date Status Creon [id number] UNIT TAKE 1 CAPSULE B Y MOUTH [...] MOUTH TWICE DAILY Oral for 90 Active Immunizations Vaccine Route Administration Date Status Comme nts Influenza Unknown 08/15/2020 Administered Influenza Unknown 10/01/2021 Administered Social History Tobacco Use: Social History Observation Description Date Details (start date - stop date) Former Smoker NA - NA Tobacco Use/Smoking Question Answer Notes Patient is a former smoker How long has it been since you last smoked? 5-10 years Alcohol Screen Question Answer Notes Did you have a drink containing alcohol in the p ast year? 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) Active confirmed Problem 293555875 Gastroesophageal reflux disease without esophagitis (K21.9) Active confirmed Problem 73625827 Alcoholic liver disease (K70.9) Active confirmed Vital Signs Blood pressure diastolic 00 mm Hg 08/31/2024 Height 63 in 08/31/2024 Blood pressure systolic 00 mm Hg 08/31/2024 Weight 165 lbs 08/31/2024 BMI 29.23 kg/m2 08/31/2024 Encounters Encounter Location Date Provider Diagnosis [facility] [address] [place] [address] 08/31/2024 Ryan Heller Jr Alcoholic liver disease K70.9 ; Gastroesophageal reflux disease without esophagitis K21.9 and 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 [facility] [address] [place] [address] 09/01/2024 Ryan Heller Jr Assessments Encounter Date Diagnosis (ICD Code) Assessment Notes Treatment Notes Treatment Clinical Notes Section Notes 08/31/2024 Gastroesophageal reflux disease without esophagitis (ICD-10 [...] pancreatitis and followup in one year. 08/31/2024 Alcoholic liver disease (ICD-10 - K70.9) [...] Provider Name:Ryan suh Jr, 09/03/2025 09:20:00 AM, [address] [place] [address], [address], [place], [address], Insurance Providers Payer Name Payer Address Payer Phone Subscriber Number Group Number Insured Name Patient Relationship to Insured Coverage Start Date Coverage End Date MEDICAID OF [employer] [address] [place] [phone] [id number] ESE SERRA Self - patient is the insured Medical (General) History Medical History History ICD Code Alcoholic liver [...]
--- OUTSIDE RECORDS SUMMARY | 2025-02-15 09:44 | XMS_ITS | Clinical Summary ---
Author Organization [facility] Address [address] [place] [address] Care Team Providers Care Line Tester Name Role Phone Unavailable Primary Care Provider Unavailabl e Source Comments PLEASE NOTE, if this patient is a minor, it may be UNLAWFUL to discuss sensitive information that is contained in these records (such as FAMILY PLANNING, MENTAL HEALTH or SUBSTANCE ABUSE) with the minor patient's parent or other person without the patient's specific authorization.[facility] Immunizations Immunization Administration Dates Next Due Moderna COVID-19 Vaccine, re d cap blue label, 12+ Primary Series 10/27/2021,04/22/2021,2021 Social History Tobacco Use Types Packs/Day Years Used Date Smoking Tobacco: Never Assessed Social Connections Answer Date Recorded Social Connections and Isolation 0 2021 Financial Resource Strain Answer Date R ecorded Financial Resource Strain 0 2020 Stress Answer Date Recorded Stress 0 2021 Physical Activity Answer Date Recorded Physical Activity 0 2021 Food Insecurity Answer Date Recorded Food 0 2021 Transportation Needs Answer Date Record ed Transportation 0 2021 Housing Stability Answer Date Recorded Housing 0 2021 Safety and Environment Answer Date Alejandro rded Safety 0 2021 Utilities Answer Date Recorded Utilities 0 2021 Employment Answer Date Recorded Employment 0 2021 Comments Unknown Sex and Gender Information Value Date Recorded Sex Assigned at Not on file Legal Sex Female 6:32 AM PDT Gender Identity Not on file Sexual Orientation Not on file Plan of Treatment Health Maintenance Due Date Last Done Comments Anxiety Screening 1965 Diabetes Screening 1965 HPV Screening 1965 Hepatitis C Screening 1965 Lipid Screening 1965 Pap + HPV 1965 Tobacco Screening 1965 HIV Screening 1978 Hypertension Screening (#1) 1981 Cervical Cancer Screening 02/27/1984 Pap Smear 02/27/1984 Breast Cancer Screening (Mammogram) 2003 CT Colonography 02/27/2008 Colonoscopy 02/27/2008 Colorectal Cancer Screening 02/27/2008 FIT/gFOBT 02/27/2008 Fecal DNA 02/27/2008 Flexible Sigmoidoscopy 02/27/2008 Wth-[id number]-06 ( season) 2024 10/27/2021, 04/22/2021, 2021 Imm-Influenza (#1) 2024 06/23/2021, 08/15/2020 Alcohol and Drug Screen 11/15/2024 Depression Annual Screen 11/15/2024 Imm-DTaP/Tdap/Td (2 - Td or Tdap) 09/01/2031 021 Imm-Zoster, Recombinant Completed 09/11/2021, 06/23 Cervical Ablation/Cold-Knife Conization Discontinued Cervical Cryotherapy Discontinued Colposcopy Discontinued Endometrial Biopsy Discontinued Excision/Leep Discontinued HPV Genotyping Discontinued Vaginal Pap Discontinued Vulvoscopy Discontinued Insurance [address] [employer] Member Subscriber Plan / Payer (Ef fective 2023-Present) Name:Sosa Gonzales Relation to Subscriber:Self Name:Sosa Gonzales Payer ID:[id number] Group ID:Not on file Type:[employer] Medicaid Address: [facility] [id number] [place] [address]
--- OUTSIDE RECORDS SUMMARY | 2025-02-15 09:44 | XMS_ITS ---
Author Organization [facility] Address [address] [place] [address] Care Team Providers Care Building Construction Inspector Name Role Phone Name Troy LOPEZ Primary Care Provider Timothy Duong Jr, Ryan Ang [phone] REASON FOR VISIT labs Encounters Encounter Location Date Provider Diagnosis [facility] [address] [place] [address] 09/01/2024 Ryan Duong Jr Plan Of Treatment Next Appt Details Provider Name:Ryan suh Jr, 09/03/2025 09:20:00 AM, [address], [address], [place], [address], Progress Notes * CELESTINE HAQUEMDOB: [birth year] (59 yo F)Acc No.[id number]:09/01/2024 Patient:?ESE HAQUE :1965???Age:59 Y???Sex:Female Address:[address] [place], [address] * true * Date:? Generated for Printi ng/Famelanyg/eTransmitting on:?02/15/2025 09:43 AM EDT
--- OUTSIDE RECORDS SUMMARY | 2025-02-15 09:44 | XMS_ITS | Encounter Summary ---
Author Organization [facility] Address [address] [place] [address] Care Team Providers Care Business Development Intern Name Role Phone Name, Troy LOPEZ Primary Care Provider [phone] Piotr Stone WOOD HANDLER Unavailable Unavailable Betzy Forde PharmD Unavailable [phone] Encounter Details Date Type Department Care Team (Latest Contact Info) Description 02/14/2025 Travel Social History Tobacco Use Types Packs/Day Years [...] your housing situation today? I have maite david 03/29/[address] you li [...] Description 02/19/2025 9:30 AM EDT Medication Management [facility] [address] [place] [address] 03/19/2025 10:30 AM EDT Medication Management [address] [address] Betzy Forde, PharmD [address] [place] [address] 04/03/2025 9:15 AM EDT Office Visit [address] [address] NameTroy MD [address] [place] [address] documented as of this encounter Visit Diagnoses Not on filedocumented in this encounter Additional Health Concerns Assessment Noted Time PHQ-9 Depression Total Score: 11 024 10:36 AM EDT documented as of this encounter Care Teams Business Development Intern Relationship Specialty Start Date End Date Troy Leone MD [address] [place] [id number] PCP - General Family Medicine 01/23/21 Piotr Stone FNP [address] [place] [address] Nurse Practitioner Family Medicine 10/05/23 Betzy Forde PharmD [address] [place] [address] Pharmacist Internal Medicine 02/14/25 Natasha Lombardi Doctor Of Nurse AnesthesiaPaintings Restorer 09/27/24 documented as of this encounter
--- OUTSIDE RECORDS SUMMARY | 2025-02-15 09:44 | XMS_ITS ---
Author Organization [facility] Address [address] [place] [address] Care Team Providers Care Senior Accounting Manager Name Role Phone Name Troy LOPEZ Primary Care Provider Timothy Duong Jr, Ryan Ang REASON FOR VISIT pathology Encounters Encounter Location Date Provider Diagnosis [facility] [address] [place] [address] 08/31/2023 Ryan Duong Jr Plan Of Treatment Next Appt Details Provider Name:Ryan suh Jr, 09/03/2025 09:20:00 AM, [address] [facility], [address], [place], [address], Progress Notes * CELESTINE HAQUEMDOB: [birth year] (58 yo F)Acc No.[id number]:08/31/2023 Patient:?ESE HAQUE :1965???Age:58 Y???Sex:Female Address:[address] [place], [address] * true * Date:? Generated for Printi ng/Famelanyg/eTransmitting on:?02/15/2025 09:43 AM EDT
[2025-02-15 11:45] LABS: Alanine Aminotransferase 19 U/L (0-31); Albumin Level 3.9 g/dL (3.5-5.0); Alkaline Phosphatase 125 U/L (39-117); Aspartate Amino Transferase 30 U/L (5-31); Bilirubin Direct 0.1 mg/dL (0.0-0.5); Bilirubin Total 0.3 mg/dL (0.0-1.0); Cholesterol 245 mg/dL (<200); HDL Cholesterol 54 mg/dL (>40); LDL Cholesterol Calculated 153 mg/dL (<100); Total Protein 7.6 g/dL (6.5-8.0); Triglycerides 193 mg/dL (<150)
[2025-02-15 13:07] LABS: Reflex LDLD? No
== END 2025-02-15 09:18 | disposition home or self-care (01) ==
LOC: HO.LAB 09:17
PROVIDERS: PCP Internal Medicine Geriatric Medicine; Visit Provider Pharmacist
DX: E11.9 Type 2 diabetes mellitus without complications (principal); F10.20 Alcohol dependence, uncomplicated; E78.1 Pure hyperglyceridemia
CPT/HCPCS: 36415; 80061; 80076

== ENCOUNTER 2025-05-13 17:39 | Emergency (ER) | payer MEDICAID, SELFPAY ==
--- NOTE | ~2025-05-13 | CT_ITS ---
CLINICAL HISTORY: back pain. kidney stones? osteoarthritis spine? CT abdomen and pelvis with contrast Comparison: None provided Findings: Lung bases are clear. No acute bony abnormalities. Degenerative change spine and hips. Hepatomegaly with fatty infiltration of the liver. No focal abnormality in liver or spleen. Cholecystectomy. Adrenal glands unremarkable. Pancreatic calcifications consistent with chronic pancreatitis. No acute pancreatic abnormality noted. No significant focal renal abnormalities. No renal stones or hydronephrosis. Abdominal aorta is normal in caliber. No free fluid or adenopathy in the pelvis. No diverticulitis. Appendix unremarkable. Uterus normal size. No adnexal abnormality. Impression: No acute process This document has been electronically signed by: Werner Johnson MD on 05/13/2025 20:37:29
[2025-05-13 17:48] VITALS: BP 115/57; BP 182/82; PULSE 66; PULSE 83; RESP 16; TEMP 36.9; O2SAT 93; O2SAT 94; BMI 29.2
--- NOTE | 2025-05-13 18:06 | ED.GENADULT ---
HPI - General Adult General Chief complaint: General Medical Stated complaint: BACK-PAIN Time Seen by Provider: 05/13/25 17:53 Source: patient Mode of arrival: ambulatory Limitations: no limitations History of Present Illness ED Provider: Owen King HPI narrative: 60 yold female with pmh of hypertension, cirrhosis, and prediabetic presents to the ED bilateral flank pain that started yesterday. Patient denies any urinary/bowel incontinence, fever, chills, abdominal pain, nausea, vomiting Related Data Home Medications ?Medication ?Instructions ?Recorded ?Confirmed citalopram 20 mg tablet 1 tab PO DAILY 06/12/21 09/15/22 folic acid 1 mg tablet 1 tab PO DAILY 06/12/21 09/15/22 multivitamin 1 tab PO DAILY 06/12/21 09/15/22 omeprazole 20 mg capsule,delayed 2 cap PO DAILY 06/12/21 09/15/22 release spironolactone 50 mg tablet 1 tab PO DAILY 06/12/21 09/15/22 empagliflozin 25 mg tablet 25 mg PO QAM 08/27/23 08/27/23 (Jardiance) escitalopram oxalate 10 mg tablet 10 mg PO QAM 12/27/23 lactulose 10 gram/15 mL oral 15 ml PO QAM 12/27/23 solution ipioda-pukyvljy-jgfmjsw 1 cap PO 12/27/23 36,000-114,000-180,000 unit capsule,delay rel (Creon) naltrexone microspheres 380 mg mg IM Q4W 12/27/23 intramuscular suspension,extended release (Vivitrol) esomeprazole magnesium 40 mg 40 mg PO QAM 05/17/24 capsule,delayed release loratadine 10 mg tablet 10 mg PO DAILY 05/17/24 Previous Rx's ?Medication ?Instructions ?Recorded thiamine mononitrate (vit B1) 100 100 mg PO DAILY 30 days #30 tabs 06/16/21 mg tablet Chopat Strap #1 ea 12/19/21 naproxen 500 mg tablet,delayed 500 mg PO BID PRN for pain #30 tabs 04/28/22 release ondansetron 4 mg disintegrating 4 mg PO Q8H 3 days #9 tabs 11/24/24 tablet cefuroxime axetil 250 mg tablet 250 mg PO Q12H 7 days #14 tabs 05/13/25 Allergies Allergy/AdvReac Type Severity Reaction Status Date / Time Penicillins Allergy Severe Itching Verified 05/13/25 17:50 Review of Systems Review of Systems: Bilateral flank pain Yes all other systems are reviewed and are negative [facility] Past Medical History Medical History Cardiac arrest Former smoker History of alcohol abuse delivery delivered Prediabetes Cirrhosis HTN (hypertension) Surgical History Hx of tracheostomy Total knee replacement status Previous section History of cholecystectomy Social History Social History Household Members: Family Household Members Other:: sister Housing: House Do you presently have visiting nurse or other home services: No Alcohol intake: current Alcohol intake frequency: a few times a week Patient Tobacco Use Status: Former Tobacco user Advance Directives Date on File: 07/23/21 service: No Current occupational status: unemployed 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 Physical Exam ED Vital Signs: Vital Signs - 24 hr 05/13/25 17:48 05/13/25 19:10 Temperature 98.5 F Pulse Rate 83 84 Respiratory Rate 16 18 Blood Pressure 115/57 L 115/62 Pulse Oximetry 93 95 Oxygen Delivery Method Room Air Room Air BMI result Body Mass Index 29.2 Const General: cooperative, healthy appearing, comfortable, no acute distress, well developed, alert, awake and Physically active Orientation/consciousness: patient oriented x3 HENMT Head: Yes normal to inspection, Yes No palpable skull fracture present, Yes normocephalic and Yes atraumatic Eyes General: appearance normal, both eyes and all related structures Neck Neck: Yes normal visual inspection, Yes full ROM, Yes no lymphadenopathy, Yes no meningeal signs, Yes trachea midline, Yes supple, No anterior neck swelling and No tender Chest Chest palpation & inspection: normal inspection of the chest and normal palpation of entire chest wall Resp Effort & Inspection: normal respiratory effort and able to speak in complete sentences Auscultation: clear to auscultation bilaterally Cardio Jugular venous distension: no JVD Heart sounds: S1 normal heart sound present and S2 normal heart sound present GI Inspection: Yes normal to inspection Palpation (GI): Soft to palpation, not firm, nontender, no guarding and not rigid General: Yes CVA tenderness (bilateral) Back/Spine/Pelvis Back: CVA tenderness (bilateral) Skin General skin exam: no rashes or lesions noted, elasticity normal and turgor normal Neuro General: patient oriented x3, gait normal, tone normal, moves all extremities, Normal light touch and pain sensation, no meningeal signs, no focal motor deficits, CN's II-XI intact bilaterally and normal sensation to monofilament Extrem General: Yes normal to inspection and Yes full ROM Psych Appearance: grossly normal, well kempt and not disheveled Medications Administered Discontinued Medications Generic Name Dose Route Start Last Admin Trade Name Freq PRN Reason Stop Dose Admin Cefuroxime Axetil 250 mg 05/13/25 21:09 05/13/25 21:35 Cefuroxime Axetil 250 Mg Tablet PO 05/13/25 21:10 250 mg ONCE ONE Administration Cyclobenzaprine HCl 10 mg 05/13/25 18:31 05/13/25 18:43 Cyclobenzaprine Hcl 10 Mg Tablet PO 05/13/25 18:32 10 mg ONCE ONE Administration Ketorolac Tromethamine 30 mg 05/13/25 18:30 05/13/25 18:43 Ketorolac Tromethamine 30 Mg/Ml Vial IVPUSH 05/13/25 18:31 30 mg ONCE ONE Administration Medical Decision Making Medical Decision Making [facility] Narrative: 60-year-old female presents to ED for bilateral flank pain without any trauma. Patient also states dysuria. Labs showed blood and UTI. Patient is sent for CAT scan to rule out pyelonephritis JEREL 8:47pm: CT scan came back negative for kidney stones or signs of pyelonephritis. Patient will be discharged with p.o. antibiotics. Not suspecting sepsis, renal failure, pyelonephritis, or any other life-threatening etiology. Patient explained worrisome signs and informed to return to the ED immediately. Differential Diagnosis Differential Diagnoses: The differential diagnosis associated with the presentation includes (UTI, pyelonephritis, kidney stones, lumbar radiculopathy) Admission/Observation Consideration of admission/observation: Escalation of care including admission/observation considered Lab Data [facility] Lab Attestation statement: I reviewed the patient's lab results. 05/13/25 18:43 05/13/25 18:43 Labs: Lab Results 05/13/25 05/13/25 Range/Units 18:43 19:09 WBC 5.5 (4.8-10.8) X10*3/uL RBC 3.83 L (4.20-5.50) X10*6/uL Hgb 12.1 (12.0-16.0) g/dl Hct 34.7 L (37.0-47.0) % MCV 90.6 (80.0-98.0) fL MCH 31.6 (27.0-33.0) pg MCHC 34.9 (31.0-35.0) g/dl RDW 14.3 (11.0-16.0) % Plt Count 141 L (160-400) X10*3/uL MPV 9.8 (9.4-12.3) fL Immature Gran % (Auto) 0.2 (0.0-0.4) % Neut % (Auto) 58.5 (45-73) % Lymph % (Auto) 30.8 (20-40) % Gilmer % (Auto) 7.3 (2-11) % Eos % (Auto) 2.7 (0-4) % Baso % (Auto) 0.5 (0-2) % Lymph # (Auto) 1.7 (1.2-4.9) X10*3/uL Gilmer # (Auto) 0.4 (0.1-1.2) X10*3/uL Eos # (Auto) 0.2 (0.0-0.4) X10*3/uL Baso # (Auto) 0.0 (0.0-0.2) X10*3/uL Abs Immat Gran (auto) 0.01 (0.00-0.03) X10*3/uL Absolute Neuts (auto) 3.2 (2.0-8.3) x10*3/uL Absolute Nucleated RBC 0.000 (0.0-0.012) X10*3/uL Nucleated RBC % (auto) 0.0 (0.0-0.2) /100WBC Sodium 141 (135-145) mmol/L Potassium 3.8 (3.3-5.1) mmol/L Chloride 109 H (96-108) mmol/L Carbon Dioxide 21 L (22-29) mmol/L Anion Gap 15 (12-20) BUN 15 (9-16) mg/dL Creatinine 0.97 (0.5-1.4) mg/dL Estim Creat Clear Calc 58.2 Estimated GFR 58 Random Glucose 101 (60-115) mg/dL Calcium 8.5 D (8.4-10.2) mg/dL Total Bilirubin 0.2 (0.0-1.0) mg/dL AST 27 (5-31) U/L ALT 19 (0-31) U/L Alkaline Phosphatase 133 H (39-117) U/L Total Protein 7.3 (6.5-8.0) g/dL Albumin 3.9 (3.5-5.0) g/dL Beta HCG, Quant 3 mIU/mL Urine Color Yellow Urine Appearance Cloudy Urine pH 5.5 (5.0-9.0) Ur Specific Bartley <= 1.005 (1.005-1.025) Urine Protein Trace (Neg-Trace) mg/dL Urine Glucose (UA) 500 H (Negative) mg/dL Urine Ketones Negative (Negative) mg/dL Urine Blood Moderate (2+) H (Negative) Urine Nitrite Negative (Negative) Ur Leukocyte Esterase Large (3+) H (Negative) Urine RBC 0-2 (0-2) /HPF Urine WBC >50 H (0-5) /HPF Ur Squamous Epith Cells 0-2 (0-2) /HPF Urine Bacteria 3+ (None Seen) Hyaline Casts 0-2 (0-2) /LPF Independent Interpretation I performed an independent interpretation of an: CT Scan Radiology Impression Discussion of test interpretation with radiology: I have reviewed the radiologist's reading. Independent Historian Clinical information obtained from an independent historian. History obtained from or confirmed by: Other (patient) Prescription Management I considered prescription management with: Pain Medication and Antibiotic Discharge Plan Discharge Clinical Impression: UTI (urinary tract infection) Patient Disposition: Home, Self-Care Instructions: Urinary Tract Infection in Women (ED) Additional Instructions: You are positive for urinary tract infection. You will be discharged with antibiotics. Return to the ED immediately for any chest pain, shortness of breath, abdominal pain, flank pain, fever, chills, bloody urine, or any other concerning symptoms. Prescriptions: New cefuroxime axetil 250 mg tablet 250 mg PO Q12H 7 Days Qty: 14 0RF No Action naproxen 500 mg tablet,delayed release (DR/EC) 500 mg PO BID PRN (Reason: for pain) Qty: 30 2RF multivitamin Tablet 1 tab PO DAILY citalopram 20 mg tablet 1 tab PO DAILY omeprazole 20 mg capsule,delayed release(DR/EC) 2 cap PO DAILY folic acid 1 mg tablet 1 tab PO DAILY spironolactone 50 mg tablet 1 tab PO DAILY thiamine mononitrate (vit B1) 100 mg Tablet 100 mg PO DAILY 30 Days Qty: 30 0RF Jardiance 25 mg tablet 25 mg PO QAM ondansetron 4 mg tablet,disintegrating 4 mg PO Q8H 3 Days Qty: 9 0RF (DME) Chopat Strap See Rx Instructions .ROUTE .MEDSUPPLY Qty: 1 0RF Rx Instructions: n/a escitalopram oxalate 10 mg tablet 10 mg PO QAM Creon 36,000-114,000- 180,000 unit capsule,delayed release(DR/EC) 1 cap PO lactulose 10 gram/15 mL solution 15 ml PO QAM Vivitrol 380 mg suspension,extended rel recon IM Q4W loratadine 10 mg tablet 10 mg PO DAILY esomeprazole magnesium 40 mg capsule,delayed release(DR/EC) 40 mg PO QAM Referrals: Name,MD Troy [Primary Care Provider, Internal Medicine] - 2 days Referral Note: UTI Clinical Impression: UTI (urinary tract infection) Stand Alone Forms: Work/School Release Interventions: ED Discharge Assessment Last Done: 05/13/25 21:10 Discharge Date/Time: 05/13/25 21:37 Print Language: Indonesian
[2025-05-13] MEDS: Cyclobenzaprine HCl 10 MG TABLET PO (18:43)
[2025-05-13] MEDS: Ketorolac Tromethamine 30 MG/ML VIAL IVPUSH (18:43)
[2025-05-13 18:47] LABS: MANUAL DIFF FLAG NO
[2025-05-13 18:48] LABS: Basophils Percent Auto 0.5 % (0-2); Eosinophils Absolute Auto 0.2 X10*3/uL (0.0-0.4); Eosinophils Percent Auto 2.7 % (0-4); Hematocrit 34.7 % (37.0-47.0); Hemoglobin 12.1 g/dl (12.0-16.0); Imm Gran Abs Auto 0.01 X10*3/uL (0.00-0.03); Imm Gran Pct Auto 0.2 % (0.0-0.4); Lymphocytes Absolute Auto 1.7 X10*3/uL (1.2-4.9); Lymphocytes Percent Auto 30.8 % (20-40); Mean Corpuscular HGB Conc 34.9 g/dl (31.0-35.0); Mean Corpuscular Hemoglobin 31.6 pg (27.0-33.0); Mean Corpuscular Volume 90.6 fL (80.0-98.0); Mean Platelet Volume 9.8 fL (9.4-12.3); Monocytes Absolute Auto 0.4 X10*3/uL (0.1-1.2); Monocytes Percent Auto 7.3 % (2-11); Neutrophils Absolute Auto 3.2 x10*3/uL (2.0-8.3); Neutrophils Percent Auto 58.5 % (45-73); Platelet Count 141 X10*3/uL (160-400); Red Blood Count 3.83 X10*6/uL (4.20-5.50); Red Cell Distribution Width 14.3 % (11.0-16.0); White Blood Count 5.5 X10*3/uL (4.8-10.8)
[2025-05-13 19:08] LABS: Alanine Aminotransferase 19 U/L (0-31); Albumin Level 3.9 g/dL (3.5-5.0); Alkaline Phosphatase 133 U/L (39-117); Anion Gap 15 (12-20); Aspartate Amino Transferase 27 U/L (5-31); Bilirubin Total 0.2 mg/dL (0.0-1.0); Blood Urea Nitrogen 15 mg/dL (9-16); Calcium 8.5 mg/dL (8.4-10.2); Carbon Dioxide 21 mmol/L (22-29); Chloride 109 mmol/L (96-108); Creatinine Clr Calc Pharmacy 58.2; Estimated Glomerular Filt Rate 58; Glucose Random 101 mg/dL (60-115); HCG Quantitative 3 mIU/mL; Potassium 3.8 mmol/L (3.3-5.1); Sodium 141 mmol/L (135-145); Total Protein 7.3 g/dL (6.5-8.0)
[2025-05-13 19:10] VITALS: BP 115/62; PULSE 84; RESP 18; O2SAT 95
[2025-05-13 19:22] LABS: Appearance Urine Cloudy; Color Urine Yellow; Glucose Urine UA 500 mg/dL (Negative); Leukocyte Esterase Urine Large (3+) (Negative); Nitrite Urine Negative (Negative); PH 5.5 (5.0-9.0); Specific Gravity - Urine <= 1.005 (1.005-1.025); UMIC TRIGGER UACC YES; Urine Blood Moderate (2+) (Negative); Urine Ketones Negative (Negative); Urine Protein Trace mg/dL (Neg-Trace)
[2025-05-13 19:37] LABS: Bacteria Urine 3+ (None Seen); Hyaline Casts Urine 0-2 /LPF (0-2); RBC Urine 0-2 /HPF (0-2); Squamous Epithelial Cell Urine 0-2 /HPF (0-2); UACC Culture Trigger YES; WBC Urine >50 /HPF (0-5)
[2025-05-13 21:10] VITALS: BP 115/62; PULSE 84; RESP 18; TEMP 36.6; O2SAT 95
[2025-05-13] MEDS: cefuroxime axetiL 250 MG TABLET PO (21:35)
== END 2025-05-13 21:37 | disposition home or self-care (01) ==
PROVIDERS: Physician Assistant; Emergency Provider Emergency Medicine; PCP Internal Medicine Geriatric Medicine
DX: N39.0 Urinary tract infection, site not specified (principal); R10.9 Unspecified abdominal pain
CPT/HCPCS: 36415; 74176; 80053; 81001; 84702; 85025; 87086; 87088; 87186; 96374; 99284; J1885

== ENCOUNTER → 2025-05-13 19:07 | Outpatient (BNV) | payer MEDICAID, SELFPAY | PROVIDERS: Emergency Provider Emergency Medicine; PCP Internal Medicine Geriatric Medicine; Visit Provider Radiology Diagnostic Radiology | DX: M54.50 Low back pain, unspecified (principal) | CPT/HCPCS: 74176 ==

== ENCOUNTER 2025-07-06 08:30 | Outpatient (REF) | payer MEDICAID, SELFPAY ==
--- OUTSIDE RECORDS SUMMARY | 2025-07-06 08:46 | XMS_ITS | Encounter Summary ---
Author Organization [employer] Address [address] [place] [address] 7 [place] [address] Care Team Providers Care Telegraph Service Rater Name Role Phone Name, Troy LOPEZ Primary Care Provider [phone] Piotr Stone PREVENTATIVE MAINTENANCE TECHNICIAN Unavailable Unavailable Betzy Forde PharmD Unavailable [phone] Reason for Visit * Reason Onset Date Comments Appointment Request 03/30/2025 Encounter Details Date Type Department Care Team ([facility] st Contact Info) Description 03/30/2025 Telephone [facility] [address] [place], [place] [phone] Name, MD Troy [address] [place], [place] [phone] Appointment Request Social History Tobacco Use Types Packs/Day Years [...] encounter Miscellaneous Notes * Telephone Encounter - Jaye Mendoza - 03/30/2025 1:25 PM EDT Tc from pt requesting to reschedule appointment 04/03/2025 Please return call [phone] documented in this encounter Plan of Treatment Upcoming Encounters Date Type Department Care Team (Late st Contact Info) Description 07/18/2025 9:45 AM EDT Office Visit [facility] [address] [place] [id number] Name, MD Troy [address] [place] [address] 08/03/2025 9:00 AM EDT Nutrition [facility] [address] [place] [address] [place], [place] [phone] documented as of this encounter Visit Diagnoses Not on filedocumented in this encounter Additional Health Concerns Assessment Noted Time PHQ-9 Depression Total Score: 11 024 10:36 AM EDT documented as of this encounter Care Teams Telegraph Service Rater Relationship Specialty Start Date End Date Name, MD Troy [address] [place] [address] PCP - General Family Medicine 01/23/21 Piotr Stone FNP [address] [place] [address] Nurse Practitioner Family Medicine 10/05/23 Betzy Forde PharmD [address] [place] [address] Pharmacist Internal Medicine 02/14/25 07/04/25 Natasha Lombardi Child Development SpecialistSenior Water/Wastewater Engineer 09/27/24 documented as of this encounter
--- OUTSIDE RECORDS SUMMARY | 2025-07-06 08:46 | XMS_ITS | Clinical Summary ---
Author Organization [facility] Address [address] [place] [address] Care Team Providers Care Editor Managing Director Name Role Phone Unavailable Primary Care Provider [...] 02/27/2008 Fecal DNA 02/27/2008 Flexible Sigmoidoscopy 02/27/2008 Imm-Pneumococcal 50+ (1 of 1 - PCV) 2013 Dcl-FTMDX-72 ( season) 2024 10/27/2021, 04/22/2021, 2021 Alcohol and Drug Screen 11/15/2024 Depression Annual Screen 11/15/2024 Imm-Influenza (#1) 2025 06/23/2021, 08/15/2020 Imm-DTaP/Tdap/Td (2 - Td or Tdap) 09/01/2031 021 Imm-Zoster, Recombinant Completed 09/11/2021, 06/23 Cervical Ablation/Cold-Knife Conization Discontinued Cervical Cryotherapy Discontinued Colposcopy Discontinued Endometrial Biopsy Discontinued Excision/Leep Discontinued HPV Genotyping Discontinued Vaginal Pap Discontinued Vulvoscopy Discontinued [address]
--- OUTSIDE RECORDS SUMMARY | 2025-07-06 08:46 | XMS_ITS | Patient Health Record ---
Author Organization [facility] Address [address] [place] [address] Care Team Providers Care Manager Content Name Role Phone Name Troy LOPEZ Primary Care Provider Ryan Palumbo Jr [phone] Allergies Allergen (clinical drug ingredient) Drug/Non Drug Allergy documented on EMR Reaction Allergy Type Onset Date Status Penicillin Unknown Drug Allergy Active Results Component Value Reference Range Notes Liver Fibrosis Pnl Reviewed date:09/07/2024 07:41:27 AM Interpretation: Performing Lab:[facility], [address] [place] [address] Notes/Report: Liver Fibrosis Score 0.13 Liver Fibrosis [...] a>0.62 and a<=1.00 : A3 (severe activity) GJR-Omxgn-5-Macroglobulin 266 106-279 mg/dL FIB-Haptoglobin 324 43-212 mg/dL This value is highly elevated over the 99 percentile. Check the value and the absence of sepsis. Usual maximum value is 320.0 mg/dl. FIB-Apolipoprotein A1 164 101-198 mg/dL FIB-Total Bilirubin 0.2 0.2-1.2 mg/dL FIB-GGT 51 3-65 U/L FIB-ALT 12 6-29 U/L Reference ID [id number] Footnote SEE NOTE The reliability of results is dependent on compliance with the preanalytical and analytical conditions recommended by [employer]. The tests have to be deferred for: [...] The performance characteristics have been determined by [facility]. It has not been cleared or approved by the U.S. Food and Drug Administration. Performance characteristics refer to the analytical performance of the test. [employer], the associated logo, [facility] and all associated [employer] vazquez are the registered trademarks of [employer]. All third libertarian vazquez - (R) and (TM) - are the property of their respective owners. (C) 9764-3774 [employer]. All rights reserved. THIS TEST WAS PERFORMED AT: [facility] [address] [place] [address] KATLYN TEJADA MD,PHD,THAD Complete Blood Count Auto Di ff Reviewed date:09/01/2024 07:46:01 AM Interpretation: Performing Lab:[facility], [address] [place] [address] Notes/Report: White Blood Count 5.7 4.8-10.8 X10*3/uL [...] INR Reviewed date:09/01/2024 07:44:46 AM Interpretation: Performing Lab:[facility], [address] [place] [address] Notes/Report: Prothrombin Time 12.3 10.9-12.4 SEC INTERNATIONAL [...] Panel Reviewed date:09/01/2024 07:45:06 AM Interpretation: Performing Lab:[facility], [address] [place] [address] Notes/Report: Bilirubin Total 0.3 0.0-1.0 mg/dL Bilirubin Direct 0.1 0.0-0.5 mg/dL Aspartate Amino Transferase 18 5-31 U/L Alanine Aminotransferase 16 0-31 U/L Total Protein 7.7 6.5-8.0 g/dL Albumin Level 3.8 3.5-5.0 g/dL Alkaline Phosphatase 138 39-117 U/L Lipase Reviewed date:09/01/2024 07:45:19 AM Interpretation: Performing Lab:[facility], [address] [place] [address] Notes/Report: Lipase 47 8-78 U/L Reason For Referral Referring Provider First Name Troy Referring Provider Last Name Name Referring Provider Speciality Internal M edicine Referred Organization [facility] Referred Provider Ryan Heller Jr Referred Address [address] [place] [phone], Referred Provider Specialty Gastroentero logy General Notes Kirstie Holden 024 09:48:07 AM EDT > RE[facility]ED [facility] FROM [facility] FOR VISIT WITH DR HELLER ON 08-31-2024 Referral Priority Routine Medications Medication SIG (Take, Route, Frequency, Duration) Notes Start Date End Date Status Creon [id number] UNIT TAKE 1 CAPSULE B Y MOUTH [...] Problem Status W/U Status Risk Notes Problem 910849897 Colon cancer screening (Z12.11) Active confirmed Problem 36358420 Epigastric pain (R10.13) Active confirmed Problem History of polyp of colon (situation) (629278796) Personal history of colonic polyps (Z86.010) Active confirmed Problem 781521746 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) Active confirmed Problem 160713324 Gastroesophageal reflux disease without esophagitis (K21.9) Active confirmed Problem 75183029 Alcoholic liver disease (K70.9) Active confirmed Vital Signs Blood pressure diastolic 00 mm Hg 08/31/2024 Height 63 in 08/31/2024 Blood pressure systolic 00 mm Hg 08/31/2024 Weight 165 lbs 08/31/2024 BMI 29.23 kg/m2 08/31/2024 Encounters Encounter Location Date Provider Diagnosis [facility] [address] [place] [address] 08/31/2024 Ryan Heller Jr Alcoholic liver disease K70.9 ; Gastroesophageal reflux disease without esophagitis K21.9 and 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 [facility] [address] [place] [address] 09/01/2024 Ryan Heller Jr Assessments Encounter Date [...] Provider Name:Ryan suh Jr, 09/03/2025 09:20:00 AM, [address] [place] [address], [address], [place], [address], Insurance Providers Payer Name Payer Address Payer Phone Subscriber Number Group Number Insured Name Patient Relationship to Insured Coverage Start Date Coverage End Date MEDICAID OF [employer] [address] [place] [id number] ESE SERRA Self - patient is the [...]
[2025-07-06 10:28] LABS: Alanine Aminotransferase 29 U/L (0-31); Albumin Level 4.1 g/dL (3.5-5.0); Alkaline Phosphatase 142 U/L (39-117); Aspartate Amino Transferase 46 U/L (5-31); Cholesterol 247 mg/dL (<200); HDL Cholesterol 56 mg/dL (>40); Total Protein 7.5 g/dL (6.5-8.0); Triglycerides 450 mg/dL (<150)
[2025-07-06 10:32] LABS: Reflex LDLD? Yes
== END 2025-07-06 08:31 | disposition home or self-care (01) ==
LOC: HO.LAB 08:30
PROVIDERS: PCP Internal Medicine Geriatric Medicine; Visit Provider Internal Medicine Geriatric Medicine
DX: E11.9 Type 2 diabetes mellitus without complications (principal); E78.1 Pure hyperglyceridemia; K70.30 Alcoholic cirrhosis of liver without ascites; F10.20 Alcohol dependence, uncomplicated
CPT/HCPCS: 36415; 80061; 80076; 83721

== ENCOUNTER 2025-07-18 09:47 | Outpatient (REF) | payer MEDICAID, SELFPAY ==
--- OUTSIDE RECORDS SUMMARY | 2025-07-18 10:53 | XMS_ITS | Clinical Summary ---
Author Organization [facility] Address [address] [place] [address] Care Team Providers Care Medical Device Assembler Name Role Phone Unavailable Primary Care Provider [...] 50+ (1 of 1 - PCV) 2013 Alcohol and Drug Screen 11/15/2024 Depression Annual Screen 11/15/2024 Chy-ZNNBC-57 ( season) 2025 10/27/2021, 04/22/2021, 2021 Imm-Influenza (#1) 2025 06/23/2021, 08/15/2020 Imm-DTaP/Tdap/Td (2 - Td or Tdap) 09/01/2031 021 Imm-Zoster, Recombinant Completed 09/11/2021, 06/23 Cervical Ablation/Cold-Knife Conization Discontinued Cervical Cryotherapy Discontinued Colposcopy Discontinued Endometrial Biopsy Discontinued Excision/Leep Discontinued HPV Genotyping Discontinued Vaginal Pap Discontinued Vulvoscopy Discontinued Insurance [address]
--- OUTSIDE RECORDS SUMMARY | 2025-07-18 10:53 | XMS_ITS | Patient Health Record ---
Author Organization [facility] Address [address] [place] [address] Care Team Providers Care Manager Strategic Marketing Name Role Phone Name Troy LOPEZ Primary Care Provider Ryan Palumbo Jr [phone] Allergies Allergen (clinical drug ingredient) Drug/Non Drug Allergy documented on EMR Reaction Allergy Type Onset Date Status Penicillin Unknown Drug Allergy Active Results Component Value Reference Range Notes Liver Fibrosis Pnl Reviewed date:09/07/2024 07:41:27 AM Interpretation: Performing Lab:[facility], [address] [place] [address] Notes/Report: Liver Fibrosis Score 0.13 Liver Fibrosis [...] a>0.62 and a<=1.00 : A3 (severe activity) KCV-Owrjp-2-Macroglobulin 266 106-279 mg/dL FIB-Haptoglobin 324 43-212 mg/dL This value is highly elevated over the 99 percentile. Check the value and the absence of sepsis. Usual maximum value is 320.0 mg/dl. FIB-Apolipoprotein A1 164 101-198 mg/dL FIB-Total Bilirubin 0.2 0.2-1.2 mg/dL FIB-GGT 51 3-65 U/L FIB-ALT 12 6-29 U/L Reference ID [id number] Footnote SEE NOTE The reliability of results is dependent on compliance with the preanalytical and analytical conditions recommended by [employer]. The tests have to be deferred for: [...] The performance characteristics have been determined by [facility]. It has not been cleared or approved by the U.S. Food and Drug Administration. Performance characteristics refer to the analytical performance of the test. Modality, the associated logo, [facility] and all associated [employer] vazquez are the registered trademarks of [employer]. All third republican vazquez - (R) and (TM) - are the property of their respective owners. (C) 3612-9024 [employer]. All rights reserved. THIS TEST WAS PERFORMED AT: [facility] [address] [place] [address] KATLYN TEJADA MD,PHD,THAD Complete Blood Count Auto Di ff Reviewed date:09/01/2024 07:46:01 AM Interpretation: Performing Lab:[facility], [address] [place] [address] Notes/Report: White Blood Count 5.7 4.8-10.8 X10*3/uL [...] INR Reviewed date:09/01/2024 07:44:46 AM Interpretation: Performing Lab:[address] [address] Notes/Report: Prothrombin Time 12.3 10.9-12.4 SEC INTERNATIONAL [...] Panel Reviewed date:09/01/2024 07:45:06 AM Interpretation: Performing Lab:[facility], [address] [place] [address] Notes/Report: Bilirubin Total 0.3 0.0-1.0 mg/dL Bilirubin Direct 0.1 0.0-0.5 mg/dL Aspartate Amino Transferase 18 5-31 U/L Alanine Aminotransferase 16 0-31 U/L Total Protein 7.7 6.5-8.0 g/dL Albumin Level 3.8 3.5-5.0 g/dL Alkaline Phosphatase 138 39-117 U/L Lipase Reviewed date:09/01/2024 07:45:19 AM Interpretation: Performing Lab:[address] [address] Notes/Report: Lipase 47 8-78 U/L Reason For Referral No Information Medications Medication SIG (Take, Route, Frequency, Duration) Notes Start Date End Date Status Creon [id number] UNIT TAKE 1 CAPSULE B Y MOUTH [...] Ibuprofen 600 MG TAKE 1 TABLET BY TH THREE TIMES DAILY WITH FOOD Oral [...] Problem Status W/U Status Risk Notes Problem 722904300 Colon cancer screening (Z12.11) Active confirmed Problem 49758170 Epigastric pain (R10.13) Active confirmed Problem History of polyp of colon (situation) (998677282) Personal history of colonic polyps (Z86.010) Active confirmed Problem 277648210 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) Active confirmed Problem 859238465 Gastroesophageal reflux disease without esophagitis (K21.9) Active confirmed Problem 07590507 Alcoholic liver disease (K70.9) Active confirmed Vital Signs Blood pressure diastolic 00 mm Hg 08/31/2024 Height 63 in 08/31/2024 Blood pressure systolic 00 mm Hg 08/31/2024 Weight 165 lbs 08/31/2024 BMI 29.23 kg/m2 08/31/2024 Encounters Encounter Location Date Provider Diagnosis [facility] [address] [place] [address] 08/31/2024 Ryan Duong Jr Alcoholic liver disease K70.9 ; Gastroesophageal reflux disease without esophagitis K21.9 and 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 [facility] [address] [place] [address] 09/01/2024 Ryan Duong Jr Assessments Encounter Date Diagnosis (ICD Code) [...] 09:20:00 AM, [address], [address], [place], [address], Insurance Providers Payer Name Payer Address Payer Phone Subscriber Number Group Number Insured Name Patient Relationship to Insured Coverage Start Date Coverage End Date MEDICAID OF [facility] [address] [place] [phone] [id number] ABDOUL Peace ESE Self - patient is the insured Medical [...]
[2025-07-18 11:18] LABS: MANUAL DIFF FLAG NO
[2025-07-18 11:41] LABS: Hematocrit 39.5 % (37.0-47.0); Hemoglobin 13.5 g/dl (12.0-16.0); Imm Gran Abs Auto 0.01 X10*3/uL (0.00-0.03); Imm Gran Pct Auto 0.2 % (0.0-0.4); Lymphocytes Absolute Auto 1.1 X10*3/uL (1.2-4.9); Mean Corpuscular HGB Conc 34.2 g/dl (31.0-35.0); Mean Corpuscular Hemoglobin 31.8 pg (27.0-33.0); Mean Corpuscular Volume 92.9 fL (80.0-98.0); NRBC Abs Auto 0.000 X10*3/uL (0.0-0.012); NRBC Pct Auto 0.0 /100WBC (0.0-0.2); Platelet Count 173 X10*3/uL (160-400); Red Blood Count 4.25 X10*6/uL (4.20-5.50); White Blood Count 4.3 X10*3/uL (4.8-10.8)
[2025-07-18 12:08] LABS: Alanine Aminotransferase 37 U/L (0-31); Albumin Level 4.0 g/dL (3.5-5.0); Alkaline Phosphatase 137 U/L (39-117); Anion Gap 12 (12-20); Aspartate Amino Transferase 56 U/L (5-31); Blood Urea Nitrogen 12 mg/dL (9-16); Calcium 8.7 mg/dL (8.4-10.2); Carbon Dioxide 24 mmol/L (22-29); Chloride 107 mmol/L (96-108); Cholesterol 230 mg/dL (<200); Estimated Glomerular Filt Rate > 60; HDL Cholesterol 59 mg/dL (>40); Potassium 4.3 mmol/L (3.3-5.1); Sodium 139 mmol/L (135-145); Total Protein 7.9 g/dL (6.5-8.0); Triglycerides 518 mg/dL (<150)
[2025-07-18 12:25] LABS: Microalbum/Creatinine Ratio Ur 48.1 ug/mg cr (<30)
[2025-07-18 13:21] LABS: Reflex LDLD? Yes
== END 2025-07-18 09:48 | disposition home or self-care (01) ==
LOC: HO.HHCL 09:47
PROVIDERS: PCP Internal Medicine Geriatric Medicine; Visit Provider Internal Medicine Geriatric Medicine
DX: E11.9 Type 2 diabetes mellitus without complications (principal); K70.30 Alcoholic cirrhosis of liver without ascites; E78.1 Pure hyperglyceridemia; T14.8XXA Other injury of unspecified body region, initial encounter; F10.20 Alcohol dependence, uncomplicated
CPT/HCPCS: 36415; 80048; 80061; 80076; 82043; 82570; 83721; 85025

== ENCOUNTER 2025-09-20 08:51 | Outpatient (REF) | payer MEDICAID, SELFPAY ==
--- NOTE | ~2025-09-20 | XR_ITS ---
EXAMINATION: XR SHOULDER 2 OR MORE VIEWS BILATERAL HISTORY: M25.519 - Pain in unspecified shoulder COMPARISON: Comparison is made with the prior examination dated 01/14/2022. FINDINGS: Six views of the bilateral shoulders are submitted. Osseous mineralization is normal. There is no fracture or dislocation. The glenohumeral joint spaces are maintained. There is mild narrowing of the left AC joint. The soft tissues are unremarkable. XR/XR Shoulder Herman min 2V IMPRESSION: Mild narrowing of the left AC joint. Otherwise unremarkable examination of the bilateral shoulders. Electronically signed by: Rolando Olsen MD 09/20/2025 03:22 PM CHARLENE
== END 2025-09-20 08:52 | disposition home or self-care (01) ==
LOC: HO.HOSX 08:51
PROVIDERS: Visit Provider Physician Assistant
DX: M75.51 Bursitis of right shoulder (principal); M75.52 Bursitis of left shoulder
CPT/HCPCS: 20610; 73030; 99212; J0665; J1100; J2003

== ENCOUNTER 2025-09-20 14:40 | Outpatient (AMB) | payer MEDICAID, SELFPAY ==
--- NOTE | 2025-09-20 14:48 | MHC.OFFVIS ---
Vital Signs 09/20/25 15:18 Height 5 ft 3 in Weight 165 lb BMI 29.2 Intake Visit Reasons: OV- B/L shoulders pain Intake Note: Sosa is a 60 year old right hand dominant female who presents today for a follow up with complaints of bilateral shoulder pain. She was last seen for her shoulder on 03/27/24, she was given a left shoulder injection. Patient reports injection helped for about 7 months. Her right shoulder causes her the most discomfort. She is requesting bilateral shoulder injections. Allergies Penicillins Allergy (Severe, Verified 09/20/25 15:18) Itching Medication List - Last Reconciled 09/24/25 by Gage Alanis PA-C alendronate 70 mg PO QWEEK atorvastatin 20 mg PO QPM cefuroxime axetil 250 mg PO Q12H 7 days cetirizine 10 mg PO DAILY [Chopat Strap n/a] citalopram 1 tab PO DAILY empagliflozin (Jardiance) 25 mg PO QAM escitalopram oxalate 10 mg PO QAM esomeprazole magnesium 40 mg PO QAM folic acid 1 tab PO DAILY stcjww-iosmfmwf-ilbkqyp (pork) 36,000-114,000- 180,000 unit (Creon) 1 cap PO multivitamin 1 tab PO DAILY naproxen 500 mg PO BID PRN omeprazole 2 caps PO DAILY ondansetron 4 mg PO Q8H 3 days spironolactone 1 tab PO DAILY HPI HPI OV- B/L shoulders pain: Details: 60 yo female presents to the office today for bilateral shoulder pain. pain started up about a week ago. She had h/o left shoulder injection which was helpful . Pain with sleeping at night and reaching and raising the arm. 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 delivered Prediabetes Cirrhosis HTN (hypertension) Surgical History Hx of tracheostomy Total knee replacement status Previous section History of cholecystectomy Social History Household Members: Family Household Members Other:: sister Housing: House Do you presently have visiting nurse or other home services: No Alcohol intake: current Alcohol intake frequency: a few times a week Patient Tobacco Use Status: Former Tobacco user Advance Directives Date on File: 07/23/21 service: No Current occupational status: unemployed 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 Tenderness over the bicipital groove and along the deltoid region of the shoulder. Forward flexion to 175, external rotation to 90, internal rotation to S1. 5/5 RTC strength. Negative Plunkett and cross body abduction. NVI. Right shoulder normal to inspection. Tenderness over the bicipital groove and along the trapezium muscle into the lateral side of the neck. FF to 100, ER to 90, IR to S1. 5/5 RTC strength, negative apprehension test. NVI. Office Procedures AMB Joint Injection/Aspiration Joint Injection/Aspiration Primary Site: right shoulder Prep: site was prepped using aseptic technique, ethochloride spray was applied and injection warnings given Injected: 40 mg of, with 3 mL of, 1% plain lidocaine, 0.25% bupivacaine, in the subcromial space and decadron Approach Used: posterolateral Procedure: The patient tolerated the procedure well and there was some relief with the local anesthesia Coding 82449 - Glenohumeral/Tronchanteric Bursa/Intraarticular Procedure code (CPT) selection complete Assessment & Plan Assessment & Plan (1) Subacromial bursitis of both shoulders: Code(s): M75.51 - Bursitis of right shoulder; M75.52 - Bursitis of left shoulder Category: Medical Plan We discussed options today, which include steroid injection. The patient did consent to move forward with the right shoulder injection, which was tolerated well. I recommended rest, ice, and elevation and OTC anti-inflammatories as needed for discomfort. We also discussed diabetes and the effect the steroid injection can have on their blood glucose levels; therefore, they will continue to monitor these very closely over the next 72 hours. If there are concerns, they should report to the ED immediately. Orders: Orders XR Shoulder Herman min 2V 09/20/25 M25.519 - Pain in unspecified shoulder Coding Level of Care Code Est Pt Level 3 (56344) Complex EM visit Add On G2211 Diagnoses Subacromial bursitis of both shoulders M75.51; M75.52 CPT Codes Coding - Joint 7: 13826 - Glenohumeral/Tronchanteric Bursa/Intraarticular ([id number])
[2025-09-20 15:18] VITALS: BMI 29.2
== END 2025-09-20 15:38 | disposition home or self-care (01) ==
LOC: HO.HOS 14:41
PROVIDERS: PCP Internal Medicine Geriatric Medicine; Visit Provider Physician Assistant
DX: M75.51 Bursitis of right shoulder (principal); M75.52 Bursitis of left shoulder
CPT/HCPCS: 20610; 99213

== ENCOUNTER → 2025-09-20 15:05 | Outpatient (BNV) | payer MEDICAID, SELFPAY | PROVIDERS: Visit Provider Radiology Diagnostic Radiology | DX: M19.012 Primary osteoarthritis, left shoulder (principal); M25.511 Pain in right shoulder | CPT/HCPCS: 73030 ==